=== PATIENT | female | born 1970 | race Caucasian/White ===

== ENCOUNTER → 2018-06-07 07:43 | Outpatient (CLI) | payer BC, SELFPAY ==
--- NOTE | 2018-06-07 07:46 | BI_ITS ---
MAMMOGRAPHY - BILATERAL SCREENING REASON FOR EXAM: Female, 47 years old. Routine annual screening examination. PERTINENT HISTORY: Non-contributory. Prior left stereotactic breast biopsy. TECHNIQUE: Digital bilateral breast hallie (3D mammographic acquisition) in the CC and MLO projections. 2-D mediolateral oblique (MLO) and craniocaudad (CC) views of both breasts were obtained. CAD: Full Field Digital Mammography with Computer Added Detection was performed. COMPARISON: Comparison is made with prior study dated May 12, 2017 and May 07, 2016. FINDINGS: Breast Composition: The breasts are heterogeneously dense, which may obscure small masses. There are no dominant masses or suspicious calcifications. A tissue clip marker is seen within the small nodule in the upper lateral portion of the left breast. This is unchanged. A portacatheter is seen in the left axillary region. No other significant abnormalities are identified. There has been no significant change since the prior study. BI/SCREENING MAMM (CAD), BILAT IMPRESSION: Stable bilateral screening mammogram. Yearly follow-up mammogram recommended. (A) ASSESSMENT CATEGORY: BIRADS Category 2: Benign. A letter regarding these results will be sent to the patient by the facility within 30 days. Approximately 10% of breast cancers are not detected by mammography. A normal mammogram should not delay biopsy of a clinically suspicious abnormality. [id number] Electronically Signed: Jeff Meza MD at 11:04 EST , Service support ,
== END ==
PROVIDERS: Family Provider Nurse Practitioner; PCP Nurse Practitioner; Referring Provider Advanced Practice Midwife; Visit Provider Advanced Practice Midwife
DX: Z12.31 Encounter for screening mammogram for malignant neoplasm of breast (principal)
CPT/HCPCS: 77063; 77067

== ENCOUNTER → 2019-07-24 10:41 | Outpatient (CLI) | payer BC, SELFPAY ==
[2019-06-29 14:14] VITALS: BMI 25.9
[2019-07-24 13:28] LABS: Vitamin D,25 Hydroxy 28.7 ng/mL
[2019-07-24 13:40] LABS: Vitamin B12 > 2000 pg/mL (211-911)
[2019-07-24 14:09] LABS: ALB/GLOB Ratio 1.2 RATIO (0.9-2.4); AST(SGOT) 24 U/L (15-37); Alanine Aminotransfer ALT/SGPT 29 U/L (13-56); Albumin, Serum 3.9 g/dL (3.2-5.0); Alkaline Phosphatase 88 U/L (45-117); Anion Gap 4 (5-15); BUN 19 mg/dL (7-18); BUN/Creat Ratio 27.3 RATIO (10-20); Calcium,Total 9.2 mg/dL (8.5-10.1); Chloride 104 mmol/L (98-107); EST Glomerular Filtration Rate 95 mL/min (>60); Est Glom Filt Rate - Afr Amer 115 mL/min (>60); Globulin 3.3 g/dL (2.2-4.2); Glucose 87 mg/dL (74-106); Potassium 3.9 mmol/L (3.5-5.1); Protein, Total 7.2 g/dL (6.4-8.2); Sodium Level 139 mmol/L (136-145); T4 Free Direct 0.98 ng/dL (0.76-1.46); Thyroid Stim Hormone (TSH) 2.68 uIU/mL (0.358-3.74)
== END ==
PROVIDERS: PCP Internal Medicine; Referring Provider Internal Medicine; Visit Provider Internal Medicine
DX: Z13.29 Encounter for screening for other suspected endocrine disorder (principal); K91.2 Postsurgical malabsorption, not elsewhere classified; R53.82 Chronic fatigue, unspecified
CPT/HCPCS: 36415; 80053; 82306; 82607; 84439; 84443

== ENCOUNTER → 2020-05-31 08:27 | Outpatient (CLI) | payer BC, SELFPAY ==
[2020-05-31 08:05] VITALS: BMI 25.7
[2020-05-31 12:07] LABS: Absolute Lymphocyte Count 0.98 X10^3/uL (0.83-4.51); Absolute Neutrophil Count 1.6 X10^3/uL (2.0-7.7); Basophil# 0.02 X10^3/uL; Basophil% 0.7 % (0-1); Eosinophil# 0.16 X10^3/uL; Eosinophils% 5.4 % (0-5); Hematocrit 34.7 % (37-47); Hemoglobin 10.9 g/dL (12.0-15.0); Lymphocyte # 0.98 X10^3/ul (4.0); Lymphocyte % 32.9 % (19-41); Mean Corp Hgb Conc 31.4 g/dL (32-36); Mean Corpuscular Hgb 26.3 pg (27.0-32.0); Mean Corpuscular Volume 83.6 fL (81-99); Mean Platelet Vol. 10.4 fl (6.2-12.0); Monocyte# 0.24 X10^3/uL; Monocyte% 8.1 % (0-10); NRBC Flagged by Analyzer 0 % (0-5); Neutrophil # 1.57 X10^3/uL (2.7-7.7); Neutrophil % 52.6 % (47-70); Platelet Count 214 K/mm3 (150-450); RBC Distribution Width CV 12.6 % (11.6-14.6); RBC Distribution Width SD 38.3 fl (35.1-43.9); Red Blood Count 4.15 M/mm3 (4.2-5.4)
[2020-05-31 12:42] LABS: Vitamin B12 445 pg/mL (211-911); Vitamin D,25 Hydroxy 26.5 ng/mL
[2020-05-31 12:48] LABS: AST(SGOT) 15 U/L (15-37); Alanine Aminotransfer ALT/SGPT 27 U/L (13-56); Albumin, Serum 3.8 g/dL (3.2-5.0); Alkaline Phosphatase 94 U/L (45-117); Anion Gap 5 (5-15); BUN 27 mg/dL (7-18); BUN/Creat Ratio 39.6 RATIO (10-20); Calcium,Total 9.4 mg/dL (8.5-10.1); Chloride 104 mmol/L (98-107); Creatinine, Serum 0.68 mg/dL (0.55-1.02); EST Glomerular Filtration Rate 97 mL/min (>60); Est Glom Filt Rate - Afr Amer 117 mL/min (>60); Globulin 3.7 g/dL (2.2-4.2); Glucose 81 mg/dL (74-106); Potassium 3.7 mmol/L (3.5-5.1); Protein, Total 7.5 g/dL (6.4-8.2); Sodium Level 139 mmol/L (136-145); T4 Free Direct 1.07 ng/dL (0.76-1.46); Thyroid Stim Hormone (TSH) 1.83 uIU/mL (0.358-3.74)
== END ==
PROVIDERS: PCP Internal Medicine; Referring Provider Internal Medicine; Visit Provider Internal Medicine
DX: E53.8 Deficiency of other specified B group vitamins (principal); F41.9 Anxiety disorder, unspecified; F32.9 Major depressive disorder, single episode, unspecified
CPT/HCPCS: 36415; 80053; 82306; 82607; 84439; 84443; 85025

== ENCOUNTER → 2020-08-02 06:57 | Outpatient (CLI) | payer BC, SELFPAY ==
[2020-06-28 08:47] VITALS: BMI 27.1
--- NOTE | 2020-08-02 06:59 | BI_ITS ---
MAMMOGRAPHY - BILATERAL SCREENING REASON FOR EXAM: Female, 49 years old. Routine annual screening examination. PERTINENT HISTORY: Non-contributory. Left stereotactic breast biopsy. TECHNIQUE: Digital bilateral breast shawna (3D mammographic acquisition) in the CC and MLO projections. 2-D mediolateral oblique (MLO) and craniocaudad (CC) views of both breasts were obtained. CAD: Full Field Digital Mammography with Computer Added Detection was performed. COMPARISON: Comparison is made with prior examination dated 06/07/2018 and 05/12/2017. FINDINGS: Breast Composition: The breasts are heterogeneously dense, which may obscure small masses. There are no dominant masses or suspicious calcifications. A tissue clip marker is seen within a 7 mm nodule in the upper lateral portion of the left breast. This is unchanged. No other significant abnormalities are identified. There has been no significant change since the prior study. BI/SCRN MAMM (CAD)W/SHAWNA BILAT IMPRESSION: Stable bilateral screening mammogram. Yearly follow-up mammogram recommended. (A) ASSESSMENT CATEGORY: BIRADS Category 2: Benign. A letter regarding these results will be sent to the patient by the facility within 30 days. Approximately 10% of breast cancers are not detected by mammography. A normal mammogram should not delay biopsy of a clinically suspicious abnormality. [id number] Electronically Signed: Jeff Meza MD at 8:12 EDT , Service support ,
== END ==
PROVIDERS: PCP Internal Medicine; Referring Provider Obstetrics & Gynecology; Visit Provider Obstetrics & Gynecology
DX: Z12.31 Encounter for screening mammogram for malignant neoplasm of breast (principal)
CPT/HCPCS: 77063; 77067

== ENCOUNTER 2021-08-06 07:02 | Outpatient (CLI) | payer BC, SELFPAY ==
--- NOTE | 2021-08-06 07:05 | BI_ITS ---
MAMMOGRAPHY - BILATERAL SCREENING REASON FOR EXAM: Female, 50 years old. Routine annual screening examination. PERTINENT HISTORY: Non-contributory. Prior left stereotactic breast biopsy. TECHNIQUE: Digital bilateral breast shawna (3D mammographic acquisition) in the CC and MLO projections. 2-D mediolateral oblique (MLO) and craniocaudad (CC) views of both breasts were obtained. CAD: Full Field Digital Mammography with Computer Added Detection was performed. COMPARISON: Comparison is made with prior study dated 08/02/2020 and 06/07/2018. FINDINGS: Breast Composition: The breasts are heterogeneously dense, which may obscure small masses. There is a 1.1 cm x 1 cm nodule in the deep slightly upper lateral aspect of the right breast. Correlation with ultrasound is recommended. A tissue clip marker is seen within a 7 mm nodule in the upper lateral portion of the left breast. No other significant abnormalities are identified. BI/SCRN MAMM (CAD)W/SHAWNA BILAT IMPRESSION: 1.1 cm x 1 cm nodule in the deep slightly upper lateral aspect of the right breast. Correlation with ultrasound is recommended. ASSESSMENT CATEGORY: BIRADS Category 0: Incomplete. Need additional imaging evaluation. A letter regarding these results will be sent to the patient by the facility within 30 days. Approximately 10% of breast cancers are not detected by mammography. A normal mammogram should not delay biopsy of a clinically suspicious abnormality. [id number] Electronically Signed: Jeff Meza MD at 8:32 EDT ,
[2021-08-06 09:00] LABS: Absolute Lymphocyte Count 0.97 X10^3/uL (0.83-4.51); Absolute Neutrophil Count 2.2 X10^3/uL (2.0-7.7); Basophil# 0.02 X10^3/uL; Basophil% 0.5 % (0-1); Eosinophil# 0.14 X10^3/uL; Eosinophils% 3.8 % (0-5); Hematocrit 37.7 % (37-47); Hemoglobin 12.8 g/dL (12.0-15.0); Lymphocyte # 0.97 X10^3/ul (0.83-4.51); Lymphocyte % 26.6 % (19-41); Mean Corpuscular Hgb 31.1 pg (27.0-32.0); Mean Corpuscular Volume 91.7 fL (81-99); Mean Platelet Vol. 10.3 fl (6.2-12.0); Monocyte# 0.31 X10^3/uL; Monocyte% 8.5 % (0-10); NRBC Flagged by Analyzer 0 % (0-5); Neutrophil # 2.19 X10^3/uL (2.7-7.7); Neutrophil % 60.1 % (47-70); Platelet Count 180 K/mm3 (150-450); RBC Distribution Width CV 12.1 % (11.6-14.6); RBC Distribution Width SD 40.4 fl (35.1-43.9); Red Blood Count 4.11 M/mm3 (4.2-5.4); White Blood Count 3.7 K/mm3 (4.4-11.0)
[2021-08-06 09:24] LABS: ALB/GLOB Ratio 1.2 RATIO (0.9-2.4); AST(SGOT) 23 U/L (15-37); Alanine Aminotransfer ALT/SGPT 45 U/L (13-56); Albumin, Serum 3.9 g/dL (3.2-5.0); Alkaline Phosphatase 114 U/L (45-117); Anion Gap 3 (5-15); BUN 20 mg/dL (7-18); BUN/Creat Ratio 28.9 RATIO (10-20); Calcium,Total 8.8 mg/dL (8.5-10.1); Chloride 105 mmol/L (98-107); Cholesterol 160 mg/dL (200); Creatinine, Serum 0.69 mg/dL (0.55-1.02); EST Glomerular Filtration Rate 95 mL/min (>60); Est Glom Filt Rate - Afr Amer 115 mL/min (>60); Globulin 3.2 g/dL (2.2-4.2); Glucose 87 mg/dL (74-106); High Density Lipoprotein 79 mg/dL; Potassium 3.8 mmol/L (3.5-5.1); Protein, Total 7.1 g/dL (6.4-8.2); Sodium Level 140 mmol/L (136-145); Triglycerides 87 mg/dL; Very Low Density Lipoprotein 17 mg/dL (5-40)
== END 2021-08-06 23:59 | disposition home or self-care (01) ==
PROVIDERS: PCP Internal Medicine; Referring Provider Obstetrics & Gynecology; Visit Provider Obstetrics & Gynecology
DX: Z12.31 Encounter for screening mammogram for malignant neoplasm of breast (principal)
CPT/HCPCS: 36415; 77063; 77067; 80053; 80061; 85025

== ENCOUNTER 2021-08-11 13:24 | Outpatient (CLI) | payer BC, SELFPAY ==
--- NOTE | 2021-08-11 13:26 | US_ITS ---
STUDY: ULTRASOUND BREAST - RIGHT REASON FOR EXAM: Female, 50 years old. Abnormal screening mammogram. TECHNIQUE: Axial and longitudinal images of the RIGHT breast were performed with a high resolution ultrasound transducer. # OF IMAGES: 31 COMPARISON: Comparison is made with prior mammogram dated 08/06/2021. FINDINGS: RIGHT Breast: The upper outer quadrant of the right breast was examined by ultrasound. No sonographic abnormality is seen. Additional mammographic views will be obtained. US/Breast Limited Unilateral IMPRESSION: Unremarkable ultrasound of the right upper quadrant. Additional mammographic views will be obtained. ASSESSMENT CATEGORY: BIRADS Category 0: Incomplete. Need additional imaging evaluation. A letter regarding these results will be sent to the patient by the facility within 30 days. Electronically Signed: Jeff Meza MD at 14:32 EDT ,
--- NOTE | 2021-08-11 13:56 | BI_ITS ---
MAMMOGRAPHY - UNILATERAL DIAGNOSTIC: RIGHT BREAST REASON FOR EXAM: Female, 50 years old. Abnormal screening mammogram. PERTINENT HISTORY: Non-contributory. TECHNIQUE: 90 degree lateral view of the right breast was obtained. CAD: Full Field Digital Mammography with Computer Added Detection was performed. COMPARISON: Comparison is made with prior mammogram dated 08/06/2021. FINDINGS: Breast Composition: The breasts are heterogeneously dense, which may obscure small masses. There are no dominant masses or suspicious calcifications. No other significant abnormalities are identified. BI/DIAG MAMM W/CAD, UNILAT IMPRESSION: Stable unilateral diagnostic mammogram. One year follow-up mammogram recommended. (A) ASSESSMENT CATEGORY: BIRADS Category 1: Negative. A letter regarding these results will be sent to the patient by the facility within 30 days. Approximately 10% of breast cancers are not detected by mammography. A normal mammogram should not delay biopsy of a clinically suspicious abnormality. Electronically Signed: Jeff Meza MD at 14:31 EDT ,
== END 2021-08-11 23:59 | disposition home or self-care (01) ==
LOC: OPUS 13:25
PROVIDERS: PCP Internal Medicine; Visit Provider Obstetrics & Gynecology
DX: R92.2 Inconclusive mammogram (principal); R92.8 Other abnormal and inconclusive findings on diagnostic imaging of breast
CPT/HCPCS: 76642; 77065

== ENCOUNTER → 2022-06-10 | Outpatient (CLI) | payer BC, SELFPAY ==
[2022-06-10 12:29] LABS: Absolute Lymphocyte Count 1.33 X10^3/uL (0.83-4.51); Absolute Neutrophil Count 2.9 X10^3/uL (2.0-7.7); Basophil# 0.04 X10^3/uL; Basophil% 0.8 % (0-1); Eosinophil# 0.14 X10^3/uL; Eosinophils% 2.8 % (0-5); Hematocrit 36.2 % (37-47); Hemoglobin 11.4 g/dL (12.0-15.0); Lymphocyte # 1.33 X10^3/ul (0.83-4.51); Lymphocyte % 26.7 % (19-41); Mean Corp Hgb Conc 31.5 g/dL (32-36); Mean Corpuscular Hgb 28.2 pg (27.0-32.0); Mean Corpuscular Volume 89.6 fL (81-99); Mean Platelet Vol. 9.9 fl (6.2-12.0); Monocyte# 0.54 X10^3/uL; Monocyte% 10.8 % (0-10); NRBC Flagged by Analyzer 0 % (0-5); Neutrophil # 2.92 X10^3/uL (2.7-7.7); Neutrophil % 58.7 % (47-70); Platelet Count 212 K/mm3 (150-450); RBC Distribution Width CV 12.4 % (11.6-14.6); Red Blood Count 4.04 M/mm3 (4.2-5.4)
[2022-06-10 13:16] LABS: ALB/GLOB Ratio 1.1 RATIO (0.9-2.4); AST(SGOT) 21 U/L (15-37); Alanine Aminotransfer ALT/SGPT 33 U/L (13-56); Albumin, Serum 3.7 g/dL (3.2-5.0); Alkaline Phosphatase 115 U/L (45-117); Anion Gap 4 (5-15); BUN 27 mg/dL (7-18); BUN/Creat Ratio 31.3 RATIO (10-20); Calcium,Total 8.8 mg/dL (8.5-10.1); Chloride 108 mmol/L (98-107); Creatinine, Serum 0.86 mg/dL (0.55-1.02); EST Glomerular Filtration Rate 73 mL/min (>60); Est Glom Filt Rate - Afr Amer 89 mL/min (>60); Globulin 3.5 g/dL (2.2-4.2); Glucose 72 mg/dL (74-106); Protein, Total 7.2 g/dL (6.4-8.2); Sodium Level 143 mmol/L (136-145); T4 Free Direct 0.99 ng/dL (0.76-1.46); Thyroid Stim Hormone (TSH) 1.82 uIU/mL (0.358-3.74)
== END | disposition home or self-care (01) ==
LOC: LAB 12:17
PROVIDERS: PCP Internal Medicine; Referring Provider Internal Medicine; Visit Provider Internal Medicine
DX: F41.9 Anxiety disorder, unspecified (principal); F32.9 Major depressive disorder, single episode, unspecified
CPT/HCPCS: 36415; 80053; 84439; 84443; 85025

== ENCOUNTER → 2022-08-20 | Outpatient (CLI) | payer BC, SELFPAY ==
--- NOTE | 2022-08-20 07:59 | BI_ITS ---
MAMMOGRAPHY - BILATERAL SCREENING REASON FOR EXAM: Female, 51 years old. Routine annual screening examination. PERTINENT HISTORY: Non-contributory. TECHNIQUE: Digital bilateral breast shawna (3D mammographic acquisition) in the CC and MLO projections. 2-D mediolateral oblique (MLO) and craniocaudad (CC) views of both breasts were obtained. CAD: Full Field Digital Mammography with Computer Added Detection was performed. COMPARISON: Comparison is made with prior study dated August 06, 2021 FINDINGS: Breast Composition: The breasts are heterogeneously dense, which may obscure small masses. There are no dominant masses or suspicious calcifications. A tissue clip marker is once again seen in the upper lateral aspect of the left breast. No other significant abnormalities are identified. There has been no significant change since the prior study. BI/SCRN MAMM (CAD)W/SHAWNA BILAT IMPRESSION: Stable bilateral screening mammogram. Yearly follow-up mammogram recommended. (A) ASSESSMENT CATEGORY: BIRADS Category 2: Benign. A letter regarding these results will be sent to the patient by the facility within 30 days. Approximately 10% of breast cancers are not detected by mammography. A normal mammogram should not delay biopsy of a clinically suspicious abnormality. [id number] Electronically Signed: Jeff Meza MD at 10:58 EDT ,
== END | disposition home or self-care (01) ==
LOC: OPBI 07:57
PROVIDERS: PCP Internal Medicine; Referring Provider Obstetrics & Gynecology; Visit Provider Obstetrics & Gynecology
DX: Z12.31 Encounter for screening mammogram for malignant neoplasm of breast (principal)
CPT/HCPCS: 77063; 77067

== ENCOUNTER → 2023-10-12 | Outpatient (CLI) | payer BC, SELFPAY ==
--- NOTE | 2023-10-12 07:03 | BI_ITS ---
MAMMOGRAPHY - BILATERAL SCREENING REASON FOR EXAM: Female, 52 years old. Routine annual screening examination. PERTINENT HISTORY: Non-contributory. Prior left stereotactic breast biopsy. TECHNIQUE: Digital bilateral breast shawna (3D mammographic acquisition) in the CC and MLO projections. 2-D mediolateral oblique (MLO) and craniocaudad (CC) views of both breasts were obtained. CAD: Full Field Digital Mammography with Computer Added Detection was performed. COMPARISON: Comparison is made with prior study dated August 20, 2022 and August 11, 2021. FINDINGS: Breast Composition: The breasts are heterogeneously dense, which may obscure small masses. There are no dominant masses or suspicious calcifications. A tissue clip marker is seen in the upper lateral aspect of the left breast within a 7.2 mm nodule. There is a 5.9 mm x 7.4 mm well-defined nodule in the anterior upper lateral aspect of the right breast. Correlation with ultrasound is recommended.. No other significant abnormalities are identified. BI/SCRN MAMM (CAD)W/SHAWNA BILAT IMPRESSION: 5.9 mm x 7.4 mm well-defined nodule in the anterior upper lateral aspect of the right breast. Correlation with ultrasound is recommended. ASSESSMENT CATEGORY: BIRADS Category 0: Incomplete. Need additional imaging evaluation. A letter regarding these results will be sent to the patient by the facility within 30 days. Approximately 10% of breast cancers are not detected by mammography. A normal mammogram should not delay biopsy of a clinically suspicious abnormality. [id number] Electronically Signed: Jeff Meza MD at 8:41 EDT ,
== END | disposition home or self-care (01) ==
LOC: OPBI 07:03
PROVIDERS: PCP Internal Medicine; Referring Provider Internal Medicine; Visit Provider Internal Medicine
DX: Z12.31 Encounter for screening mammogram for malignant neoplasm of breast (principal)
CPT/HCPCS: 77063; 77067

== ENCOUNTER → 2023-10-13 | Outpatient (CLI) | payer BC, SELFPAY ==
--- NOTE | 2023-10-13 08:21 | US_ITS ---
STUDY: ULTRASOUND BREAST - RIGHT REASON FOR EXAM: Female, 52 years old. Abnormal screening mammogram. TECHNIQUE: Axial and longitudinal images of the RIGHT breast were performed with a high resolution ultrasound transducer. # OF IMAGES: 28 COMPARISON: Comparison is made with prior mammogram dated October 12, 2023. FINDINGS: RIGHT Breast: The upper-outer quadrant of the right breast was examined with ultrasound. Mild ductal dilatation. No other abnormality is seen. US/Breast Limited Unilateral IMPRESSION: Mild ductal dilatation. ASSESSMENT CATEGORY: BIRADS Category 2: Benign. A letter regarding these results will be sent to the patient by the facility within 30 days. Electronically Signed: Jeff Meza MD at 11:32 EDT ,
== END | disposition home or self-care (01) ==
LOC: OPUS 08:18
PROVIDERS: PCP Internal Medicine; Referring Provider Internal Medicine; Visit Provider Internal Medicine
DX: N63.10 Unspecified lump in the right breast, unspecified quadrant (principal)
CPT/HCPCS: 76642

== ENCOUNTER → 2024-07-21 | Outpatient (CLI) | payer BC, SELFPAY ==
[2024-07-21 12:54] LABS: Absolute Lymphocyte Count 0.84 X10^3/uL (0.83-4.51); Absolute Neutrophil Count 1.8 X10^3/uL (2.0-7.7); Basophil# 0.03 X10^3/uL; Eosinophil# 0.14 X10^3/uL; Eosinophils% 4.6 % (0-5); Hematocrit 31.2 % (37-47); Hemoglobin 9.6 g/dL (12.0-15.0); Lymphocyte # 0.84 X10^3/ul (0.83-4.51); Lymphocyte % 27.7 % (19-41); Mean Corp Hgb Conc 30.8 g/dL (32-36); Mean Corpuscular Hgb 23.6 pg (27.0-32.0); Mean Corpuscular Volume 76.8 fL (81-99); Mean Platelet Vol. 10.5 fl (6.2-12.0); Monocyte# 0.24 X10^3/uL; Monocyte% 7.9 % (0-10); NRBC Flagged by Analyzer 0 % (0-5); Neutrophil # 1.78 X10^3/uL (2.7-7.7); Neutrophil % 58.8 % (47-70); Platelet Count 237 K/mm3 (150-450); RBC Distribution Width CV 13.9 % (11.6-14.6); RBC Distribution Width SD 38.8 fl (35.1-43.9); Red Blood Count 4.06 M/mm3 (4.2-5.4)
[2024-07-21 13:27] LABS: ALB/GLOB Ratio 1.5 RATIO (0.9-2.4); AST(SGOT) 23 U/L (<=31); Alanine Aminotransfer ALT/SGPT 15 U/L (<=34); Albumin, Serum 4.3 g/dL (3.5-5.0); Alkaline Phosphatase 94 U/L (35-104); Anion Gap 10 (5-15); BUN 18 mg/dL (4-19); BUN/Creat Ratio 21.1 RATIO (10-20); Calcium,Total 9.6 mg/dL (7.6-11.0); Carbon Dioxide 27.1 mmol/L (21.0-32.0); Chloride 103 mmol/L (98-108); Creatinine, Serum 0.87 mg/dL (0.70-1.20); EST Glomerular Filtration Rate 79 (>60); Globulin 2.9 g/dL (2.2-4.2); Glucose 91 mg/dL (70-99); Potassium 3.9 mmol/L (3.3-5.1); Protein, Total 7.2 g/dL (5.9-8.4); Sodium Level 140 mmol/L (133-145)
[2024-07-21 16:02] LABS: Ferritin 6 ng/mL (22-378); Iron 19 ug/dL (50-170); Iron Binding Capacity,Unsat 461 ug/dL (228-428)
[2024-07-21 16:12] LABS: Cholesterol 170 mg/dL (<=200); High Density Lipoprotein 73 mg/dL; Low Density Lipoprotein Calc. 82 mg/dL; Triglycerides 75 mg/dL; Very Low Density Lipoprotein 15 mg/dL (5-40); cholesterol:hdl ratio screen 2.32
[2024-07-21 16:34] LABS: Vitamin B12 475 pg/mL (180-914); Vitamin D,25 Hydroxy 25.8 ng/mL (30-100)
[2024-07-21 16:53] LABS: Iron Binding Capacity,Total 480 ug/dL (250-450)
== END | disposition home or self-care (01) ==
LOC: BIMLAB 10:50
PROVIDERS: PCP Internal Medicine; Referring Provider Internal Medicine; Visit Provider Internal Medicine
DX: E53.8 Deficiency of other specified B group vitamins (principal); K91.2 Postsurgical malabsorption, not elsewhere classified; Z98.84 Bariatric surgery status; D64.9 Anemia, unspecified; Z13.6 Encounter for screening for cardiovascular disorders; F41.9 Anxiety disorder, unspecified; F32.9 Major depressive disorder, single episode, unspecified
CPT/HCPCS: 36415; 80053; 80061; 82306; 82607; 82728; 83540; 83550; 85025

== ENCOUNTER → 2024-10-13 | Outpatient (CLI) | payer BC, SELFPAY ==
[2024-10-13 15:21] LABS: Absolute Lymphocyte Count 1.23 X10^3/uL (0.83-4.51); Absolute Neutrophil Count 2.1 X10^3/uL (2.0-7.7); Basophil# 0.03 X10^3/uL; Basophil% 0.8 % (0-1); Eosinophil# 0.14 X10^3/uL; Eosinophils% 3.6 % (0-5); Hematocrit 29.6 % (37-47); Hemoglobin 8.5 g/dL (12.0-15.0); Lymphocyte # 1.23 X10^3/ul (0.83-4.51); Mean Corp Hgb Conc 28.7 g/dL (32-36); Mean Corpuscular Hgb 21.3 pg (27.0-32.0); Mean Platelet Vol. 10.8 fl (6.2-12.0); Monocyte# 0.33 X10^3/uL; Monocyte% 8.6 % (0-10); NRBC Flagged by Analyzer 0 % (0-5); Neutrophil # 2.11 X10^3/uL (2.7-7.7); Platelet Count 256 K/mm3 (150-450); RBC Distribution Width CV 15.9 % (11.6-14.6); White Blood Count 3.8 K/mm3 (4.4-11.0)
[2024-10-13 16:46] LABS: Ferritin 7 ng/mL (22-378); Iron 17 ug/dL (50-170); Iron Binding Capacity,Unsat 481 ug/dL (228-428)
[2024-10-13 16:50] LABS: Iron Binding Capacity,Total 498 ug/dL (250-450); PERCENT IRON SATURATION 3.4 % (13-59)
== END | disposition home or self-care (01) ==
LOC: BIMLAB 13:34
PROVIDERS: PCP Internal Medicine; Referring Provider Internal Medicine; Visit Provider Internal Medicine
DX: D64.9 Anemia, unspecified (principal)
CPT/HCPCS: 36415; 82728; 83540; 83550; 85025

== ENCOUNTER 2024-10-20 10:19 | Outpatient (CLI) | payer BC, SELFPAY ==
[2024-10-20 10:28] VITALS: BP 100/57; PULSE 77; RESP 16; TEMP 36.4; O2SAT 99; BMI 23.1
[2024-10-20] MEDS: Iron Sucrose Complex 200 MG in 0.9% Normal Saline (100mL Bag) 100 ML 220 MG IV (10:44)
[2024-10-20] MEDS: 0.9% NaCl IVPB Med Flush (250 mL) 15 ML IV (10:44)
[2024-10-20 11:22] VITALS: BP 108/63; PULSE 56; RESP 16; TEMP 36.1; O2SAT 99
[2024-10-20 11:56] VITALS: BP 98/52; PULSE 59; RESP 16; TEMP 36.1; O2SAT 100
== END 2024-10-20 23:59 | disposition home or self-care (01) ==
LOC: MEDOUTP 10:20
PROVIDERS: PCP Internal Medicine; Referring Provider Internal Medicine; Visit Provider Internal Medicine
DX: D50.9 Iron deficiency anemia, unspecified (principal); K91.2 Postsurgical malabsorption, not elsewhere classified
CPT/HCPCS: 96365; J1756; A4216

== ENCOUNTER 2024-10-23 11:48 | Outpatient (CLI) | payer BC, SELFPAY ==
[2024-10-23] MEDS: Iron Sucrose Complex (Venofer) 200 MG in 0.9% NaCl 100 ML 220 MG IV (12:15)
[2024-10-23] MEDS: 0.9% NaCl IVPB Med Flush (100mL) 15 ML IV (12:15)
[2024-10-23] MEDS: 0.9% NaCl Peripheral Flush Adult IV (12:15)
[2024-10-23 12:17] VITALS: BP 97/40; PULSE 63; RESP 16; TEMP 35.9; O2SAT 96; BMI 23.1
[2024-10-23 13:14] VITALS: BP 95/41; PULSE 55; RESP 16; TEMP 35.8; O2SAT 97
== END 2024-10-23 23:59 | disposition home or self-care (01) ==
LOC: MEDOUTP 11:48
PROVIDERS: PCP Internal Medicine; Referring Provider Internal Medicine; Visit Provider Internal Medicine
DX: D50.9 Iron deficiency anemia, unspecified (principal); K91.2 Postsurgical malabsorption, not elsewhere classified
CPT/HCPCS: 96365; J1756; A4216

== ENCOUNTER 2024-10-25 11:59 | Outpatient (CLI) | payer BC, SELFPAY ==
[2024-10-25 12:05] VITALS: BP 98/46; PULSE 66; RESP 16; TEMP 35.6; O2SAT 100; BMI 23.1
[2024-10-25] MEDS: 0.9% NaCl Peripheral Flush Adult IV (12:11)
[2024-10-25] MEDS: 0.9% NaCl IVPB Med Flush (100mL) 15 ML IV (12:11)
[2024-10-25] MEDS: Iron Sucrose Complex 200 MG in 0.9% Normal Saline (100mL Bag) 100 ML 220 MG IV (12:58)
[2024-10-25 14:52] VITALS: BP 90/40; PULSE 51; RESP 16; TEMP 35.9; O2SAT 100
--- OUTSIDE RECORDS SUMMARY | 2024-10-25 21:53 | XMS RPT_ITS | CCD ---
Author Organization [facility] [place] [facility] Care Team Providers Care Brick Kiln Worker Name Role Phone LEONIDAS DEAN Unavailable Unavailable LEONIDAS DEAN Unavailable Unavailable MALRALEIGH ANNABELLA A Unavailable Unavailable LEONIDAS DEAN Unavailable Unavailable LEONIDAS DEAN Unavailable Unavailable MALYS, ANNABELLA A Unavailable Unavailable Ciesa Marleen Unavailable Edith Peñaloza Unavailable Unavailable Jannette Bolivar Unavailable Unavailable Unavailable Unavailable Marrya Marleen Unavailable Olivia Bower Unavailable Unavailable Unavailable Unavailable Radha Collins Unavailable Unavailable Yamel Castaneda Attending Unavailable Marrya Yamel Referring Unavailable Marrya Yamel Consulting Unavailable Yuri Lawson Unavailable Unavailable Maxine José Unavailable Unavailable Manjuancarlos, Lashaun Unavailable Unavailable Leatha Fuentes MD Primary Care Provider 1(3 30) Dr. Leatha Fuentes Primary Care Provider 1(33 0) Dr. Leatha Fuentes Attending Provider [phone])2 Dr. Leatha Fuentes Referring Provider [phone])2 Otf STAPLES, ANGELICA Harris Attending Provider [phone] Leatha Fuentes MD Primary Care Provider 1(3 30) Dr. Leatha Fuentes Primary Care Provider 1(33 0) Dr. Leatha Fuentes Attending Provider [phone])2 Dr. Leatha Fuentes Referring Provider [phone])2 Leatha Fuentes MD Primary Care Provider 1(3 30) Oleghe, Dr. Efewongbe Primary Care Provider 1(33 0) Dr. Leatha Fuentes Attending Provider [phone])2 Dr. Leatha Fuentes Referring Provider [phone])2 Otf OVERNIGHT CASHIER, ITZC Steven Attending Provider 1(330) Leatha Fuentes MD Primary Care Provider 1(3 30) Ross, Jess Referring Unavailable OLEGHE, EFEWONGBE B Primary Care Unavailable Ross, Jess Referring Unavailable OLEGHE, EFEWONGBE B Primary Care Unavailable Ross, Jess Referring Unavailable OLEGHE, EFEWONGBE B Primary Care Unavailable OLEGHE, EFEWONGBE B Primary Care Unavailable Ross, Jess Referring Unavailable Ross, Jess Referring Unavailable Ross, Jess Attending Unavailable OLEGHE, EFEWONGBE B Primary Care Unavailable Ross, Jess Referring Unavailable OLEGHE, EFEWONGBE B Primary Care Unavailable Lakishae Dr. Leatha WEINER Primary Care Provider Dr. Leatha Fuentes MD Attending Provider 1(33 0) Dr. Leatha Fuentes MD Referring Provider 1(33 0) Oleadenikee, Efewongbe Attending Unavailable Oleghe, Efewongbe Primary Care Unavailable Oleghe, Efewongbe Referring Unavailable Oleghe, Efewongbe Referring Unavailable Oleghe, Efewongbe Primary Care Unavailable Oleghe, Efewongbe Attending Unavailable Oleghe, Efewongbe Referring Unavailable Oleghe, Efewongbe Primary Care Unavailable Oleghe, Efewongbe Attending Unavailable Oleghe, Efewongbe Referring Unavailable Oleghe, Efewongbe Primary Care Unavailable Oleghe, Efewongbe Attending Unavailable Oleghe, Efewongbe Referring Unavailable Oleghe, Efewongbe Primary Care Unavailable Oleghe, Efewongbe Attending Unavailable Oleghe, Efewongbe Referring Unavailable Oleghe, Efewongbe Primary Care Unavailable Oleghe, Efewongbe Attending Unavailable Oleghe, Efewongbe Primary Care Unavailable Oleghe, Efewongbe Referring Unavailable Oleghe, Efewongbe Attending Unavailable Oleghe, Efewongbe Primary Care Unavailable Oleghe, Efewongbe Referring Unavailable Oleghe, Efewongbe Attending Unavailable Oleghe, Efewongbe Attending Unavailable Oleghe, Efewongbe Primary Care Unavailable Oleghe, Efewongbe Referring Unavailable Oleghe, Efewongbe Primary Care Unavailable Oleghe, Efewongbe Referring Unavailable Oleghe, Efewongbe Attending Unavailable Oleghe, Efewongbe Primary Care Unavailable Oleghe, Efewongbe Referring Unavailable Oleghe, Efewongbe Attending Unavailable Oleghe, Efewongbe Primary Care Unavailable NURSE, BIM Attending Unavailable Oleghe, Efewongbe Referring Unavailable Oleghe, Efewongbe Referring Unavailable Oleghe, Efewongbe Primary Care Unavailable Oleghe, Efewongbe Attending Unavailable Allergies Allergy Classification Reported Allergen(s) Allergy Type Date of Onset Reaction(s) Facility Nitroimidazoles (antibiotic) (1 source) metroNIDAZOLE Drug Allergy 06-28-19 21 GI Upset [facility] Opioid Agonists (1 source) Codeine Drug Allergy 09-08-19 15 GI Upset, Vomiting [facility] (16 sources) NSAIDs; Translations: [NSAIDs] allergy to substance [facility] Work Phone: Comment on above: had Gastric Bypass (16 sources) Codeine/Codeine Derivatives; Translations: [Codeine/Codeine Derivatives] allergy to substance [facility] Work Phone: Comment on above: [place] (20 sources) Codeine; Translations: [CODEINE] Drug Allergy 09-08-19 15 GI Upset, Vomiting [facility] (20 sources) metroNIDAZOLE; Translations: [METRONIDAZOLE] Drug Allergy 06-28-19 21 GI Upset [facility] (5 sources) Non-steroidal anti-inflammator y agent; Translations: [NSAIDS (NON-STEROIDAL ANTI-INFLAMMATOR Y DRUG)] Propensity to adverse reactions to drug 09-08-19 15 Other: See Comments [facility] (10 sources) NSAIDS (Non-Steroidal Anti-Inflamma; Translations: [NSAIDS (Non-Steroidal Anti-Inflamma] Propensity to adverse reactions 03-26-20 21 Other [facility] (4 sources) EXTENDED RELEASE TABS Propensity to adverse reactions 03-26-20 21 Other [facility] (17 sources) Non-steroidal anti-inflammator y agent Propensity to adverse reactions to drug 09-08-19 15 Other: See Comments [facility] (1 source) Codeine Drug Allergy 10-24-19 [facility] Repository (1 source) metroNIDAZOLE Drug Allergy 10-24-19 [facility] Repository Medications Current Medications Medication Drug Class(es) Dates Sig (Normalized) Sig (Original) ascorbic acid 100 mg oral tablet (20 sources) Vitamin C take 1 tablet by mouth once daily Ascorbic Acid 100 mg tablet Take 100 mg by mouth once daily. Active Comment on above: Take 100 mg by mouth once daily. Calcium Carbonate / vitamin D3 (20 sources) take 1 tablet by mouth once daily CALCIUM CARBONATE/VITAMIN D3 (CALCIUM 600 + D ORAL) Take 1 tablet by mouth once daily. Active take 1 tablet by mouth once garth y CALCIUM CARBONATE/VITAMIN D3 (CALCIUM 600 + D ORAL) Take 1 tablet by mouth once daily. 0 Active Comment on above: Take 1 tablet by sapphire th once daily. cholecalciferol 0.05 mg chewable tablet (13 sources) Vitamin D Start: 06-23-19 End: 10-14-19 take 1 tablet by mouth once daily Cholecalciferol (Vitamin D3) 50 mcg (2,000 unit) tablet,chewable Active 2000 U PO DAILY 90 October 13, 2024 1:19pm cholestyramine resin 4000 mg powder for oral suspension (20 sources) Bile Acid Sequestrant Start: 10-14-19 25 Cholestyramine (With Sugar) 4 gram powder Active 4 g PO DAILY 378 October 13, 2024 1:19pm Start: 01-19-2024 End: 03-19-2024 take 1 dose by mouth twice daily at mealtime cholestyramine (QUESTRAN) 4 gram packet Take 1 Packet by mouth two times a day with meals. 60 Packet 1 01/19/2024 03/19/2024 Active Start: 05-20-2022 End: 10-13-2024 Cholestyramine (With Sugar) 4 gram powder Discontinued 4 g PO DAILY 378 May 20, 2022 7:26pm October 13, 2024 1:01pm Start: 05-20-2022 Cholestyramine (With Sugar) 4 gram powder Active 4 g PO DAILY 378 May 20, 2022 7:26pm Start: 05-20-2022 take 4 g by mouth once daily C holestyramine (With Sugar) Active 4 GM PO DAILY 378 May 20, 2022 7:26pm Start: 05-20-2022 take 4 g by mouth once daily C holestyramine (With Sugar) Active 4 GM PO DAILY 378 May 20, 2022 6:26pm Start: 11-11-2021 End: 05-20-2022 Cholestyramine (With Sugar) 4 gram powder Discontinued 4 NMA PO .po November 11, 2021 12:00am May 20, 2022 7:26pm Cholestyramine, Bulk, powd (18 sources) Start: 10-01-2021 Cholestyramine, Bulk, powd 4 g three times daily. 500 g 1 10/01/2021 Active Comment on above: 4 g three times garth y. clobetasol propionate 0.0005 mg/mg topical ointment (4 sources) Corticosteroid Start: 10-13-2024 Clobetasol 0.05 % ointment Active 1 NMA TOPICAL TWICE A DAY 30 14 October 13, 2024 12:00am ferrous sulfate 325 mg oral tablet (20 sources) Start: 10-13-2024 take 1 tablet by mouth once daily Ferrous Sulfate 325 mg (65 mg iron) tablet Active 325 mg PO daily 90 October 13, 2024 1:20pm Start: 07-09-2014 End: 10-13-2024 take 1 tablet by mouth three times daily Ferrous Sulfate 325 MG tablet Discontinued 325 mg PO THREE TIMES A DAY July 09, 2014 12:00am October 13, 2024 1:01pm take 65 mg by mouth once daily F ERROUS SULFATE ORAL Take 65 mg by mouth once daily. Active take 65 mg by mouth once daily F ERROUS SULFATE ORAL Take 65 mg by mouth once daily. 0 Active Comment on above: Take 65 mg by mouth once daily. heparin (1 source) Unfractionated Heparin, Anti-coagulant Start: 02-27-2019 End: 07-23-2021 heparin 100 unit/mL injection NURSING USE ONLY: USE FOR IMPLANTED VASCULAR ACCESS DEVICE (IVAD) FLUSH. AMBULATORY/OUTPATIENT: PLEASE REORDER UPON HOSPITAL DISCHARGE May access implanted vascular access device (IVAD) as needed for treatment. Before de-accessing port, flush with 10-20ml normal saline and follow with 5 mL heparin (100 units/mL) (if no heparin allergy). De-access port on treatment completion. 5 mL 11 02/27/2019 07/23/2021 Discontinued Comment on above: NURSING USE ONLY: USE FOR IMPLANTED VASCULAR ACCESS DEVICE (IVAD) FLUSH. AMBULATORY/OUTPATIENT: PLEASE REORDER UPON HOSPITAL DISCHARGE May access implanted vascular access device (IVAD) as needed for treatment. Before de-accessing port, flush with 10-20ml normal saline and follow with 5 mL heparin (100 units/mL) (if no heparin allergy). De-access port on treatment completion. holy basil (9 sources) Start: 06-23-2019 holy basil Active PO June 23, 2019 9:34am Start: 06-23-2019 End: 11-04-2022 holy basil Discontinued PO F ebruary 2019 1:00am November 04, 2022 5:10pm Start: 06-23-2019 holy basil Act batool PO June 23, 2019 1:00am Start: 06-23-2019 holy basil Act batool PO June 23, 2019 12:00am L. Gasseri-B. Bifidum-B Long um (Viveve) 1.5 billion cell capsule (9 sources) Start: 06-29-2019 L. Gasseri-B. Bifidum-B Longum (Viveve) 1.5 billion cell capsule Active CAP PO DAILY June 29, 2019 3:19pm Start: 06-29-2019 End: 10-13-2024 take 1.5 capsules by mouth once daily L. Gasseri-B. Bifidum-B Longum (Viveve) 1.5 billion cell capsule Discontinued NMA PO DAILY June 29, 2019 1:00am October 13, 2024 1:01pm Start: 06-29-2019 take 1.5 capsules by mouth once daily L. Gasseri-B. Bifidum-B Longum (Viveve) 1.5 billion cell capsule Active NMA PO DAILY June 29, 2019 1:00am Start: 06-29-2019 L. Gasseri-B. Bifidum-B Longum (Viveve) 1.5 billion cell capsule Active CAP PO DAILY June 29, 2019 1:00am Start: 06-29-2019 L. Gasseri-B. Bifidum-B Longum (Viveve) 1.5 billion cell capsule Active CAP PO DAILY June 29, 2019 12:00am Lactobacillus acidophilus (20 sources) Lactobacillus ac idophilus (PROBIOTIC ORAL) Take by mouth. Active Lactobacillus ac idophilus (PROBIOTIC ORAL) Take by mouth. 0 Active Comment on above: Take by mouth. lidocaine 0.04 mg/mg / menthol 0.01 mg/mg medicated patch (11 sources) Antiarrhythmic, Amide Local Anesthetic Start: 10-26-2023 lidocaine-menthol (LIDALL) 4-1 % ptmd Apply 1 Patch to affected area two times a day. 30 Patch 1 10/26/2023 Active MULTI-VITAMIN ORAL (20 sources) take 1 tablet by mouth once daily MULTI-VITAMIN ORAL Take 1 tablet by mouth once daily. Active take 1 tablet by mouth once garth y MULTI-VITAMIN ORAL Take 1 tablet by mouth once daily. 0 Active Comment on above: Take 1 tablet by sapphire th once daily. Dddhvdkgzxoi-Dw-Dzb n-Minerals (4 sources) Start: 07-09-2014 take 1 tablet by mouth three times daily Gthydzgjbarz-Kb-Cr on-Minerals Active 1 TABLET PO THREE TIMES A DAY July 09, 2014 5:30pm Start: 07-09-2014 take 1 tablet by sapphire th three times daily Nadsplczztnf-Sf-Soda-Minerals Active 1 T ABLET PO THREE TIMES A DAY July 09, 2014 12:00am Start: 07-09-2014 take 1 tablet by sapphire th three times daily Gwpguejilugq-Ij-Qlrp-Minerals Active 1 T ABLET PO THREE TIMES A DAY July 08, 2014 11:00pm ondansetron 4 mg disintegrating oral tablet (3 sources) Serotonin-3 Receptor Antagonist Start: 02-04-2024 End: 02-09-2024 take 1 tablet by mouth every eight hours as needed ondansetron orally disintegrating (ZOFRAN ODT) 4 mg disintegrating tablet Take 1 tablet by mouth every 8 hours as needed for nausea/vomiting for up to 5 days. 10 tablet 02/04/2024 02/09/2024 Active polyethylene glycol 3350 392552 mg / potassium chloride 2970 mg / sodium bicarbonate 6740 mg / sodium chloride 5860 mg / sodium sulfate 95495 mg powder for oral solution (1 source) Osmotic Laxative Start: 02-24-2024 End: 02-24-2024 peg 3350-Electrolytes (GOLYTELY) 236-22.74-6.74 -5.86 gram suspension Take 4,000 mL by mouth one time only for 1 dose. Refer to printed prep instructions from your provider. 4000 mL 02/24/2024 02/24/2024 Active rizatriptan 10 mg oral tablet (7 sources) Serotonin-1b and Serotonin-1d Receptor Agonist Start: 02-07-2024 take 1 tablet by mouth every two hours as needed for headache rizatriptan (MAXALT) 10 mg tablet Indications: Tension headache Take 1 tablet (10 mg) by mouth as needed for migraine headache (see administration instructions). May repeat dose after 2 hours if needed. Maximum daily dose is 30 mg per day. 30 tablet 1 02/07/2024 Active Sodium Chloride (1 source) Start: 02-27-2019 End: 07-23-2021 0.9 % sodium chloride (0.9% NACL) NURSING USE ONLY: USED FOR IMPLANTED VASCULAR ACCESS DEVICE (IVAD) ACCESS. AMBULATORY/OUTPATIE NT: PLEASE REORDER UPON HOSPITAL DISCHARGE May access implanted vascular access device (IVAD) as needed for treatment. Flush IVAD with 10-20 mL NS every 4 weeks and PRN when IVAD not in use. 1 Syringe 100 02/27/2019 07/23/2021 Discontinued Comment on above: NURSING USE ONLY: USED FOR IMPLANTED VASCULAR ACCESS DEVICE (IVAD) ACCESS. AMBULATORY/OUTPATIENT: PLEASE REORDER UPON HOSPITAL DISCHARGE May access implanted vascular access device (IVAD) as needed for treatment. Flush IVAD with 10-20 mL NS every 4 weeks and PRN when IVAD not in use. vitamin M78-yxcqmwk B1 1,000 mcg-100 mg/mL injection solution (4 sources) Start: 06-29-2019 inject 1 mL by intramuscular injection every month vitamin W19-wvsdccn B1 1,000 mcg-100 mg/mL injection solution Active ML IM MONTHLY June 29, 2019 3:19pm Start: 06-29-2019 inject 1 mL by intra muscular injection every month vitamin A47-rrfytxv B1 1,000 mcg-100 mg/mL injection solution Active ML IM MONTHLY June 29, 2019 1:00am Start: 06-29-2019 inject 1 mL by intra muscular injection every month vitamin B85-vkoikdi B1 1,000 mcg-100 mg/mL injection solution Active ML IM MONTHLY June 29, 2019 12:00am Vitamin A75-Skyruvv B1 1,000-100 mg/mL solution (5 sources) Start: 06-29-2019 inject 1 mL by intramuscular injection every month Vitamin B73-Fxusowh B1 1,000-100 mg/mL solution Active mL IM MONTHLY June 29, 2019 1:00am Completed/Discontinued Medications Medication Drug Class(es) Dates Sig (Normalized) Sig (Original) amoxicillin 875 mg / clavulanate 125 mg oral tablet (12 sources) Penicillin-class Antibacterial Start: 09-02-2018 End: 09-16-2018 take 1 tablet by mouth twice daily Augmentin 875-125 MG Oral Tablet 1 (one) Tablet bid for 14 days Quantity: 28 {Tablet} Refills: 0 Ordered: 02-Sep-2018 Leonel MONTEZ MarleenRavinder Castaneda CNP, Yamel Castellon Start : 02-Sep-2018 End : 16-Sep-2018 Inactive ascorbic acid 125 mg / ferrous fumarate 200 mg oral tablet (16 sources) Vitamin C take 1 tablet by mouth twice daily Iron/C 200-125 MG Oral Tablet 1 bid (200-125 MG) Active atropine sulfate 0.025 mg / diphenoxylate hydrochloride 2.5 mg oral tablet (10 sources) Anticholinergic, Cholinergic Muscarinic Antagonist, Antidiarrheal Start: 03-26-2021 End: 06-10-2022 Diphenoxylate-Atro pine (Lomotil) 2.5-0.025 mg tablet Discontinued 1 {tbl} PO DAILY March 26, 2021 1:00am June 10, 2022 3:28pm Start: 02-17-2021 End: 07-23-2021 take 1 tablet by mouth once at bedtime diphenoxylate-atropine (LOMOTIL) 2.5-0.025 mg per tablet Indications: Malignant neoplasm of ascending colon (HCC) , Diarrhea, unspecified type Take 1 tablet by mouth before meals and at bedtime for 30 days. 120 tablet 0 02/17/2021 07/23/2021 Discontinued Comment on above: Take 1 tablet by sapphire th before meals and at bedtime for 30 days. 24 hr buPROPion hydrochloride 300 mg extended release oral tablet (20 sources) Aminoketone Start: 06-10-19 End: 10-14-19 take 1 tablet by mouth once daily in the morning Bupropion Hcl 300 mg tablet extended release 24 hr Discontinued 300 mg PO EVERY MORNING May 22, 2024 12:48pm October 13, 2024 1:00pm Start: 05-20-2022 End: 06-10-2022 take 1 tablet by mouth once daily in the morning Bupropion Hcl (Wellbutrin Xl) 150 mg tablet extended release 24 hr Discontinued 150 mg PO EVERY MORNING May 20, 2022 1:00am June 10, 2022 4:06pm Comment on above: Take 300 mg by mouth once daily. busPIRone hydrochloride 7.5 mg oral tablet (20 sources) Start: 11-04-2022 End: 09-06-2023 take 1 tablet by mouth twice daily Buspirone 7.5 mg tablet Discontinued 7.5 mg PO TWICE A DAY June 07, 2023 1:30pm September 06, 2023 10:27am calcium carbonate 1250 mg chewable tablet (10 sources) Start: 09-11-2014 End: 10-13-2024 take 1 tablet by mouth three times daily Calcium Carbonate 500 MG tablet,chewable Discontinued 500 mg PO THREE TIMES A DAY September 11, 2014 12:00am October 13, 2024 1:01pm take 600 tablets by mouth once daily, then take 600-200 tablets by mouth Caltrate 600 + D 600-200 MG-IU Oral Tabl et 1 bid (600-125 MG-IU) Active calcium chloride 0.0014 meq/ml / potassium chloride 0.004 meq/ml / sodium chloride 0.103 meq/ml / sodium lactate 0.028 meq/ml injectable solution (1 source) Start: 02-29-2024 End: 02-29-2024 take 30 mL intravenously every hour 30 mL/hr, INTRAVENOUS, CONTINUOUS, Starting on Wed02/29/24 at 0700, Until Wed02/29/24 at 0803, Preprocedure Caltrate 600 + D 600-200 MG-IU Oral Tablet (15 sources) Caltrate 600 + D 600-200 MG-IU Oral Tablet 1 bid (600-125 MG-IU) Active CBD (4 sources) CBD Active diphenhydrAMINE (1 source) Histamine-1 Receptor Antagonist Start: 02-29-2024 End: 02-29-2024 12.5-50 mg, INTRAVENOUS, DIRECTED, Starting on Wed02/29/24 at 0800, Until Wed02/29/24 at 1159, DOSING DIRECTED BY PHYSICIAN FOR PROCEDURAL SEDATION ONLY, Intraprocedure escitalopram 20 mg oral tablet (20 sources) Serotonin Reuptake Inhibitor Start: 03-26-2021 End: 07-21-2024 take 1 tablet by mouth once daily Escitalopram Oxalate 20 mg tablet Discontinued 0 .ROUTE .COMPLEX May 22, 2024 12:48pm July 21, 2024 10:48am Take 1 tablet by mouth once daily Start: 06-28-2020 End: 03-26-2021 take 1 tablet by mouth once daily Escitalopram Oxalate 10 mg tablet Discontinued 10 mg PO DAILY June 28, 2020 10:02am March 26, 2021 6:32pm Start: 05-31-2020 End: 06-28-2020 take 1 tablet by mouth once daily Escitalopram Oxalate 5 mg tablet Discontinued 5 mg PO DAILY May 31, 2020 1:00am June 28, 2020 10:03am Comment on above: Take 10 mg by mouth once daily. 1 ml fentaNYL 0.05 mg/ml injection (1 source) Opioid Agonist Start: 02-29-20 End: 02-29-20 25-100 mcg, INTRAVENOUS, DIRECTED, Starting on Wed02/29/24 at 0800, Until Wed02/29/24 at 1159, DOSING DIRECTED BY PHYSICIAN FOR PROCEDURAL SEDATION ONLY, Intraprocedure hydrOXYzine hydrochloride 25 mg oral tablet (19 sources) Antihistamine Start: 10-28-19 End: 11-05-19 take 1 tablet by mouth at bedtime Hydroxyzine Hcl 25 mg tablet Discontinued 25 mg PO AT BEDTIME November 04, 2022 12:00am November 04, 2022 6:11pm Comment on above: Take 1 tablet by sapphire three times daily as needed. loperamide hydrochloride 2 mg oral capsule (10 sources) Opioid Agonist Start: 06-23-19 End: 11-12-19 Loperamide (Imodium A-D) 2 mg capsule Discontinued 2 mg PO TWICE A DAY June 23, 2019 1:00am November 11, 2021 3:44pm after each loose stool until symptoms controlled;do not exceed 16 mg total dose in 24 hrs End: 07-23-2021 take 1 tablet by mouth once as needed Loperamide HCl (IMODIUM A-D) 2 mg tab Take 2 mg by mouth as needed. 0 07/23/2021 Discontinued Comment on above: Take 2 mg by mouth a s needed. 5 ml midazolam 1 mg/ml injection (1 source) Benzodiazepine Start: 02-29-20 End: 02-29-20 1-5 mg, INTRAVENOUS, DIRECTED, Starting on Wed02/29/24 at 0800, Until Wed02/29/24 at 1159, DOSING DIRECTED BY PHYSICIAN FOR PROCEDURAL SEDATION ONLY, Intraprocedure Multivitamin Adult (1 source) take 1 tablet by mouth twice daily Multivitamin Adult Oral Tablet 1 bid Active Multivitamin Adult Oral Tablet (15 sources) take 1 tablet by mouth twice daily Multivitamin Adult Oral Tablet 1 bid Active Nlsgirjridkw-Tk-Upaq -Minerals 1 EACH tablet (5 sources) Start: 07-10-19 End: 10-14-19 take 1 tablet by mouth three times daily Yrsmyvixlwhk-Vw-Xkfr- Minerals 1 EACH tablet Discontinued 1 {tbl} PO THREE TIMES A DAY July 09, 2014 12:00am October 13, 2024 1:01pm Start: 07-09-2014 take 1 tablet by sapphire th three times daily Cejcszdeoevk-Um-Jjwr-Minerals 1 EACH tab let Active 1 {tbl} PO THREE TIMES A DAY July 09, 2014 12:00am topiramate 25 mg oral tablet (20 sources) Start: 06-10-2022 End: 08-29-2024 take 1 tablet by mouth twice daily Topiramate 25 mg tablet Discontinued 0 .ROUTE .COMPLEX 180 March 06, 2024 5:45pm August 29, 2024 1:47pm Take 1 tablet by mouth twice daily take 1 tablet by mouth twice chuyita ly topiramate (TOPAMAX) 50 mg tablet Take 50 mg by mouth twice daily. Active Comment on above: Take 50 mg by mouth twice daily. traZODone hydrochloride 50 mg oral tablet (20 sources) Serotonin Reuptake Inhibitor Start: End: take 1 tablet by mouth at bedtime as needed Trazodone 50 mg tablet Discontinued 50 mg PO AT BEDTIME as needed for insomnia July 21, 2024 12:00am October 13, 2024 1:00pm Start: 05-27-2018 End: 01-09-2019 take 0.5 tablet by mouth once daily at bedtime as needed for sleep traZODone HCl 50 MG Oral Tablet 1/2 Tablet Tablet qhs prn sleep for 0 days Quantity: 30 {Tablet} Refills: 1 Ordered: 09-Jan-2019 Yuri Lawson Start : 27-May-2018 End : 09-Jan-2019 Inactive triamcinolone acetonide 10 mg/ml injectable suspension (1 source) Corticosteroid Start: 10-02-2021 End: 09-18-2021 triamcinolone acetonide 10 mg injection (KeNALog 10) Start: 10-02-2021 End: 09-18-2021 triamcinolone acetonide 10 m g injection (KeNALog 10) vitamin b12 1 mg/ml injectable solution (20 sources) Vitamin B12 Start: 06-25-2021 End: 06-25-2021 inject 100 ug by intramuscular injection once cyanocobalamin (vitamin B-12) 1,000 mcg/mL injection solution Discontinued 100 MCG IM ONCE June 25, 2021 6:11pm June 25, 2021 6:19pm Start: 01-22-2021 End: 01-22-2021 inject 100 ug by intramuscular injection once cyanocobalamin (vitamin B-12) 1,000 mcg/mL injection solution Discontinued 100 MCG IM ONCE January 22, 2021 4:48pm January 22, 2021 5:13pm Start: 08-02-2020 End: 08-02-2020 inject 100 ug by intramuscular injection once cyanocobalamin (vitamin B-12) 1,000 mcg/mL injection solution Discontinued 100 MCG IM ONCE August 02, 2020 8:20am August 02, 2020 8:35am Start: 07-05-2020 End: 07-05-2020 inject 100 ug by intramuscular injection once cyanocobalamin (vitamin B-12) 1,000 mcg/mL injection solution Discontinued 100 MCG IM ONCE July 05, 2020 9:41am July 05, 2020 9:53am Start: 06-06-2020 End: 06-06-2020 inject 100 ug by intramuscular injection once cyanocobalamin (vitamin B-12) 1,000 mcg/mL injection solution Discontinued 100 MCG IM ONCE June 06, 2020 4:02pm June 06, 2020 4:18pm Start: 06-29-2019 End: 06-29-2019 inject 100 ug by intramuscular injection once cyanocobalamin (vitamin B-12) 1,000 mcg/mL injection solution Discontinued 100 MCG IM ONCE 1 June 29, 2019 3:07pm June 29, 2019 4:00pm Start: 08-13-2014 End: 07-23-2021 inject 1000 ug by intramuscular injection every month cyanocobalamin 1,000 mcg/mL soln Inject 1,000 mcg intramuscularly once every month. 08/13/2014 Active Cyanocobalamin 1 000 MCG/ML Injection Solution 1 monthly (1000 MCG/ML) Active Comment on above: Inject 1,000 mcg int ramuscularly once every month. Problems Active Problems Problem Classification Problem Date Documented Da te Episodic/Chronic Abdominal pain (2 sources) Lower abdominal pain; Translations: [Lower abdominal pain, unspecified] Onset: 02-17-2024 02-17-2024 Episodic Adjustment disorders (14 sources) Grief finding; Translations: [Adjustment disorder with depressed mood] 07-21-2024 Chronic Allergic reactions (9 sources) Inflammatory dermatosis; Translations: [Dermatitis, unspecified] 03-23-2024 Episodic Anxiety disorders (20 sources) Mixed anxiety and depressive disorder; Translations: [Anxiety disorder, unspecified] Onset: 07-21-2024 05-31-2020 Chronic Cancer of colon (20 sources) Malignant tumor of colon; Translations: [Malignant tumor of ascending colon] Onset: 04-08-2016 05-27-2018 Chronic Comment on above: seebrandon Mckeon q6 month x 2 years, had rt hemicolectomy,had previous gastric bypass sees Mike q6 month x 2 years, had rt hemicolectomy,had previous gastric bypass, has CBC done regularly Cancer of colon (20 sources) History of malignant neoplasm of colon; Translations: [Personal history of other malignant neoplasm of large intestine] Onset: 02-29-2024 12-27-2017 Episodic Comment on above: CEA 3.2 from , marielos Mckeon Complications of surgical procedures or medical care (20 sources) Post-surgical malabsorption; Translations: [Postsurgical malabsorption, not elsewhere classified] Onset: 07-21-2024 Chronic Deficiency and other anemia (9 sources) Anemia; Translations: [Anemia, unspecified] 07-21-2024 Episodic Deficiency and other anemia (1 source) Anemia, unspecified; Translations: [Anemia, unspecified] Onset: 10-19-2024 Episodic Diseases of white blood cells (20 sources) Leukopenia; Translations: [Leukopenia] 09-02-2018 Chronic Comment on above: followed by brianne Mckeon as had low WBC followed by brianne Mckeon as had low WBC, CBC and CEA and ab granulocyte done today by Mike, is getting CT of chest and abd Onur Headache; including migraine (1 source) Tension-type headache; Translations: [Tension-type headache, unspecified, not intractable] 02-07-2024 Chronic Malaise and fatigue (1 source) Malaise and fatigue; Translations: [Other malaise] 02-07-2024 Episodic Mood disorders (1 source) Major depressive disorder, single episode, unspecified; Translations: [Major depressive disorder, single episode, unspecified] Onset: 07-21-2024 Chronic Noninfectious gastroenteritis (20 sources) Non-specific colitis; Translations: [Noninfective gastroenteritis and colitis, unspecified] 04-06-2016 Episodic Nutritional deficiencies (20 sources) Cobalamin deficiency; Translations: [Vitamin B12 deficiency (non anemic)] Onset: 10-13-2024 05-05-2018 Episodic Comment on above: Nurse Visit Hours M8 -445, T/W 8-345 TH/F 7-245 and closed 12-1 for lunch daily had bypass and colec pia, last B12 was 393 gets sheot monthly heregets B12 here monthly please record on flow sheet Other bone disease and musculoskeletal deformities (20 sources) Osteopenia; Translations: [Osteopenia] 12-27-2017 Episodic Comment on above: per bone density Oct, continue exercise large muscles Other gastrointestinal disorders (20 sources) Malabsorption - iron; Translations: [Intestinal malabsorption, unspecified] Onset: 07-21-2016 07-21-2016 Chronic Other gastrointestinal disorders (16 sources) H/O: GIT by-pass; Translations: [History of gastric bypass] 12-27-2017 Episodic Comment on above: getting B12 monthly Other gastrointestinal disorders (1 source) Diarrhea; Translations: [Diarrhea, unspecified] Episodic Other gastrointestinal disorders (12 sources) History of bypass of stomach; Translations: [Bariatric surgery status] 05-20-2022 Episodic Other infections; including parasitic (16 sources) Personal history of other infectious and parasitic diseases; Translations: [History of Clostridium difficile colitis] 12-27-2017 Episodic Comment on above: October 2017, after dec mentin for dental infection on probiotic, sees Masci Other injuries and conditions due to external causes (2 sources) History of fall; Translations: [History of falling] 10-26-2023 Episodic Other nervous system disorders (1 source) Tremor; Translations: [Tremor, unspecified] 02-07-2024 Episodic Other nutritional; endocrine; and metabolic disorders (4 sources) Body mass index 25-29 - overweight; Translations: [BMI 25.0-25.9,adult] 01-09-2019 Chronic Other nutritional; endocrine; and metabolic disorders (7 sources) Obese class I; Translations: [Obesity, unspecified] 06-10-2022 Chronic Other nutritional; endocrine; and metabolic disorders (2 sources) Obesity, unspecified; Translations: [Obesity, unspecified] 06-10-2022 Chronic Other nutritional; endocrine; and metabolic disorders (9 sources) Body mass index 25-29 - overweight; Translations: [Overweight] 03-26-2021 Episodic Other nutritional; endocrine; and metabolic disorders (3 sources) Overweight; Translations: [Overweight] 05-20-2022 Episodic Other skin disorders (1 source) Keloid scar; Translations: [Hypertrophic scar] Episodic Other skin disorders (1 source) Pigmented skin lesion ; Translations: [Disorder of pigmentation, unspecified] Episodic Other upper respiratory infections (20 sources) Sinusitis; Translations: [Acute sinusitis] 09-02-2018 Episodic Residual codes; unclassified (16 sources) Postmenopausal state; Translations: [Postmenopausal (Renamed from Postmenopausal status)] 12-27-2017 Episodic Comment on above: age 45 Residual codes; unclassified (7 sources) Body mass index (BMI) 23.0-23.9, adult; Translations: [BMI 23.0-23.9, adult] 12-27-2017 Episodic Residual codes; unclassified (20 sources) Sleep disorder; Translations: [Sleep disorder] 05-27-2018 Episodic Residual codes; unclassified (8 sources) Insomnia; Translations: [Insomnia] 01-09-2019 Episodic Residual codes; unclassified (5 sources) History of partial resection of colon; Translations: [Acquired absence of other specified parts of digestive tract] 03-23-2024 Episodic Comment on above: 04/2016 Unclassified (20 sources) Unclassified (20 sources) Non-smoker; Translations: [Nonsmoker] 12-27-2017 Unclassified (20 sources) Colon cancer Unclassified (4 sources) BMI 25.0-25.9,adult Past or Other Problems Problem Classification Problem Date Documented Da te Episodic/Chronic Conditions associated with dizziness or vertigo (13 sources) Dizziness; Translations: [Dizziness and giddiness] Onset: 07-13-2016 Resolved: 07-21-2016 07-21-2016 Episodic Deficiency and other anemia (20 sources) Iron deficiency anemia; Translations: [Iron deficiency anemia, unspecified] Onset: 07-21-2016 07-21-2016 Episodic Nonspecific chest pain (3 sources) Chest wall pain; Translations: [Other chest pain] Onset: 10-26-2023 10-26-2023 Episodic Other gastrointestinal disorders (4 sources) Bariatric surgery status; Translations: [Bariatric surgery status] Onset: 07-21-2024 05-20-2022 Episodic Other injuries and conditions due to external causes (1 source) History of falling; Translations: [Status post fall] Onset: 10-26-2023 Episodic Other screening for suspected conditions (not mental disorders or infectious disease) (20 sources) Abnormal findings on diagnostic imaging of breast; Translations: [Other abnormal and inconclusive findings on diagnostic imaging of breast] Onset: 05-15-2016 05-15-2016 Episodic Unclassified (20 sources) History of gastric bypass Unclassified (20 sources) Patient encounter status; Translations: [Encounter for screening for lipid disorder] 12-27-2017 Unclassified (20 sources) Screening status; Translations: [Encounter for screening for other suspected endocrine disorder] 12-27-2017 Unclassified (16 sources) Screening for cardiovascular condition Unclassified (20 sources) Postmenopausal (Renamed from Postmenopausal status) Unclassified (20 sources) History of colon cancer in adulthood Unclassified (16 sources) Pregnancies (); Translations: [Pregnancies ()] 12-27-2017 Comment on above: 4. Unclassified (16 sources) History of Clostridium difficile colitis Unclassified (16 sources) Deliveries (Parity); Translations: [Deliveries (Parity)] 12-27-2017 Comment on above: 1. vaginal, no compl ications Unclassified (20 sources) BMI 23.0-23.9, adult; Translations: [Body mass index 20-24 - normal] 09-02-2018 Results Test Name Value Interpretation Reference Range Facility Absolute lymphocyte countOrd ered By: Leatha Fuentes on 10-13-2024 Lymphocytes Auto (Unsp spec) [#/Vol] 1.23 10*3/uL 0.83-4.51 [facility] Absolute neutrophil countOrd ered By: Leatha Fuentes on 10-13-2024 Neutrophils (Bld) [#/Vol] 2.1 10*3/uL 2.0-7.7 [facility] Automated lymphocyte count a s percentage of total leukocytesOrdered By: Leatha Fuentes on 10-13-2024 Lymphocytes/100 WBC Auto (Unsp spec) 32.0 % 19-41 [facility] Basophil percentageOrdered B y: Leatha Fuentes on 10-13-2024 Basophils/100 WBC (Bld) 0.8 % 0-1 [facility] CBC W/Diff, Automatedon 10-01-2024 Absolute Lymph 1.23 X10 3/uL Normal 0.83-4.51 [facility] Comment on above: Performed By: #### L 100.0100 #### [facility] [address] [place], [address] Absolute Neut 2.1 X10 3/uL Normal 2.0-7.7 [facility] Comment on above: Performed By: #### L 100.0100 #### [facility] [address] [place], [address] Basophils/100 WBC (Bld) 0.8 % Normal 0-1 [facility] Comment on above: Performed By: #### L 100.0100 #### [facility] [address] [place], [address] Eosinophils/100 WBC (Bld) 3.6 % Normal 0-5 [facility] Comment on above: Performed By: #### L 100.0100 #### [facility] [address] [place], [address] Erythrocyte distribution width (RBC) [Ratio] 15.9 % High 11.6-14.6 [facility] Comment on above: Performed By: #### L 100.0100 #### [facility] [address] [place], [address] Hematocrit (Bld) [Volume fraction] 29.6 % Low 37-47 [facility] Comment on above: Performed By: #### L 100.0100 #### [facility] [address] [place], [address] Hemoglobin (Bld) [Mass/Vol] 8.5 g/dL Low 12.0-15.0 [facility] Comment on above: Performed By: #### L 100.0100 #### [facility] [address] [place], [address] IG% 0.000 Normal 0.0-0.9 [facility] Comment on above: Result Comment: IG% - Immature Granulocytes (promyelocytes, myelocytes and metamyelocytes) > 1% indicates that a LEFT SHIFT is Present. Performed By: #### L 100.0100 #### [facility] [address] [place], [address] Lymphocytes/100 WBC (Bld) 32.0 % Normal 19-41 [facility] Comment on above: Performed By: #### L 100.0100 #### [facility] [address] [place], [address] MCH (RBC) [Entitic mass] 21.3 pg Low 27.0-32.0 [facility] Comment on above: Performed By: #### L 100.0100 #### [facility] [address] [place], [address] MCHC (RBC) [Mass/Vol] 28.7 g/dL Low 32-36 [facility] Comment on above: Performed By: #### L 100.0100 #### [facility] [address] [place], [address] MCV (RBC) [Entitic vol] 74.0 fL Low 81-99 [facility] Comment on above: Performed By: #### L 100.0100 #### [facility] [address] [place], [address] Monocytes/100 WBC (Bld) 8.6 % Normal 0-10 [facility] Comment on above: Performed By: #### L 100.0100 #### [facility] [address] [place], [address] Neutrophils/100 WBC (Bld) 55.0 % Normal 47-70 [facility] Comment on above: Performed By: #### L 100.0100 #### [facility] [address] [place], [address] Nucleated RBC (Bld) [#/Vol] 0 10*3/uL Normal 0-5 [facility] Comment on above: Performed By: #### L 100.0100 #### [facility] [address] [place], [address] Platelet mean volume (Bld) [Entitic vol] 10.8 fL Normal 6.2-12.0 [facility] Comment on above: Performed By: #### L 100.0100 #### [facility] [address] [place], [address] Platelets (Bld) [#/Vol] 256 10*3/uL Normal 150-450 [facility] Comment on above: Performed By: #### L 100.0100 #### [facility] [address] [place], [address] RBC (Bld) [#/Vol] 4.00 10*6/uL Low 4.2-5.4 [facility] Comment on above: Performed By: #### L 100.0100 #### [facility] [address] [place], [address] RDW SD 43.0 fl Normal 35.1-43.9 [facility] Comment on above: Performed By: #### L 100.0100 #### [facility] [address] [place], [address] WBC (Bld) [#/Vol] 3.8 10*3/uL Low 4.4-11.0 [facility] Comment on above: Performed By: #### L 100.0100 #### [facility] [address] [place], [address] Eosinophil percentageOrdered By: Leatha Fuentes on 10-13-2024 Eosinophils/100 WBC (Bld) 3.6 % 0-5 [facility] Erythrocyte distribution wid th ratioOrdered By: Leatha Fuentes on 10-13-2024 Erythrocyte distribution width (RBC) [Ratio] 15.9 % High 11.6-14.6 [facility] Erythrocyte distribution wid th standard deviationOrdered By: Leatha Fuentes on 10-13-2024 Erythrocyte distribution width (RBC) [Ratio] 43.0 fl 35.1-43.9 [facility] Ferritinon 10-13-2024 Ferritin [Mass/Vol] 7 ng/mL Low 22-378 [facility] Comment on above: Order Comment: ADD O N Performed By: #### L 503.6550, L503.6030 #### [facility] [address] [place], [address] Hematocrit Auto (Bld) [Volum e fraction]Ordered By: Leatha Fuentes on 10-13-2024 Hematocrit (Bld) [Volume fraction] 29.6 % Low 37-47 [facility] Hemoglobin measurementOrdere d By: Leatha Fuentes on 10-13-2024 Hemoglobin (Bld) [Mass/Vol] 8.5 g/dL Low 12.0-15.0 [facility] Immature granulocytes/100 WB C Auto (Bld)Ordered By: Leatha Fuentes on 10-13-2024 Immature granulocytes/100 WBC (Bld) 0.000 % 0.0-0.9 [facility] Comment on above: IG% - Immature Granu locytes (promyelocytes, myelocytes and metamyelocytes) > 1% indicates that a LEFT SHIFT is Present. Internal Medicine Office Vis iton 10-13-2024 Internal Medicine Office Visit [facility] [address] [place], [place] [address] OFFICE VISIT Date of Service: 10/13/24 MR#: [id number] Acct: [id number] Name: JANET JUAREZ Rep #: [id number] : 1970 Provider: Dr. Leatha fairbanks MD Age/Sex: 53/F Location: [facility] Status: Signed Intake Vital Signs 07/21/24 10:19 07/21/24 11:02 10/13/24 13:04 Height 5 ft 4 in 5 ft 4 in 5 ft 4 in Weight: 137 lb BMI 23.5 BP 108/70 Blood Pressure Location Lt brachial Position Sitting Respiration 16 Pulse 80 Pulse Source Monitor Temp 98.2 F Temp Source Temporal Pulse Oximetry (%) 99 Oxygen Delivery Method room air Intake Visit Reasons: 3 M FU Chief Complaint: 3 M FU Is patient in pain?: No Allergies codeine Adverse Reaction (Verified 10/13/24 12:59) Nausea/Vom/Diarrhea metronidazole (From Flagyl) Adverse Reaction (Verified 10/13/24 12:59) Nausea/Vom/Diarrhea NSAIDS (Non-Steroidal Anti-Inflamma Adverse Reaction (Verified 10/13/24 12:59) Other Medications ???Medication ???Instructions ???Recorded ???Confirmed ???Type vitamin I20-jrmwzke B1 1,000 ml IM MONTHLY 06/29/19 10/13/24 Hi story mcg-100 mg/mL injection solution buspirone 7.5 mg tablet 7.5 mg PO BID 3 months #180 tabs 0 09/06/23 10/13/24 Rx escitalopram oxalate 20 mg tablet See Rx Instructions .Route 10/13/24 Rx .COMPLEX #90 tabs topiramate 25 mg tablet See Rx Instructions .Route 5 10/13/24 Rx .COMPLEX #180 tabs cholecalciferol (vitamin D3) 50 2,000 unit PO DAILY #90 tabs 10/1310/13/24 Rx mcg (2,000 unit) chewable tablet cholestyramine (with sugar) 4 gram 4 g PO DAILY #378 grams 10/13/24 10/13/24 Rx oral powder clobetasol 0.05 % topical ointment 1 applic topical BID 2 weeks #30 10/13/24 10/13/24 Rx grams ferrous sulfate 325 mg (65 mg 325 mg PO QDAY #90 tabs 10/13/24 0 10/13/24 Rx iron) tablet PFSH Medical History Grief reaction Screening for cardiovascular condition Dermatitis Obesity (BMI 30.0-34.9) Overweight (BMI 25.0-29.9) Health care maintenance Normal colonoscopy Pilonidal cyst Vitamin B12 deficiency Polycystic ovaries Anxiety and depression Neuropathy History of colon cancer Benign breast lumps Anemia Frequent headaches Chronic diarrhea Surgical History H/O gastric bypass History of cholecystectomy H/O right hemicolectomy H/O breast biopsy Family History Mother Alcoholism Vitamin B12 deficiency Alzheimer disease Cancer pancreatic Father Heart disease Diabetes Liver disease Hypertension Hyperlipemia Grandmother Cancer lung Grandfather Liver disease CVA (cerebral vascular accident) Brother Liver disease Anxiety and depression Drug abuse Social History Smoking Status: Never smoker alcohol intake: current alcohol intake frequency: a few times a month Alcohol type: beer and wine substance use type: does not use frequency: 1-2 times per week HPI HPI Chief Complaint: 3 M FU Details: JANET JUAREZ, is a 53 F who presents to the office today for follow-up of her chronic conditions. Also has some concerns. She reports a rash on her left shoulder area. Noted 2 weeks ago. Very itchy. Tried an old prescription of triamcinolone (is not sure what strength) however she states that this is not helpful. At her last visit, was started on trazodone due to insomnia following the loss of her . She states that she took it for a while and discontinued due to fatigue and grogginess. She also states that she realized that Wellbutrin was making her feel that way as well and so she discontinued this. She tried to restart it after she discontinued and noted similar symptoms. Mood king, she states that she feels well. History of iron deficiency anemia. Due to significant deficiency at last check, iron infusions were recommended however she thought that she did not have insurance and so did not follow through with this. She states that she recently got delayed in the mail notifying her that she did have insurance coverage. She plans to reschedule. Other chronic medical conditions are largely stable. ROS Const Constitutional: Positive for other (WOULD LIKE TO START IRON INFUSIONS AT THIS TIME); No body ache, chills, excessive sweating, fatigue, fever(s), frequent falls, headache(s), snoring, weakness, sleep problems or change in appetite Eyes Eyes: No blurry vision, change in vision or Light sensitivity ENT ENT: No abnormal hearing, ear or mastoid pain, tinnitus, nasal congestion, nasal discharge, headache(s), neck pain or sore throat Resp Respiratory: No c (more content not included)... Normal [facility] Iron measurement (mass/mass) Ordered By: Leatha Fuentes on 10-13-2024 Iron (Unsp spec) [Mass/Mass] 17 ug/dL Low 50-170 [facility] Iron+Iron Binding Capacityon 10-13-2024 TIBC 498 ug/dL High 250-450 [facility] Comment on above: Order Comment: ADD O N Performed By: #### L 503.6550, L503.6030 #### [facility] [place], [address] MCV (mean corpuscular volume ) determinationOrdered By: Leatha Fuentes on 10-13-2024 MCV (RBC) [Entitic vol] 74.0 fL Low 81-99 [facility] Mean corpuscular hemoglobin (MCH) determinationOrdered By: Leatha Fuentes on 10-13-2024 MCH (RBC) [Entitic mass] 21.3 pg Low 27.0-32.0 [facility] Mean corpuscular hemoglobin concentration (MCHC) determinationOrdered By: Leatha Fuentes on 10-13-2024 MCHC (RBC) [Mass/Vol] 28.7 g/dL Low 32-36 [facility] Mean platelet volume determi nationOrdered By: Leatha Fuentes on 10-13-2024 Platelet mean volume (Bld) [Entitic vol] 10.8 fL 6.2-12.0 [facility] Monocyte percentageOrdered B y: Leatha Fuentes on 10-13-2024 Monocytes/100 WBC (Bld) 8.6 % 0-10 [facility] Neutrophil percentageOrdered By: Leatha Fuentes on 10-13-2024 Neutrophils/100 WBC (Bld) 55.0 % 47-70 [facility] No Panel InformationOrdered By: Leatha Fuentes on 10-13-2024 Unsaturated Iron Binding Capacity 481 ug/dL High 228-428 [facility] Nucleated red blood cell per centageOrdered By: Leatha Fuentes on 10-13-2024 Nucleated RBC/100 WBC (Bld) [Ratio] 0 % 0-5 [facility] Platelet countOrdered By: Musa Fuentes on 10-13-2024 Platelets (Bld) [#/Vol] 256 10*3/uL 150-450 [facility] RBC Auto (Bld) [#/Vol]Ordere d By: Leatha Fuentes on 10-13-2024 RBC (Bld) [#/Vol] 4.00 10*6/uL Low 4.2-5.4 [facility] Serum or plasma ferritin berkley surement (mass/volume)Ordered By: Leatha Fuentes on 10-13-2024 Ferritin [Mass/Vol] 7 ng/mL Low 22-378 [facility] Serum or plasma iron saturat ion measurement (mass fraction)Ordered By: Leatha Fuentes on 10-13-2024 Iron saturation [Mass fraction] 3.4 % Low 13-59 [facility] Comment on above: Previous reported re sult: 3.0 %Edited by: FAISAL on 10/13/24:1650 AMENDED REPORT 10/13/24 1650 IRON SATURATION previously reported as: 3.0 L % White blood cell (WBC) count Ordered By: Leatha Fuentes on 10-13-2024 WBC (Bld) [#/Vol] 3.8 10*3/uL Low 4.4-11.0 [facility] Absolute lymphocyte countOrd ered By: Leatha Fuentes on 07-21-2024 Lymphocytes Auto (Unsp spec) [#/Vol] 0.84 10*3/uL 0.83-4.51 [facility] Absolute neutrophil countOrd ered By: Leatha Fuentes on 07-21-2024 Neutrophils (Bld) [#/Vol] 1.8 10*3/uL Low 2.0-7.7 [facility] Anion gap in Serum or Plasma Ordered By: Leatha Fuentes on 07-21-2024 Anion gap [Moles/Vol] 10 mmol/L 5-15 [facility] Automated lymphocyte count a s percentage of total leukocytesOrdered By: Leatha Fuentes on 07-21-2024 Lymphocytes/100 WBC Auto (Unsp spec) 27.7 % 19-41 [facility] BUN/creatinine ratioOrdered By: rikki Fuentes on 07-21-2024 Urea nitrogen/Creatinine [Mass ratio] 21.1 mg/mg High 10-20 [facility] Basophil percentageOrdered B y: Leatha Fuentes on 07-21-2024 Basophils/100 WBC (Bld) 1.0 % 0-1 [facility] Bilirubin, totalOrdered By: Leatha Fuentes on 07-21-2024 Bilirubin [Mass/Vol] 0.20 mg/dL 0.00-1.30 [facility] CBC W/Diff, Automatedon 07-02 Absolute Lymph 0.84 X10 3/uL Normal 0.83-4.51 [facility] Comment on above: Performed By: #### L 500.4050, L500.4100, L503.0106, L506.1001, L100.0100 #### [facility] [address] [place], [address] Absolute Neut 1.8 X10 3/uL Low 2.0-7.7 [facility] Comment on above: Performed By: #### L 500.4050, L500.4100, L503.0106, L506.1001, L100.0100 #### [facility] [facility] [address] [place], [address] Basophils/100 WBC (Bld) 1.0 % Normal 0-1 [facility] Comment on above: Performed By: #### L 500.4050, L500.4100, L503.0106, L506.1001, L100.0100 #### [facility] [address] [place], [address] Eosinophils/100 WBC (Bld) 4.6 % Normal 0-5 [facility] Comment on above: Performed By: #### L 500.4050, L500.4100, L503.0106, L506.1001, L100.0100 #### [facility] [address] [place], [address] Erythrocyte distribution width (RBC) [Ratio] 13.9 % Normal 11.6-14.6 [facility] Comment on above: Performed By: #### L 500.4050, L500.4100, L503.0106, L506.1001, L100.0100 #### [facility] [address] [place], [address] Hematocrit (Bld) [Volume fraction] 31.2 % Low 37-47 [facility] Comment on above: Performed By: #### L 500.4050, L500.4100, L503.0106, L506.1001, L100.0100 #### [facility] [address] [place], [address] Hemoglobin (Bld) [Mass/Vol] 9.6 g/dL Low 12.0-15.0 [facility] Comment on above: Performed By: #### L 500.4050, L500.4100, L503.0106, L506.1001, L100.0100 #### [facility] [address] [place], [address] IG% 0.000 Normal 0.0-0.9 [facility] Comment on above: Result Comment: IG% - Immature Granulocytes (promyelocytes, myelocytes and metamyelocytes) > 1% indicates that a LEFT SHIFT is Present. Performed By: #### L 500.4050, L500.4100, L503.0106, L506.1001, L100.0100 #### [facility] [address] [place], [address] Lymphocytes/100 WBC (Bld) 27.7 % Normal 19-41 [facility] Comment on above: Performed By: #### L 500.4050, L500.4100, L503.0106, L506.1001, L100.0100 #### [facility] [address] [place], [address] MCH (RBC) [Entitic mass] 23.6 pg Low 27.0-32.0 [facility] Comment on above: Performed By: #### L 500.4050, L500.4100, L503.0106, L506.1001, L100.0100 #### [facility] [address] [place], [address] MCHC (RBC) [Mass/Vol] 30.8 g/dL Low 32-36 [facility] Comment on above: Performed By: #### L 500.4050, L500.4100, L503.0106, L506.1001, L100.0100 #### [facility] [address] [place], [address] MCV (RBC) [Entitic vol] 76.8 fL Low 81-99 [facility] Comment on above: Performed By: #### L 500.4050, L500.4100, L503.0106, L506.1001, L100.0100 #### [facility] [address] [place], [address] Monocytes/100 WBC (Bld) 7.9 % Normal 0-10 [facility] Comment on above: Performed By: #### L 500.4050, L500.4100, L503.0106, L506.1001, L100.0100 #### [facility] [address] [place], [address] Neutrophils/100 WBC (Bld) 58.8 % Normal 47-70 [facility] Comment on above: Performed By: #### L 500.4050, L500.4100, L503.0106, L506.1001, L100.0100 #### [facility] [address] [place], [address] Nucleated RBC (Bld) [#/Vol] 0 10*3/uL Normal 0-5 [facility] Comment on above: Performed By: #### L 500.4050, L500.4100, L503.0106, L506.1001, L100.0100 #### [facility] [address] [place], [address] Platelet mean volume (Bld) [Entitic vol] 10.5 fL Normal 6.2-12.0 [facility] Comment on above: Performed By: #### L 500.4050, L500.4100, L503.0106, L506.1001, L100.0100 #### [facility] [address] [place], [address] Platelets (Bld) [#/Vol] 237 10*3/uL Normal 150-450 [facility] Comment on above: Performed By: #### L 500.4050, L500.4100, L503.0106, L506.1001, L100.0100 #### [facility] [address] [place], [address] RBC (Bld) [#/Vol] 4.06 10*6/uL Low 4.2-5.4 [facility] Comment on above: Performed By: #### L 500.4050, L500.4100, L503.0106, L506.1001, L100.0100 #### [facility] [address] [place], [address] RDW SD 38.8 fl Normal 35.1-43.9 [facility] Comment on above: Performed By: #### L 500.4050, L500.4100, L503.0106, L506.1001, L100.0100 #### [facility] [address] [place], [address] WBC (Bld) [#/Vol] 3.0 10*3/uL Low 4.4-11.0 [facility] Comment on above: Performed By: #### L 500.4050, L500.4100, L503.0106, L506.1001, L100.0100 #### [facility] [address] [place], [address] Calculated total iron bindin g capacityOrdered By: Leatha Fuentes on 07-21-2024 Total Iron Binding Capacity 480 ug/dL High 250-450 [facility] Calculated very low density lipoprotein (VLDL) cholesterol measurementOrdered By: Leatha Fuentes on 07-21-2024 Calculated very low density lipoprotein (VLDL) cholesterol measurement 15 mg/dL 5-40 [facility] VLDL Cholesterol 15 mg/dL 5-40 [facility] Carbon dioxide, total [Moles /volume] in Central venous bloodOrdered By: Leatha Fuentes on 07-21-2024 CO2 [Moles/Vol] 27.1 mmol/L 21.0-32.0 [facility] Chloride assayOrdered By: Musa Fuentes on 07-21-2024 Chloride [Moles/Vol] 103 mmol/L 98-108 [facility] Comprehensive Metabolic Prof ilon 07-21-2024 Albumin [Mass/Vol] 4.3 g/dL Normal 3.5-5.0 [facility] Comment on above: Performed By: #### L 500.4050, L500.4100, L503.0106, L506.1001, L100.0100 #### [facility] [address] [place], [address] Albumin/Globulin [Mass ratio] 1.5 {ratio} Normal 0.9-2.4 [facility] Comment on above: Performed By: #### L 500.4050, L500.4100, L503.0106, L506.1001, L100.0100 #### [facility] [address] [place], [address] ALK PHOS 94 U/L Normal 35-104 [facility] Comment on above: Performed By: #### L 500.4050, L500.4100, L503.0106, L506.1001, L100.0100 #### [facility] [address] [place], [address] ALT [Catalytic activity/Vol] 15 U/L Normal <=34 [facility] Comment on above: Performed By: #### L 500.4050, L500.4100, L503.0106, L506.1001, L100.0100 #### [facility] [address] [place], [address] AST [Catalytic activity/Vol] 23 U/L Normal <=31 [facility] Comment on above: Performed By: #### L 500.4050, L500.4100, L503.0106, L506.1001, L100.0100 #### [facility] [address] [place], [address] Bilirubin [Mass/Vol] 0.20 mg/dL Normal 0.00-1.30 [facility] Comment on above: Performed By: #### L 500.4050, L500.4100, L503.0106, L506.1001, L100.0100 #### [facility] [address] [place], [address] BUN/CRE 21.1 RATIO High 10-20 [facility] Comment on above: Performed By: #### L 500.4050, L500.4100, L503.0106, L506.1001, L100.0100 #### [facility] [address] [place], [address] Calcium [Mass/Vol] 9.6 mg/dL Normal 7.6-11.0 [facility] Comment on above: Performed By: #### L 500.4050, L500.4100, L503.0106, L506.1001, L100.0100 #### [facility] [address] [place], [address] Chloride [Moles/Vol] 103 mmol/L Normal 98-108 [facility] Comment on above: Performed By: #### L 500.4050, L500.4100, L503.0106, L506.1001, L100.0100 #### [facility] [address] [place], [address] CO2 [Moles/Vol] 27.1 mmol/L Normal 21.0-32.0 [facility] Comment on above: Performed By: #### L 500.4050, L500.4100, L503.0106, L506.1001, L100.0100 #### [facility] [address] [place], [address] Creatinine [Mass/Vol] 0.87 mg/dL Normal 0.70-1.20 [facility] Comment on above: Performed By: #### L 500.4050, L500.4100, L503.0106, L506.1001, L100.0100 #### [facility] [address] [place], [address] GAP 10 Normal 5-15 [facility] Comment on above: Performed By: #### L 500.4050, L500.4100, L503.0106, L506.1001, L100.0100 #### [facility] [address] [place], [address] GFR/1.73 sq M.predicted among non-blacks MDRD (S/P/Bld) [Vol rate/Area] 79 mL/min/{1.73_m2} Normal >60 [facility] Comment on above: Result Comment: mL/m in/1.73m2 CKD-EPI Creatinine Equation (2020) Performed By: #### L 500.4050, L500.4100, L503.0106, L506.1001, L100.0100 #### [facility] [address] [place], [address] Globulin (S) [Mass/Vol] 2.9 g/dL Normal 2.2-4.2 [facility] Comment on above: Performed By: #### L 500.4050, L500.4100, L503.0106, L506.1001, L100.0100 #### [facility] [address] [place], [address] Glucose [Mass/Vol] 91 mg/dL Normal 70-99 [facility] Comment on above: Performed By: #### L 500.4050, L500.4100, L503.0106, L506.1001, L100.0100 #### [facility] [address] [place], [address] Potassium [Moles/Vol] 3.9 mmol/L Normal 3.3-5.1 [facility] Comment on above: Performed By: #### L 500.4050, L500.4100, L503.0106, L506.1001, L100.0100 #### [facility] [address] [place], [address] Sodium [Moles/Vol] 140 mmol/L Normal 133-145 [facility] Comment on above: Performed By: #### L 500.4050, L500.4100, L503.0106, L506.1001, L100.0100 #### [facility] [address] [place], [address] T PROT 7.2 g/dL Normal 5.9-8.4 [facility] Comment on above: Performed By: #### L 500.4050, L500.4100, L503.0106, L506.1001, L100.0100 #### [facility] [address] [place], [address] Urea nitrogen [Mass/Vol] 18 mg/dL Normal 4-19 [facility] Comment on above: Performed By: #### L 500.4050, L500.4100, L503.0106, L506.1001, L100.0100 #### [facility] [address] [place], [address] Eosinophil percentageOrdered By: Leatha Funetes on 07-21-2024 Eosinophils/100 WBC (Bld) 4.6 % 0-5 [facility] Erythrocyte distribution wid th ratioOrdered By: Leatha Fuentes on 07-21-2024 Erythrocyte distribution width (RBC) [Ratio] 13.9 % 11.6-14.6 [facility] Erythrocyte distribution wid th standard deviationOrdered By: Leatha Fuentes on 07-21-2024 Erythrocyte distribution width (RBC) [Entitic vol] 38.8 fL 35.1-43.9 [facility] Erythrocyte distribution width (RBC) [Ratio] 38.8 fl 35.1-43.9 [facility] Ferritinon 07-21-2024 Ferritin [Mass/Vol] 6 ng/mL Low 22-378 [facility] Comment on above: Performed By: #### L 503.6550, L503.6030 #### [facility] [address] [place], [place], [address] GFR/1.73 sq M.predicted martin g non-blacks MDRD (S/P/Bld) [Vol rate/Area]Ordered By: Leatha Fuentes on 07-21-2024 Estimated GFR (MDRD) Non-Af Amer 79 >60 [facility] Comment on above: mL/min/1.73m2 CKD-EP I Creatinine Equation (2020) Glomerular filtration rate ( GFR) estimation/1.73 sq m using serum, plasma, or whole bOrdered By: Letaha Fuentes on 07-21-2024 GFR/1.73 sq M.predicted among non-blacks MDRD (S/P/Bld) [Vol rate/Area] 79 mL/min/{1.73_m2} >60 [facility] Comment on above: mL/min/1.73m2 CKD-EP I Creatinine Equation (2020) Hematocrit Auto (Bld) [Volum e fraction]Ordered By: Leatha Fuentes on 07-21-2024 Hematocrit (Bld) [Volume fraction] 31.2 % Low 37-47 [facility] Hemoglobin measurementOrdere d By: Leatha Fuentes on 07-21-2024 Hemoglobin (Bld) [Mass/Vol] 9.6 g/dL Low 12.0-15.0 [facility] Immature granulocytes/100 WB C Auto (Bld)Ordered By: Leatha Fuentes on 07-21-2024 Immature granulocytes/100 WBC (Bld) 0.000 % 0.0-0.9 [facility] Comment on above: IG% - Immature Granu locytes (promyelocytes, myelocytes and metamyelocytes) > 1% indicates that a LEFT SHIFT is Present. Internal Medicine Office Vis kt 07-21-2024 Internal Medicine Office Visit [facility] [address] [place], [place] [address] OFFICE VISIT Date of Service: 07/21/24 MR#: [id number] Acct: [id number] Name: JANET JUAREZ Rep #: [id number] 3 : 1970 Provider: Dr. Leatha fairbanks MD Age/Sex: 53/F Location: [facility] Status: Signed Intake Vital Signs 03/23/24 17:41 07/21/24 10:19 Height 5 ft 4 in 5 ft 4 in Weight: 136 lb BMI 23.3 BP 120/60 Blood Pressure Location Lt brachial Position Sitting Respiration 18 Pulse 71 Pulse Source Monitor Temp 97.8 F Temp Source Temporal Pulse Oximetry (%) 96 Oxygen Delivery Method room air Intake Visit Reasons: 3 M FU Chief Complaint: 3 M FU Is patient in pain?: No Allergies codeine Adverse Reaction (Verified 07/21/24 10:18) Nausea/Vom/Diarrhea metronidazole (From Flagyl) Adverse Reaction (Verified 07/21/24 10:18) Nausea/Vom/Diarrhea NSAIDS (Non-Steroidal Anti-Inflamma Adverse Reaction (Verified 07/21/24 10:18) Other Medications ???Medication ???Instructions ???Recorded ???Confirmed ???Type ferrous sulfate 325 mg (65 mg 325 mg PO TID 07/09/14 07/21/24 Hi story iron) tablet nysiyczvmpso-Lr-ijau- minerals 1 tab PO TID 07/09/14 07/21/24 His tory calcium carbonate 500 mg PO TID 09/11/14 07/21/24 Hi story cholecalciferol (vitamin D3) 50 2,000 unit PO DAILY 06/23/1907/21 History mcg (2,000 unit) chewable tablet Lactobacills gasseri-Bifidobac cap PO DAILY 06/29/19 07/21/24 His tory bifidum,longum 1.5 billion cell capsule (Viveve) vitamin P75-jqqzfqn B1 1,000 ml IM MONTHLY 06/29/19 07/21/24 Hi story mcg-100 mg/mL injection solution cholestyramine (with sugar) 4 gram 4 g PO DAILY #378 grams 05/20/22 07/21/24 Rx oral powder buspirone 7.5 mg tablet 7.5 mg PO BID 3 months #180 tabs 0 09/06/23 07/21/24 Rx topiramate 25 mg tablet See Rx Instructions .Route 4 07/21/24 Rx .COMPLEX #180 tabs bupropion HCl 300 mg 24 hr tablet, 300 mg PO QAM #90 tabs 05/22/24 07/21/24 Rx extended release escitalopram oxalate 20 mg tablet See Rx Instructions .Route 07/21/24 Rx .COMPLEX #90 tabs trazodone 50 mg tablet 50 mg PO QHS PRN insomnia #30 tabs 07/21/24 07/21/24 Rx Have you fallen in the past year?: No PFSH Medical History (Updated 07/21/24 @ 10:[address] Leatha Fuentes MD) Grief reaction Screening for cardiovascular condition Dermatitis Obesity (BMI 30.0-34.9) Overweight (BMI 25.0-29.9) Health care maintenance Normal colonoscopy Pilonidal cyst Vitamin B12 deficiency Polycystic ovaries Anxiety and depression Neuropathy History of colon cancer Benign breast lumps Anemia Frequent headaches Chronic diarrhea Surgical History (Updated 07/21/24 @ 10:[address] Leatha Fuentes MD) H/O gastric bypass History of cholecystectomy H/O right hemicolectomy H/O breast biopsy Family History Mother Alcoholism Vitamin B12 deficiency Alzheimer disease Cancer pancreatic Father Heart disease Diabetes Liver disease Hypertension Hyperlipemia Grandmother Cancer lung Grandfather Liver disease CVA (cerebral vascular accident) Brother Liver disease Anxiety and depression Drug abuse Social History Smoking Status: Never smoker alcohol intake: current alcohol intake frequency: a few times a month Alcohol type: beer and wine substance use type: does not use frequency: 1-2 times per week HPI HPI Chief Complaint: 3 M FU Details: JANET JUAREZ, is a 53 F who presents to the office today for follow-up of her chronic conditions. Also has some concerns. She reports difficulty with sleep. recently . She states that she has good support and is in the process of starting therapy. Chronic history of anxiety and depression. Currently on Wellbutrin and Topamax for chronic weight management. Remains at a BMI of 23. She states that she has not been eating as much following the recent passing of her continues to tolerate medication well. Other chronic medical conditions are stable. ROS Const Constitutional: No body ache, chills, excessive sweating, fatigue, fever(s), frequent falls, headache(s), snoring, weight change, sleep problems, abnormal sleep pattern or change in appetite Eyes Eyes: No blurry vision, change in vision, floaters, visual disturbances, eye pain or Light sensitivity ENT ENT: No abnormal hearing, ear or mastoid pain, tinnitus, balance problems, nosebleed/epistaxis, nasal congestion, headache(s), neck pain or sore throat Resp Respiratory: No cough, excessive phlegm production, pain on inspiration, shortness of breath, snoring or wheezing Cardio Cardiology: No (more content not included)... Normal [facility] Iron (Unsp spec) [Mass/Mass] Ordered By: Leatha Fuentes on 07-21-2024 Iron [Mass/Vol] 19 ug/dL Low 50-170 [facility] Iron measurement (mass/mass) Ordered By: Leatha Fuentes on 07-21-2024 Iron (Unsp spec) [Mass/Mass] 19 ug/dL Low 50-170 [facility] Iron saturation [Mass fracti on]Ordered By: Leatha Fuentes on 07-21-2024 Iron Saturation 4.0 % Low 13-59 [facility] Iron+Iron Binding Capacityon 07-21-2024 TIBC 480 ug/dL High 250-450 [facility] Comment on above: Performed By: #### L 503.6583, L503.6030 #### [facility] [address] [place], [address] L503.0106on 07-21-2024 Cobalamin (Vitamin B12) [Mass/Vol] 475 pg/mL Normal 180-914 [facility] Comment on above: Performed By: #### L 500.4050, L500.4100, L503.0106, L506.1001, L100.0100 ####[facility] [address] [place], [address] L506.1001on 07-21-2024 Vitamin D 25-OH 25.8 ng/mL Low 30-100 [facility] Comment on above: Result Comment: Fern min D Status Deficiency: <20 ng/mL (50nmol/L) Insufficiency: 20-30 ng/mL (50-75 nmol/L) Sufficiency: 30-100 ng/mL (75-250 nmol/L) Toxicity: >100 ng/mL (>250 nmol/L) Performed By: #### L 500.4050, L500.4100, L503.0106, L506.1001, L100.0100 ####[facility] [address] [place], [address] LDL calc ser/plasOrdered By: Leatha Fuentes on 07-21-2024 Cholesterol in LDL [Mass/Vol] 82 mg/dL [facility] Comment on above: Bhhqcbqzje=439-284 m g/dL & Higher Ojof=894 mg/dL or greater LDL Cholesterol, Calculated 82 mg/dL [facility] Comment on above: Cafjueptah=302-583 m g/dL & Higher Xpax=485 mg/dL or greater Laboratory - Chemistry and C hemistry - challengeOrdered By: Leatha Fuentes on 07-21-2024 AST [Catalytic activity/Vol] 23 U/L <32 [facility] Lipid Profileon 07-21-2024 CHOL:HDL 2.32 Normal [facility] Comment on above: Performed By: #### L 500.4050, L500.4100, L503.0106, L506.1001, L100.0100 ####[facility] [address] [place], [address] Cholesterol [Mass/Vol] 170 mg/dL Normal <=200 [facility] Comment on above: Result Comment: Chol esterol level, Desirable <200 mg/dL Borderline high cholesterol 200-239 mg/dL High cholesterol >=240 mg/dL Recommendations of the NCEP Adult Treatment Panel for the following risk-cutoff thresholds for the [place] population. Performed By: #### L 500.4050, L500.4100, L503.0106, L506.1001, L100.0100 ####[facility] [address] [place], [address] Cholesterol in HDL [Mass/Vol] 73 mg/dL Normal [facility] Comment on above: Result Comment: Gale onal Cholesterol Education Program (NCEP) guidelines: <40 mg/dL: Low HDL-cholesterol (major risk factor for CHD) >= 60 mg/dL: High HDL-cholesterol (negative risk factor for CHD) HDL-cholesterol is affected by a number of factors, e.g. smoking, exercise, hormones, sex and age. Performed By: #### L 500.4050, L500.4100, L503.0106, L506.1001, L100.0100 ####[facility] [address] [place], [address] Cholesterol in LDL [Mass/Vol] 82 mg/dL Normal [facility] Comment on above: Result Comment: Bord rgigxs=500-235 mg/dL Higher Yipn=519 mg/dL or greater Performed By: #### L 500.4050, L500.4100, L503.0106, L506.1001, L100.0100 ####[facility] [address] [place], [address] Cholesterol in VLDL [Mass/Vol] 15 mg/dL Normal 5-40 [facility] Comment on above: Performed By: #### L 500.4050, L500.4100, L503.0106, L506.1001, L100.0100 ####[facility] [address] [place], [address] Triglyceride [Mass/Vol] 75 mg/dL Normal [facility] Comment on above: Result Comment: The drugs N-Acetylcysteine and Metamizole may falsely depress this assay. Normal range: <150 mg/dL Borderline High: 150-199 mg/dL High: 200-499 mg/dL Very High: >500 mg/dL Performed By: #### L 500.4050, L500.4100, L503.0106, L506.1001, L100.0100 ####[facility] [address], [address] Lymphocytes Auto (Unsp spec) [#/Vol]Ordered By: Leatha Fuentes on 07-21-2024 Lymphocytes (Bld) [#/Vol] 0.84 10*3/uL 0.83-4.51 [facility] Lymphocytes/100 WBC Auto (Un sp spec)Ordered By: Leatha Fuentes on 07-21-2024 Lymphocytes/100 WBC (Bld) 27.7 % 19-41 [facility] MCV (mean corpuscular volume ) determinationOrdered By: Leatha Fuentes on 07-21-2024 MCV (RBC) [Entitic vol] 76.8 fL Low 81-99 [facility] Mean corpuscular hemoglobin (MCH) determinationOrdered By: Leatha Fuentes on 07-21-2024 MCH (RBC) [Entitic mass] 23.6 pg Low 27.0-32.0 [facility] Mean corpuscular hemoglobin concentration (MCHC) determinationOrdered By: Leatha Fuentes on 07-21-2024 MCHC (RBC) [Mass/Vol] 30.8 g/dL Low 32-36 [facility] Mean platelet volume determi nationOrdered By: Leatha Fuentes on 07-21-2024 Platelet mean volume (Bld) [Entitic vol] 10.5 fL 6.2-12.0 [facility] Monocyte percentageOrdered B y: Leatha Fuentes on 07-21-2024 Monocytes/100 WBC (Bld) 7.9 % 0-10 [facility] [facility] Neutrophil percentageOrdered By: Leatha Fuentes on 07-21-2024 Neutrophils/100 WBC (Bld) 58.8 % 47-70 [facility] No Panel InformationOrdered By: Leatha Fuentes on 07-21-2024 Unsaturated Iron Binding Capacity 461 ug/dL High 228-428 [facility] Nucleated red blood cell per centageOrdered By: Leatha Fuentes on 07-21-2024 Nucleated RBC/100 WBC (Bld) [Ratio] 0 % 0-5 [facility] Office Visit Reporton 2024 Office Visit Report [facility] [address] [address] OFFICE VISIT Date of Service: 07/21/24 MR#: [id number] Acct: [id number] Patient: JANET JUAREZ Rep #: [id number] : 1970 Provider: MOHINI NURSE Age/Sex: 53/F Location: [facility] Status: Signed Intake Vital Signs 07/21/24 10:19 07/21/24 11:02 Height 5 ft 4 in 5 ft 4 in Weight: 136 lb BMI 23.3 BP 120/60 Blood Pressure Location Lt brachial Position Sitting Respiration 18 Pulse 71 Pulse Source Monitor Temp 97.8 F Temp Source Temporal Pulse Oximetry (%) 96 Oxygen Delivery Method room air Intake Visit Reasons: B12 SHOT Chief Complaint: B12 Shot Allergies codeine Adverse Reaction (Verified 07/21/24 10:18) Nausea/Vom/Diarrhea metronidazole (From Flagyl) Adverse Reaction (Verified 07/21/24 10:18) Nausea/Vom/Diarrhea NSAIDS (Non-Steroidal Anti-Inflamma Adverse Reaction (Verified 07/21/24 10:18) Other 07/21/24 1627 Date Leatha Nicolasignolivier Signature: Date (if applicable) CC: Normal [facility] Platelet countOrdered By: Musa Fuentes on 07-21-2024 Platelets (Bld) [#/Vol] 237 10*3/uL 150-450 [facility] Potassium (Unsp spec) [Mass/ Vol]Ordered By: Leatha Fuentes on 07-21-2024 Potassium [Moles/Vol] 3.9 mmol/L 3.3-5.1 [facility] Potassium measurement (mass/ volume)Ordered By: Leatha Fuentes on 07-21-2024 Potassium (Unsp spec) [Mass/Vol] 3.9 mmol/L 3.3-5.1 [facility] RBC Auto (Bld) [#/Vol]Ordere d By: Leatha Fuentes on 07-21-2024 RBC (Bld) [#/Vol] 4.06 10*6/uL Low 4.2-5.4 [facility] Screening total cholesterol/ high density lipoprotein (HDL) cholesterol ratioOrdered By: Leatha Fuentes on 07-21-2024 Cholesterol.total/Jayashree sterol in HDL [Mass ratio] 2.32 {ratio} [facility] Serum creatinine measurement (mass/volume)Ordered By: Leatha Fuentes on 07-21-2024 Creatinine [Mass/Vol] 0.87 mg/dL 0.70-1.20 [facility] Serum globulin measurementOr dered By: Leatha Fuentes on 07-21-2024 Globulin (S) [Mass/Vol] 2.9 g/dL 2.2-4.2 [facility] Serum glucose measurement (m ass/volume)Ordered By: Leatha Fuentes on 07-21-2024 Glucose [Mass/Vol] 91 mg/dL 70-99 [facility] Serum or plasma alanine chapman otransferase (ALT) measurementOrdered By: Leatha Fuentes on 07-21-2024 ALT [Catalytic activity/Vol] 15 U/L <35 [facility] Serum or plasma albumin gertrude urement (mass/volume)Ordered By: Leatha uFentes on 07-21-2024 Albumin [Mass/Vol] 4.3 g/dL 3.5-5.0 [facility] Serum or plasma albumin/glob ulin mass ratioOrdered By: Leatha Fuentes on 07-21-2024 Albumin/Globulin [Mass ratio] 1.5 {ratio} 0.9-2.4 [facility] Serum or plasma alkaline claude sphatase measurementOrdered By: Leatha Fuentes on 07-21-2024 ALP [Catalytic activity/Vol] 94 U/L 35-104 [facility] Serum or plasma calcium gertrude urement (mass/volume)Ordered By: Leatha Fuentes on 07-21-2024 Calcium [Mass/Vol] 9.6 mg/dL 7.6-11.0 [facility] Serum or plasma cholesterol in HDL measurement (mass/volume)Ordered By: Leatha Fuentes on 07-21-2024 Cholesterol in HDL [Mass/Vol] 73 mg/dL >40 [facility] Comment on above: National Cholesterol Education Program (NCEP) guidelines:<40 mg/dL: Low HDL-cholesterol (major risk factor for CHD)>= 60 mg/dL: High HDL-cholesterol (negative risk factor for CHD)HDL-cholesterol is affected by a number of factors, e.g. smoking, exercise, hormones, sex and age. Serum or plasma cholesterol measurement (mass/volume)Ordered By: Leatha Fuentes on 07-21-2024 Cholesterol [Mass/Vol] 170 mg/dL <201 [facility] Comment on above: Cholesterol level, D esirable <200 mg/dLBorderline high cholesterol 200-239 mg/dLHigh cholesterol >=240 mg/dLRecommendations of the NCEP Adult Treatment Panel for the following risk-cutoff thresholds for the [place] population. Serum or plasma ferritin berkley surement (mass/volume)Ordered By: Leatha Fuentes on 07-21-2024 Ferritin [Mass/Vol] 6 ng/mL Low 22-378 [facility] Serum or plasma iron saturat ion measurement (mass fraction)Ordered By: Leatha Fuentes on 07-21-2024 Iron saturation [Mass fraction] 4.0 % Low 13-59 [facility] Serum or plasma urea nitroge n measurement (mass/volume)Ordered By: Leatha Fuentes on 07-21-2024 Urea nitrogen [Mass/Vol] 18 mg/dL 4-19 [facility] Sodium levelOrdered By: Tripp Fuentes on 07-21-2024 Sodium [Moles/Vol] 140 mmol/L 133-145 [facility] Total proteinOrdered By: Jerzy Fuentes on 07-21-2024 Protein [Mass/Vol] 7.2 g/dL 5.9-8.4 [facility] Triglycerides measurementOrd ered By: Leatha Fuentes on 07-21-2024 Triglyceride [Mass/Vol] 75 mg/dL <199 [facility] Comment on above: The drugs N-Acetylcy steine and Metamizole may falsely depress this assay. Normal range: <150 mg/dLBorderline High: 150-199 mg/dLHigh: 200-499 mg/dLVery High: >500 mg/dL Vitamin B12 ser/plasOrdered By: Leatha Fuentes on 07-21-2024 Cobalamin (Vitamin B12) [Mass/Vol] 475 pg/mL 180-914 [facility] Vitamin D, 25-hydroxyOrdered By: Leatha Fuentes on 07-21-2024 Vitamin D 25-Hydroxy 25.8 ng/mL Low 30-100 [facility] Comment on above: Vitamin D StatusDefi ciency: <20 ng/mL (50nmol/L)Insufficiency: 20-30 ng/mL (50-75 nmol/L)Sufficiency: 30-100 ng/mL (75-250 nmol/L)Toxicity: >100 ng/mL (>250 nmol/L) White blood cell (WBC) count Ordered By: Leatha Fuentes on 07-21-2024 WBC (Bld) [#/Vol] 3.0 10*3/uL Low 4.4-11.0 [facility] Internal Medicine Office Vis iton 03-23-2024 Internal Medicine Office Visit [facility] [place], [place] [address] OFFICE VISIT Date of Service: 03/23/24 MR#: [id number] Acct: [id number] Name: JANET JUAREZ Rep #: [id number] : 1970 Provider: Dr. 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 Accompanied by: Self Is patient in pain?: No Allergies codeine Adverse Reaction (Verified 03/23/24 17:36) Nausea/Vom/Diarrhea metronidazole (From Flagyl) Adverse Reaction (Verified 03/23/24 17:36) Nausea/Vom/Diarrhea NSAIDS (Non-Steroidal Anti-Inflamma Adverse Reaction (Verified 03/23/24 17:36) Other Medications ???Medication ???Instructions ???Recorded ???Confirmed ???Type ferrous sulfate 325 mg (65 mg 325 mg PO TID 07/09/14 03/23/24 History iron) tablet dlulzhumihhl-Pz-zphl- minerals 1 tab PO TID 07/09/14 03/23/24 History calcium carbonate 500 mg PO TID 09/11/14 03/23/24 History cholecalciferol (vitamin D3) 50 2,000 unit PO DAILY 06/23/19 03/23/24 History mcg (2,000 unit) chewable tablet Lactobacills gasseri-Bifidobac cap PO DAILY 06/29/19 03/23/24 History bifidum,longum 1.5 billion cell capsule (Viveve) vitamin I42-enecbac B1 1,000 ml IM MONTHLY 06/29/19 03/23/24 History mcg-100 mg/mL injection solution cholestyramine (with sugar) 4 gram 4 g PO DAILY #378 grams 05/20/22 03/23/24 Rx oral powder buspirone 7.5 mg tablet 7.5 mg PO BID 3 months #180 tabs 09/06/23 03/23/24 Rx bupropion HCl 300 mg 24 hr tablet, 300 mg PO QAM #90 tabs 02/24/24 03/23/24 Rx extended release escitalopram oxalate 20 mg tablet See Rx Instructions .Route 02/24/24 03/23/24 Rx .COMPLEX #90 tabs topiramate 25 mg tablet See Rx Instructions .Route 03/06/24 03/23/24 Rx .COMPLEX #180 tabs PFSH Medical History (Updated 03/23/24 @ 18:[address] Leatha Fuentes MD) Dermatitis Obesity (BMI 30.0-34.9) Overweight (BMI 25.0-29.9) Health care maintenance Normal colonoscopy Pilonidal cyst Vitamin B12 deficiency Polycystic ovaries Anxiety and depression Neuropathy History of colon cancer Benign breast lumps Anemia Frequent headaches Chronic diarrhea Surgical History (Updated 03/23/24 @ 18:[address] Leatha Fuentes MD) H/O gastric bypass History of cholecystectomy H/O right hemicolectomy H/O breast biopsy Family History Mother Alcoholism Vitamin B12 deficiency Alzheimer disease Cancer pancreatic Father Heart disease Diabetes Liver disease Hypertension Hyperlipemia Grandmother Cancer lung Grandfather Liver disease CVA (cerebral vascular accident) Brother Liver disease Anxiety and depression Drug abuse Social History Smoking Status: Never smoker alcohol intake: current alcohol intake frequency: a few times a month Alcohol type: beer and wine substance use type: does not use frequency: 1-2 times per week HPI HPI Chief Complaint: Follow-up chronic conditions Details: JANET JUAREZ, is a 53 F who presents to the office today for follow-up of her chronic conditions. Also has some concerns. Lately, she states that she has had difficulty completing tasks/focusing. At work, she is able to carry out her activities/job without any significant concerns however, she states that when she gets home, she loses interest in doing anything. She does not think it is due to her depression as she believes that her current medication is helping. No prior history of ADHD. Currently on Wellbutrin daily. Has had difficulty with schoolwork as well. Had been in therapy a few months ago which she found helpful however she only had a few sessions approved by her job. She is open to trying therapy again. Other chronic medical conditions are stable. 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 Currently at a BMI of 23.2. Recently had imaging and a colonoscopy due to elevated CEA which was done due to abdominal pain. She states that pain has improved/resolved. ROS Const Constitutional: No body ache, chills, excessive sweating, fatigue, fever(s), frequent falls, headache(s), snoring, weakness or change in appetite Eyes Eyes: No blurry vision, change in vision, bulging eyes, floaters, visual disturbances, eye pain or Light sensitivity (more content not included)... Normal [facility] XR CHEST 2V FRONTAL/LATon XR CHEST 2V FRONTAL/LAT * * *Final Repor t* * * DATE OF EXAM: Mar 01 2024 4:40PM [id number] [id number] - XR CHEST 2V FRONTAL/LAT / PROCEDURE REASON: Elevated carcinoembryonic antigen (CEA) * * * * Physician Interpretation * * * * EXAMINATION: CHEST RADIOGRAPH (2 VIEW FRONTAL and LATERAL) CLINICAL HISTORY: Elevated carcinoembryonic antigen (CEA) . Colon carcinoma MQ: [id number] EXAM DATE/TIME: 03/01/2024 4:40 PM COMPARISON: 10/26/2023 cxr, CT chest of 04/14/2021 RESULT: Lines, tubes, and devices: None. Lungs and pleura: No consolidation. No developing nodule or mass. No pleural effusion. No pneumothorax. Cardiomediastinal silhouette: Normal cardiomediastinal silhouette. Bones and soft tissues: Remote lateral right sixth and seventh rib fractures. IMPRESSION: No developing abnormality or acute process Asbestos Shingle Inspector: KASSIDY Transcribe Date/Time: Mar 02 2024 4:50P Dictated by : EILEEN KAPOOR MD This examination was interpreted and the report reviewed and electronically signed by: EILEEN KAPOOR MD on Mar 02 2024 4:52PM EST [id number] Normal [facility] [id number] 02-29-2024 [id number] HNO ID: [id number] Author: MAUREEN UNDERWOOD RN Service: ? Author Type: Registered Nurse Type: [id number] Filed: 02/29/2024 08:13 Note Text: The patient received a copy of Colonoscopy discharge instructions that contain information for how to contact the physician who performed the procedure and when to seek medical care. Normal [facility] Colonoscopyon 02-29-2024 Colonoscopy [facility] Gastrointestinal Endoscopy Patient Name: Janet Juarez Procedure Date: 02/29/2024 7:18 AM Date of : 1970 Admit Type: Outpatient Age: 53 Gender: Female Note Status: Finalized Procedure: Colonoscopy - screening high risk Indications: High risk colon cancer surveillance: Personal history of colon cancer, elevated CEA Providers: Jess Ross MD Patient Profile: Refer to note in patient chart for documentation of history and physical. Last Colonoscopy: 2019. Referring Physician: Jess Ross MD (Referring MD) Medicines: Midazolam 5 mg IV, Fentanyl 100 micrograms IV, Diphenhydramine 50 mg IV Complications: No immediate complications. Requesting Provider: Procedure: Pre-Anesthesia Assessment: - Prior to the procedure, a History and Physical was performed, and patient medications and allergies were reviewed. The patient is competent. The risks and benefits of the procedure and the sedation options and risks were discussed with the patient. All questions were answered and informed consent was obtained. Patient identification and proposed procedure were verified by the physician in the pre-procedure area. Mental Status Examination: alert and oriented. Airway Examination: normal oropharyngeal airway and neck mobility. Respiratory Examination: clear to auscultation. CV Examination: normal. Prophylactic Antibiotics: The patient does not require prophylactic antibiotics. Prior Anticoagulants: The patient has taken no anticoagulant or antiplatelet agents. ASA Grade Assessment: II - A patient with mild systemic disease. After reviewing the risks and benefits, the patient was deemed in satisfactory condition to undergo the procedure. The anesthesia plan was to use moderate sedation / analgesia (conscious sedation). Immediately prior to administration of medications, the patient was re-assessed for adequacy to receive sedatives. The heart rate, respiratory rate, oxygen saturations, blood pressure, adequacy of pulmonary ventilation, and response to care were monitored throughout the procedure. The physical status of the patient was re-assessed after the procedure. After I obtained informed consent, the scope was passed under direct vision. Throughout the procedure, the patient's blood pressure, pulse, and oxygen saturations were monitored continuously. The Colonoscope was introduced through the anus and advanced to the ileocolonic anastomosis. The colonoscopy was performed with ease. The patient tolerated the procedure well. The quality of the bowel preparation was adequate. Anastomosis were photographed. Moderate Sedation: The administration of moderate sedation was initiated at 07:27 AM. Moderate (conscious) sedation was personally administered by the endoscopist. The following parameters were monitored: oxygen saturation, heart rate, blood pressure, respiratory rate, EKG, adequacy of pulmonary ventilation, and response to care. Total physician intraservice time was 28 minutes. Findings: The perianal and digital rectal examinations were normal. Non-bleeding internal hemorrhoids were found. Impression: - Non-bleeding internal hemorrhoids. - No specimens collected. Recommendation: - Repeat colonoscopy in 5 years for surveillance for history of colon cancer. - Return to primary care physician PRN. - Patient has a contact number available for emergencies. The signs and symptoms of potential delayed complications were discussed with the patient. Return to normal activities tomorrow. Written discharge instructions were provided to the patient. - Continue present medications. - Resume previous diet. Procedure Code(s): --- Professional --- 98996, Colonoscopy, flexible; diagnostic, including collection of specimen(s) by brushing or washing, when performed (separate procedure) 29065, 59, Moderate sedation services provided by the same physician or other qualified health career and guidance counselor performing the diagnostic or therapeutic service that the sedation supports, requiring the presence of an independent trained observer to assist in the monitoring of the patient's level of consciousness and physiological status; initial 15 minutes of intraservice time, patient age 5 years or older [address]451, Moderate sedation; each additional 15 minutes intraservice time Diagnosis Code(s): --- Professional --- K64.8, Other hemorrhoids Z85.038, Personal history of other malignant neoplasm of large intestine Z12.11, Encounter for screening for malignant neoplasm of colon CPT copyright 2020 [employer]. All rights reserved. The codes documented in this report are preliminary and upon first assistant manager review may be revised to meet current compliance requirements. Attending Participation: I personally performed the entire procedure. Scope In: 7:34:08 AM Scope Out: 7:55:[address] Jess Ross, (more content not included)... Normal [facility] Colonoscopy Study observatio non 02-29-2024 [facility] Gastrointestinal Endoscopy Patient Name: Janet Juarez Procedure Date: 02/29/2024 7:18 AM Date of : 1970 Admit Type: Outpatient Age: 53 Gender: Female Note Status: Finalized Procedure: Colonoscopy - screening high risk Indications: High risk colon cancer surveillance: Personal history of colon cancer, elevated CEA Providers: Jess Ross MD Patient Profile: Refer to note in patient chart for documentation of history and physical. Last Colonoscopy: 2019. Referring Physician: Jess Ross MD (Referring MD) Medicines: Midazolam 5 mg IV, Fentanyl 100 micrograms IV, Diphenhydramine 50 mg IV Complications: No immediate complications. Requesting Provider: Procedure: Pre-Anesthesia Assessment: - Prior to the procedure, a History and Physical was performed, and patient medications and allergies were reviewed. The patient is competent. The risks and benefits of the procedure and the sedation options and risks were discussed with the patient. All questions were answered and informed consent was obtained. Patient identification and proposed procedure were verified by the physician in the pre-procedure area. Mental Status Examination: alert and oriented. Airway Examination: normal oropharyngeal airway and neck mobility. Respiratory Examination: clear to auscultation. CV Examination: normal. Prophylactic Antibiotics: The patient does not require prophylactic antibiotics. Prior Anticoagulants: The patient has taken no anticoagulant or antiplatelet agents. ASA Grade Assessment: II - A patient with mild systemic disease. After reviewing the risks and benefits, the patient was deemed in satisfactory condition to undergo the procedure. The anesthesia plan was to use moderate sedation / analgesia (conscious sedation). Immediately prior to administration of medications, the patient was re-assessed for adequacy to receive sedatives. The heart rate, respiratory rate, oxygen saturations, blood pressure, adequacy of pulmonary ventilation, and response to care were monitored throughout the procedure. The physical status of the patient was re-assessed after the procedure. After I obtained informed consent, the scope was passed under direct vision. Throughout the procedure, the patient's blood pressure, pulse, and oxygen saturations were monitored continuously. The Colonoscope was introduced through the anus and advanced to the ileocolonic anastomosis. The colonoscopy was performed with ease. The patient tolerated the procedure well. The quality of the bowel preparation was adequate. Anastomosis were photographed. Moderate Sedation: The administration of moderate sedation was initiated at 07:27 AM. Moderate (conscious) sedation was personally administered by the endoscopist. The following parameters were monitored: oxygen saturation, heart rate, blood pressure, respiratory rate, EKG, adequacy of pulmonary ventilation, and response to care. Total physician intraservice time was 28 minutes. Findings: The perianal and digital rectal examinations were normal. Non-bleeding internal hemorrhoids were found. Impression: - Non-bleeding internal hemorrhoids. - No specimens collected. Recommendation: - Repeat colonoscopy in 5 years for surveillance for history of colon cancer. - Return to primary care physician PRN. - Patient has a contact number available for emergencies. The signs and symptoms of potential delayed complications were discussed with the patient. Return to normal activities tomorrow. Written discharge instructions were provided to the patient. - Continue present medications. (more content not included)... PROVATION [facility] Radiology Study observation (narrative) [facility] HISTORY PHYSICALon HISTORY PHYSICAL HNO ID: [id number] Author: JESS ROSS MD Service: General Surgery Author Type: Physician Type: H&P Filed: 02/29/2024 07:22 Note Text: HISTORY AND PHYSICAL Janet Gama Ann 1970 REFERRING PHYSICIAN: Jess Ross MD CHIEF COMPLAINT: No chief complaint on file. HPI: The patient is a 53 year old female here for colonoscopy. History of colon cancer Found to have elevated CEA No symptoms Last colonoscopy 2019 PAST MEDICAL HISTORY Diagnosis Date Anemia Cholelithiasis 09/13/14 Colon cancer (HCC) 04/2016 Colon cancer History of cancer chemotherapy PAST SURGICAL HISTORY Procedure Laterality Date ABDOMINAL SURGERY HX APPENDECTOMY BREAST BIOPSY HX Left 05/26/2016 BREAST SURGERY HX CAUTERY CERVIX CRYOCAUTERY INITIAL/REPEAT , COLON SURGERY HX COLONOSCOPY FLX DX W/COLLJ SPEC WHEN PFRMD 04/02/2017 Colonoscopy-repeat in 3 years COLONOSCOPY SCRN NOT HIGH RISK 04/11/2020 COLONOSCOPY W/BIOPSY SINGLE/MULTIPLE 04/06/2016 cecal colon cancer GASTRECTOMY,PART DISTAL;W/GASTRODUODEN OSTO INSJ TUNNELED CTR VAD W/SUBQ PORT AGE 5 YR/> Left 06/16/2016 subclavian LAP GASTR RSTRC;GASTR BYPSANDROUXENY 08/2011 LAPAROSCOPY COLECTOMY PARTIAL W/ANASTOMOSIS Right 04/15/2016 LAPAROSCOPY SURG CHOLECYSTECTOMY 09/13/2014 Current Outpatient Medications Medication Sig cholestyramine (QUESTRAN) 4 gram packet Take 1 Packet by mouth two times a day with meals. buPROPion XL (WELLBUTRIN XL) 300 mg 24 hr tablet Take 300 mg by mouth once daily. topiramate (TOPAMAX) 50 mg tablet Take 50 mg by mouth twice daily. escitalopram oxalate (LEXAPRO) 10 mg tablet Take 10 mg by mouth once daily. Lactobacillus acidophilus (PROBIOTIC ORAL) Take by mouth. Ascorbic Acid 100 mg tablet Take 100 mg by mouth once daily. MULTI-VITAMIN ORAL Take 1 tablet by mouth once daily. FERROUS SULFATE ORAL Take 65 mg by mouth once daily. CALCIUM CARBONATE/VITAMIN D3 (CALCIUM 600 + D ORAL) Take 1 tablet by mouth once daily. rizatriptan (MAXALT) 10 mg tablet Take 1 tablet (10 mg) by mouth as needed for migraine headache (see administration instructions). May repeat dose after 2 hours if needed. Maximum daily dose is 30 mg per day. lidocaine-menthol (LIDALL) 4-1 % ptmd Apply 1 Patch to affected area two times a day. hydrOXYzine HCl (ATARAX) 25 mg tablet Take 1 tablet by mouth three times daily as needed. Cholestyramine, Bulk, powd 4 g three times daily. cyanocobalamin 1,000 mcg/mL soln Inject 1,000 mcg intramuscularly once every month. Current Facility-Administered Medications Medication Dose Route Frequency lactated ringers iv infusion 30 mL/hr INTRAVENOUS CONTINUOUS ALLERGIES: Codeine, Metronidazole, and Nsaids (Non-Steroidal Anti-Inflammatory Drug) PERSONAL HISTORY: Social History Tobacco Use Smoking status: Never Smokeless tobacco: Never Vaping Use Vaping status: Never Used Substance Use Topics Alcohol use: Yes Comment: Once monthly Drug use: No FAMILY HISTORY Problem Relation Age of Onset Alcohol/Drug Brother Blood Disease Maternal Grandfather leukemia Cancer Maternal Grandmother lung- smoker Diabetes Father Hypertension Father Pancreatic Cancer Mother 82 other (Anemia) Mother Alcohol/Drug Brother No Known Problems Daughter REVIEW OF SYSTEMS: Denies chest pain Denies shortness of breath PHYSICAL EXAMINATION: General: The patient is 53 year old female, well nourished, well hydrated in no acute distress. The patient is oriented to time, place, and person. VITALS: Pulse 76, temperature 36.6 ?C (97.9 ?F), temperature source Temporal Artery, resp. rate 16, weight 75.7 kg (166 lb 14.2 oz), last menstrual period 04/11/2016, SpO2 99%. Body mass index is 28.65 kg/m?. Head - Normocephalic. EOM intact with sclera clear. Mouth with mucus membranes moist. Neck - supple with no jugular venous distention noted. Trachea is midline. Lungs - normal breath sounds, normal respiratory motion, no adventitial sounds noted. Heart - normal heart sounds. Regular rate. Abdomen - soft and benign. Extremities - no pitting edema noted. Skin - Normal skin integrity. Neurological - non focal Psych - calm and appropriate Impression: screening for colon cancer - history of colon cancer - elevated CEA Discussion/Plan/Recom mendations: I have discussed the above with the patient. I have offered colonoscopy, possible biopsies I have explained the procedure to the patient. I have counseled the patient as to the risks of the procedure, including but not limited to: infection, bleeding, injury to any intrabdominal organs such as liver/spleen, perforation of the GI tract, inability to complete the procedure, complications of anesthesia, etc. - the patient understands. The patient wishes to proceed. I have answered all questions to the patient?s satisfaction and the patient has no further questions. . Jess Ross MD Normal [facility] NURSING PROGon 02-29-2024 NURSING PROG HNO ID: [id number] Author: MAUREEN UNDERWOOD RN Service: ? Author Type: Registered Nurse Type: Nursing Progress Note Filed: 02/29/2024 08:27 Note Text: Patient awakens easily, denies pain, cramping or nausea, does not want food or drink yet, will continue to rest on left side for now. [facility] NURSING PROG HNO ID: [id number] Author: MAUREEN UNDERWOOD RN Service: ? Author Type: Registered Nurse Type: Nursing Progress Note Filed: 02/29/2024 08:12 Note Text: Patient received in phase II via cart in left lateral position, eyes closed but open to verbal stimuli, skin warm and dry, respirations regular and unlabored, abdomen non distended, denies nausea or pain, resting comfortably on left side. [facility] CEA SerPl-ncon 02-23-2024 Carcinoembryonic Ag [Mass/Vol] 3.7 ng/mL High <=2.9 [facility] Comment on above: Order Comment: Speci men Type: BLOOD SPECIMEN Ordering Facility: [facility] Address: [address] [place] [address] Result Comment: Carc inoembryonic antigen test is used as an aid in monitoring response to treatment or recurrence in patients with established colorectal, breast, lung, prostatic, pancreatic, and ovarian carcinomas. Clinical correlation is required. The Carcinoembryonic antigen test was performed using the Quyn[employer] Roseland Unicel DXI paramagnetic particle chemiluminescent immunoassay method. Results obtained with different assay methods or kits cannot be used interchangeably. Performed By: #### 2 [id number] #### [facility] CLIA [id number] [address] [place], [place] [address] [address] [place] ABD/PEL W IVCONon 10-17-[address] ABD/PEL W IVCON * * *Final Report* * * DATE OF EXAM: Feb 17 2024 2:29PM [facility] 0530 - CT ABD/PEL W IVCON / PROCEDURE REASON: Lower abdominal pain * * * * Physician Interpretation * * * * EXAMINATION: CT ABD/PEL W IVCON CLINICAL HISTORY: Lower abdominal pain TECHNIQUE: CT of the abdomen and pelvis was performed using standard technique, scanning from just above the dome of the diaphragm to the symphysis pubis. Contrast: IV: 100 ml of Omnipaque 350 Oral: 10 ml of Omni 240 10-25ml diluted with water Dose-Length Product (DLP): 372 mGy*cm CT Dose Reduction Employed: Automated exposure control(AEC) and iterative recon COMPARISON: 04/14/2021 RESULT: Lower thorax: Unremarkable. Liver: No mass. Biliary: Mild, stable prominence of postcholecystectomy biliary tree, most likely secondary to cholecystectomy/reser voir effect changes. Spleen: No mass. No splenomegaly. Pancreas: No mass or ductal dilatation. Adrenal glands: Unremarkable. Kidneys: No solid, enhancing mass or hydronephrosis in either kidney. Vascular: Normal caliber abdominal aorta . GI tract: Stable changes of gastric bypass and right hemicolectomy. No dilation or wall thickening. Pelvis: Trace free fluid is nonspecific, likely physiologic. Unremarkable urinary bladder Lymph nodes: No abdominal or pelvic lymphadenopathy, by size criteria. Mesentery/Peritoneum/ Retroperitoneum: No ascites, pneumoperitoneum or suspicious mass. Soft Tissues/Bones: No destructive osseous lesion. No suspicious body wall findings. IMPRESSION: No acute findings or significant pathology. 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 Mild stable prominence of postcholecystectomy biliary tree likely related to cholecystectomy/reser voir effect. Recommend clinical/laboratory correlation. Asbestos Shingle Inspector: KASSIDY Transcribe Date/Time: Feb 17 2024 3:27P Dictated by : KHOI AMIN MD This examination was interpreted and the report reviewed and electronically signed by: KHOI AMIN MD on Feb 17 2024 3:32PM EST [id number] [facility] CT Abdomen and Pelvis W cont rast Shireen 02-17-2024 IMPRESSION: No acute findings or significant pathology. 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 Mild stable prominence of postcholecystectomy biliary tree likely related to cholecystectomy/reser voir effect. Recommend clinical/laboratory correlation. Asbestos Shingle Inspector: KASSIDY Transcribe Date/Time: Feb 17 2024 3:27P Dictated by : KHOI AMIN MD This examination was interpreted and the report reviewed and electronically signed by: KHOI AMIN MD on Feb 17 2024 3:32PM EST DIVISION OF RADIOLOGY * * *Final Report* * * DATE OF EXAM: Feb 17 2024 2:29PM [facility] 0530 - CT ABD/PEL W IVCON / PROCEDURE REASON: Lower abdominal pain * * * * Physician Interpretation * * * * EXAMINATION: CT ABD/PEL W IVCON CLINICAL HISTORY: Lower abdominal pain TECHNIQUE: CT of the abdomen and pelvis was performed using standard technique, scanning from just above the dome of the diaphragm to the symphysis pubis. Contrast: IV: 100 ml of Omnipaque 350 Oral: 10 ml of Omni 240 10-25ml diluted with water Dose-Length Product (DLP): 372 mGy*cm CT Dose Reduction Employed: Automated exposure control(AEC) and iterative recon COMPARISON: 04/14/2021 RESULT: Lower thorax: Unremarkable. Liver: No mass. Biliary: Mild, stable prominence of postcholecystectomy biliary tree, most likely secondary to cholecystectomy/reser voir effect changes. Spleen: No mass. No splenomegaly. Pancreas: No mass or ductal dilatation. Adrenal glands: Unremarkable. Kidneys: No solid, enhancing mass or hydronephrosis in either kidney. Vascular: Normal caliber abdominal aorta . GI tract: Stable changes of gastric bypass and right hemicolectomy. No dilation or wall thickening. Pelvis: Trace free fluid is nonspecific, likely physiologic. Unremarkable urinary bladder Lymph nodes: No abdominal or pelvic lymphadenopathy, by size criteria. Mesentery/Peritoneum/ Retroperitoneum: No ascites, pneumoperitoneum or suspicious mass. Soft Tissues/Bones: No destructive osseous lesion. No suspicious body wall findings. DIVISION OF RADIOLOGY Provider, [facility] - 02/17/2024 * * *Final Report* * * DATE OF EXAM: Feb 17 2024 2:29PM [facility] 0530 - CT ABD/PEL W IVCON / PROCEDURE REASON: Lower abdominal pain * * * * Physician Interpretation * * * * EXAMINATION: CT ABD/PEL W IVCON CLINICAL HISTORY: Lower abdominal pain TECHNIQUE: CT of the abdomen and pelvis was performed using standard technique, scanning from just above the dome of the diaphragm to the symphysis pubis. Contrast: IV: 100 ml of Omnipaque 350 Oral: 10 ml of Omni 240 10-25ml diluted with water Dose-Length Product (DLP): 372 mGy*cm CT Dose Reduction Employed: Automated exposure control(AEC) and iterative recon COMPARISON: 04/14/2021 RESULT: Lower thorax: Unremarkable. Liver: No mass. Biliary: Mild, stable prominence of postcholecystectomy biliary tree, most likely secondary to cholecystectomy/reser voir effect changes. Spleen: No mass. No splenomegaly. Pancreas: No mass or ductal dilatation. Adrenal glands: Unremarkable. Kidneys: No solid, enhancing mass or hydronephrosis in either kidney. Vascular: Normal caliber abdominal aorta . GI tract: Stable changes of gastric bypass and right hemicolectomy. No dilation or wall thickening. Pelvis: Trace free fluid is nonspecific, likely physiologic. Unremarkable urinary bladder Lymph nodes: No abdominal or pelvic lymphadenopathy, by size criteria. Mesentery/Peritoneum/ Retroperitoneum: No ascites, pneumoperitoneum or suspicious mass. Soft Tissues/Bones: No destructive osseous lesion. No suspicious body wall findings. IMPRESSION IMPRESSION: No acute findings or significant pathology. 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 Mild stable prominence of postcholecystectomy biliary tree likely related to cholecystectomy/reser voir effect. Recommend clinical/laboratory correlation. Asbestos Shingle Inspector: KASSIDY Transcribe Date/Time: Feb 17 2024 3:27P Dictated by : KHOI AMIN MD This examination was interpreted and the report reviewed and electronically signed by: KHOI AMIN MD on Feb 17 2024 3:32PM EST [facility] Radiology Study observation (narrative) [facility] CT Abdomen and Pelvis W cont rast IVOrdered By: Ccf Provider on 02-17-2024 [facility] CNPNon 02-07-2024 CNPN Telephone (GENSWS) JANET JUAREZ ([id number]) 1970 F [facility] Date Time Provider Department 02/07/24 ASHA HERNANDEZ GENSWS During your visit today, we recorded the following information about you: Tabitha Hanson RN 02/07/2024 1:32 PM Addendum Delayed entry. On 01/12/24 at 11:18 am patient was shaky, weak, and fatigued. Requested blood sugar check. Nurse checked blood sugar and blood sugar was 56. Patient ate crackers and apple juice. Blood glucose was checked a half hour later and it was 183. Patient began feeling better, complained of slight nausea. Offered patient a ride home but she declined. Advised patient to seek urgent medical care should symptoms continue. Allergies As of Date: 02/07/2024 Noted Allergy Reaction CODEINE 09/07/2014 8 - GI Upset 11 - Vomiting METRONIDAZOLE 06/28/2020 8 - GI Upset NSAIDS (NON-STEROIDAL ANTI-INFLAM* 5 14 - Other: See Comments Comments: d/t gastric bypass Date Reviewed: 08/05/2022 Reviewed by: Tati Ballard MA - Fully Assessed Reason for Visit: Orders [681] Primary Visit Diagnosis:Shakiness [R25.1] Other Visit Diagnosis:Malaise and fatigue [R53.81, R53.83] Order(s):BLOOD GLUCOSE MONITORING (POC) [4913832] Order #: [id number]: 1 Prescriptions as of 02/07/2024 - ondansetron orally disintegrating (ZOFRAN ODT) 4 mg disintegrating tablet Take 1 tablet by mouth every 8 hours as needed for nausea/vomiting for up to 5 days. - cholestyramine (QUESTRAN) 4 gram packet Take 1 Packet by mouth two times a day with meals. - lidocaine-menthol (LIDALL) 4-1 % ptmd Apply 1 Patch to affected area two times a day. - hydrOXYzine HCl (ATARAX) 25 mg tablet Take 1 tablet by mouth three times daily as needed. - buPROPion XL (WELLBUTRIN XL) 300 mg 24 hr tablet Take 300 mg by mouth once daily. - topiramate (TOPAMAX) 50 mg tablet Take 50 mg by mouth twice daily. - Cholestyramine, Bulk, powd 4 g three times daily. - escitalopram oxalate (LEXAPRO) 10 mg tablet Take 10 mg by mouth once daily. - Lactobacillus acidophilus (PROBIOTIC ORAL) Take by mouth. - Ascorbic Acid 100 mg tablet Take 100 mg by mouth once daily. - cyanocobalamin 1,000 mcg/mL soln Inject 1,000 mcg intramuscularly once every month. - MULTI-VITAMIN ORAL Take 1 tablet by mouth once daily. - FERROUS SULFATE ORAL Take 65 mg by mouth once daily. - CALCIUM CARBONATE/VITAMIN D3 (CALCIUM 600 + D ORAL) Take 1 tablet by mouth once daily. Problem List As Of Date 02/07/2024 Noted Resolved Malignant neoplasm of ascending colon (HCC) [C1*04/08/2016 Abnormal finding on breast imaging [R92.8] 05/15/2016 Dizziness [R42] 07/13/2016 07/21/2016 Iron deficiency anemia [D50.9] 07/21/2016 Iron malabsorption [K90.9] 07/21/2016 Encounter Status:Closed by ASHA HERNANDEZ on 02/07/24 [facility] GLUCOSE, BLOOD (POC)on 01-11 Glucose [Mass/Vol] 189 mg/dL Abnormal 74 - 99 mg/dL [facility] Comment on above: [facility], [address] [facility], [place] [id number] The Accu-Chek Inform II glucose meter has not been approved for testing on patients receiving intensive medical intervention or therapy and results from this point of care glucose test should not be used for patient management decisions in these cases. Inaccurate results may also occur from other interfering factors, such as N-acetylcysteine (blood concentrations of greater than 5mg/dL), galactose, extremes of hematocrit (<10 or >65), or high doses of ascorbic acid (vitamin C) greater than 3mg/dL. Consider alternate testing mechanisms (e.g. core lab, blood gas instrument) in the above situations. Interpretation and review of laboratory results Abnormal [facility] Glucose [Mass/Vol] 183 mg/dL Abnormal 74 - 99 mg/dL [facility] Comment on above: Glu2: Repeat Immedia tely Location:[facility], [address] [place] [address] The Accu-Chek Inform II glucose meter has not been approved for testing on patients receiving intensive medical intervention or therapy and results from this point of care glucose test should not be used for patient management decisions in these cases. Inaccurate results may also occur from other interfering factors, such as N-acetylcysteine (blood concentrations of greater than 5mg/dL), galactose, extremes of hematocrit (<10 or >65), or high doses of ascorbic acid (vitamin C) greater than 3mg/dL. Consider alternate testing mechanisms (e.g. core lab, blood gas instrument) in the above situations. Interpretation and review of laboratory results Abnormal [facility] Glucose [Mass/Vol] 56 mg/dL Abnormal 74 - 99 mg/dL [facility] Comment on above: Glu2: Critical Notif ied Location:[facility], [facility] [address] [place] [id number] The Accu-Chek Inform II glucose meter has not been approved for testing on patients receiving intensive medical intervention or therapy and results from this point of care glucose test should not be used for patient management decisions in these cases. Inaccurate results may also occur from other interfering factors, such as N-acetylcysteine (blood concentrations of greater than 5mg/dL), galactose, extremes of hematocrit (<10 or >65), or high doses of ascorbic acid (vitamin C) greater than 3mg/dL. Consider alternate testing mechanisms (e.g. core lab, blood gas instrument) in the above situations. Interpretation and review of laboratory results Abnormal [facility] Office Visit Reporton 2023 Office Visit Report [facility] [address] [place] [address] OFFICE VISIT Date of Service: 11/03/23 MR#: [id number] Acct: [id number] Patient: JANET JUAREZ Rep #: [id number] : 1970 Provider: MOHINI NURSE Age/Sex: 52/F Location: [facility] Status: Signed Intake Vital Signs 09/06/23 10:13 Height 5 ft 4 in Weight: 140 lb BMI 24.0 BP 118/66 Blood Pressure Location Lt brachial Position Sitting Respiration 6 L Pulse 80 Pulse Source Monitor Temp 98.6 F Temp Source Temporal Pulse Oximetry (%) 97 Oxygen Delivery Method room air Intake Visit Reasons: B 12 Chief Complaint: b12 injection Allergies codeine Adverse Reaction (Verified 09/06/23 10:01) Nausea/Vom/Diarrhea metronidazole (From Flagyl) Adverse Reaction (Verified 09/06/23 10:01) Nausea/Vom/Diarrhea NSAIDS (Non-Steroidal Anti-Inflamma Adverse Reaction (Verified 09/06/23 10:01) Other Office Meds cyanocobalamin (vitamin B-12) 1,000 mcg/mL injection solution Performing Provider: Leatha Fuentes MD Performing Location: [facility] Administered by: Erin Ward MA on 11/03/23 18:25 Dose Route Admin Location Dispensed Lot Number Expiration Date [facility] ufacturer 1,000 mcg IM LD 1 mL [id number] 10/01/25 85676-788-82 [employer]AME[employer] Assessment and Plan Assessment and Plan (1) Vitamin B12 deficiency: Status: Chronic (2) Postsurgical malabsorption: Status: Chronic Orders: Orders Vitamin B12 Today E53.8 - Deficiency of other specified B group vitamins 11/03/23 2316 Date Leatha Fuentes MD Cosigner Signature: Date (if applicable) CC: Normal [facility] XR RIB/CHST 3V AP RIB/OBL/CH ST Alex 10-26-2023 XR RIB/CHST 3V AP RIB/OBL/CHST R * * *Final Report* * * DATE OF EXAM: Oct 26 2023 12:52PM [id number] [id number] - XR RIB/CHST 3V AP RIB/OBL/CHST R / PROCEDURE REASON: multiple diagnoses * * * * Physician Interpretation * * * * EXAMINATION: X-ray chest and right ribs Clinical History: Status post fall Right-sided chest wall pain M: XC1_4 Comparison: CT chest 04/17/2021 RESULT: Lines, tubes, and devices: None. Lungs and pleura: No consolidation. No lung mass. No pleural effusion or pneumothorax. Cardiomediastinal silhouette: Normal cardiomediastinal silhouette. Musculoskeletal: Nondisplaced fracture of the lateral right seventh rib. IMPRESSION: Nondisplaced fracture of the lateral right seventh rib. No pneumothorax. Asbestos Shingle Inspector: PSCB Transcribe Date/Time: Nov 01 2023 8:50A Dictated by : BARBRA BLEDSOE MD This examination was interpreted and the report reviewed and electronically signed by: BARBRA BLEDSOE MD on Nov 01 2023 8:52AM EST [id number] [facility] Absolute lymphocyte countOrd ered By: Dr. Fuentes on 06-10-2022 Lymphocytes Auto (Unsp spec) [#/Vol] 1.33 10*3/uL 0.83-4.51 [facility] Basophil percentageOrdered B y: Dr. Fuentes on 06-10-2022 Basophils/100 WBC (Bld) 0.8 % 0-1 [facility] Bilirubin [Mass/Vol] 0.30 mg/dL 0.20-1.00 [facility] Comment on above: For patients on eltr ombopag therapy, use of Dimension [place] TBIL is not recommended. Chloride [Moles/Vol] 108 mmol/L 98-107 [facility] Eosinophils/100 WBC (Bld) 2.8 % 0-5 [facility] Glucose [Mass/Vol] 72 mg/dL 74-106 [facility] Neutrophils (Bld) [#/Vol] 2.9 10*3/uL 2.0-7.7 [facility] Neutrophils/100 WBC (Bld) 58.7 % 47-70 [facility] Potassium [Moles/Vol] 4.0 mmol/L 3.5-5.1 [facility] Protein [Mass/Vol] 7.2 g/dL 6.4-8.2 [facility] Sodium [Moles/Vol] 143 mmol/L 136-145 [facility] WBC (Bld) [#/Vol] 5.0 10*3/uL 4.4-11.0 [facility] Blood erythrocytes count (nu mber/volume)Ordered By: Dr. Fuentes on 06-10-2022 RBC (Bld) [#/Vol] 4.04 10*6/uL 4.2-5.4 [facility] Blood hemoglobin measurement (mass/volume)Ordered By: Dr. Fuentes on 06-10-2022 Hemoglobin (Bld) [Mass/Vol] 11.4 g/dL 12.0-15.0 [facility] Blood lymphocytes/100 leukoc ytesOrdered By: Dr. Fuentes on 06-10-2022 Lymphocytes/100 WBC (Bld) 26.7 % 19-41 [facility] Blood monocytes/100 leukocyt esOrdered By: Dr. Fuentes on 06-10-2022 Monocytes/100 WBC (Bld) 10.8 % 0-10 [facility] Blood platelet mean volumeOr dered By: Dr. Fuentes on 06-10-2022 Platelet mean volume (Bld) [Entitic vol] 9.9 fL 6.2-12.0 [facility] Determination of erythrocyte mean corpuscular volume (MCV)Ordered By: Dr. Fuentes on 06-10-2022 MCV (RBC) [Entitic vol] 89.6 fL 81-99 [facility] Hematocrit Auto (Bld) [Volum e fraction]Ordered By: Dr. Fuentes on 06-10-2022 Hematocrit (Bld) [Volume fraction] 36.2 % 37-47 [facility] Laboratory - Chemistry and C hemistry - challengeOrdered By: Dr. Fuentes on 06-10-2022 ALP [Catalytic activity/Vol] 115 U/L 45-117 [facility] ALT [Catalytic activity/Vol] 33 U/L 13-56 [facility] CO2 [Moles/Vol] 31.0 mmol/L 21.0-32.0 [facility] Free T4 [Mass/Vol] 0.99 ng/dL 0.76-1.46 [facility] Globulin (S) [Mass/Vol] 3.5 g/dL 2.2-4.2 [facility] Urea nitrogen/Creatinine [Mass ratio] 31.3 mg/mg 10-20 [facility] Laboratory - Hematology and Cell countsOrdered By: Dr. Fuentes on 06-10-2022 Erythrocyte distribution width (RBC) [Entitic vol] 41.0 fL 35.1-43.9 [facility] Erythrocyte distribution width (RBC) [Ratio] 12.4 % 11.6-14.6 [facility] Immature granulocytes/100 WBC (Bld) 0.200 % 0.0-0.9 [facility] Comment on above: IG% - Immature Granu locytes (promyelocytes, myelocytes and metamyelocytes) > 1% indicates that a LEFT SHIFT is Present. MCH (RBC) [Entitic mass] 28.2 pg 27.0-32.0 [facility] Nucleated RBC/100 WBC (Bld) [Ratio] 0 % 0-5 [facility] MCHC Auto (RBC) [Mass/Vol]Or dered By: Dr. Fuentes on 06-10-2022 MCHC (RBC) [Mass/Vol] 31.5 g/dL 32-36 [facility] No Panel InformationOrdered By: Dr. Fuentes on 06-10-2022 Estimated GFR (MDRD) Amer 89 mL/min >60 [facility] Comment on above: GFR Calc Estimated GFR (MDRD) Non-Af Amer 73 mL/min >60 [facility] Comment on above: Non- GFR Calc Thyroid Stimulating Hormone (TSH) 1.82 uIU/mL 0.358-3.74 [facility] Platelets bldOrdered By: Dr. Fuentes on 06-10-2022 Platelets (Bld) [#/Vol] 212 10*3/uL 150-450 [facility] Serum or plasma albumin gertrude urement (mass/volume)Ordered By: Dr. Fuentes on 06-10-2022 Albumin [Mass/Vol] 3.7 g/dL 3.2-5.0 [facility] Serum or plasma albumin/glob ulin mass ratioOrdered By: Dr. Fuentes on 06-10-2022 Albumin/Globulin [Mass ratio] 1.1 {ratio} 0.9-2.4 [facility] Serum or plasma calcium gertrude urement (mass/volume)Ordered By: Dr. Fuentes on 06-10-2022 Calcium [Mass/Vol] 8.8 mg/dL 8.5-10.1 [facility] Serum or plasma creatinine m easurement (mass/volume)Ordered By: Dr. Fuentes on 06-10-2022 Creatinine [Mass/Vol] 0.86 mg/dL 0.55-1.02 [facility] Comment on above: The validity of the calculated GFR & GFRAA in patients over 70 years has not been determined. Clinical correlation is essential. Serum or plasma urea nitroge n measurement (mass/volume)Ordered By: Dr. Fuentes on 06-10-2022 Urea nitrogen [Mass/Vol] 27 mg/dL 7-18 [facility] Thin prep Papanicolaou smear with manual screeningOrdered By: Dr. Fuentes on 06-10-2022 Thin prep Papanicolaou smear with manual screening 21 U/L 15-37 [facility] Thin prep Papanicolaou smear with manual screening 4 5-15 [facility] SURGICAL PATHOLOGYon Case Report Surgical Pathology Report Case: [id number] Authorizing Provider: Bhupinder Peace MD Collected: 02/04/2022 07:41 AM Ordering Location: General Surgery Received: 02/04/2022 04:59 PM Pathologist: Aftab George MD, PhD Specimens: A) - SKIN PUNCH EXCISION, right leg B) - SKIN PUNCH EXCISION, left forearm [facility] Clinical History atypical skin lesion[right leg [facility] FINAL DIAGNOSIS A. Skin, right leg, punch excision: - Early seborrheic keratosis. B. Skin, left forearm, punch excision: - Inflamed seborrheic keratosis. AF//kr 02/05/2022 [facility] Gross Description A. SKIN PUNCH EXCISION Received in formalin is a cylindrical segment of skin and subcutaneous tissue measuring 0.5 x 0.4 x 0.6 cm. On the skin surface there is a 0.4 cm, arias, slightly elevated and smooth area. The specimen is bisected. Totally submitted in one cassette. B. SKIN PUNCH EXCISION Received in formalin is a cylindrical segment of skin and subcutaneous tissue measuring 0.5 x 0.4 x 0.3 cm. On the skin surface there is a 0.4 cm, arias-pink to red, slightly elevated and smooth area. The specimen is bisected. Totally submitted in one cassette. Gross examination performed at [facility], [address] [place] [address] JT 02/04/2022 9:11 PM [facility] Performing Lab Diagnostic interpretation performed at [facility], [address] [place] [address] CLIA# [id number] Sand Filler: Ace Fry M.D. [facility] Absolute lymphocyte counton 08-06-2021 Lymphocytes Auto (Unsp spec) [#/Vol] 0.97 10*3/uL 0.83-4.51 [facility] Work Phone: Basophil percentageon 2021 Basophils/100 WBC (Bld) 0.5 % 0-1 [facility] Work Phone: Bilirubin [Mass/Vol] 0.40 mg/dL 0.20-1.00 [facility] Work Phone: Comment on above: For patients on eltr ombopag therapy, use of Dimension [place] TBIL is not recommended. Chloride [Moles/Vol] 105 mmol/L 98-107 [facility] Work Phone: Cholesterol [Mass/Vol] 160 mg/dL <200 [facility] Work Phone: Comment on above: <200 mg/dL Desirable 200-240 mg/dL Borderline >240 mg/dL High Risk Eosinophils/100 WBC (Bld) 3.8 % 0-5 [facility] Work Phone: Glucose [Mass/Vol] 87 mg/dL 74-106 [facility] Work Phone: Neutrophils (Bld) [#/Vol] 2.2 10*3/uL 2.0-7.7 [facility] Work Phone: Neutrophils/100 WBC (Bld) 60.1 % 47-70 [facility] Work Phone: Potassium [Moles/Vol] 3.8 mmol/L 3.5-5.1 [facility] Work Phone: Protein [Mass/Vol] 7.1 g/dL 6.4-8.2 [facility] Work Phone: Sodium [Moles/Vol] 140 mmol/L 136-145 [facility] Work Phone: Triglyceride [Mass/Vol] 87 mg/dL [facility] Work Phone: Comment on above: The drugs N-Acetylcy steine and Metamizole may falsely depress this assay.Serum Triglycerides Reference Interval Normal <150 mg/dL Borderline high 150 - 199 mg/dL High 200 - 499 mg/dL Very High > or = 500 mg/dL WBC (Bld) [#/Vol] 3.7 10*3/uL 4.4-11.0 [facility] Work Phone: Blood erythrocytes count (nu mber/volume)on 08-06-2021 RBC (Bld) [#/Vol] 4.11 10*6/uL 4.2-5.4 [facility] Work Phone: Blood hemoglobin measurement (mass/volume)on 08-06-2021 Hemoglobin (Bld) [Mass/Vol] 12.8 g/dL 12.0-15.0 [facility] Work Phone: Blood lymphocytes/100 leukoc yteson 08-06-2021 Lymphocytes/100 WBC (Bld) 26.6 % 19-41 [facility] Work Phone: Blood monocytes/100 leukocyt eson 08-06-2021 Monocytes/100 WBC (Bld) 8.5 % 0-10 [facility] Work Phone: Blood platelet mean volumeon 08-06-2021 Platelet mean volume (Bld) [Entitic vol] 10.3 fL 6.2-12.0 [facility] Work Phone: Determination of erythrocyte mean corpuscular volume (MCV)on 08-06-2021 MCV (RBC) [Entitic vol] 91.7 fL 81-99 [facility] Work Phone: Hematocrit Auto (Bld) [Volum e fraction]on 08-06-2021 Hematocrit (Bld) [Volume fraction] 37.7 % 37-47 [facility] Work Phone: Laboratory - Chemistry and C hemistry - challengeon 08-06-2021 ALP [Catalytic activity/Vol] 114 U/L 45-117 [facility] Work Phone: ALT [Catalytic activity/Vol] 45 U/L 13-56 [facility] Work Phone: CO2 [Moles/Vol] 32.0 mmol/L 21.0-32.0 [facility] Work Phone: Globulin (S) [Mass/Vol] 3.2 g/dL 2.2-4.2 [facility] Work Phone: Urea nitrogen/Creatinine [Mass ratio] 28.9 mg/mg 10-20 [facility] Work Phone: Laboratory - Hematology and Cell countson 08-06-2021 Erythrocyte distribution width (RBC) [Entitic vol] 40.4 fL 35.1-43.9 [facility] Work Phone: Erythrocyte distribution width (RBC) [Ratio] 12.1 % 11.6-14.6 [facility] Work Phone: Immature granulocytes/100 WBC (Bld) 0.500 % 0.0-0.9 [facility] Work Phone: Comment on above: IG% - Immature Granu locytes (promyelocytes, myelocytes and metamyelocytes) > 1% indicates that a LEFT SHIFT is Present. MCH (RBC) [Entitic mass] 31.1 pg 27.0-32.0 [facility] Work Phone: Nucleated RBC/100 WBC (Bld) [Ratio] 0 % 0-5 [facility] Work Phone: MCHC Auto (RBC) [Mass/Vol]on 08-06-2021 MCHC (RBC) [Mass/Vol] 34.0 g/dL 32-36 [facility] Work Phone: No Panel Informationon 08-06 Estimated GFR (MDRD) Amer 115 mL/min >60 [facility] Work Phone: Comment on above: GFR Calc Estimated GFR (MDRD) Non-Af Amer 95 mL/min >60 [facility] Work Phone: Comment on above: Non- GFR Calc Platelets bldon 08-06-2021 Platelets (Bld) [#/Vol] 180 10*3/uL 150-450 [facility] Work Phone: Serum or plasma albumin gertrude urement (mass/volume)on 08-06-2021 Albumin [Mass/Vol] 3.9 g/dL 3.2-5.0 [facility] Work Phone: Serum or plasma albumin/glob ulin mass ratioon 08-06-2021 Albumin/Globulin [Mass ratio] 1.2 {ratio} 0.9-2.4 [facility] Work Phone: Serum or plasma calcium gertrude urement (mass/volume)on 08-06-2021 Calcium [Mass/Vol] 8.8 mg/dL 8.5-10.1 [facility] Work Phone: Serum or plasma cholesterol in HDL measurement (mass/volume)on 08-06-2021 Cholesterol in HDL [Mass/Vol] 79 mg/dL [facility] Work Phone: Comment on above: The drugs N-Acetylcy steine and Metamizole may falsely depress this assay. Reference Range HDL <40 mg/dL Low HDL Cholesterol HDL >or= 60 mg/dL High HDL Cholesterol Serum or plasma cholesterol in VLDL measurement (mass/volume)on 08-06-2021 Cholesterol in VLDL [Mass/Vol] 17 mg/dL 5-40 [facility] Work Phone: Serum or plasma creatinine m easurement (mass/volume)on 08-06-2021 Creatinine [Mass/Vol] 0.69 mg/dL 0.55-1.02 [facility] Work Phone: Comment on above: The validity of the calculated GFR & GFRAA in patients over 70 years has not been determined. Clinical correlation is essential. Serum or plasma low density lipoprotein (LDL) cholesterol measurement (mass/volume)on 08-06-2021 Cholesterol in LDL [Mass/Vol] 64 mg/dL 0-130 [facility] Work Phone: Serum or plasma urea nitroge n measurement (mass/volume)on 08-06-2021 Urea nitrogen [Mass/Vol] 20 mg/dL 7-18 [facility] Work Phone: Thin prep Papanicolaou smear with manual screeningon 08-06-2021 Thin prep Papanicolaou smear with manual screening 23 U/L 15-37 [facility] Work Phone: Thin prep Papanicolaou smear with manual screening 3 5-15 [facility] Work Phone: MUMPS ANTIBODY, IgG [id number] (9 [id number])Ordered By: Human Resource Assistant on 09-02-2018 MuV IgG IA Qn (S) 35.3 AU/mL Normal [facility] Work Phone: Comment on above: Negative <9.0 Equivo zaria 9.0 - 10.9 Positive >10.9 A positive result generally indicates past exposure to Mumps virus or previous vaccination. PATIENT NOT FASTINGP ERFORMED BY: [facility]CoEs[facility] HospitalIrhqsb6853 [facility] [id number] RUBELLA IgG ([id number])Ordered B y: Human Resource Assistant on 09-02-2018 Rubella virus IgG Qn (S) 1.57 {index} Normal [facility] Work Phone: Comment on above: Non-immune <0.90 Equ ivocal 0.90 - 0.99 Immune >0.99 PATIENT NOT FASTINGP ERFORMED BY: [employer] [id number] [facility] [id number] RUBEOLA IgG ([id number])Ordered B y: Human Resource Assistant on 09-02-2018 MeV IgG IA Qn (S) {index_val} Abnormal [facility] Work Phone: Comment on above: Negative <25.0 Equiv ocal 25.0 - 29.9 Positive >29.9 Presence of antibodies to Rubeola is presumptive evidence of immunity except when acute infection is suspected. PATIENT NOT FASTINGP ERFORMED BY: [employer] [id number] [facility] [id number] Metabolic Panel, Comprehensi ve ([id number])on 05-27-2018 Albumin [Mass/Vol] 4.4 g/dL Normal 3.5-5.5 [facility] Work Phone: Comment on above: PATIENT NOT FASTINGP ERFORMED BY: [facility] FactoryMesilla Valley HospitalDmwacp5390 [facility] [id number] Albumin/Globulin [Mass ratio] 1.9 {ratio} Normal 1.2-2.2 [facility] Work Phone: Comment on above: PATIENT NOT FASTINGP ERFORMED BY: [facility] [id number] [facility] [id number] ALP [Catalytic activity/Vol] 89 [iU]/L Normal 39-117 [facility] Work Phone: Comment on above: PATIENT NOT FASTINGP ERFORMED BY: [facility]6370 [facility] [id number] ALT [Catalytic activity/Vol] 21 [iU]/L Normal 0-32 [facility] Work Phone: Comment on above: PATIENT NOT FASTINGP ERFORMED BY: [facility] Ooytav4985 Ta RoadDublin [place] [id number] AST [Catalytic activity/Vol] 21 [iU]/L Normal 0-40 [facility] Work Phone: Comment on above: PATIENT NOT FASTINGP ERFORMED BY: CB [facility] [id number] Ta RoadDublin [place] [id number] Bilirubin [Mass/Vol] 0.4 mg/dL Normal 0.0-1.2 [facility] Work Phone: Comment on above: PATIENT NOT FASTINGP ERFORMED BY: CB [facility] [id number] Ta RoadDublin [place] [id number] Calcium [Mass/Vol] 9.4 mg/dL Normal 8.7-10.2 [facility] Work Phone: Comment on above: PATIENT NOT FASTINGP ERFORMED BY: OTONIEL [facility] Spbqsp1490 Ta RoadDuin [place] [id number] Chloride [Moles/Vol] 101 mmol/L Normal 96-106 [facility] Work Phone: Comment on above: PATIENT NOT FASTINGP ERFORMED BY: OTONIEL [facility] [id number] [address] RoadD[address] [place] [id number] CO2 [Moles/Vol] 27 mmol/L Normal 20-29 [facility] Work Phone: Comment on above: PATIENT NOT FASTINGP ERFORMED BY: OTONIEL [facility] [id number] [address] RoadD[address] [place] [id number] Creatinine [Mass/Vol] 0.70 mg/dL Normal 0.57-1.[address] [facility] Work Phone: Comment on above: PATIENT NOT FASTINGP ERFORMED BY: CB [facility] [id number] Ta RoadDublin [place] [id number] GFR/1.73 sq M predicted among blacks CKD-EPI (S/P/Bld) [Vol rate/Area] 118 mL/min/1.73 Normal [facility] Work Phone: Comment on above: PATIENT NOT FASTINGP ERFORMED BY: CB [facility] [id number] [address] RoadDublin [place] [id number] GFR/1.73 sq M predicted among non-blacks CKD-EPI (S/P/Bld) [Vol rate/Area] 103 mL/min/1.73 Normal [facility] Work Phone: Comment on above: PATIENT NOT FASTINGP ERFORMED BY: OTONIEL [facility] [id number] [facility] [id number] Globulin (S) [Mass/Vol] 2.3 g/dL Normal 1.5-4.5 [facility] Work Phone: Comment on above: PATIENT NOT FASTINGP ERFORMED BY: OTONIEL [facility] [id number] [address] [facility] [id number] Glucose [Mass/Vol] 85 mg/dL Normal 65-99 [facility] Work Phone: Comment on above: PATIENT NOT FASTINGP ERFORMED BY: OTONIEL LabJoshua [id number] [facility] [id number] Potassium [Moles/Vol] 4.1 mmol/L Normal 3.5-5.[address] [facility] Work Phone: Comment on above: PATIENT NOT FASTINGP ERFORMED BY: OTONIEL LabJoshua [id number] [facility] [id number] Protein [Mass/Vol] 6.7 g/dL Normal 6.0-8.5 [facility] Work Phone: Comment on above: PATIENT NOT FASTINGP ERFORMED BY: CB [facility] [id number] [facility] [id number] Sodium [Moles/Vol] 142 mmol/L Normal 134-144 [facility] Work Phone: Comment on above: PATIENT NOT FASTINGP ERFORMED BY: OTONIEL [facility] [id number] [facility] [id number] Urea nitrogen [Mass/Vol] 17 mg/dL Normal 6-24 [facility] Work Phone: Comment on above: PATIENT NOT FASTINGP ERFORMED BY: OTONIEL [facility] [id number] [facility] [id number] Urea nitrogen/Creatinine [Mass ratio] 24 mg/mg Abnormal 01-23 [facility] Work Phone: Comment on above: PATIENT NOT FASTINGP ERFORMED BY: OTONIEL VehconJoshua Jsfskh1997 [facility] [id number] VITAMIN B12 AND FOLATES ([id number])on 05-27-2018 Cobalamin (Vitamin B12) [Mass/Vol] 549 pg/mL Normal 232-1245 [facility] Work Phone: Comment on above: PATIENT NOT FASTINGP ERFORMED BY: OTONIEL [employer] Sexpmz6168 Ta [facility]ynNov[facility] [id number] Folate [Mass/Vol] 10.1 ng/mL Normal [facility] Work Phone: Comment on above: A serum folate dimple ntration of less than 3.1 ng/mL isconsidered to represent clinical deficiency. PATIENT NOT FASTINGP ERFORMED BY: OTON[employer] Pfjjyf2281 [facility] [id number] LUMBAR SPINE 2-3 VIEWSon LUMBAR SPINE 2-3 VIEWS CLINICAL HISTORY: LUMBOSACRAL STRAINCOMPARISON: NoneFINDINGS: 2 views of the lumbar spine were performed. Surgical clips are seenthroughout the abdomen and pelvis. 5 nonrib-bearing vertebral bodies arepresent. The vertebral body heights are preserved. There is mild disc spacenarrowing at L3-4. There is multilevel facet sclerosis. Rounded calcification in the pelvis on the lateral view measures 17 mm, this is not well-seen on thefrotal view and may not be included on the image. No offset at the visualizedportions of the sacrum. Sacroiliac joints are symmetric.IMPRESSION: 1. No malalignment.2. Degenerative changes of the facets with mild disc space narrowing alsopresent at L3-4.3. 17 mm calcification pelvis seen on the lateral view only. Considercorrelation with frontal radiographs of the pelvis to reassess.This report has been created using voice recognition softwareSigned by: Dr. Leigh Ann Ramos at 08/18/2017 11:52 Normal [facility] Vital Signs Date Time Vital Sign Value Performing Clinician Facility 10-23-2024 13:14-0400 Body temperature 96.5 [degF] Dr. Leatha Fuentes MD Work Phone: [facility] 10-23-2024 13:14-0400 Diastolic blood pressure 41 mm[Hg] Dr. Leatha Fuentes MD Work Phone: [facility] 10-23-2024 13:14-0400 Heart rate 55 /min Dr. Leatha Fuentes MD Work Phone: [facility] 10-23-2024 13:14-0400 Respiratory rate 16 /min Dr. Leatha Fuentes MD Work Phone: [facility] 10-23-2024 13:14-0400 SaO2% (BldA) [Mass fraction] 97 % Dr. Leatha Fuentes MD Work Phone: [facility] 10-23-2024 13:14-0400 Systolic blood pressure 95 mm[Hg] Dr. Leatha Fuentes MD Work Phone: [facility] 10-23-2024 12:17-0400 Body height 162.[address] Leatha Fuentes MD Work Phone: [facility] 10-23-2024 12:17-0400 Body mass index (BMI) [Ratio] 23.1 kg/m2 Dr. Leatha Fuentes MD Work Phone: [facility] 10-23-2024 12:17-0400 Body weight 61.[address] Leatha Fuentes MD Work Phone: [facility] 10-20-2024 11:56-0400 Body temperature 97 [degF] Dr. Leatha Fuentes MD Work Phone: [facility] 10-20-2024 11:56-0400 Diastolic blood pressure 52 mm[Hg] Dr. Leatha Fuentes MD Work Phone: [facility] 10-20-2024 11:56-0400 Heart rate 59 /min Dr. Leatha Fuentes MD Work Phone: [facility] 10-20-2024 11:56-0400 Respiratory rate 16 /min Dr. Leatha Fuentes MD Work Phone: [facility] 10-20-2024 11:56-0400 SaO2% (BldA) [Mass fraction] 100 % Dr. Leatha Fuentes MD Work Phone: [facility] 10-20-2024 11:56-0400 Systolic blood pressure 98 mm[Hg] Dr. Leatha Fuentes MD Work Phone: [facility] 10-20-2024 10:28-0400 Body height 162.[address] Leatha Fuentes MD Work Phone: [facility] 10-20-2024 10:28-0400 Body mass index (BMI) [Ratio] 23.1 kg/m2 Dr. Leatha Fuentes MD Work Phone: [facility] 10-20-2024 10:28-0400 Body weight 61.[address] Leatha Fuentes MD Work Phone: [facility] 10-13-2024 13:04-0400 Body height 162.[address] Leatha Fuentes MD Work Phone: [facility] 10-13-2024 13:04-0400 Body mass index (BMI) [Ratio] 23.5 kg/m2 Dr. Leatha Fuentes MD Work Phone: [facility] 10-13-2024 13:04-0400 Body temperature 98.2 [degF] Dr. Leatha Fuentes MD Work Phone: [facility] 10-13-2024 13:04-0400 Body weight 62.[address] Leatha Fuentes MD Work Phone: [facility] 10-13-2024 13:04-0400 Diastolic blood pressure 70 mm[Hg] Dr. Leatha Fuentes MD Work Phone: [facility] 10-13-2024 13:04-0400 Heart rate 80 /min Dr. Leatha Fuentes MD Work Phone: [facility] 10-13-2024 13:04-0400 Respiratory rate 16 /min Dr. Leatha Fuentes MD Work Phone: [facility] 10-13-2024 13:04-0400 SaO2% (BldA) [Mass fraction] 99 % Dr. Leatha Fuentes MD Work Phone: [facility] 10-13-2024 13:04-0400 Systolic blood pressure 108 mm[Hg] Dr. Letaha Fuentes MD Work Phone: [facility] 07-21-2024 10:19-0400 Body mass index (BMI) [Ratio] 23.3 kg/m2 Dr. Leatha Fuentes MD Work Phone: [facility] 07-21-2024 10:19-0400 Body temperature 97.8 [degF] Dr. Leatha Fuentes MD Work Phone: [facility] 07-21-2024 10:19-0400 Body weight 61.[address] Leatha Fuentes MD Work Phone: [facility] 07-21-2024 10:19-0400 Diastolic blood pressure 60 mm[Hg] Dr. Leatha Fuentes MD Work Phone: [facility] 07-21-2024 10:19-0400 Heart rate 71 /min Dr. Leatha Fuentes MD Work Phone: [facility] 07-21-2024 10:19-0400 Respiratory rate 18 /min Dr. Leatha Fuentes MD Work Phone: [facility] 07-21-2024 10:19-0400 SaO2% (BldA) [Mass fraction] 96 % Dr. Leatha Fuentes MD Work Phone: [facility] 07-21-2024 10:19-0400 Systolic blood pressure 120 mm[Hg] Dr. Leatha Fuentes MD Work Phone: [facility] 02-29-2024 08:42-0400 Diastolic blood pressure 53 mm[Hg] Jess Ross MD Work Phone: [facility] 02-29-2024 08:42-0400 Heart rate 73 /min Jess Ross MD Work Phone: [facility] 02-29-2024 08:42-0400 Respiratory rate 14 /min Jess Ross MD Work Phone: [facility] 02-29-2024 08:42-0400 SaO2% (BldA) [Mass fraction] 98 % Jess Ross MD Work Phone: [facility] 02-29-2024 08:42-0400 Systolic blood pressure 93 mm[Hg] Jess Ross MD Work Phone: [facility] 02-29-2024 07:10-0400 Body mass index (BMI) [Ratio] 28.65 kg/m2 Jess Ross MD Work Phone: [facility] 02-29-2024 07:10-0400 Body temperature 97.9 [degF] Jess Ross MD Work Phone: [facility] 02-29-2024 07:10-0400 Body weight 75.7 kg Jess Ross MD Work Phone: [facility] 08-12-2022 17:22-0400 Body height 162.[address] Leatha Fuentes Work Phone: [facility] 08-12-2022 17:22-0400 Body mass index (BMI) [Ratio] 28.6 kg/m2 Dr. Leatha Fuentes Work Phone: [facility] 08-12-2022 17:22-0400 Body temperature 97.8 [degF] Dr. Leatha Fuentes Work Phone: [facility] 08-12-2022 17:22-0400 Body weight 75.[address] Leatha Fuentes Work Phone: [facility] 08-12-2022 17:22-0400 Diastolic blood pressure 78 mm[Hg] Dr. Leatha Fuentes Work Phone: [facility] 08-12-2022 17:22-0400 Heart rate 78 /min Dr. Leatha Fuentes Work Phone: [facility] 08-12-2022 17:22-0400 Respiratory rate 12 /min Dr. Leatha Funetes Work Phone: [facility] 08-12-2022 17:22-0400 SaO2% (BldA) [Mass fraction] 98 % Dr. Leatha Fuentes Work Phone: [facility] 08-12-2022 17:22-0400 Systolic blood pressure 116 mm[Hg] Dr. Leatha Fuentes Work Phone: [facility] 08-05-2022 15:58-0400 Body height 162.6 cm Ana Hernández MD Work Phone: [facility] 08-05-2022 15:58-0400 Body weight 75.66 kg Ana Hernández MD Work Phone: [facility] 08-05-2022 15:58-0400 Diastolic blood pressure 60 mm[Hg] Ana Hernández MD Work Phone: [facility] 08-05-2022 15:58-0400 Systolic blood pressure 110 mm[Hg] Ana Hernández MD Work Phone: [facility] 06-10-2022 14:31-0500 Body height 162.[address] Leatha Fuentes Work Phone: [facility] 06-10-2022 14:31-0500 Body mass index (BMI) [Ratio] 30.1 kg/m2 Dr. Leatha Fuentes Work Phone: [facility] 06-10-2022 14:31-0500 Body temperature 96.8 [degF] Dr. Leatha Fuentes Work Phone: [facility] 06-10-2022 14:31-0500 Body weight 79.[address] Leatha Fuentes Work Phone: [facility] 06-10-2022 14:31-0500 Diastolic blood pressure 80 mm[Hg] Dr. Leatha Fuentes Work Phone: [facility] 06-10-2022 14:31-0500 Heart rate 67 /min Dr. Leatha Fuentes Work Phone: [facility] 06-10-2022 14:31-0500 Respiratory rate 18 /min [facility]. Leatha Fuentes Work Phone: [facility] [facility]-2022 14:31-0500 SaO2% (BldA) [Mass fraction] 98 % Dr. Leatha Fuentes Work Phone: [facility] 06-10-2022 14:31-0500 Systolic blood pressure 120 mm[Hg] Dr. Leatha Fuentes Work Phone: [facility] 05-20-2022 17:33-0500 Body mass index (BMI) [Ratio] 29.8 kg/m2 Dr. Leatha Fuentes Work Phone: [facility] 05-20-2022 17:33-0500 Body temperature 98 [degF] Dr. Leatha Fuentes Work Phone: [facility] 05-20-2022 17:33-0500 Body weight 78.[address] Leatha Fuentes Work Phone: [facility] 05-20-2022 17:33-0500 Diastolic blood pressure 74 mm[Hg] Dr. Leatha Fuentes Work Phone: [facility] 05-20-2022 17:33-0500 Heart rate 73 /min Dr. Leatha Fuentes Work Phone: [facility] 05-20-2022 17:33-0500 Respiratory rate 14 /min Dr. Leatha Fuentes Work Phone: [facility] 05-20-2022 17:33-0500 SaO2% (BldA) [Mass fraction] 98 % Dr. Leatha Fuentes Work Phone: [facility] 05-20-2022 17:33-0500 Systolic blood pressure 118 mm[Hg] Dr. Leatha Fuentes Work Phone: [facility] 02-20-2022 08:07-0400 Body height 162.6 cm [place] Ortiz RISK ENGINEER.PLASTIC EXTRUSION OPERATOR Work Phone: [facility] 02-20-2022 08:07-0400 Body temperature 98.01 [degF] Richelle Ortiz RISK ENGINEER.PLASTIC EXTRUSION OPERATOR Work Phone: [facility] 02-20-2022 08:07-0400 Body weight 79.38 kg [place] Ortiz RISK ENGINEER.PLASTIC EXTRUSION OPERATOR Work Phone: [facility] 02-20-2022 08:07-0400 Diastolic blood pressure 66 mm[Hg] [place] Ortiz RISK ENGINEER.PLASTIC EXTRUSION OPERATOR Work Phone: [facility] 02-20-2022 08:07-0400 Heart rate 62 /min [place] Ortiz RISK ENGINEER.PLASTIC EXTRUSION OPERATOR Work Phone: [facility] 02-20-2022 08:07-0400 Systolic blood pressure 115 mm[Hg] Richelle Ortiz RISK ENGINEER.PLASTIC EXTRUSION OPERATOR Work Phone: [facility] 08-20-2021 08:06-0400 Body height 165 cm [place] Ortiz RISK ENGINEER.PLASTIC EXTRUSION OPERATOR Work Phone: [facility] 08-20-2021 08:06-0400 Body temperature 98.1 [degF] Richelle Morinenter RISK ENGINEER.PLASTIC EXTRUSION OPERATOR Work Phone: [facility] 08-20-2021 08:06-0400 Body weight 77.34 kg Richelle Morinenter RISK ENGINEER.PLASTIC EXTRUSION OPERATOR Work Phone: [facility] 08-20-2021 08:06-0400 Diastolic blood pressure 69 mm[Hg] Richelle Ortiz RISK ENGINEER.PLASTIC EXTRUSION OPERATOR Work Phone: [facility] 08-20-2021 08:06-0400 Heart rate 75 /min [place] Ortiz RISK ENGINEER.PLASTIC EXTRUSION OPERATOR Work Phone: [facility] 08-20-2021 08:06-0400 SaO2% (BldA) [Mass fraction] 96 % [place] Ortiz RISK ENGINEER.PLASTIC EXTRUSION OPERATOR Work Phone: [facility] 08-20-2021 08:06-0400 Systolic blood pressure 98 mm[Hg] [place] Ortiz RISK ENGINEER.PLASTIC EXTRUSION OPERATOR Work Phone: [facility] 07-23-2021 08:30-0400 Body height 163.8 cm Ana Hernández MD Work Phone: [facility] 07-23-2021 08:30-0400 Body weight 76.2 kg Ana Hernández MD Work Phone: [facility] 07-23-2021 08:30-0400 Diastolic blood pressure 58 mm[Hg] Ana Hernández MD Work Phone: [facility] 07-23-2021 08:30-0400 Systolic blood pressure 94 mm[Hg] Ana Hernández MD Work Phone: [facility] 01-09-2019 12:50-0400 BMI (Body Mass Index) 23.69 kg/m2 [facility] Work Phone: 01-09-2019 12:50-0400 BMI (Body Mass Index) 25.41 kg/m2 [facility] Work Phone: 01-09-2019 12:50-0400 Body Temperature 97.6 [degF] [facility] Work Phone: Comment on above: Method: Temporal 01-09-2019 12:50-0400 Body weight 62.61 kg Yamel Castaneda [facility] Work Phone: 01-09-2019 12:50-0400 Body weight 67.15 kg Yamel Castaneda [facility] Work Phone: 01-09-2019 12:50-0400 BP Diastolic 70 mm[Hg] Yamel Castaneda [facility] Work Phone: Comment on above: Patient Position: Sitting; Cuff Location : Left Arm; Cuff Size: Standard 01-09-2019 12:50-0400 BP Systolic 124 mm[Hg] Yamel Castaneda [facility] Work Phone: Comment on above: Patient Position: Sitting; Cuff Location : Left Arm; Cuff Size: Standard 01-09-2019 12:50-0400 BSA (Body Surface Area) 1.67 m2 Yamel Castaneda [facility] Work Phone: 01-09-2019 12:50-0400 BSA (Body Surface Area) 1.72 m2 Yamel Castaneda [facility] Work Phone: 01-09-2019 12:50-0400 Height 162.56 cm Yamel Castaneda [facility] Work Phone: 01-09-2019 12:50-0400 Pulse (Heart Rate) 75 /min Yamel Castaneda [facility] Work Phone: Comment on above: Pattern: Regular 01-09-2019 12:50-0400 Pulse Oximetry 98 % Yamel Castaneda [facility] Work Phone: Comment on above: Room air 01-09-2019 12:50-0400 Respiratory Rate 16 /min Yamel Castaneda [facility] Work Phone: Comment on above: Pattern: Unlabored 10-04-2018 08:18-0400 BMI (Body Mass Index) 23.69 kg/m2 Yamel Castaneda [facility] Work Phone: 10-04-2018 08:18-0400 Body weight 62.61 kg Yamel Castaneda [facility] Work Phone: 10-04-2018 08:18-0400 BSA (Body Surface Area) 1.67 m2 Yamel Araya [facility] Work Phone: 10-04-2018 08:18-0400 Height 162.56 cm Yamel Castaneda [facility] Work Phone: 10-04-2018 08:18-0400 Weight 62.61 kg Yamel Castaneda [facility] Work Phone: 09-02-2018 07:17-0400 BMI (Body Mass Index) 23.69 kg/m2 Yamel Castaneda [facility] Work Phone: 09-02-2018 07:17-0400 Body Temperature 97.7 [degF] Yamel Castaneda [facility] Work Phone: Comment on above: Method: Temporal 09-02-2018 07:17-0400 Body weight 62.61 kg Yamel Castaneda [facility] Work Phone: 09-02-2018 07:17-0400 BP Diastolic 68 mm[Hg] Yamel Castaneda [facility] Work Phone: Comment on above: Patient Position: Sitting; Cuff Location : Left Arm; Cuff Size: Standard 09-02-2018 07:17-0400 BP Systolic 120 mm[Hg] Yamel Castaneda [facility] Work Phone: Comment on above: Patient Position: Sitting; Cuff Location : Left Arm; Cuff Size: Standard 09-02-2018 07:17-0400 BSA (Body Surface Area) 1.67 m2 Yamel Castaneda [facility] Work Phone: 09-02-2018 07:17-0400 Height 162.56 cm Yamel Castaneda [facility] Work Phone: 09-02-2018 07:17-0400 Pulse (Heart Rate) 72 /min Yamel Castaneda [facility] Work Phone: Comment on above: Pattern: Regular 09-02-2018 07:17-0400 Pulse Oximetry 99 % Yamel Castaneda [facility] Work Phone: Comment on above: Room air 09-02-2018 07:17-0400 Respiratory Rate 16 /min Y[facility] Castan[facility] Work Phone: Comment on above: Pattern: Unlabored 09-02-2018 07:17-0400 Weight 62.61 kg Yamel Araya [facility] Work Phone: 05-27-2018 09:17-0500 BMI (Body Mass Index) 23.92 kg/m2 aYmel Castaneda [facility] Work Phone: 05-27-2018 09:17-0500 Body Temperature 97.4 [degF] Yamel Castaneda [facility] Work Phone: Comment on above: Method: Temporal 05-27-2018 09:17-0500 Body weight 63.22 kg Yamel Castaneda [facility] Work Phone: 05-27-2018 09:17-0500 BP Diastolic 60 mm[Hg] Yamel Castaneda [facility] Work Phone: Comment on above: Patient Position: Sitting; Cuff Location : Left Arm; Cuff Size: Standard 05-27-2018 09:17-0500 BP Systolic 108 mm[Hg] Yamel Castaneda [facility] Work Phone: Comment on above: Patient Position: Sitting; Cuff Location : Left Arm; Cuff Size: Standard 05-27-2018 09:17-0500 BSA (Body Surface Area) 1.68 m2 Yamel Castaneda [facility] Work Phone: 05-27-2018 09:17-0500 Height 162.56 cm Yamel Castaneda [facility] Work Phone: 05-27-2018 09:17-0500 Pulse (Heart Rate) 57 /min Yamel Castaneda [facility] Work Phone: Comment on above: Pattern: Regular 05-27-2018 09:17-0500 Pulse Oximetry 98 % Yamel Castaneda [facility] Work Phone: Comment on above: Room air 05-27-2018 09:17-0500 Respiratory Rate 16 /min Yamel Castaneda [facility] Work Phone: Comment on above: Pattern: Unlabored 05-27-2018 09:17-0500 Weight 63.22 kg Yamel Castaneda [facility] Work Phone: 11-24-2017 11:19-0400 BMI (Body Mass Index) 23.86 kg/m2 Yamel Castaneda [facility] Work Phone: 11-24-2017 11:19-0400 Body Temperature 97.1 [degF] Yamel Castaneda [facility] Work Phone: 11-24-2017 11:19-0400 Body weight 63.05 kg Yamel Castaneda [facility] Work Phone: 11-24-2017 11:19-0400 BP Diastolic 68 mm[Hg] Yamel Castaneda [facility] Work Phone: Comment on above: Patient Position: Sitting; Cuff Location : Right Arm; Cuff Size: Standard 11-24-2017 11:19-0400 BP Systolic 114 mm[Hg] Yamel Castaneda [facility] Work Phone: Comment on above: Patient Position: Sitting; Cuff Location : Right Arm; Cuff Size: Standard 11-24-2017 11:19-0400 BSA (Body Surface Area) 1.68 m2 Yamel Castaneda [facility] Work Phone: 11-24-2017 11:19-0400 Height 162.56 cm Yamel Castaneda [facility] Work Phone: 11-24-2017 11:19-0400 Pulse (Heart Rate) 60 /min Yamel Castaneda [facility] Work Phone: Comment on above: Pattern: Regular 11-24-2017 11:19-0400 Pulse Oximetry 99 % Yamel Castaneda [facility] Work Phone: Comment on above: Room air 11-24-2017 11:19-0400 Respiratory Rate 16 /min Yamel Castaneda [facility] Work Phone: Comment on above: Pattern: Unlabored 11-24-2017 11:19-0400 Weight 63.05 kg Yamel Castaneda [facility] Work Phone: 10-20-2017 14:27-0400 Body Temperature 97.6 [degF] Yamel Castaneda [facility] Work Phone: Comment on above: Method: Temporal 10-20-2017 14:27-0400 Body weight 63.05 kg Yamel Castaneda [facility] Work Phone: 10-20-2017 14:27-0400 BP Diastolic 66 mm[Hg] Yamel Castaneda [facility] Work Phone: Comment on above: Patient Position: Sitting; Cuff Location : Left Arm; Cuff Size: Standard 10-20-2017 14:27-0400 BP Systolic 130 mm[Hg] Yamel Castaneda [facility] Work Phone: Comment on above: Patient Position: Sitting; Cuff Location : Left Arm; Cuff Size: Standard 10-20-2017 14:27-0400 Pulse (Heart Rate) 78 /min Yamel Castaneda [facility] Work Phone: Comment on above: Pattern: Regular 10-20-2017 14:27-0400 Pulse Oximetry 100 % Yamel Castaneda [facility] Work Phone: Comment on above: Room air 10-20-2017 14:27-0400 Respiratory Rate 16 /min Yamel Castaneda [facility] Work Phone: Comment on above: Pattern: Unlabored 10-20-2017 14:27-0400 Weight 63.05 kg Yamel Castaneda [facility] Work Phone: Encounters Encounter Date Encounter Type Care Provider Facility Start: 10-30-2024 ambulatory Leatha Harrisi ty:[facility] Start: 10-27-2024 ambulatory Leatha Harrisi ty:[facility] Start: 10-25-2024 ambulatory Leatha Harrisi ty:[facility] Start: 10-23-2024 End: 10-23-[address] Leatha Fuentes MD -[facility] Out Work Phone: Start: 10-23-2024 End: 10-23-[address] Leatha Fuentes MD Work Phone: [facility] Work Phone: Start: 10-20-2024 End: 10-20-[address] Leatha Fuentes MD -[facility] Out Work Phone: Start: 10-20-2024 End: 10-20-[address] Leatha Fuentes MD Work Phone: [facility] Work Phone: Start: 10-13-2024 End: 10-13-[address] Leatha Fuentes MD -[place] [facility] Work Phone: Start: 10-13-2024 End: 10-13-[address] Leatha Fuentes MD Work Phone: [facility] Work Phone: Start: 10-13-2024 End: 10-13-2024 ambulatory [facility] Facility:[facility] Start: 07-21-2024 End: 07-21-[address] Leatha Fuentes MD -[place] [facility] Work Phone: Start: 07-21-2024 End: 07-21-[address] Leatha Fuentes MD Work Phone: [facility] Work Phone: Start: 07-21-2024 End: 07-21-2024 ambulatory [facility] Facility[facility] Start: 03-23-2024 End: 03-23-2024 ambulatory [facility] Facility:[facility] Start: 03-01-2024 End: 03-01-2024 Orders Only Jess Ross MD Work Phone: General Surgery Comment on above: Elevated carcinoembr yonic antigen (CEA) (Primary Dx) Elevated carcinoembr yonic antigen (CEA) [R97.0] Start: 02-29-2024 End: 02-29-2024 ambulatory Jess Ross Facility:[facility] Start: 02-29-2024 End: 02-29-2024 Subsequent hospital visit by physician Jess Ross MD Work Phone: Ambulatory Surgery Comment on above: History of colon can cer [Z85.038] Start: 02-24-2024 End: 02-24-2024 Orders Only Jess Ross MD Work Phone: LD PROVIDER ADULT Comment on above: History of colon can cer (Primary Dx) Start: 02-23-2024 End: 02-23-2024 ambulatory Jess Ross Facility:[facility] Start: 02-17-2024 End: 02-17-2024 ambulatory Jess Ross Facility:[facility] Start: 02-17-2024 End: 02-17-2024 Subsequent hospital visit by physician [facility] Comment on above: Lower abdominal pain [R10.30] Start: 02-07-2024 End: 02-07-2024 Telephone encounter Asha Hernandez APRN.CNP Work Phone: General Surgery Comment on above: Orders Tension headache (Pr imary Dx) Start: 02-04-2024 End: 02-04-2024 Orders Only Jess Ross MD Work Phone: General Surgery Start: 01-19-2024 End: 01-19-2024 Orders Only Jess Ross MD Work Phone: General Surgery Comment on above: History of colon can cer (Primary Dx) Start: 12-29-2023 ambulatory Efewongbe Oleghe Facili ty:[facility] Start: 11-03-2023 End: 11-03-2023 ambulatory Efewongbe Oleghe Facility:[facility] Start: 10-26-2023 End: 10-26-2023 Orders Only Jess Ross MD Work Phone: General Surgery Comment on above: Status post fall (Pr imary Dx); Right-sided chest wall pain Status post fall [Z9 1.81] Start: 10-27-2022 Orders Only Jess ferrell MD Work Phone: General Surgery Start: 08-20-2022 End: 08-20-[address] Leatha Fuentes Work Phone: [facility] Work Phone: Start: 08-20-2022 End: 08-20-[address] Leatha Fuentes Work Phone: [facility]-Outpatient Breast Imaging Start: 08-12-2022 End: 08-12-[address] Leatha Fuentes Work Phone: [facility] Start: 08-05-2022 End: 08-05-2022 Patient encounter procedure Ana Hernández MD Work Phone: OB/Gynecology Comment on above: Encounter for gyneco logical examination (general) (routine) without abnormal findings (Primary Dx); Dense breast tissue Start: 08-05-2022 End: 08-05-2022 Patient encounter status Ana Hernández MD Work Phone: OB/Gynecology Start: 07-08-2022 End: 07-08-[address] Leatha Fuentes Work Phone: [facility] Start: 06-10-2022 End: 06-10-[address] Leatha Fuentes Work Phone: [facility] Start: 06-10-2022 End: 06-10-[address] Leatha Fuentes Work Phone: [facility] Work Phone: Start: 06-10-2022 End: 06-10-[address] Leatha Fuentes Work Phone: [facility]-Laboratory Start: 05-20-2022 End: 05-20-[address] Leatha Fuentes Work Phone: [facility] Start: 04-15-2022 End: 04-15-[address] Leatha Fuentes Work Phone: [facility] Start: 03-18-2022 End: 03-18-[address] Leatha Fuentes Work Phone: [facility] Start: 02-20-2022 End: 02-20-2022 ambulatory [place] Ortiz RISK ENGINEER.PLASTIC EXTRUSION OPERATOR Work Phone: Hematology/Oncology Comment on above: Malignant neoplasm o f ascending colon (HCC) (Primary Dx) Start: 02-20-2022 End: 02-20-2022 Patient encounter procedure Richelle Ortiz RISK ENGINEER.PLASTIC EXTRUSION OPERATOR Work Phone: [facility] Start: 02-04-2022 End: 02-04-2022 Patient encounter procedure Bhupinder Peace MD Work Phone: General Surgery Comment on above: Atypical pigmented s kin lesion (Primary Dx) Start: 10-01-2021 Orders Only Jess ferrell MD Work Phone: General Surgery Start: 09-18-2021 End: 09-18-2021 Patient encounter procedure Bhupinder Peace MD Work Phone: General Surgery Comment on above: Keloid (Primary Dx) Start: 08-20-2021 End: 08-20-2021 ambulatory [place] Ortiz RISK ENGINEER.PLASTIC EXTRUSION OPERATOR Work Phone: Hematology/Oncology Comment on above: Malignant neoplasm o f ascending colon (HCC) (Primary Dx); Diarrhea, unspecified type Start: 08-20-2021 End: 08-20-2021 Patient encounter procedure Richelle Ortiz RISK ENGINEER.PLASTIC EXTRUSION OPERATOR [facility] Start: 08-11-2021 End: 08-11-[address] Leatha Fuentes Work Phone: [facility]-Outpatient Pavilion Ultrasound Start: 08-06-2021 End: 08-06-[address] Leatha Fuentes Work Phone: [facility]-Outpatient Breast Imaging Start: 07-23-2021 End: 07-23-[address] Leatha Fuentes Work Phone: [facility] Start: 07-23-2021 End: 07-23-2021 Patient encounter procedure Ana Hernández MD Work Phone: OB/Gynecology Comment on above: Encounter for gyneco logical examination (general) (routine) without abnormal findings (Primary Dx) Start: 07-23-2021 End: 07-23-2021 Patient encounter status Ana Hernández MD Work Phone: OB/Gynecology Start: 06-25-2021 End: 06-25-[address] Leatha Fuentes Work Phone: [facility] Start: 05-21-2021 End: 05-21-[address] Leatha Fuentes Work Phone: [facility] Start: 04-23-2021 End: 04-23-[address] Leatha Fuentes Work Phone: [facility] Start: 03-26-[address] Ravinder Fuentes Work Phone: [facility] Start: 02-20-2019 End: 02-20-2019 Annotation/Addendum Yamel Araya Electrical Superintendent al Medicine Start: 01-09-2019 End: 01-09-2019 Office outpatient visit 15 minutes Yamel Araya [facility] Start: 01-09-2019 Review Yamel Hernandez [facility]ool Internal Medicine Start: 12-14-2018 End: 12-14-2018 Office outpatient visit 5 minutes Yamel Araya [facility] Start: 11-07-2018 End: 11-07-2018 Office outpatient visit 5 minutes Yamel Araya [facility] Start: 10-04-2018 End: 10-04-2018 Office outpatient visit 5 minutes Yamel Ciesa [facility] Start: 09-02-2018 Patient encounter procedure Yamel Castaneda [facility] Start: 09-02-2018 End: 09-02-2018 Office outpatient visit 25 minutes Yamel Castaneda [facility] Start: 08-08-2018 End: 08-08-2018 Office outpatient visit 5 minutes Yamel Castaneda [facility] Start: 06-07-2018 End: 06-07-2018 Office outpatient visit 5 minutes Yamel Tuttlevitaly [facility] Start: 05-27-2018 End: 05-27-2018 Office outpatient visit 15 minutes Yamel Castaneda [facility] Start: 05-05-2018 End: 05-05-2018 Office outpatient visit 5 minutes Yamel Tuttlevitaly [facility] Start: 04-05-2018 End: 04-05-2018 Office outpatient visit 5 minutes Yamel Tuttlevitaly [facility] Start: 02-18-2018 End: 02-18-2018 Nursing evaluation of patient and report Yamel Tuttlevitaly [facility] Start: 01-24-2018 End: 01-24-2018 Office outpatient visit 5 minutes Yamel Marryvitaly [facility] Start: 12-27-2017 End: 12-27-2017 Office outpatient visit 5 minutes Yamel Tuttlea [facility] Start: 11-24-2017 End: 11-24-2017 Annotation/Addendum Yamel Marrya [facility] Start: 11-24-2017 End: 11-24-2017 Office outpatient visit 15 minutes Yamel Tuttlea [facility] Start: 11-15-2017 End: 11-15-2017 Annotation/Addendum Yamel Marrya [facility] Start: 10-20-2017 End: 10-20-2017 Office outpatient new 45 minutes Yamel Tuttlevitaly [facility] Start: 08-18-2017 End: 08-19-2017 Ambulatory LEONIDAS DEAN [facility] Procedures Date Procedure Procedure Detail Performing Clinician Start: 10-13-2024 Total iron binding capacity measurement Dr. Leatha Fuentes MD Work Phone: Start: 07-21-2024 Total iron binding capacity measurement Dr. Leatha Fuentes MD Work Phone: Start: 07-21-2024 Vitamin D, 25-hydrox y measurement Dr. Leatha Fuentes MD Work Phone: Comment on above: Vitamin D StatusDefi ciency: <20 ng/mL (50nmol/L)Insufficiency: 20-30 ng/mL (50-75 nmol/L)Sufficiency: 30-100 ng/mL (75-250 nmol/L)Toxicity: >100 ng/mL (>250 nmol/L) Start: 02-29-2024 Colonoscopy flx dx w/collj spec when pfrmd Jess Ross MD Work Phone: Start: 02-29-2024 Colonoscopy Jess Ross MD Work Phone: Start: 02-17-2024 Ct abdomen & pelvis w/contrast material Jess Ross MD Work Phone: Start: 01-12-2024 End: 01-12-2024 Gluc bld gluc mntr dev cleared fda spec home use [facility] Provider Start: 08-20-2022 End: 08-20-[address] Leatha Fuentes Work Phone: Start: 02-04-2022 Level iv surg pathol ogy gross&microscopic exam Bhupinder Peace MD Work Phone: Start: 08-20-2021 Adult depression screening assessment Richelle Ortiz APRN.CNP Work Phone: Start: 08-11-[address] Jim Fuentes Work Phone: Start: 08-11-[address] Leatha Fuentes Work Phone: Start: 08-06-2021 End: 08-06-[address] Leatha Fuentes Work Phone: Start: 02-16-2021 Adult depression screening assessment Ana Hernández MD Work Phone: Start: 08-02-2020 Mammography Ana downing MD Work Phone: Start: 04-11-2020 Colonoscopy Ana downing MD Work Phone: Start: 06-07-2018 End: 06-07-2018 SCREENING MAMM (CAD), BILAT Comments: See Note; NOTES: [facility] Imaging Services [address] [place] [address] SCREENING MAMM (CAD), BILAT MR#: [id number] Acct: [id number] Name: JANET JUAREZ Rep #: [id number] : 1970 F 47 From: Jeff Meza MD PCP: Yamel Castaneda NP Status: REG CLI Study: SCREENING MAMM (CAD), BILAT Date of Exam: 06/07/18 Exam# [id number] Ordering Dr: Maribell Mckenzie CNM MAMMOGRAPHY - BILATERAL SCREENING REASON FOR EXAM: Female, 47 years old. Routine annual screening examination. PERTINENT HISTORY: Non-contributory. Prior left stereotactic breast biopsy. TECHNIQUE: Digital bilateral breast shawna (3D mammographic acquisition) in the CC and MLO projections. 2-D mediolateral oblique (MLO) and craniocaudad (CC) views of both breasts were obtained. CAD: Full Field Digital Mammography with Computer Added Detection was performed. COMPARISON: Comparison is made with prior study dated May 12, 2017 and May 07, 2016. FINDINGS: Breast Composition: The breasts are heterogeneously dense, which may obscure small masses. There are no dominant masses or suspicious calcifications. A tissue clip marker is seen within the small nodule in the upper lateral portion of the left breast. This is unchanged. A portacatheter is seen in the left axillary region. No other significant abnormalities are identified. There has been no significant change since the prior study. BI/SCREENING MAMM (CAD), BILAT IMPRESSION: Stable bilateral screening mammogram. Yearly follow-up mammogram recommended. (A) ASSESSMENT CATEGORY: BIRADS Category 2: Benign. A letter regarding these results will be sent to the patient by the facility within 30 days. Approximately 10% of breast cancers are not detected by mammography. A normal mammogram should not delay biopsy of a clinically suspicious abnormality. [id number] Electronically Signed: Jeff Meza MD at 11:04 EST , Service support , CC: PEDRO PABLO Mckenzie; Yamel Leonel JHOAN Asbestos Shingle Inspector: Signed Yamel Castaneda Start: 11-15-2017 Lipid 1996 panel - S efrem or Plasma Jess Ross MD Work Phone: Cholecystectomy Edith ferguson Comment on above: No post-op complicat ions. August 2014 - [place] Cholecystectomy Olivia abdalla Comment on above: No post-op complicat ions. August 2014 - [place] Cholecystectomy Yuri Lawson Comment on above: No post-op complicat ions. August 2014 - [place] Cholecystectomy Yuri Lawson Comment on above: No post-op complicat ions. August 2014 - [place] DPromiseC Edith Peñaloza Comment on above: 1988 D&C Olivia Bower Comment on above: 1988 Anil&C Yuri Lawson Comment on above: 1988 Anil&C Yuri Lawson Comment on above: 1988 Gastric Bybass Edith aguayo Comment on above: No post-op complicat ions. Dr Bernal at [facility] August 2011 Gastric Byjosé miguelss Olivia mendez Comment on above: No post-op complicat ions. Dr Bernal at [facility] August 2011 Gastric Kelly Lawson Comment on above: No post-op complicat ions. Dr Bernal at [facility] August 2011 Gastric Kelly Lawson Comment on above: No post-op complicat ions. Dr Bernal at [facility] August 2011 Left Breast Bx Edith aguayo Comment on above: Left. No post-op com plications. Kobi -- negativelast mammogram -- May 2017 Left Breast Bx Olivia mendez Comment on above: Left. No post-op com plications. [facility] -- negativelast mammogram -- May 2017 Left Breast Bx Yuri Lawson Comment on above: Left. No post-op com plications. [facility] -- negativelast mammogram -- May 2017 Left Breast Bx Yuri Lawson Comment on above: Left. No post-op com plications. [facility]obi -- negativelast mammogram -- May 2017 R hemoicolectomy Edith tinsley Comment on above: No post-op complicat ions. April 2016Dr Guttmanlast colonscopy April 2017, to repeat in 3 years - by Kobi(NO APPENDIX as removed with R side of colon) R hemoicolectomy Olivia suárez Comment on above: No post-op complicat ions. April 2016Dr Guttmanlast colonscopy April 2017, to repeat in 3 years - by Kobi(NO APPENDIX as removed with R side of colon) R hemoicolectomy Yuri decker Comment on above: No post-op complicat ions. April 2016Dr Guttmanlast colonscopy April 2017, to repeat in 3 years - by Kobi(NO APPENDIX as removed with R side of colon) R hemoicolectomy Yuri decker Comment on above: No post-op complicat ions. April 2016Dr Guttmanlast colonscopy April 2017, to repeat in 3 years - by Kobi(NO APPENDIX as removed with R side of colon) Plan of Treatment Date Care Activity Detail Author Start: 06-02-2033 Urine microalbumin profile DTaP,Tdap,Td Vaccine (3 - Td or Tdap) [facility] Start: 02-28-2029 Screening for malignant neoplasm of colon [facility] Start: 07-19-2025 HPV TESTING HPV TESTING [facility] Start: 07-19-2025 PAP TESTING PAP TESTING [facility] Start: 07-19-2025 Screening for malignant neoplasm of cervix Cervical Cancer Screening [facility] Start: 04-11-2025 Colonoscopy COLONOSCOPY [facility] Start: 04-11-2025 COLORECTAL CANCER SCREENING COLORECTAL CANCER SCREENING [facility] Start: 04-11-2025 Screening for malignant neoplasm of colon [facility] Start: 10-13-2024 CBC W Auto Differential panel - Blood [facility] Start: 07-09-2024 Urine microalbumin profile DTAP,TDAP,TD (2 - Td or Tdap) [facility] Start: 02-29-2024 End: 02-29-2024 Patient encounter procedure 02/29/2024 7:30 AM EDT Appointment Ambulatory Surgery [address] [place] [address] Jess Ross MD [address] [place] [id number] high risk screening Ambulatory Surgery Comment on above: high risk screening Start: 02-16-2024 End: 02-16-2024 Patient encounter procedure Cat Scan Comment on above: CT Start: 01-19-2024 End: 04-19-2024 Carcinoembryonic Ag [Mass/volume] in Serum or Plasma CARCINOEMBRYONIC ANTIGEN Lab Routine History of colon cancer Expected: 01/19/2024, Expires: 04/19/2024 [facility] Work Phone: Comment on above: Expected: 01/19/2024, Expires: Start: 01-02-2024 Covid-19 Vaccine () Covid-19 Vaccine () [facility] Start: 01-02-2024 Covid-19 Vaccine ( season) Covid-19 Vaccine () [facility] Start: 01-02-2024 Influenza vaccination Influenza Vaccine (#1) [facility] Start: 08-21-2023 Mammography MAMMOGRAM [facility] Start: 08-21-2023 Screening for malignant neoplasm of breast Mammogram Screening [facility] Start: 05-03-2023 Behavioral Health Screening Behavioral Health Screening [facility] Start: 01-01-2023 Covid-19 Vaccine () Covid-19 Vaccine () [facility] Start: 11-15-2022 Lipid panel Lipid Screening [facility] Start: 11-15-2022 LIPID SCREEN LIPID SCREEN [facility] Start: 08-20-2022 Adult depression screening assessment DEPRESSION SCREENING [facility] Start: 08-06-2022 Mammography MAMMOGRAM [facility] Start: 05-03-2022 DEPRESSION ASSESSMENT DEPRESSION ASSESSMENT [facility] Start: 02-16-2022 Adult depression screening assessment DEPRESSION SCREENING [facility] Start: 01-01-2022 Influenza vaccination INFLUENZA (#1) [facility] Start: 08-02-2021 Mammography MAMMOGRAM [facility] Start: 07-19-2021 COVID-19 VACCINE (4 - Booster for Moderna series) COVID-19 VACCINE (4 - Booster for Moderna series) [facility] Start: 05-16-2021 COVID-19 VACCINE (4 - Booster for Moderna series) COVID-19 VACCINE (4 - Booster for Moderna series) [facility] Start: 05-03-2021 DEPRESSION ASSESSMENT DEPRESSION ASSESSMENT [facility] Start: 11-15-2020 DIABETES SCREEN DIABETES SCREEN [facility] Start: 11-15-2020 Diabetes Screening Diabetes Screening [facility] Start: 12-21-2019 SHINGRIX VACCINE (1 of 2) SHINGRIX VACCINE (1 of 2) [facility] Start: 07-10-2019 Cobalamin (Vitamin B12) [Mass/Vol] VITAMIN B12 AND FOLATES (68908) [facility] Work Phone: Start: 07-10-2019 Antibody rubeola RUBEOLA IgG (51808) [facility] Work Phone: Start: 01-09-2019 Procedure Education Eprescribed prescriptions (G8553) [facility] Work Phone: Start: 01-09-2019 Provider Instructions for Treatment Follow up in 6 months [facility] Work Phone: Start: 10-04-2018 Procedure Education Eprescribed prescriptions (G8553) [facility] Work Phone: Start: 09-02-2018 Procedure Education Eprescribed prescriptions (G8553) [facility] Work Phone: Start: 09-02-2018 Provider Instructions for Treatment Follow up in 4 months [facility] Work Phone: Start: 05-27-2018 Procedure Education Eprescribed prescriptions (G8553) [facility] Work Phone: Start: 05-27-2018 Provider Instructions for Treatment Follow up in 3 months [facility] Work Phone: Start: 05-27-2018 Comprehensive metabolic panel Metabolic Panel, Comprehensive (86603) [facility] Work Phone: Start: 05-27-2018 Cobalamin (Vitamin B12) mass conc VITAMIN B12 AND FOLATES (23619) [facility] Work Phone: Start: 05-05-2018 Procedure Education Eprescribed prescriptions (G8553) [facility] Work Phone: Start: 11-24-2017 Procedure Education Eprescribed prescriptions (G8553) [facility] Work Phone: Start: 11-24-2017 Provider Instructions for Treatment [facility] Work Phone: Start: 10-20-2017 Assay of ferritin FERRITIN (81040) [facility] Work Phone: Start: 10-20-2017 Ferritin mass conc FERRITIN (77353) [facility] Work Phone: Start: 10-20-2017 Iron mass conc IRON (55435) [facility] Work Phone: Start: 10-20-2017 Assay of folic acid serum FOLIC ACID SERUM (59434) [facility] Work Phone: Start: 10-20-2017 Comprehensive metabolic panel Metabolic Panel, [facility] (99781) [facility] Work Phone: Start: 10-20-2017 Thyrotropin Qn TSH (THYROID STIMULATING HORMONE) (47626) [facility] Work Phone: Start: 10-20-2017 Lipid panel LIPID PANEL (83939) [facility] Work Phone: Start: 10-20-2017 Cobalamin (Vitamin B12) mass conc VITAMIN B-12 (CYANOCOBALAMIN) (81226) [facility] Work Phone: Start: 10-20-2017 Procedure Education Eprescribed prescriptions (G8553) [facility] Work Phone: Start: 10-20-2017 Provider Instructions for Treatment Follow up in 3 weeks [facility] Work Phone: Start: 2014 COLOGUARD (FIT-DNA) COLOGUARD (FIT-DNA) [facility] Start: [address] COLONOGRAPHY [facility] Start: 2014 FECAL OCCULT BLOOD FECAL OCCULT BLOOD [facility] Start: 2014 Screening for malignant neoplasm of colon [facility] Start: 2014 SIGMOIDOSCOPY SIGMOIDOSCOPY [facility] Start: 1988 Hepatitis B Vaccine (1 of 3 - 19+ 3-dose series) Hepatitis B Vaccine (1 of 3 - 19+ 3-dose series) [facility] Start: 12-21-1987 Anxiety Screening Anxiety Screening [facility] Start: 12-21-1987 Depression Screening Depression Screening [facility] Start: 12-21-1987 HEPATITIS C SCREENING HEPATITIS C SCREENING [facility] Start: 12-21-1987 Hepatitis C screening Hepatitis C Screening [facility] Start: 12-21-1987 HIV SCREENING HIV SCREENING [facility] Start: 12-21-1987 HIV screening HIV Screening [facility] Start: 12-21-1975 PNEUMOCOCCAL (1 - PCV) PNEUMOCOCCAL (1 - PCV) [facility] Start: 1969 HEPATITIS B (1 of 3 - 3-dose series) HEPATITIS B (1 of 3 - 3-dose series) [facility] Erythrocyte mean corpuscular volume determination [facility] Hematocrit [Volume Fraction] of Blood [facility] Hemoglobin [Mass/vol ume] in Blood [facility] Leukocytes [#/volume ] in Blood [facility] End: 09-04-2023 KEITH SCREENING W SHAWNA KEITH SCREENING W [facility] Radiology Routine Dense breast tissue 1 Occurrences starting 08/05/2022 until 09/04/2023 [facility] Work Phone: Comment on above: 1 Occurrences starting 08/05/2022 until 09/04/2023 Mean corpuscular hemoglobin concentration determination [facility] Mean corpuscular hemoglobin determination [facility] Neutrophil count [facility] Neutrophil percent differential count [facility] Platelets [#/volume] in Blood [facility] Red blood cell count [facility] Red cell distributio n width determination [facility] End: 02-23-2025 Screening colonoscopy COLONOSCOPY SCREENING Endoscopy Routine History of colon cancer 1 Occurrences starting 02/24/2024 until 02/23/2025 [facility] Work Phone: Comment on above: 1 Occurrences starting 02/24/2024 until 02/23/2025 End: 03-31-2025 XR Chest PA and Lateral XR CHEST 2V FRONTAL/LAT Radiology Routine Elevated carcinoembryonic antigen (CEA) 1 Occurrences starting 03/01/2024 until 03/31/2025 [facility] Work Phone: Comment on above: 1 Occurrences starting 03/01/2024 until 03/31/2025 XR Chest PA and Lateral XR CHEST 2V FRONTAL/LAT Radiology Routine Elevated carcinoembryonic antigen (CEA) 03/01/2024 4:40 PM EDT [facility] End: 11-24-2024 XR Ribs - right Views and Chest PA XR RIBS/CHEST 3V AP RIB/OBLS/CXR RIGHT Radiology Routine Status post fall Right-sided chest wall pain 1 Occurrences starting 10/26/2023 until 11/24/2024 [facility] Work Phone: Comment on above: 1 Occurrences starting 10/26/2023 until 11/24/2024 XR Ribs - right View s and Chest PA XR RIBS/CHEST 3V AP RIB/OBLS/CXR RIGHT Radiology Routine Status post fall Right-sided chest wall pain 10/26/2023 12:52 PM EDT [facility] Work Phone: [facility] Work Phone: [facility] Work Phone: [facility] Work Phone: [facility] Work Phone: [facility] Work Phone: [facility] Work Phone: [facility] Work Phone: [facility] Work Phone: [facility] Work Phone: [facility] Work Phone[facility] Work Phone[facility] Work Phone[facility] Work Phone: [facility] Work Phone: [facility] Work Phone: [facility] Work Phone: [facility] Work Phone: [facility] Immunizations Immunization Date Immunization Notes Care Provider Fa taj 02-09-2024 influenza, seasonal, injectable, preservative free Ct Wstr [facility] 06-02-2023 tetanus toxoid, redu jun diphtheria toxoid, and acellular pertussis vaccine, adsorbed Dr. Leatha Fuentes MD Work Phone: [facility] 02-09-2023 influenza virus vaccine, unspecified formulation Jess Ross MD Work Phone: [facility] 02-24-2022 influenza virus vaccine, unspecified formulation Ana Hernández MD Work Phone: [facility] 03-21-2021 Covid (Moderna) Dr. Abner Fuentes Work Phone: [facility] 01-28-[address] Leatha Fuentes Work Phone: [facility] 01-28-2021 influenza virus vaccine, unspecified formulation Ana Hernández MD Work Phone: [facility] 05-24-2020 Covid (Moderna) Dr. Abner Fuentes Work Phone: [facility] 04-29-2020 Covid (Moderna) Dr. Abner Fuentes Work Phone: [facility] 02-24-2019 influenza virus vaccine, unspecified formulation [place] Diana RISK ENGINEER.PLASTIC EXTRUSION OPERATOR Work Phone: [facility] Work Phone: 03-03-2018 influenza nasal, unspecified formulation [place] Ortiz RISK ENGINEER.PLASTIC EXTRUSION OPERATOR Work Phone: [facility] Work Phone: 03-03-2018 influenza virus vaccine, unspecified formulation Ana Hernández MD Work Phone: [facility] 02-11-2016 influenza, injectabl e, quadrivalent, preservative free Ana Hernández MD Work Phone: [facility] 02-03-2016 influenza, injectabl e, quadrivalent, preservative free Dr. Leatha Fuentes MD Work Phone: [facility] 02-03-2016 influenza, seasonal, injectable Dr. Leatha Fuentes Work Phone: [facility] 02-03-2016 influenza, seasonal, injectable, preservative free Richelle Ortiz APRNDaydayPLASTIC EXTRUSION OPERATOR Work Phone: [facility] Work Phone: 07-09-2014 tetanus toxoid, redu jun diphtheria toxoid, and acellular pertussis vaccine, adsorbed Ana Hernández MD Work Phone: [facility] 03-13-2009 novel [id number], preservative-free, injectable Ana Hernández MD Work Phone: [facility] Payers Date Payer Category Payer Self-pay [id number] 2017 Unknown [id number] 2001 Unknown 2001 Unknown [facility] PPO [id number] 2001-Present [phone] [place] [address] PPO [id number] 2001 Unknown [id number] 1970 Unknown [id number] Unknown [id number] Unknown [id number] Unknown [id number] Unknown [id number] Unknown [id number] Unknown [id number] Unknown [id number] Unknown [id number] Unknown [id number] Unknown [id number] Unknown [id number] Unknown [id number] Unknown [id number] Unknown [id number] Unknown [id number] Social History Date Type Detail Facility Start: 08-05-2022 End: 02-17-2024 Alcohol Use [facility] Work Phone: Comment on above: 0-2 weekly -- social ly 0-2 daily Start: 06-04-2016 End: 07-21-2024 Tobacco smoking status NHIS Never smoked tobacco [facility] Start: 07-23-2021 End: 02-29-2024 Alcohol intake Current drinker of alcohol (finding) [facility] Start: 06-04-2016 History SDOH Alcohol Comment Once monthly [facility] Start: 1970 Sex Assigned At Female C [facility] Start: 07-13-2021 End: 02-04-2022 Exposure to SARS-CoV-2 (event) Not sure [facility] Start: 07-23-2021 End: 08-12-2022 Tobacco smoking status NHIS Unknown if ever smoked [facility] Start: 04-05-2016 None [facility] Start: 04-05-2016 Non-smoker [facility] Start: 06-04-2016 End: 08-05-2022 Tobacco use and exposure Smokeless tobacco non-user [facility] Start: 08-05-2022 End: 02-17-2024 Tobacco use panel [facility] Adult Depression Screening Assessment 1 [facility] Start: 08-16-2018 Gender identity Identifies as female gender (finding) [facility] Start: 08-16-2018 Sexual orientation Heterosexual (max quiñonez) [facility] Start: 07-28-2024 Sex Female (finding) [facility] Medical Equipment Procedure Code Equipment Code Equipment Origin al Text Equipment Identifier Dates [place] [employer] M ri 8fr Plastic Polyurethane Implantable Infusion - [id number] Start: 06-16-2016 Comment on above: Description: PowerPo rt Mental Status Date Assessment Result Facility 10-23-2024 Cognitive function Voice/Name [facility] Work Phone: 10-20-2024 Cognitive function Awake;Alert;A ppropriate;Fol lows Commands [facility] Work Phone: Clinical Notes 07-13-2016 to 07-21-2024 Note Date & Type Note Facility 07-21-2024 Evaluation note Diagnosis Onset Date Resolution Grief reaction acute July 10:11am Anxiety and depression chronic [facility] 2024 10:11am H/O gastric bypass chronic July 21, 2024 10:11am Postsurgical malabsorption chronic July 21, 2024 10:11am [facility] Work Phone: 1(766) 903-381403-21-2025 Evaluation note* Diagnosis Onset Date Resolution Status Admit Date Grief reaction acute July 10:11am Anxiety and depression chronic [facility] 2024 10:11am H/O gastric bypass chronic July 21, 2024 10:11am Postsurgical malabsorption chronic July 21, 2024 10:11am Grief reaction acute October 13, 2024 12:54pm Anemia chronic October 13 12:54pm Anxiety and depression chronic Ju 2024 12:54pm Chronic diarrhea chronic October 12:54pm Dermatitis chronic October 13 12:54pm Postsurgical malabsorption chronic October 13, 2024 12:54pm [facility] Work Phone: 1(108) 265-843610-30-2024 History of Present illness Narrative* Sal Holder RT(Frank) - 03/01/2024 4:40 PM EDT Radiology Service Progress Note PATIENT NAME: Janet Juarez DATE OF SERVICE: March 01, 2024 TIME: 4:34 PM PATIENT IDENTITY VERIFICATION COMPLETED USING TWO (2) IDENTIFIERS: Name and Date of confirmedby patient verbally. FALL SCREENING: Has the patient had 2 falls in the last year or 1 fall with injury or currently using an Ambulatory Assistive Device (Walker, Cane, Wheelchair, Crutches, etc.)? No PATIENT GENDER DATA: Female. status: : No status: NO. PATIENT RELEVANT IMPLANT DATA REVIEWED: Not Applicable PATIENT PRESENTS WITH AN IMPLANTABLE OR ATTACHED RAD TECH: No RADIOLOGY DEPARTMENT: General X-ray: Exam(s) Completed: Chest X-Ray PERIPHERAL IV DATA: Not applicable SIGNED BY: MANNY Medrano) March 01, 2024 4:34 PM [facility] NoteHNO ID: [id number] Author: SAL HOLDER RT (R) Service: Radiology Author Type: Technologist Type: Progress Notes Filed: 03/01/2024 16:41 Note Text: Radiology Service Progress Note PATIENT NAME: Janet Juarez DATE OF SERVICE: March 01, 2024 TIME: 4:34 PM PATIENT IDENTITY VERIFICATION COMPLETED USING TWO (2) IDENTIFIERS: Name and Date of confirmed by patient verbally. FALL SCREENING: Has the patient had 2 falls in the last year or 1 fall with injury or currently using an Ambulatory Assistive Device (Walker, Cane, Wheelchair, Crutches, etc.)? No PATIENT GENDER DATA: Female. status: : No status: NO. PATIENT RELEVANT IMPLANT DATA REVIEWED: Not Applicable PATIENT PRESENTS WITH AN IMPLANTABLE OR ATTACHED RAD TECH: No RADIOLOGY DEPARTMENT: General X-ray: Exam(s) Completed: Chest X-Ray PERIPHERAL IV DATA: Not applicable SIGNED BY: BERNARDO MedranoR) March 01, 2024 4:34 [facility]10-29-2024 NoteHNO ID: [id number] Author: MAUREEN UNDERWOOD RN Service: ? Author Type: Registered Nurse Type: Nursing Progress Note Filed: 02/29/2024 08:44 Note Text: Awoke patient, ready for snack and drink, denies pain or nausea.[facility]10-29-2024 Nurse Note* Maureen Underwood RN - 02/29/2024 8:42 AM EDT Awoke patient, ready for snack and drink, denies pain or nausea. [facility]10-[facility] Nurse Note* Maureen Underwood RN - 02/29/2024 8:42 AM EDT Awoke patient, ready for snack and drink, denies pain or nausea. * Maureen Underwood RN - 02/29/2024 8:24 AM EDT Patient awakens easily, denies pain, cramping or nausea, does not want food or drink yet, will continue to rest on left side for now. * Maureen Underwood RN - 02/29/2024 8:02 AM EDT Patient received in phase II via cart in left lateral position, eyes closed but open to verbal stimuli, skin warm and dry, respirations regular and unlabored, abdomen non distended, denies nausea or pain, resting comfortably on left side. [facility]* Maureen Underwood RN - 02/29/2024 8:24 AM EDT Patient awakens easily, denies pain, cramping or nausea, does not want food or drink yet, will continue to rest on left side for now. [facility]10-29-[facility] Note* Discharge Instr - Nursing - Maureen Underwood RN - 02/29/2024 8:13 AM EDT The patient received a copy of Colonoscopy discharge instructions that contain information for how to contact the physician who performed the procedure and when to seek medical care. [facility]10-29-2024 Miscellaneous Notes* Discharge Instr - Nursing - Maureen Underwood RN - 02/29/2024 8:13 AM EDT The patient received a copy of Colonoscopy discharge instructions that contain information for how to contact the physician who performed the procedure and when to seek medical care. [facility] Nurse Note* Maureen Underwood RN - 02/29/2024 8:02 AM EDT Patient received in phase II via cart in left lateral position, eyes closed but open to verbal stimuli, skin warm and dry, respirations regular and unlabored, abdomen non distended, denies nausea or pain, resting comfortably on left side. [facility]10-[facility] Attending History and physical note* Jess Ross MD - 02/29/2024 7:30 AM EDT UPDATED PROCEDURAL SEDATION HISTORY AND PHYSICAL EXAMINATION SERVICE DATE: 02/29/2024 SERVICE TIME: 7:23 PHYSICAL EXAM MUST BE COMPLETED ON ADMISSION PROCEDURE: colonoscopy, possible biopsies Procedure Indications: history of colon cancer - elevated CEA The History and Physical (completed in the past 30 days) has been reviewed and the patient has beenexamined. The contents accurately reflect the patient's condition with the following additions or revisions since the H&P was completed. ASA Class: ASA Class: Patient with mild systemic disease Examination indicates no changes. AIRWAY: Airway Visualization of Uvula: Yes Mouth opening greater than 2 fingerbreadths: Yes Neck Full Range of Motion: Yes LUNGS: Lungs clear to auscultation CARDIAC: Regular rhythm,Regular rate Provisional Diagnosis/Treatment Plan: colonoscopy, possible bipsies Sedation Goal: Moderate This H&P can be found in the EHR SIGNATURE: Jess Ross MD PATIENT NAME: Janet Juarez DATE: February 29, 2024 TIME: 7:23 AM Source Note - Jess Ross MD - 02/29/2024 7:30 AM EDT HISTORY AND PHYSICAL Janet Gama Ann 1970 REFERRING PHYSICIAN: Jess Ross MD CHIEF COMPLAINT: No chief complaint on file. HPI: The patient is a 53 year old female here for colonoscopy. History of colon cancer Found to have elevated CEA No symptoms Last colonoscopy 2019 PAST MEDICAL HISTORY Diagnosis Date Anemia Cholelithiasis 09/13/14 Colon cancer (HCC) 04/2016 Colon cancer History of cancer chemotherapy PAST SURGICAL HISTORY Procedure Laterality Date ABDOMINAL SURGERY HX APPENDECTOMY BREAST BIOPSY HX Left 05/26/2016 BREAST SURGERY HX CAUTERY CERVIX CRYOCAUTERY INITIAL/REPEAT , COLON SURGERY HX COLONOSCOPY FLX DX W/COLLJ SPEC WHEN PFRMD 04/02/2017 Colonoscopy-repeat in 3 years COLONOSCOPY SCRN NOT HIGH RISK 04/11/2020 COLONOSCOPY W/BIOPSY SINGLE/MULTIPLE 04/06/2016 cecal colon cancer GASTRECTOMY,PART DISTAL;W/GASTRODUODENOSTO INSJ TUNNELED CTR VAD W/SUBQ PORT AGE 5 YR/> Left 06/16/2016 subclavian LAP GASTR RSTRC;GASTR BYPS&ROUXENY 08/2011 LAPAROSCOPY COLECTOMY PARTIAL W/ANASTOMOSIS Right 04/15/2016 LAPAROSCOPY SURG CHOLECYSTECTOMY 09/13/2014 Current Outpatient Medications Medication Sig cholestyramine (QUESTRAN) 4 gram packet Take 1 Packet by mouth two times a day with meals. buPROPion XL (WELLBUTRIN XL) 300 mg 24 hr tablet Take 300 mg by mouth once daily. topiramate (TOPAMAX) 50 mg tablet Take 50 mg by mouth twice daily. escitalopram oxalate (LEXAPRO) 10 mg tablet Take 10 mg by mouth once daily. Lactobacillus acidophilus (PROBIOTIC ORAL) Take by mouth. Ascorbic Acid 100 mg tablet Take 100 mg by mouth once daily. MULTI-VITAMIN ORAL Take 1 tablet by mouth once daily. FERROUS SULFATE ORAL Take 65 mg by mouth once daily. CALCIUM CARBONATE/VITAMIN D3 (CALCIUM 600 + D ORAL) Take 1 tablet by mouth once daily. rizatriptan (MAXALT) 10 mg tablet Take 1 tablet (10 mg) by mouth as needed for migraine headache (see administration instructions). May repeat dose after 2 hours if needed. Maximum daily dose is 30 mg per day. lidocaine-menthol (LIDALL) 4-1 % ptmd Apply 1 Patch to affected area two times a day. hydrOXYzine HCl (ATARAX) 25 mg tablet Take 1 tablet by mouth three times daily as needed. Cholestyramine, Bulk, powd 4 g three times daily. cyanocobalamin 1,000 mcg/mL soln Inject 1,000 mcg intramuscularly once every month. Current Facility-Administered Medications Medication Dose Route Frequency lactated ringers iv infusion 30 mL/hr INTRAVENOUS CONTINUOUS ALLERGIES: Codeine, Metronidazole, and Nsaids (Non-Steroidal Anti-Inflammatory Drug) PERSONAL HISTORY: Social History Tobacco Use Smoking status: Never Smokeless tobacco: Never Vaping Use Vaping status: Never Used Substance Use Topics Alcohol use: Yes Comment: Once monthly Drug use: No FAMILY HISTORY Problem Relation Age of Onset Alcohol/Drug Brother Blood Disease Maternal Grandfather leukemia Cancer Maternal Grandmother lung- smoker Diabetes Father Hypertension Father Pancreatic Cancer Mother 82 other (Anemia) Mother Alcohol/Drug Brother No Known Problems Daughter REVIEW OF SYSTEMS: Denies chest pain Denies shortness of breath PHYSICAL EXAMINATION: General: The patient is 53 year old female, well nourished, well hydrated in no acute distress. Thepatient is oriented to time, place, and person. VITALS: Pulse 76, temperature 36.6 C (97.9 F), temperature source Temporal Artery, resp. rate 16, weight 75.7 kg (166 lb 14.2 oz), last menstrual period 04/11/2016, SpO2 99%. Body mass index is 28.65kg/m . Head - Normocephalic. EOM intact with sclera clear. Mouth with mucus membranes moist. Neck - supple with no jugular venous distention noted. Trachea is midline. Lungs - normal breath sounds, normal respiratory motion, no adventitial sounds noted. Heart - normal heart sounds. Regular rate. Abdomen - soft and benign. Extremities - no pitting edema noted. Skin - Normal skin integrity. Neurological - non focal Psych - calm and appropriate Impression: screening for colon cancer - history of colon cancer - elevated CEA Discussion/Plan/Recommendations: I have discussed the above with the patient. I have offered colonoscopy, possible biopsies I have explained the procedure to the patient. I have counseled the patient as to the risks of the procedure, including but not limited to: infection, bleeding, injury to any intrabdominal organs such as liver/spleen, perforation of the GI tract,inability to complete the procedure, complications of anesthesia, etc. - the patient understands. The patient wishes to proceed. I have answered all questions to the patient s satisfaction and the patient has no further questions. . Jess Ross MD [facility]10-[facility] History and physical note* Jess Ross MD - 02/29/2024 7:30 AM EDT HISTORY AND PHYSICAL Janet Juarez 1970 REFERRING PHYSICIAN: Jess Ross MD CHIEF COMPLAINT: No chief complaint on file. HPI: The patient is a 53 year old female here for colonoscopy. History of colon cancer Found to have elevated CEA No symptoms Last colonoscopy 2019 PAST MEDICAL HISTORY Diagnosis Date Anemia Cholelithiasis 09/13/14 Colon cancer (HCC) 04/2016 Colon cancer History of cancer chemotherapy PAST SURGICAL HISTORY Procedure Laterality Date ABDOMINAL SURGERY HX APPENDECTOMY BREAST BIOPSY HX Left 05/26/2016 BREAST SURGERY HX CAUTERY CERVIX CRYOCAUTERY INITIAL/REPEAT , COLON SURGERY HX COLONOSCOPY FLX DX W/COLLJ SPEC WHEN PFRMD 04/02/2017 Colonoscopy-repeat in 3 years COLONOSCOPY SCRN NOT HIGH RISK 04/11/2020 COLONOSCOPY W/BIOPSY SINGLE/MULTIPLE 04/06/2016 cecal colon cancer GASTRECTOMY,PART DISTAL;W/GASTRODUODENOSTO INSJ TUNNELED CTR VAD W/SUBQ PORT AGE 5 YR/> Left 06/16/2016 subclavian LAP GASTR RSTRC;GASTR BYPS&ROUXENY 08/2011 LAPAROSCOPY COLECTOMY PARTIAL W/ANASTOMOSIS Right 04/15/2016 LAPAROSCOPY SURG CHOLECYSTECTOMY 09/13/2014 Current Outpatient Medications Medication Sig cholestyramine (QUESTRAN) 4 gram packet Take 1 Packet by mouth two times a day with meals. buPROPion XL (WELLBUTRIN XL) 300 mg 24 hr tablet Take 300 mg by mouth once daily. topiramate (TOPAMAX) 50 mg tablet Take 50 mg by mouth twice daily. escitalopram oxalate (LEXAPRO) 10 mg tablet Take 10 mg by mouth once daily. Lactobacillus acidophilus (PROBIOTIC ORAL) Take by mouth. Ascorbic Acid 100 mg tablet Take 100 mg by mouth once daily. MULTI-VITAMIN ORAL Take 1 tablet by mouth once daily. FERROUS SULFATE ORAL Take 65 mg by mouth once daily. CALCIUM CARBONATE/VITAMIN D3 (CALCIUM 600 + D ORAL) Take 1 tablet by mouth once daily. rizatriptan (MAXALT) 10 mg tablet Take 1 tablet (10 mg) by mouth as needed for migraine headache (see administration instructions). May repeat dose after 2 hours if needed. Maximum daily dose is 30 mg per day. lidocaine-menthol (LIDALL) 4-1 % ptmd Apply 1 Patch to affected area two times a day. hydrOXYzine HCl (ATARAX) 25 mg tablet Take 1 tablet by mouth three times daily as needed. Cholestyramine, Bulk, powd 4 g three times daily. cyanocobalamin 1,000 mcg/mL soln Inject 1,000 mcg intramuscularly once every month. Current Facility-Administered Medications Medication Dose Route Frequency lactated ringers iv infusion 30 mL/hr INTRAVENOUS CONTINUOUS ALLERGIES: Codeine, Metronidazole, and Nsaids (Non-Steroidal Anti-Inflammatory Drug) PERSONAL HISTORY: Social History Tobacco Use Smoking status: Never Smokeless tobacco: Never Vaping Use Vaping status: Never Used Substance Use Topics Alcohol use: Yes Comment: Once monthly Drug use: No FAMILY HISTORY Problem Relation Age of Onset Alcohol/Drug Brother Blood Disease Maternal Grandfather leukemia Cancer Maternal Grandmother lung- smoker Diabetes Father Hypertension Father Pancreatic Cancer Mother 82 other (Anemia) Mother Alcohol/Drug Brother No Known Problems Daughter REVIEW OF SYSTEMS: Denies chest pain Denies shortness of breath PHYSICAL EXAMINATION: General: The patient is 53 year old female, well nourished, well hydrated in no acute distress. Thepatient is oriented to time, place, and person. VITALS: Pulse 76, temperature 36.6 C (97.9 F), temperature source Temporal Artery, resp. rate 16, weight 75.7 kg (166 lb 14.2 oz), last menstrual period 04/11/2016, SpO2 99%. Body mass index is 28.65kg/m . Head - Normocephalic. EOM intact with sclera clear. Mouth with mucus membranes moist. Neck - supple with no jugular venous distention noted. Trachea is midline. Lungs - normal breath sounds, normal respiratory motion, no adventitial sounds noted. Heart - normal heart sounds. Regular rate. Abdomen - soft and benign. Extremities - no pitting edema noted. Skin - Normal skin integrity. Neurological - non focal Psych - calm and appropriate Impression: screening for colon cancer - history of colon cancer - elevated CEA Discussion/Plan/Recommendations: I have discussed the above with the patient. I have offered colonoscopy, possible biopsies I have explained the procedure to the patient. I have counseled the patient as to the risks of the procedure, including but not limited to: infection, bleeding, injury to any intrabdominal organs such as liver/spleen, perforation of the GI tract,inability to complete the procedure, complications of anesthesia, etc. - the patient understands. The patient wishes to proceed. I have answered all questions to the patient s satisfaction and the patient has no further questions. . Jess Ross MD [facility]10-29-2024 History and physical note* Jess Ross MD - 02/29/2024 7:30 AM EDT UPDATED PROCEDURAL SEDATION HISTORY AND PHYSICAL EXAMINATION SERVICE DATE: 02/29/2024 SERVICE TIME: 7:23 PHYSICAL EXAM MUST BE COMPLETED ON ADMISSION PROCEDURE: colonoscopy, possible biopsies Procedure Indications: history of colon cancer - elevated CEA The History and Physical (completed in the past 30 days) has been reviewed and the patient has beenexamined. The contents accurately reflect the patient's condition with the following additions or revisions since the H&P was completed. ASA Class: ASA Class: Patient with mild systemic disease Examination indicates no changes. AIRWAY: Airway Visualization of Uvula: Yes Mouth opening greater than 2 fingerbreadths: Yes Neck Full Range of Motion: Yes LUNGS: Lungs clear to auscultation CARDIAC: Regular rhythm,Regular rate Provisional Diagnosis/Treatment Plan: colonoscopy, possible bipsies Sedation Goal: Moderate This H&P can be found in the EHR SIGNATURE: Jess Ross MD PATIENT NAME: Janet Juarez DATE: February 29, 2024 TIME: 7:23 AM Source Note - Jess Ross MD - 02/29/2024 7:30 AM EDT HISTORY AND PHYSICAL Janet Gama Tucker 1970 REFERRING PHYSICIAN: Jess Ross MD CHIEF COMPLAINT: No chief complaint on file. HPI: The patient is a 53 year old female here for colonoscopy. History of colon cancer Found to have elevated CEA No symptoms Last colonoscopy 2019 PAST MEDICAL HISTORY Diagnosis Date Anemia Cholelithiasis 09/13/14 Colon cancer (HCC) 04/2016 Colon cancer History of cancer chemotherapy PAST SURGICAL HISTORY Procedure Laterality Date ABDOMINAL SURGERY HX APPENDECTOMY BREAST BIOPSY HX Left 05/26/2016 BREAST SURGERY HX CAUTERY CERVIX CRYOCAUTERY INITIAL/REPEAT , COLON SURGERY HX COLONOSCOPY FLX DX W/COLLJ SPEC WHEN PFRMD 04/02/2017 Colonoscopy-repeat in 3 years COLONOSCOPY SCRN NOT HIGH RISK 04/11/2020 COLONOSCOPY W/BIOPSY SINGLE/MULTIPLE 04/06/2016 cecal colon cancer GASTRECTOMY,PART DISTAL;W/GASTRODUODENOSTO INSJ TUNNELED CTR VAD W/SUBQ PORT AGE 5 YR/> Left 06/16/2016 subclavian LAP GASTR RSTRC;GASTR BYPS&ROUXENY 08/2011 LAPAROSCOPY COLECTOMY PARTIAL W/ANASTOMOSIS Right 04/15/2016 LAPAROSCOPY SURG CHOLECYSTECTOMY 09/13/2014 Current Outpatient Medications Medication Sig cholestyramine (QUESTRAN) 4 gram packet Take 1 Packet by mouth two times a day with meals. buPROPion XL (WELLBUTRIN XL) 300 mg 24 hr tablet Take 300 mg by mouth once daily. topiramate (TOPAMAX) 50 mg tablet Take 50 mg by mouth twice daily. escitalopram oxalate (LEXAPRO) 10 mg tablet Take 10 mg by mouth once daily. Lactobacillus acidophilus (PROBIOTIC ORAL) Take by mouth. Ascorbic Acid 100 mg tablet Take 100 mg by mouth once daily. MULTI-VITAMIN ORAL Take 1 tablet by mouth once daily. FERROUS SULFATE ORAL Take 65 mg by mouth once daily. CALCIUM CARBONATE/VITAMIN D3 (CALCIUM 600 + D ORAL) Take 1 tablet by mouth once daily. rizatriptan (MAXALT) 10 mg tablet Take 1 tablet (10 mg) by mouth as needed for migraine headache (see administration instructions). May repeat dose after 2 hours if needed. Maximum daily dose is 30 mg per day. lidocaine-menthol (LIDALL) 4-1 % ptmd Apply 1 Patch to affected area two times a day. hydrOXYzine HCl (ATARAX) 25 mg tablet Take 1 tablet by mouth three times daily as needed. Cholestyramine, Bulk, powd 4 g three times daily. cyanocobalamin 1,000 mcg/mL soln Inject 1,000 mcg intramuscularly once every month. Current Facility-Administered Medications Medication Dose Route Frequency lactated ringers iv infusion 30 mL/hr INTRAVENOUS CONTINUOUS ALLERGIES: Codeine, Metronidazole, and Nsaids (Non-Steroidal Anti-Inflammatory Drug) PERSONAL HISTORY: Social History Tobacco Use Smoking status: Never Smokeless tobacco: Never Vaping Use Vaping status: Never Used Substance Use Topics Alcohol use: Yes Comment: Once monthly Drug use: No FAMILY HISTORY Problem Relation Age of Onset Alcohol/Drug Brother Blood Disease Maternal Grandfather leukemia Cancer Maternal Grandmother lung- smoker Diabetes Father Hypertension Father Pancreatic Cancer Mother 82 other (Anemia) Mother Alcohol/Drug Brother No Known Problems Daughter REVIEW OF SYSTEMS: Denies chest pain Denies shortness of breath PHYSICAL EXAMINATION: General: The patient is 53 year old female, well nourished, well hydrated in no acute distress. Thepatient is oriented to time, place, and person. VITALS: Pulse 76, temperature 36.6 C (97.9 F), temperature source Temporal Artery, resp. rate 16, weight 75.7 kg (166 lb 14.2 oz), last menstrual period 04/11/2016, SpO2 99%. Body mass index is 28.65kg/m . Head - Normocephalic. EOM intact with sclera clear. Mouth with mucus membranes moist. Neck - supple with no jugular venous distention noted. Trachea is midline. Lungs - normal breath sounds, normal respiratory motion, no adventitial sounds noted. Heart - normal heart sounds. Regular rate. Abdomen - soft and benign. Extremities - no pitting edema noted. Skin - Normal skin integrity. Neurological - non focal Psych - calm and appropriate Impression: screening for colon cancer - history of colon cancer - elevated CEA Discussion/Plan/Recommendations: I have discussed the above with the patient. I have offered colonoscopy, possible biopsies I have explained the procedure to the patient. I have counseled the patient as to the risks of the procedure, including but not limited to: infection, bleeding, injury to any intrabdominal organs such as liver/spleen, perforation of the GI tract,inability to complete the procedure, complications of anesthesia, etc. - the patient understands. The patient wishes to proceed. I have answered all questions to the patient s satisfaction and the patient has no further questions. . Jess Ross MD * Jess Ross MD - 02/29/2024 7:30 AM EDT HISTORY AND PHYSICAL Janet Gama Ann 1970 REFERRING PHYSICIAN: Jess Ross MD CHIEF COMPLAINT: No chief complaint on file. HPI: The patient is a 53 year old female here for colonoscopy. History of colon cancer Found to have elevated CEA No symptoms Last colonoscopy 2019 PAST MEDICAL HISTORY Diagnosis Date Anemia Cholelithiasis 09/13/14 Colon cancer (HCC) 04/2016 Colon cancer History of cancer chemotherapy PAST SURGICAL HISTORY Procedure Laterality Date ABDOMINAL SURGERY HX APPENDECTOMY BREAST BIOPSY HX Left 05/26/2016 BREAST SURGERY HX CAUTERY CERVIX CRYOCAUTERY INITIAL/REPEAT , COLON SURGERY HX COLONOSCOPY FLX DX W/COLLJ SPEC WHEN PFRMD 04/02/2017 Colonoscopy-repeat in 3 years COLONOSCOPY SCRN NOT HIGH RISK 04/11/2020 COLONOSCOPY W/BIOPSY SINGLE/MULTIPLE 04/06/2016 cecal colon cancer GASTRECTOMY,PART DISTAL;W/GASTRODUODENOSTO INSJ TUNNELED CTR VAD W/SUBQ PORT AGE 5 YR/> Left 06/16/2016 subclavian LAP GASTR RSTRC;GASTR BYPS&ROUXENY 08/2011 LAPAROSCOPY COLECTOMY PARTIAL W/ANASTOMOSIS Right 04/15/2016 LAPAROSCOPY SURG CHOLECYSTECTOMY 09/13/2014 Current Outpatient Medications Medication Sig cholestyramine (QUESTRAN) 4 gram packet Take 1 Packet by mouth two times a day with meals. buPROPion XL (WELLBUTRIN XL) 300 mg 24 hr tablet Take 300 mg by mouth once daily. topiramate (TOPAMAX) 50 mg tablet Take 50 mg by mouth twice daily. escitalopram oxalate (LEXAPRO) 10 mg tablet Take 10 mg by mouth once daily. Lactobacillus acidophilus (PROBIOTIC ORAL) Take by mouth. Ascorbic Acid 100 mg tablet Take 100 mg by mouth once daily. MULTI-VITAMIN ORAL Take 1 tablet by mouth once daily. FERROUS SULFATE ORAL Take 65 mg by mouth once daily. CALCIUM CARBONATE/VITAMIN D3 (CALCIUM 600 + D ORAL) Take 1 tablet by mouth once daily. rizatriptan (MAXALT) 10 mg tablet Take 1 tablet (10 mg) by mouth as needed for migraine headache (see administration instructions). May repeat dose after 2 hours if needed. Maximum daily dose is 30 mg per day. lidocaine-menthol (LIDALL) 4-1 % ptmd Apply 1 Patch to affected area two times a day. hydrOXYzine HCl (ATARAX) 25 mg tablet Take 1 tablet by mouth three times daily as needed. Cholestyramine, Bulk, powd 4 g three times daily. cyanocobalamin 1,000 mcg/mL soln Inject 1,000 mcg intramuscularly once every month. Current Facility-Administered Medications Medication Dose Route Frequency lactated ringers iv infusion 30 mL/hr INTRAVENOUS CONTINUOUS ALLERGIES: Codeine, Metronidazole, and Nsaids (Non-Steroidal Anti-Inflammatory Drug) PERSONAL HISTORY: Social History Tobacco Use Smoking status: Never Smokeless tobacco: Never Vaping Use Vaping status: Never Used Substance Use Topics Alcohol use: Yes Comment: Once monthly Drug use: No FAMILY HISTORY Problem Relation Age of Onset Alcohol/Drug Brother Blood Disease Maternal Grandfather leukemia Cancer Maternal Grandmother lung- smoker Diabetes Father Hypertension Father Pancreatic Cancer Mother 82 other (Anemia) Mother Alcohol/Drug Brother No Known Problems Daughter REVIEW OF SYSTEMS: Denies chest pain Denies shortness of breath PHYSICAL EXAMINATION: General: The patient is 53 year old female, well nourished, well hydrated in no acute distress. Thepatient is oriented to time, place, and person. VITALS: Pulse 76, temperature 36.6 C (97.9 F), temperature source Temporal Artery, resp. rate 16, weight 75.7 kg (166 lb 14.2 oz), last menstrual period 04/11/2016, SpO2 99%. Body mass index is 28.65kg/m . Head - Normocephalic. EOM intact with sclera clear. Mouth with mucus membranes moist. Neck - supple with no jugular venous distention noted. Trachea is midline. Lungs - normal breath sounds, normal respiratory motion, no adventitial sounds noted. Heart - normal heart sounds. Regular rate. Abdomen - soft and benign. Extremities - no pitting edema noted. Skin - Normal skin integrity. Neurological - non focal Psych - calm and appropriate Impression: screening for colon cancer - history of colon cancer - elevated CEA Discussion/Plan/Recommendations: I have discussed the above with the patient. I have offered colonoscopy, possible biopsies I have explained the procedure to the patient. I have counseled the patient as to the risks of the procedure, including but not limited to: infection, bleeding, injury to any intrabdominal organs such as liver/spleen, perforation of the GI tract,inability to complete the procedure, complications of anesthesia, etc. - the patient understands. The patient wishes to proceed. I have answered all questions to the patient s satisfaction and the patient has no further questions. . Jess Ross MD [facility] Instructions* Patient Instructions* Jess Ross MD - 02/24/2024 11:45 AM EDT COLONOSCOPY BOWEL PREPARATION INSTRUCTIONS GOLYTELY/NULYTELY/TRILYTE/COLYTE Your doctor has scheduled you for a colonoscopy. To have a successful colonoscopy, you must have a clean colon, that is empty. A clean colon allows your doctor to see the entire colon & diagnose issues like polyps or cancer. For doctors, a clean colon is like driving on a shoaib day; a dirty colon like driving in a storm. It is very important that you follow these instructions exactly, or your colonoscopy might not be as effective, could be canceled, and you may need to do the bowel prep and the colonoscopy again. TRANSPORTATION REQUIREMENTS You are receiving IV sedation. For your safety, a responsible adult escort must accompany you to and from your procedure: Your adult escort MUST be present with you at check-in for your colonoscopy. Your adult escort MUST remain in the endoscopy area until you are discharged. Your adult escort MUST transport you home once you are discharged. You are NOT allowed to operate any form of transportation (i.e. drive a car, bicycle, etc.) or leave the Endoscopy Center ALONE. It is not safe to do so. If you cannot meet these requirements, your procedure will be canceled. MEDICATION REQUIREMENTS For your safety, certain medications will need to be stopped or adjusted before you can have your procedure: BLOOD THINNERS: If you take blood thinners, such as Coumadin (warfarin), Plavix (clopidogrel), Ticlid (ticlopidine hydrochloride), Agrylin (anagrelide), Xarelto (Rivaroxaban), Pradaxa (Dabigatran), Eliquis (Apixaban), or Effient (Prasugrel), contact the physician who is prescribing these medications at least 2 weeks prior to your procedure to discuss any necessary adjustments. DIABETES: If you take medications for diabetes, your dosage may need to be adjusted. If you are being treated for diabetes with insulin, diabetic pills, or other injectable medicationsdo not take your REGULAR dose after midnight on the day of your procedure. If you are taking any other types of insulin such as Lantus, Humalog, NPH (long- acting insulin), or70/30 insulin, take half your normal dose the day before your procedure. DIABETES/WEIGHT MANAGEMENT: If you take medications for weight-loss, your dosage may need to be adjusted Contact the doctor who prescribes this medication for further instructions. If you take medications for weight-loss like semaglutide (Ozempic, Wegovy, Rybelsus), dulaglutide (Trulicity), liraglutide (Victoza, Saxenda), exenatide (Byetta, Bydureon), or lixisenatide (Adylyxin), stop your medication 1 week prior to your procedure. If you take medications like canagliflozin (Invokana), dapagliflozin (Farxiga, Forxiga), empagliflozin (Jardiance), stop your medication 3 days prior to your procedure. If you take ertugliflozin (Steglatro) stop your medication 4 days prior to your procedure. IRON: If you take iron pills, STOP them 1 week BEFORE your procedure, may resume after. OTHER MEDS: May take all other medications (including aspirin, antibiotics, water pills / diureticslike Lasix or Metolozone, blood pressure meds, etc.) at their usual scheduled time with a sip of water. DIET REQUIREMENTS The day before your colonoscopy, you may have a clear liquid diet (see below). The day of your colonoscopy, you may continue a clear liquid diet until 3 hours before your colonoscopy. Within 3 hours of your colonoscopy, take only any medications (as above) with a sip of water. Clear Liquid Diet Broth (chicken, beef or vegetable broth or bullion. Just the broth, no solids). Water Coffee or Tea (NO milk or creamer), but sugar and sugar substitutes are allowed. Clear liquids including clear, yellow, green, blue (NO red, NO orange, NO purple) Sodas / soft drinks Gatorade or other sports drinks Kaushal-Aid or flavored drinks Plain Jell-O or other gelatins Fruit juice (strained; no-pulp) Popsicles or hard candy BOWEL PREPARATION (GOLYTELY/NULYTELY/TRILYTE/COLYTE) Split Dosing Bowel Prep: This means drinking your bowel prep in two doses. Split dosing helps cleanyour colon better and makes it less likely that your procedure will be canceled. Fill your prescription for Golytely/Nulytely/Trilyte/Colyte: The afternoon before your colonoscopy, mix the solution and refrigerate. You may add the flavor pack (if present) that came with the bowel preparation. Do not add ice, sugar, or other flavorings to the solution. You will drink your prep in two doses, by several hours. On the evening before your colonoscopy: 1. 6 PM drink the first half of the bowel preparation solution. Drink one 8-ounce glass every 15 minutes. 2. Six hours before your colonoscopy, drink the second half of the solution. Drink one 8-ounce glass every 15 minutes. 3. You may continue a clear liquid diet until 3 hours before your colonoscopy. Bowel prep can work differently from person to person. Some people's bowels move slowly and they may need different instructions. Please see your doctor in office or virtually for personalized bowel prep instructions if you have: Medical condition that needs special accommodations Had a poor bowel prep results or failed bowel prep attempts in the past. Had difficulty with anesthesia during the procedure. FREQUENTLY ASKED QUESTIONS Q: What if I suffer from constipation? A: Recommend taking extra laxatives to resolve your constipation days prior to entering the bowel prep day. Q: What if have had prior poor preps results in past? A: Contact your physician as you will likely need additional bowel prep instructions. Q: What if I have motility issues like Parkinson's, MS (multiple sclerosis), wheelchair dependent, etc.? or on medications that slow bowel emptying (narcotics, gabapentin, anticholinergic medicationsetc.) A: Contact your physician as you will likely need extra time and additional laxatives to complete your bowel prep. Q: What if I cannot drink large volume of liquid? A: Start your prep 2-3 hours earlier to allow yourself more time to complete the entire prep. Q: What if I can't finish my bowel prep? A: If you cannot finish your entire bowel prep, it is likely that your colonoscopy will need to be rescheduled due to poor prep quality. Q: What if I had bariatric surgery? Do I still have to complete the entire prep? A: Yes, gastric bypass surgery involves the stomach & small bowel. You may need to drink smaller amounts, slower (may need more time to complete your bowel prep). Gastric bypass does not alter the length of your colon so you will need to complete the entire bowel prep, it may just take longer time to complete it. Q: What if I am on dialysis? A: Please consult your review assistant prior to scheduling to get instructions pertinent to you. In general, dialysis patients take the Golytely bowel prep and have the procedure same day of their dialysis (colonoscopy in AM, dialysis in PM). Q: How do I know if something is considered as clear liquid diet? A: If you can pour it in a glass and you can see through it, it is considered clear liquid Q: Can I eat nuts, seeds, beans, popcorn, dried fruits, vegetables & fruits that have skin peel? A: No, you will need to not eat these items starting 3 days prior to procedure. Q: Can I take Uber/Lyft/taxi/bus home? A: An adult MUST be present with you at check-in for your colonoscopy and remain in the endoscopy area until you are discharged. You can take Uber home only if this adult escort is with you at check in, remain in the endoscopy area until you are discharged, and takes the Uber with you to home. Q: Can I sleep it off here and drive myself home? A: No, you must have an adult with you at time of procedure check in, remain in the endoscopy center during your procedure, and drive you home. You cannot drive a vehicle after your procedure the rest of the day. documented in [facility] encounter[facility] History of Present illness Narrative* Asya Fontana RT(R) - 02/17/2024 2:00 PM EDT Radiology Service Progress Note DATE OF SERVICE: February 17, 2024 TIME: 3:42 PM PATIENT IDENTITY VERIFICATION COMPLETED USING TWO (2) STANDARD IDENTIFIERS: Name and Date of confirmed by patient verbally. FALL SCREENING: Has the patient had 2 falls in the last year or 1 fall with injury or currently using an Ambulatory Assistive Device (Walker, Cane, Wheelchair, Crutches, etc.)? No PATIENT GENDER DATA: Female. status: : No status: NO. PATIENT RELEVANT IMPLANT DATA REVIEWED: Yes PATIENT PRESENTS WITH AN IMPLANTABLE OR ATTACHED RAD TECH: No ALLERGIES: Reviewed and updated CONTRAST ALLERGY: NO. EXAM: CT -CONTRAST INDUCED NEPHROPATHY RISK FACTORS: Not applicable CREATININE: Creatinine Date Value Ref Range Status 11/15/2017 0.61 0.58 - 0.96 mg/dL Final Creatinine, Whole Blood (iSTAT) Date Value Ref Range Status 07/07/2017 0.60 (L) 0.70 - 1.40 mg/dL Final 04/07/2017 0.70 0.70 - 1.40 mg/dL Final eGFR-All Other Races Date Value Ref Range Status 11/15/2017 >60 . Final Comment: eGFR (Estimated GFR) Units of measure: mL/min/1.73 meters squared eGFR is derived from the reexpressed MDRD Study equation using the following parameters: serum creatinine, age, gender and race. The creatinine assay has been calibrated to be traceable to IDMS. An eGFR <60 mL/min/1.73m2 for >3 months is consistent with chronic kidney disease. Refer to KDOQI guidelines for clinical interpretation. In patients with unstable renal function, e.g. those with acute kidney injury, the eGFR may not accurately reflect actual GFR. eGFR- Date Value Ref Range Status 11/15/2017 >60 Final P.O.C.T. RESULTS: POC done: Yes, See Lab Tab February 17, 2024 TREATMENT: N/A PERIPHERAL IV DATA: Ambulatory: A peripheral IV was started in the Left antecubital site with a Angio cath: 22 gauge. RADIOLOGY DEPARTMENT: CT; Exam(s) Completed: Abdomen/Pelvis SIGNATURE: MANNY Vargas) PATIENT NAME: Janet Juarez DATE: February 17, 2024 TIME: 3:42 PM documented in this encounterJoint [facility]10-[facility]24 NoteHNO ID: [id number] Author: ASYA FONTANA RT(R) Service: ? Author Type: Transportation Design Engineer Type: Progress Notes Filed: 02/17/2024 15:43 Note Text: Radiology Service Progress Note DATE OF SERVICE: February 17, 2024 TIME: 3:42 PM PATIENT IDENTITY VERIFICATION COMPLETED USING TWO (2) STANDARD IDENTIFIERS: Name and Date of confirmed by patient verbally. FALL SCREENING: Has the patient had 2 falls in the last year or 1 fall with injury or currently using an Ambulatory Assistive Device (Walker, Cane, Wheelchair, Crutches, etc.)? No PATIENT GENDER DATA: Female. status: : No status: NO. PATIENT RELEVANT IMPLANT DATA REVIEWED: Yes PATIENT PRESENTS WITH AN IMPLANTABLE OR ATTACHED RAD TECH: No ALLERGIES: Reviewed and updated CONTRAST ALLERGY: NO. EXAM: CT -CONTRAST INDUCED NEPHROPATHY RISK FACTORS: Not applicable CREATININE: Creatinine Date Value Ref Range Status 11/15/2017 0.61 0.58 - 0.96 mg/dL Final Creatinine, Whole Blood (iSTAT) Date Value Ref Range Status 07/07/2017 0.60 (L) 0.70 - 1.40 mg/dL Final 04/07/2017 0.70 0.70 - 1.40 mg/dL Final eGFR-All Other Races Date Value Ref Range Status 11/15/2017 >60 . Final Comment: eGFR (Estimated GFR) Units of measure: mL/min/1.73 meters squared eGFR is derived from the reexpressed MDRD Study equation using the following parameters: serum creatinine, age, gender and race. The creatinine assay has been calibrated to be traceable to IDMS. An eGFR <60 mL/min/1.73m2 for >3 months is consistent with chronic kidney disease. Refer to KDOQI guidelines for clinical interpretation. In patients with unstable renal function, e.g. those with acute kidney injury, the eGFR may not accurately reflect actual GFR. eGFR- Date Value Ref Range Status 11/15/2017 >60 Final P.O.C.T. RESULTS: POC done: Yes, See Lab Tab February 17, 2024 TREATMENT: N/A PERIPHERAL IV DATA: Ambulatory: A peripheral IV was started in the Left antecubital site with a Angio cath: 22 gauge. RADIOLOGY DEPARTMENT: CT; Exam(s) Completed: Abdomen/Pelvis SIGNATURE: RT Alicia(R) PATIENT NAME: Janet Juarez DATE: February 17, 2024 TIME: 3:42 [facility]09-11-2024 Miscellaneous Notes* Telephone Encounter - Tabitha Hanson RN - 01/12/2024 11:18 AM EDT Delayed entry. On 01/12/24 at 11:18 am patient was shaky, weak, and fatigued. Requested blood sugar check. Nurse checked blood sugar and blood sugar was 56. Patient ate crackers and apple juice. Blood glucose was checked a half hour later and it was 183. Patient began feeling better, complained of slight nausea. Offered patient a ride home but she declined. Advised patient to seek urgent medical care should symptoms continue. documented in this encounterJoint [facility]09-[facility]24 Telephone encounter Note * Telephone Encounter - Tabitha Hanson RN - 01/12/2024 11:18 AM EDT Delayed entry. On 01/12/24 at 11:18 am patient was shaky, weak, and fatigued. Requested blood sugar check. Nurse checked blood sugar and blood sugar was 56. Patient ate crackers and apple juice. Blood glucose was checked a half hour later and it was 183. Patient began feeling better, complained of slight nausea. Offered patient a ride home but she declined. Advised patient to seek urgent medical care should symptoms continue. [facility]06-[facility]24 NoteHNO ID: [id number] Author: JESS ROSS MD Service: ? Author Type: Physician Type: Progress Notes Filed: 10/26/2023 13:57 Note Text: S/p fall sustaining non displaced right rib fracture Symptomatic, does not want to be on systemic pain medications Will [facility]oc[facility] History of Present illness Narrative* Jess Ross MD - 10/26/2023 1:56 PM EDT S/p fall sustaining non displaced right rib fracture Symptomatic, does not want to be on systemic pain medications Will prescribe lidocaine patches documented in this encounterJoint [facility]06-[facility] History of Present illness Narrative* Lazara Cook, RT(R) - 10/26/2023 12:40 PM EDT Radiology Service Progress Note PATIENT NAME: Janet Juarez DATE OF SERVICE: October 26, 2023 TIME: 12:56 PM PATIENT IDENTITY VERIFICATION COMPLETED USING TWO (2) IDENTIFIERS: Name and Date of confirmedby patient verbally. FALL SCREENING: Has the patient had 2 falls in the last year or 1 fall with injury or currently using an Ambulatory Assistive Device (Walker, Cane, Wheelchair, Crutches, etc.)? Yes, Patient High Riskfor Falls What interventions were put in place to prevent falls during this visit? Increased Observations by Caregivers PATIENT GENDER DATA: Female. status: : No status: NO. PATIENT RELEVANT IMPLANT DATA REVIEWED: Not Applicable PATIENT PRESENTS WITH AN IMPLANTABLE OR ATTACHED RAD TECH: No RADIOLOGY DEPARTMENT: General X-ray: Exam(s) Completed: Chest X-Ray Rib X-Ray: Right PA CXR ONLY PER RIB SERIES PERIPHERAL IV DATA: Not applicable SIGNED BY: MANNY Da Silva) October 26, 2023 12:56 PM documented in this encounterJoint [facility]06-25-2024 NoteHNO ID: [id number] Author: LAZARA OCOK RT(R) Service: ? Author Type: Technologist Type: Progress Notes Filed: 10/26/2023 12:57 Note Text: Radiology Service Progress Note PATIENT NAME: Janet Juarez DATE OF SERVICE: October 26, 2023 TIME: 12:56 PM PATIENT IDENTITY VERIFICATION COMPLETED USING TWO (2) IDENTIFIERS: Name and Date of confirmed by patient verbally. FALL SCREENING: Has the patient had 2 falls in the last year or 1 fall with injury or currently using an Ambulatory Assistive Device (Walker, Cane, Wheelchair, Crutches, etc.)? Yes, Patient High Risk for Falls What interventions were put in place to prevent falls during this visit? Increased Observations by Caregivers PATIENT GENDER DATA: Female. status: : No status: NO. PATIENT RELEVANT IMPLANT DATA REVIEWED: Not Applicable PATIENT PRESENTS WITH AN IMPLANTABLE OR ATTACHED RAD TECH: No RADIOLOGY DEPARTMENT: General X-ray: Exam(s) Completed: Chest X-Ray Rib X-Ray: Right PA CXR ONLY PER RIB SERIES PERIPHERAL IV DATA: Not applicable SIGNED BY: Lazara Cook RT(R) October 26, 2023 12:56 [facility]06-[facility] History of Present illness Narrative* Jess Ross MD - 10/27/2022 2:40 PM EDT Rash of upper back for one month. documented in this encounterJoint [facility]04-05-2023 History of Present illness Narrative* Ana Hernández MD - 08/05/2022 3:54 PM EDT Crib Attendant offered: Patient declinesDayday Wilkinson is a 51 year old who presents for an annual gynecologic exam without complaints. Postmenopausal: yes HRT use: No. Last Pap: 07/26/2020 normal HPV: 07/24/2020 negative History of abnormal pap: No Last mammogram: 2022 normal History of abnormal mammogram: No Sexually active: Yes OB History T1 L1 SAB3 IAB0 Ectopic0 Multiple0 Live Births0 Nursing Informatics Clinical Analyst History LMP: 04/11/2016, Postmenopausal Age at Menarche: Age at First : Age at Menopause: Nursing Informatics Clinical Analyst History Comments: Sexual Activity: Yes; Male; Postmenopausal Contraception: No contraception data on record PAST MEDICAL HISTORY Diagnosis Date Anemia Cholelithiasis 09/13/14 Colon cancer (HCC) 04/2016 Colon cancer History of cancer chemotherapy PAST SURGICAL HISTORY Procedure Laterality Date ABDOMINAL SURGERY HX APPENDECTOMY BREAST BIOPSY HX Left 05/26/2016 BREAST SURGERY HX CAUTERY CERVIX CRYOCAUTERY INITIAL/REPEAT , COLON SURGERY HX COLONOSCOPY FLX DX W/COLLJ SPEC WHEN PFRMD 04/02/2017 Colonoscopy-repeat in 3 years COLONOSCOPY SCRN NOT HIGH RISK 04/11/2020 COLONOSCOPY W/BIOPSY SINGLE/MULTIPLE 04/06/2016 cecal colon cancer GASTRECTOMY,PART DISTAL;W/GASTRODUODENOSTO INSJ TUNNELED CTR VAD W/SUBQ PORT AGE 5 YR/> Left 06/16/2016 subclavian LAP GASTR RSTRC;GASTR BYPS&ROUXENY 08/2011 LAPAROSCOPY COLECTOMY PARTIAL W/ANASTOMOSIS Right 04/15/2016 LAPAROSCOPY SURG CHOLECYSTECTOMY 09/13/2014 FAMILY HISTORY Problem Relation Age of Onset Alcohol/Drug Brother Blood Disease Maternal Grandfather leukemia Cancer Maternal Grandmother lung- smoker Diabetes Father Hypertension Father Pancreatic Cancer Mother 82 other (Anemia) Mother Alcohol/Drug Brother No Known Problems Daughter SOCIAL HISTORY Social History Tobacco Use Smoking status: Never Smokeless tobacco: Never Vaping Use Vaping Use: Never used Substance Use Topics Alcohol use: Yes Comment: Once monthly Drug use: No REVIEW OF SYSTEMS Abdomen: No abdominal pain, nausea, vomiting, diarrhea, or constipation. No bloating, early satiety, indigestion, or increased flatulence. Bladder: No dysuria, gross hematuria, urinary frequency, urinary urgency, or incontinence Breast: No breast lumps, nipple d/c, overlying skin changes, redness or skin retraction Allergies and current medication updated:Yes EXAM: BP 110/60 Ht 5' 4 (1.63m) Wt 166 lb 12.8 oz (75.7kg) LMP 04/11/2016 BMI 28.62 kg/(m^2). GENERAL: pleasant, female in no apparent distress HEENT: Normocephalic, atraumatic, mucus membranes moist, and no lesions NECK: Supple, full range of motion, no adenopathy, and thyroid normal DERMATOLOGY: Normal, without lesions, non-icteric, and non-hirsute BREAST: soft, non-tender, symmetric, no dominant mass, normal nipple-areolar complex, no lymphadenopathy, and no nipple discharge,scaring from previous surgery noted CHEST: Normal inspiratory effort ABDOMEN: soft, non-tender, and no masses PELVIC: external genitalia normal, normal Bartholin's glands, urethra, [place]'s glands, no vulvar lesions, no cervical lesions, good vaginal support, physiologic discharge present, normal appearing perineal body and perianal region BIMANUAL: uterus normal size, shape and consistency, no adnexal masses, and non-tender RECTOVAGINAL: deferred. NEURO: alert and oriented x3,exam grossly non-focal EXTREMITIES: normal ASSESSMENT/PLAN: 1) Health maintenance: Pap/HPV up to date. Mammogram ordered 2) Follow up one year or sooner as needed Ana Hernández MD documented in this encounterJoint [facility]10-21-2022 History of Present illness Narrative* Richelle Ortiz APRN.PLASTIC EXTRUSION OPERATOR - 02/20/2022 7:59 AM EDT Chief Complaint Patient presents with: Established Patient: 6 MO FOLLOW UP WITH LABS HPI: Janet Juarez is a 51 year old female who presents here today for follow up colon cancer. Per Dr. Mckeon's previous note: H/o significant for gastric bypass surgery in 2011 (150 lb weight loss) and laparoscopic cholecystectomy 08/2014. She presented to the emergency department at [facility] on 04/05/2016. CT scan the abdomen and pelvis was unremarkable other than mild hepatomegaly. Dimensions were not rendered. The small intestine and colon were felt to be normal. There was limited visualization of theappendix but it appeared normal. The patient was admitted for suspected colitis and/or ileitis. She underwent colonoscopy on 04/06/2016. She was observed to have a circumferential mass in the cecum highly suspicious for an adenocarcinoma. Biopsy was obtained and the tissue was consistent with invasive adenocarcinoma moderately differentiated. The patient therefore underwent right colon laparoscopic hemicolectomy on 04/15/2016. Final pathology: Invasive well to moderately differentiated adenocarcinoma. Fifteen out of 15 lymph nodes, negative for metastatic carcinoma. Appendix - acute appendicitis and periappendicitis. Anastomotic line - no pathologic diagnosis. See cancer summary below. COLON CANCER SUMMARY: Specimen - terminal ileum, cecum, appendix and ascending colon Procedure - right hemicolectomy Specimen length - cecum with ascending colon 15 cm, small intestine 5 cm, appendix 5 cm in length and 0.7 cm in diameter. Tumor site - cecum and ileocecal valve Tumor size - 9 x 4 x 1 cm Macroscopic tumor perforation - not identified Histologic type - adenocarcinoma Histologic grade - low grade (well to moderately differentiated) Histologic features suggestive of Microsatellite Instability: Intratumoral lymphocytic response - (tumor infiltrating lymphocytes) - mild to moderate Peritumoral lymphocytic response (Crohn-like) - mild to moderate Tumor subtype and differentiation - mucinous tumor component - present (about 10%) - Medullary component and high histologic grade - not identified Microscopic tumor extension - tumor invades through the muscularis propria into the subserosal adipose tissue. Margins: Proximal margin - uninvolved by invasive carcinoma Distal margin - uninvolved by invasive carcinoma Circumferential or mesenteric margin - uninvolved by invasive carcinoma Distance of invasive carcinoma from closest axial margin - the tumor is 5 cm away from the closest axial proximal margin Treatment effect - no known prior treatment Lymph-Vascular invasion - not identified Perineural invasion - not identified Tumor deposits - not identified Type of polyp in which invasive carcinoma arose - none identified Lymph nodes: Number of lymph nodes examined - 15 Number of lymph nodes involved - 0 Distant metastasis - not applicable Additional pathologic findings - appendix, acute appendicitis and periappendicitis. - adherent omentum, acute inflammation and abscess formation. - anastomotic line, no pathologic diagnosis. Ancillary studies: See microsatellite instability study by IHC ([id number]) for complete details. Negative (no loss of mismatch protein; no microsatellite instability detected). Immunohistochemistry Studies for Mismatch Repair Proteins: MLH1 - intact nuclear positivity, tumor cells MSH2 - intact nuclear positivity, tumor cells MSH6 - intact nuclear positivity, tumor cells PMS2 - intact nuclear positivity, tumor cells PATHOLOGIC STAGE: pT3 pN0 Mx Previous therapy: 1) FOLFOX. Oxaliplatin dose reduced cycle #5 secondary to neutropenia and thrombocytopenia. Oxaliplatin omitted after cycle 6 due to worsening neuropathy. No new concerns today. Appetite:Good. Energy level:It's good. Denies fevers or recent illness. Resp:denies cough or sob Cardiac:denies chest pain/palpitations GI:denies abd pain, n/v, moving bowels regularly since starting cholestryramine- no longer needs imodium :denies dysuria/hematuria Extrem:denies pain Neuro:+neuropathy-cold sensitivity to fingers-stable Skin:denies rashes/lesions Heme:denies bleeding The ROS is otherwise negative. Past medical history, appointments, medications, allergies reviewed. No changes. EXAM: BP 115/66 Pulse 62 Temp 36.7 C (98 F) Ht 162.6 cm (5' 4) Wt 79.4 kg (175 lb) LMP 04/11/2016 BMI 30.04 kg/m APPEARANCE Well appearing, alert, in no acute distress, well-hydrated, well nourished. HEART RRR with normal S1 and S2, no murmurs LUNG clear to auscultation LYMPH NODES No cervical lymphadenopathy, No supraclavicular lymphadenopathy, and No axillary lymphadenopathy. ABDOMEN bowel sounds normoactive, soft, non-tender, non-distended, without organomegaly or palpablemasses, no tenderness to palpation EXTREMITIES No edema NEURO Awake, alert and oriented x 3, Normal gait, and No involuntary motions. SKIN Skin color, texture, turgor normal, no suspicious rashes or lesions LABS: CEA: Pending ASSESSMENT/PLAN: 1. Malignant neoplasm of ascending colon (HCC) - ICD9: 153.6, ICD10: C18.2 (primary diagnosis) pT3 pN0 stage II colon cancer. Oncotype DX testing indicated that with a T3 tumor and MMR proficient status, the patient is at a statistical 14% risk of recurrence over the next 3 years. With the addition of chemotherapy, that risk can potentially be reduced to 7 and 10% respectively with the use of either FOLFOX or infusional 5-fluorouracil. She had colonoscopy on 04/02/2017. Anastomosis appeared healthy and patent. No polyps observed. Repeat colonoscopy was recommended in 3 years-Due 04/2020. - No concerning findings on exam. - Pt. now over 5 years out from treatment. - Colonoscopy per Dr. Peace-due 2024. - CEA pending. - CT's as clinically indicated. - Follow up as needed-pending today's CEA. - Pt. aware to call office with any questions/concerns. The patient indicates understanding of these issues and agrees with the plan. All documentation from previous visit of 08/20/21-Dr. Mckeon/myself was copied and pasted, documentation has been reviewed and edited as necessary for today's visit. Richelle Ortiz APRN.MELIDA documented in [facility] encounter[facility] History of Present illness Narrative* Bhupinder Peace MD - 02/04/2022 9:13 AM EDT FOLLOW UP VISIT - SKIN LESION NAME: Janet [facility] NO.: [id number] DATE OF SERVICE: 02/04/2022 : 1970 REFERRING PHYSICIAN: Leatha Fuentes MD Janet is a patient I am following for 2 skin lesions 1 on her right anterior lower leg the other on her left volar surface of her forearm which are becoming raised and somewhat irritated. These are changing slightly from before and she notes that her leg skin lesion she tends to shave off. She wishes to have these removed. Janet returns today for the procedure. Janet has not taken aspirin or aspirin products for the past 7 days. VITALS: Last menstrual period 04/11/2016. On examination, she has a 4 mm raised lesion on her right pretibial leg area and a 4 mm slightly raised lesion on her left anterior forearm PROCEDURE: EXCISION OF SKIN LESION The risks, benefits and anticipated outcomes of the procedure, the risks and benefits of the alternatives to the procedure, and the roles and tasks of the personnel to be involved, were discussed with the patient, and the patient consents to the procedure and agrees to proceed. I verify that I personally obtained the patient's consent. Site #1 - RIGHT LEG The patient`s skin was prepped and draped in the usual fashion. A combination of Lidocaine and Marcaine was injected into the skin. An elliptical incision was made around the lesion and was removed in its entirety. The specimen measured 0.4 by 0.4 cm. This was sent to pathology. The skin was then closed with interrupted 5-0 nylon sutures. The patient tolerated the procedure well. Site # 2, LEFT FOREARM The patient`s skin was prepped and draped in the usual fashion. A combination of Lidocaine and Marcaine was injected into the skin. An elliptical incision was made around the lesion and was removed in its entirety. The specimen measured 0.4 by 0.4 cm. This was sent to pathology. The skin was then closed with interrupted 5-0 nylon sutures. The patient tolerated the procedure well. Assessment IMPRESSION: This post incision of right leg and left forearm skin lesions x2 PLAN: If the patient notes any problems or signs of wound infections, the patient should contact me immediately. The patient is to follow up in approximately 7 days for suture removal. Diagnoses: (L81.9) Atypical pigmented skin lesion (primary encounter diagnosis) Return to Clinic: The patient is instructed to follow-up with my staff in one week. Bhupinder Peace MD * Yamel Tena LPN - 02/04/2022 7:03 AM EDT UNIVERSAL PROTOCOL / SAFETY CHECKLIST Procedure to be Performed: Excision left forearm and right leg skin lesion Sign In: No special equipment needed. Patient/Surrogate Stated/Verified: PATIENT VERIFIED(optional for EMERGENT procedures): Patient name, Date of , Relevant allergies, and The intended procedure Time Out Communication: Intended patient and procedure match the source documents. Consent documented and matches the intended procedure. No fire risk assessment and interventions applicable. No implant(s) inserted. Sign Out: SIGN OUT (optional for EMERGENT procedures): All specimen containers correctly labeled. Post-procedure follow-up management communicated and Plan of Care Visit completed when applicable. Yamel Tena LPN documented in this encounterJoint [facility]06-[facility]22 History of Present illness Narrative* Bhupinder Peace MD - 10/02/2021 5:30 PM EDT FOLLOW UP VISIT - PORTACATH REMOVAL NAME: Janet [facility] NO.: [id number] DATE OF SERVICE: September 18, 2021 : 1970 REFERRING PHYSICIAN: Leatha Fuentes MD Janet is a patient I am following for colon cancer. The patient needed watermaster IV access. A leftsubclavian portacath was placed. The patient no longer required the portacath. I removed it on March 14, 2020 the patient now notes a small nodule at the medial aspect of her Port-A-Cath incision site this is consistent with a keloid VITALS: Last menstrual period 04/11/2016. On examination, the port incision site has a small central keloid. PROCEDURE: INJECTION OF LOCAL/STEROID The risks, benefits and anticipated outcomes of the procedure, the risks and benefits of the alternatives to the procedure, and the roles and tasks of the personnel to be involved, were discussed with the patient, and the patient consents to the procedure and agrees to proceed. After consent was obtained and the site, person, and procedure verified, the patient`s skin was prepped and draped in the usual fashion. A combination of Lidocaine and Marcaine along with 10mg of Kenalog was injected into the skin. Ultrasound was used to demonstrate the appropriate layer for planned injection just above and below the fascial plane. The local anesthetic/steroid mixture was then injected at the planned location at the appropriate depth. This gave significant pain relief. The patient tolerated the procedure well. Assessment IMPRESSION: Status post left subclavian port a cath site keloid injection PLAN: If the patient notes any problems or signs of wound infections, she should contact me immediately. Diagnoses: (L91.0) Keloid (primary encounter diagnosis) Return to Clinic: The patient is instructed to follow-up with me as needed Bhupinder Peace MD documented in this encounterJoint [facility]04-20-2022 History of Present illness Narrative* Richelle Ortiz APRN.PLASTIC EXTRUSION OPERATOR - 08/20/2021 8:11 AM EDT Chief Complaint Patient presents with: Established Patient HPI: Janet Juarez is a 50 year old female who presents here today for follow up colon cancer. Per Dr. Mckeon's previous note: H/o significant for gastric bypass surgery in 2011 (150 lb weight loss) and laparoscopic cholecystectomy 08/2014. She presented to the emergency department at [facility] on 04/05/2016. CT scan the abdomen and pelvis was unremarkable other than mild hepatomegaly. Dimensions were not rendered. The small intestine and colon were felt to be normal. There was limited visualization of theappendix but it appeared normal. The patient was admitted for suspected colitis and/or ileitis. She underwent colonoscopy on 04/06/2016. She was observed to have a circumferential mass in the cecum highly suspicious for an adenocarcinoma. Biopsy was obtained and the tissue was consistent with invasive adenocarcinoma moderately differentiated. The patient therefore underwent right colon laparoscopic hemicolectomy on 04/15/2016. Final pathology: Invasive well to moderately differentiated adenocarcinoma. Fifteen out of 15 lymph nodes, negative for metastatic carcinoma. Appendix acute appendicitis and periappendicitis. Anastomotic line - no pathologic diagnosis. See cancer summary below. COLON CANCER SUMMARY: Specimen terminal ileum, cecum, appendix and ascending colon Procedure right hemicolectomy Specimen length cecum with ascending colon 15 cm, small intestine 5 cm, appendix 5 cm in length and 0.7 cm in diameter. Tumor site cecum and ileocecal valve Tumor size 9 x 4 x 1 cm Macroscopic tumor perforation not identified Histologic type - adenocarcinoma Histologic grade low grade (well to moderately differentiated) Histologic features suggestive of Microsatellite Instability: Intratumoral lymphocytic response (tumor infiltrating lymphocytes) mild to moderate Peritumoral lymphocytic response (Crohn-like) mild to moderate Tumor subtype and differentiation mucinous tumor component present (about 10%) - Medullary component and high histologic grade not identified Microscopic tumor extension tumor invades through the muscularis propria into the subserosal adipose tissue. Margins: Proximal margin uninvolved by invasive carcinoma Distal margin - uninvolved by invasive carcinoma Circumferential or mesenteric margin - uninvolved by invasive carcinoma Distance of invasive carcinoma from closest axial margin the tumor is 5 cm away from the closest axial proximal margin Treatment effect no known prior treatment Lymph-Vascular invasion not identified Perineural invasion not identified Tumor deposits not identified Type of polyp in which invasive carcinoma arose none identified Lymph nodes: Number of lymph nodes examined - 15 Number of lymph nodes involved - 0 Distant metastasis not applicable Additional pathologic findings appendix, acute appendicitis and periappendicitis. - adherent omentum, acute inflammation and abscess formation. - anastomotic line, no pathologic diagnosis. Ancillary studies: See microsatellite instability study by IHC ([id number]) for complete details. Negative (no loss of mismatch protein; no microsatellite instability detected). Immunohistochemistry Studies for Mismatch Repair Proteins: MLH1 - intact nuclear positivity, tumor cells MSH2 - intact nuclear positivity, tumor cells MSH6 - intact nuclear positivity, tumor cells PMS2 - intact nuclear positivity, tumor cells PATHOLOGIC STAGE: pT3 pN0 Mx Previous therapy: 1) FOLFOX. Oxaliplatin dose reduced cycle #5 secondary to neutropenia and thrombocytopenia. Oxaliplatin omitted after cycle 6 due to worsening neuropathy. No new concerns today. Appetite:Way too good. Energy level:It's good. Denies fevers or recent illness. Resp:denies cough or sob Cardiac:denies chest pain/palpitations GI:denies abd pain, n/v, +diarrhea, takes imodium prn :denies dysuria/hematuria Extrem:denies pain Neuro:+neuropathy-cold sensitivity stable Skin:denies rashes/lesions Heme:denies bleeding The ROS is otherwise negative. Past medical history, appointments, medications, allergies reviewed. No changes. EXAM: BP 98/69 Pulse 75 Temp 36.7 C (98.1 F) Ht 165 cm (5' 4.96) Wt 77.3 kg (170 lb 8 oz) LMP 04/11/2016 SpO2 96% BMI 28.41 kg/m APPEARANCE Well appearing, alert, in no acute distress, well-hydrated, well nourished. HEART RRR with normal S1 and S2, no murmurs LUNG clear to auscultation LYMPH NODES No cervical lymphadenopathy, No supraclavicular lymphadenopathy and No axillary lymphadenopathy. ABDOMEN bowel sounds normoactive, soft, non-tender, non-distended, without organomegaly or palpablemasses EXTREMITIES No edema NEURO Awake, alert and oriented x 3, Normal gait and No involuntary motions. SKIN Skin color, texture, turgor normal, no suspicious rashes or lesions LABS: CEA 08/20/21: Pending ASSESSMENT/PLAN: 1. Malignant neoplasm of ascending colon (HCC) - ICD9: 153.6, ICD10: C18.2 (primary diagnosis) pT3 pN0 stage II colon cancer. Oncotype DX testing indicated that with a T3 tumor and MMR proficient status, the patient is at a statistical 14% risk of recurrence over the next 3 years. With the addition of chemotherapy, that risk can potentially be reduced to 7 and 10% respectively with the use of either FOLFOX or infusional 5-fluorouracil. She had colonoscopy on 04/02/2017. Anastomosis appeared healthy and patent. No polyps observed. Repeat colonoscopy was recommended in 3 years-Due 04/2020. 2. Diarrhea, unspecified type - ICD9: 787.91, ICD10: R19.7 - No concerning findings on exam. - Colonoscopy per Dr. Peace-due 2024. - CEA pending. - CT's as clinically indicated. - Continue imodium as needed. - Follow up in 6 months with CEA-pending today's CEA - Pt. aware to call office with any questions/concerns. The patient indicates understanding of these issues and agrees with the plan. All documentation from previous visit of 02/17/21-Dr. Mckeon/myself was copied and pasted, documentation has been reviewed and edited as necessary for today's visit. Richelle Ortiz APRN.MELIDA documented in this encounterJoint [facility]03-23-2022 History of Present illness Narrative* Ana Hernández MD - 07/23/2021 8:24 AM EDT Janet is a 50 year old who presents for an annual gynecologic exam without complaints. Postmenopausal: HRT use: No. Last Pap: 07/26/2020 normal HPV: 07/24/2020 negative History of abnormal pap: many years ago Last mammogram: 2020 normal History of abnormal mammogram: Yes Sexually active: Yes OB History T1 L1 SAB3 IAB0 Ectopic0 Multiple0 Live Births0 Nursing Informatics Clinical Analyst History LMP: 04/11/2016, Postmenopausal Age at Menarche: Age at First : Age at Menopause: Nursing Informatics Clinical Analyst History Comments: Sexual Activity: Yes; Male; Postmenopausal Contraception: No contraception data on record PAST MEDICAL HISTORY Diagnosis Date Anemia Cholelithiasis 09/13/14 Colon cancer (HCC) 04/2016 Colon cancer History of cancer chemotherapy PAST SURGICAL HISTORY Procedure Laterality Date ABDOMINAL SURGERY HX APPENDECTOMY BREAST BIOPSY HX Left 05/26/2016 BREAST SURGERY HX CAUTERY CERVIX CRYOCAUTERY INITIAL/REPEAT , COLON SURGERY HX COLONOSCOPY FLX DX W/COLLJ SPEC WHEN PFRMD 04/02/2017 Colonoscopy-repeat in 3 years COLONOSCOPY SCRN NOT HIGH RISK 04/11/2020 COLONOSCOPY W/BIOPSY SINGLE/MULTIPLE 04/06/2016 cecal colon cancer GASTRECTOMY,PART DISTAL;W/GASTRODUODENOSTO INSJ TUNNELED CTR VAD W/SUBQ PORT AGE 5 YR/> Left 06/16/2016 subclavian LAP GASTR RSTRC;GASTR BYPS&ROUXENY 08/2011 LAPAROSCOPY COLECTOMY PARTIAL W/ANASTOMOSIS Right 04/15/2016 LAPAROSCOPY SURG CHOLECYSTECTOMY 09/13/2014 FAMILY HISTORY Problem Relation Age of Onset Alcohol/Drug Brother Blood Disease Maternal Grandfather leukemia Cancer Maternal Grandmother lung- smoker Diabetes Father Hypertension Father Pancreatic Cancer Mother 82 other (Anemia) Mother Alcohol/Drug Brother No Known Problems Daughter SOCIAL HISTORY Social History Tobacco Use Smoking status: Never Smoker Smokeless tobacco: Never Used Vaping Use Vaping Use: Never used Substance Use Topics Alcohol use: Yes Comment: Once monthly Drug use: No REVIEW OF SYSTEMS Abdomen: no changes, ongoing issues since hemicolectomy Bladder: No dysuria, gross hematuria, urinary frequency, urinary urgency, or incontinence Breast: No breast lumps, nipple d/c, overlying skin changes, redness or skin retraction Allergies and current medication updated:Yes EXAM: Ht 5' 4.5 (1.64m) Wt 168 lb (76.2kg) LMP 04/11/2016 BMI 28.40 kg/(m^2). GENERAL: pleasant, female in no apparent distress HEENT: Normocephalic, atraumatic, mucus membranes moist and no lesions NECK: Supple, full range of motion, no adenopathy and thyroid normal DERMATOLOGY: Normal, without lesions, non-icteric and non-hirsute BREAST: soft, non-tender, symmetric, no dominant mass, normal nipple-areolar complex, no lymphadenopathy and no nipple discharge CHEST: Normal inspiratory effort ABDOMEN: soft, non-tender and no masses PELVIC: external genitalia normal, normal Bartholin's glands, urethra, Northridge's glands, no vulvar lesions, no cervical lesions, good vaginal support, physiologic discharge present, normal appearing perineal body and perianal region BIMANUAL: uterus normal size, shape and consistency, no adnexal masses and non-tender RECTOVAGINAL: deferred. NEURO: alert and oriented x3,exam grossly non-focal EXTREMITIES: normal ASSESSMENT/PLAN: 1) Health maintenance: Pap/HPV up to date. Mammogram ordered colon ca screening up to date 2) Follow up one year or sooner as needed Ana Hernández MD documented in this encounterJoint [facility]03-13-2017 History of Past illness Narrative* Problem Noted Date Resolved Date Dizziness 07/13/2016 07/21/2016 documented as of this encounter (statuses as of 07/23/2021) [place] [id number] History of Past illness Narrative* Problem Noted Date Resolved Date Dizziness 07/13/2016 07/21/2016 documented as of this encounter (statuses as of 08/20/2021) [place] [id number] History of Past illness Narrative* Problem Noted Date Resolved Date Dizziness 07/13/2016 07/21/2016 documented as of this encounter (statuses as of 10/01/2021) [address]13-2017 History of Past illness Narrative* Problem Noted Date Resolved Date Dizziness 07/13/2016 07/21/2016 documented as of this encounter (statuses as of 10/02/2021) [address]13-2017 History of Past illness Narrative* Problem Noted Date Resolved Date Dizziness 07/13/2016 07/21/2016 documented as of this encounter (statuses as of 02/10/2022) [address]13-2017 History of Past illness Narrative* Problem Noted Date Resolved Date Dizziness 07/13/2016 07/21/2016 documented as of this encounter (statuses as of 02/20/2022) [address]13-2017 History of Past illness Narrative* Problem Noted Date Resolved Date Dizziness 07/13/2016 07/21/2016 documented as of this encounter (statuses as of 08/06/2022) [address]13-2017 History of Past illness Narrative* Problem Noted Date Resolved Date Dizziness 07/13/2016 07/21/2016 documented as of this encounter (statuses as of 10/28/2022) [place] note* Diagnosis Encounter for gynecological examination (general) (routine) without abnormal findings- Primary documented in this encounter [facility]* Diagnosis Onset Date Resolution Status Vitamin B12 deficiency chron ic Postsurgical malabsorption c hronic Vitamin B12 deficiency chron ic Vitamin B12 deficiency chron ic Postsurgical malabsorption c hronic Vitamin B12 deficiency chron ic [facility] Work Phone: Evaluation note* Diagnosis Malignant neoplasm of ascending colon (HCC)- Primary Malignant neoplasm of ascending colon Diarrhea, unspecified type documented in this encounter [facility]* Diagnosis Keloid- Primary Keloid scar [facility] Diagnosis Atypical pigmented skin lesion- Primary documented in this encounter [facility]* Diagnosis Malignant neoplasm of ascending colon (HCC)- Primary Malignant neoplasm of ascending colon documented in this encounter [facility]* Diagnosis Onset Date Resolution Status Postsurgical malabsorption c hronic Vitamin B12 deficiency chron ic Postsurgical malabsorption c hronic Vitamin B12 deficiency chron ic H/O gastric bypass acute Overweight (BMI 25.0-29.9) a cute Anxiety and depression chron ic Postsurgical malabsorption c hronic Vitamin B12 deficiency chron ic Obesity (BMI 30.0-34.9) acut e Anxiety and depression chron ic [facility] Work Phone: Evaluation note* Diagnosis Encounter for gynecological examination (general) (routine) without abnormal findings- Primary Dense breast tissue documented in this encounter [place] note* Diagnosis Onset Date Resolution Status H/O gastric bypass acute Anxiety and depression chron ic Overweight (BMI 25.0-29.9) c hronic Postsurgical malabsorption c hronic Vitamin B12 deficiency chron ic Obesity (BMI 30.0-34.9) acut e Anxiety and depression chron ic Vitamin B12 deficiency chron ic H/O gastric bypass acute Anxiety and depression chron ic Overweight (BMI 25.0-29.9) c hronic Vitamin B12 deficiency chron ic [facility] Work Phone: Evaluation note* Diagnosis Status post fall- Primary Unspecified fall Right-sided chest wall pain Painful respiration documented in this encounter [place] note* Diagnosis Status post fall Unspecified fall Right-sided chest wall pain Painful respiration documented in this encounter [place] note* Diagnosis History of colon cancer- Primary Personal history of malignant neoplasm of large intestine documented in this encounter [place] note* Diagnosis Shakiness- Primary Abnormal involuntary movements Malaise and fatigue Other malaise and fatigue documented in this encounter [place] note* Diagnosis Tension headache- Primary documented in this encounter [place] note* Diagnosis Lower abdominal pain Abdominal pain, other specified site documented in this encounter [place] note* Diagnosis History of colon cancer- Primary Personal history of malignant neoplasm of large intestine documented in this encounter [place] note* Diagnosis Elevated CEA- Primary Elevated carcinoembryonic antigen [CEA] History of colon cancer Personal history of malignant neoplasm of large intestine documented in this encounter [place] note* Diagnosis Elevated carcinoembryonic antigen (CEA)- Primary Elevated carcinoembryonic antigen [CEA] documented in this encounter [place] note* Diagnosis Elevated carcinoembryonic antigen (CEA) Elevated carcinoembryonic antigen [CEA] documented in this encounter [facility] for referral (narrative)* Diagnostic Procedure Only (Routine) - Pending Review Specialty Diagnoses / Procedures Referred By Jet guan Referred To Contact [facility] Diagnoses Dense breast tissue Procedures KEITH SCREENING W SHAWNA SCREENING DIGITAL BREAST TOMOSYNTHESIS BI SCREENING MAMMOGRAPHY BI 2-VIEW BREAST INC CAD Ana Hernández MD [address] [place] [address] [facility] [address] [place] [address] Referral ID Status Reason Start Date Expiration Date Visits Requested Visits Authorized [id number] Pending Review Auto-Generat ed Referral 08/05/2022 09/04/2023 1 1 [facility] for referral (narrative)* Diagnostic Procedure Only (Routine) - Closed Specialty Diagnoses / Procedures Referred By Jet guan Referred To Contact [facility] Diagnoses Status post fall Right-sided chest wall pain Procedures XR RIBS/CHEST 3V AP RIB/OBLS/CXR RIGHT RADEX RIBS UNI W/POSTEROANT CH MINIMUM 3 VIEWS Jess Ross MD [address] [place] [address] [place] [address] Referral ID Status Reason Start Date Expiration Date V isits Requested Visits Authorized [id number] Closed Auto-Generate d Referral 10/26/2023 11/24/2024 1 1 T [facility] for referral (narrative)* Outpatient Procedure (Routine) - Authorized Specialty Diagnoses / Procedures Referred By Jet guan Referred To Contact [facility] Diagnoses History of colon cancer Procedures COLONOSCOPY SCREENING COLONOSCOPY FLX DX W/COLLJ SPEC WHEN PFRMD Jess Ross MD [address] [place] [address] [facility] [address] [place] [id number] Referral ID Status Reason Start Date Expiration Date Visits Requested Visits Authorized [id number] Authorized Auto-Generat ed Referral 02/23/2025 1 1 [facility] for referral (narrative)* Outpatient Procedure (Routine) - Closed Specialty Diagnoses / Procedures Referred By Tiffanieac t Referred To Contact [facility] [facility] Diagnoses History of colon cancer Procedures COLONOSCOPY SCREENING COLONOSCOPY FLX DX W/COLLJ SPEC WHEN Jess López MD [address] [place] [address] [facility] [address] [place] [id number] Referral ID Status Reason Start Date Expiration Date V isits Requested Visits Authorized [id number] Closed Auto-Generate d Referral 02/24/2024 02/23/2025 1 1 [facility] for referral (narrative)No reason for referral information availableWPrem[facility]: Reason for visit Narrative* Diagnostic Procedure Only (Routine) - Closed Specialty Diagnoses / Procedures Referred By Jet t Referred To Contact XR IMAGING Diagnoses Status post fall Right-sided chest wall pain Procedures XR RIBS/CHEST 3V AP RIB/OBLS/CXR RIGHT RADEX RIBS UNI W/POSTEROANT CH MINIMUM 3 VIEWS Jess Ross MD [address] [place] [address] [place] [id number] Referral ID Status Reason Start Date Expiration Date V isits Requested Visits Authorized [id number] Closed Auto-Generate d Referral 10/26/2023 11/24/2024 1 1 [facility] for visit Narrative* Outpatient Procedure (Routine) - Closed Specialty Diagnoses / Procedures Referred By Contotto t Referred To Contact [facility] Diagnoses History of colon cancer Procedures COLONOSCOPY SCREENING COLONOSCOPY FLX DX W/COLLJ SPEC WHEN Jess López MD [address] [place] [address] [facility] [address] [place] [id number] Referral ID Status Reason Start Date Expiration Date V isits Requested Visits Authorized [id number] Closed Auto-Generate d Referral 02/24/2024 02/23/2025 1 1 [facility] Summary Purpose Family History No Family History Records FoundUnknown Family Member Name Dates Details Father Comments:htn, dm2 - insulin dep, secondary liver disease cirrhosis)and ascites Status:Active Maternal Grandfather Comments:CVA Status:Active Maternal Grandmother Comments:pulmonary ca Status:Active Mother Comments:B12 def, dementia Status:Active Paternal Grandfather Comments:leukemia, cirrhosis /liver disease Status:Active Paternal Grandmother Comments: at age 29, appendicitis Status:Active Unknown Family Member Name Dates Details Father Comments:htn, dm2 - insulin dep, secondary liver disease cirrhosis)and ascites Status:Active Maternal Grandfather Comments:CVA Status:Active Maternal Grandmother Comments:pulmonary ca Status:Active Mother Comments:B12 def, dementia Status:Active Paternal Grandfather Comments:leukemia, cirrhosis /liver disease Status:Active Paternal Grandmother Comments: at age 29, appendicitis Status:Active Unknown Family Member Name Dates Details Father Comments:htn, dm2 - insulin dep, secondary liver disease cirrhosis)and ascites Status:Active Maternal Grandfather Comments:CVA Status:Active Maternal Grandmother Comments:pulmonary ca Status:Active Mother Comments:B12 def, dementia Status:Active Paternal Grandfather Comments:leukemia, cirrhosis /liver disease Status:Active Paternal Grandmother Comments: at age 29, appendicitis Status:Active Unknown Family Member Name Dates Details Father Comments:htn, dm2 - insulin dep, secondary liver disease cirrhosis)and ascites Status:Active Maternal Grandfather Comments:CVA Status:Active Maternal Grandmother Comments:pulmonary ca Status:Active Mother Comments:B12 def, dementia Status:Active Paternal Grandfather Comments:leukemia, cirrhosis /liver disease Status:Active Paternal Grandmother Comments: at age 29, appendicitis Status:Active Unknown Family Member Name Dates Details Father Comments:htn, dm2 - insulin dep, secondary liver disease cirrhosis)and ascites Status:Active Maternal Grandfather Comments:CVA Status:Active Maternal Grandmother Comments:pulmonary ca Status:Active Mother Comments:B12 def, dementia Status:Active Paternal Grandfather Comments:leukemia, cirrhosis /liver disease Status:Active Paternal Grandmother Comments: at age 29, appendicitis Status:Active Unknown Family Member Name Dates Details Father Comments:htn, dm2 - insulin dep, secondary liver disease cirrhosis)and ascites Status:Active Maternal Grandfather Comments:CVA Status:Active Maternal Grandmother Comments:pulmonary ca Status:Active Mother Comments:B12 def, dementia Status:Active Paternal Grandfather Comments:leukemia, cirrhosis /liver disease Status:Active Paternal Grandmother Comments: at age 29, appendicitis Status:Active Unknown Family Member Name Dates Details Father Comments:htn, dm2 - insulin dep, secondary liver disease cirrhosis)and ascites Status:Active Maternal Grandfather Comments:CVA Status:Active Maternal Grandmother Comments:pulmonary ca Status:Active Mother Comments:B12 def, dementia Status:Active Paternal Grandfather Comments:leukemia, cirrhosis /liver disease Status:Active Paternal Grandmother Comments: at age 29, appendicitis Status:Active Unknown Family Member Name Dates Details Father Comments:htn, dm2 - insulin dep, secondary liver disease cirrhosis)and ascites Status:Active Maternal Grandfather Comments:CVA Status:Active Maternal Grandmother Comments:pulmonary ca Status:Active Mother Comments:B12 def, dementia Status:Active Paternal Grandfather Comments:leukemia, cirrhosis /liver disease Status:Active Paternal Grandmother Comments: at age 29, appendicitis Status:Active Unknown Family Member Name Dates Details Father Comments:htn, dm2 - insulin dep, secondary liver disease cirrhosis)and ascites Status:Active Maternal Grandfather Comments:CVA Status:Active Maternal Grandmother Comments:pulmonary ca Status:Active Mother Comments:B12 def, dementia Status:Active Paternal Grandfather Comments:leukemia, cirrhosis /liver disease Status:Active Paternal Grandmother Comments: at age 29, appendicitis Status:Active Unknown Family Member Name Dates Details Father Comments:htn, dm2 - insulin dep, secondary liver disease cirrhosis)and ascites Status:Active Maternal Grandfather Comments:CVA Status:Active Maternal Grandmother Comments:pulmonary ca Status:Active Mother Comments:B12 def, dementia Status:Active Paternal Grandfather Comments:leukemia, cirrhosis /liver disease Status:Active Paternal Grandmother Comments: at age 29, appendicitis Status:Active Unknown Family Member Name Dates Details Father Comments:htn, dm2 - insulin dep, secondary liver disease cirrhosis)and ascites Status:Active Maternal Grandfather Comments:CVA Status:Active Maternal Grandmother Comments:pulmonary ca Status:Active Mother Comments:B12 def, dementia Status:Active Paternal Grandfather Comments:leukemia, cirrhosis /liver disease Status:Active Paternal Grandmother Comments: at age 29, appendicitis Status:Active Relationship Condition Age at Onset Recorded Date/T rajendra mother Alcoholism Unknown Cobalamin deficiency Unknown Alzheimer's disease Unknown Malignant neoplasm Unknown father Cardiac disease Unknown Diabetes mellitus Unknown Disorder of liver Unknown Hypertension Unknown Hyperlipidemia Unknown grandmother Malignant neoplasm Unknown grandfather Disorder of liver Unknown Cerebrovascular accident (CVA) Unknown brother Disorder of liver Unknown Anxiety and depression Unknown Drug abuse Unknown Advance Directives No Advanced Directives Records FoundDocuments on File Type Date Recorded 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 Advance Directive(s) 04/11/2020 8:28 AM Advance Directive(s) 04/02/2020 12:57 PM Advance Directive(s) 04/02/2017 8:38 AM Advance Directive(s) 06/16/2016 10:01 AM Advance Directive Response Recorded Date/ Time Advance Directives Yes July 23, 2 022 5:17pm Living Will Yes July 23, 2021 5:17pm Power of Musical Performer Yes July 23 5:17pm Advance Directive Response Recorded Date/ Time Advance Directives Yes April 5:08pm Living Will Yes April 15, 2 022 5:08pm Power of Musical Performer Yes April 15, 2022 5:08pm Advance Directive Response Recorded Date/ Time Advance Directives Yes July 08 6:20pm Living Will Yes July 08, 2022 6:20pm Power of Musical Performer Yes July 08 6:20pm Advance Directive Response Recorded Date/ Time Advance Directives Yes July 21, 2 025 11:02am Instructions Name Dates Details Vitamin B12 deficiency : How to access health information online Indication:Vitamin B12 deficiency Vitamin B12 deficiency : How to access health information online - Detail Indication:Vitamin B12 deficiency Vitamin B12 deficiency : Pat ient Instructions Indication:Vitamin B12 deficiency Postmenopausal (Renamed from Postmenopausal status) : How to access health information online Indication:Postmenopausal (Renamed from Postmenopausal status) Postmenopausal (Renamed from Postmenopausal status) : How to access health information online - Detail Indication:Postmenopausal (Renamed from Postmenopausal status) BMI 23.0-23.9, adult : Patie nt Instructions Indication:BMI 23.0-23.9, adult History of colon cancer in a dulthood : How to access health information online Indication:History of colon cancer in adulthood History of colon cancer in a dulthood : How to access health information online - Detail Indication:History of colon cancer in adulthood History of colon cancer in a dulthood : Patient Instructions Indication:History of colon cancer in adulthood Name Dates Details Nonsmoker : How to access he alth information online Indication:Nonsmoker Nonsmoker : How to access he alth information online - Detail Indication:Nonsmoker Nonsmoker : Patient Instruct ions Indication:Nonsmoker Vitamin B12 deficiency : How to access health information online Indication:Vitamin B12 deficiency Vitamin B12 deficiency : How to access health information online - Detail Indication:Vitamin B12 deficiency Vitamin B12 deficiency : Pat ient Instructions Indication:Vitamin B12 deficiency Postmenopausal (Renamed from Postmenopausal status) : How to access health information online Indication:Postmenopausal (Renamed from Postmenopausal status) Postmenopausal (Renamed from Postmenopausal status) : How to access health information online - Detail Indication:Postmenopausal (Renamed from Postmenopausal status) BMI 23.0-23.9, adult : Patie nt Instructions Indication:BMI 23.0-23.9, adult History of colon cancer in a dulthood : How to access health information online Indication:History of colon cancer in adulthood History of colon cancer in a dulthood : How to access health information online - Detail Indication:History of colon cancer in adulthood History of colon cancer in a dulthood : Patient Instructions Indication:History of colon cancer in adulthood Name Dates Details Nonsmoker : How to access he alth information online Indication:Nonsmoker Nonsmoker : How to access he alth information online - Detail Indication:Nonsmoker Nonsmoker : Patient Instruct ions Indication:Nonsmoker Vitamin B12 deficiency : How to access health information online Indication:Vitamin B12 deficiency Vitamin B12 deficiency : How to access health information online - Detail Indication:Vitamin B12 deficiency Vitamin B12 deficiency : Pat ient Instructions Indication:Vitamin B12 deficiency Postmenopausal (Renamed from Postmenopausal status) : How to access health information online Indication:Postmenopausal (Renamed from Postmenopausal status) Postmenopausal (Renamed from Postmenopausal status) : How to access health information online - Detail Indication:Postmenopausal (Renamed from Postmenopausal status) BMI 23.0-23.9, adult : Patie nt Instructions Indication:BMI 23.0-23.9, adult History of colon cancer in a dulthood : How to access health information online Indication:History of colon cancer in adulthood History of colon cancer in a dulthood : How to access health information online - Detail Indication:History of colon cancer in adulthood History of colon cancer in a dulthood : Patient Instructions Indication:History of colon cancer in adulthood Name Dates Details How to access health informa tion online Indication:Nonsmoker Start:02-Sep-2018 Instruction Type:Patient Education How to access health informa tion online - Detail Indication:Nonsmoker Start:02-Sep-2018 Instruction Type:Patient Education Patient Instructions Indication:Nonsmoker Start:02-Sep-2018 Instruction Type:Provider Instructions for Treatment How to access health informa tion online Indication:Nonsmoker Start:27-May-2018 Instruction Type:Patient Education How to access health informa tion online - Detail Indication:Nonsmoker Start:27-May-2018 Instruction Type:Patient Education Patient Instructions Indication:Nonsmoker Start:27-May-2018 Instruction Type:Provider Instructions for Treatment How to access health informa tion online Indication:Vitamin B12 deficiency Start:05-May-2018 Instruction Type:Patient Education How to access health informa tion online - Detail Indication:Vitamin B12 deficiency Start:05-May-2018 Instruction Type:Patient Education Patient Instructions Indication:Vitamin B12 deficiency Start:05-May-2018 Instruction Type:Provider Instructions for Treatment How to access health informa tion online Indication:Postmenopausal (Renamed from Postmenopausal status) Start:24-Nov-2017 Instruction Type:Patient Education How to access health informa tion online - Detail Indication:Postmenopausal (Renamed from Postmenopausal status) Start:24-Nov-2017 Instruction Type:Patient Education Patient Instructions Indication:BMI 23.0-23.9, adult Start:24-Nov-2017 Instruction Type:Provider Instructions for Treatment How to access health informa tion online Indication:History of colon cancer in adulthood Start:20-Oct-2017 Instruction Type:Patient Education How to access health informa tion online - Detail Indication:History of colon cancer in adulthood Start:20-Oct-2017 Instruction Type:Patient Education Patient Instructions Indication:History of colon cancer in adulthood Start:20-Oct-2017 Instruction Type:Provider Instructions for Treatment Name Dates Details How to access health informa tion online Indication:BMI 23.0-23.9, adult Start:04-Oct-2018 Instruction Type:Patient Education How to access health informa tion online - Detail Indication:BMI 23.0-23.9, adult Start:04-Oct-2018 Instruction Type:Patient Education Patient Instructions Indication:BMI 23.0-23.9, adult Start:04-Oct-2018 Instruction Type:Provider Instructions for Treatment How to access health informa tion online Indication:Nonsmoker Start:02-Sep-2018 Instruction Type:Patient Education How to access health informa tion online - Detail Indication:Nonsmoker Start:02-Sep-2018 Instruction Type:Patient Education Patient Instructions Indication:Nonsmoker Start:02-Sep-2018 Instruction Type:Provider Instructions for Treatment How to access health informa tion online Indication:Nonsmoker Start:27-May-2018 Instruction Type:Patient Education How to access health informa tion online - Detail Indication:Nonsmoker Start:27-May-2018 Instruction Type:Patient Education Patient Instructions Indication:Nonsmoker Start:27-May-2018 Instruction Type:Provider Instructions for Treatment How to access health informa tion online Indication:Vitamin B12 deficiency Start:05-May-2018 Instruction Type:Patient Education How to access health informa tion online - Detail Indication:Vitamin B12 deficiency Start:05-May-2018 Instruction Type:Patient Education Patient Instructions Indication:Vitamin B12 deficiency Start:05-May-2018 Instruction Type:Provider Instructions for Treatment How to access health informa tion online Indication:Postmenopausal (Renamed from Postmenopausal status) Start:24-Nov-2017 Instruction Type:Patient Education How to access health informa tion online - Detail Indication:Postmenopausal (Renamed from Postmenopausal status) Start:24-Nov-2017 Instruction Type:Patient Education Patient Instructions Indication:BMI 23.0-23.9, adult Start:24-Nov-2017 Instruction Type:Provider Instructions for Treatment How to access health informa tion online Indication:History of colon cancer in adulthood Start:20-Oct-2017 Instruction Type:Patient Education How to access health informa tion online - Detail Indication:History of colon cancer in adulthood Start:20-Oct-2017 Instruction Type:Patient Education Patient Instructions Indication:History of colon cancer in adulthood Start:20-Oct-2017 Instruction Type:Provider Instructions for Treatment Name Dates Details How to access health informa tion online Indication:BMI 23.0-23.9, adult Start:04-Oct-2018 Instruction Type:Patient Education How to access health informa tion online - Detail Indication:BMI 23.0-23.9, adult Start:04-Oct-2018 Instruction Type:Patient Education Patient Instructions Indication:BMI 23.0-23.9, adult Start:04-Oct-2018 Instruction Type:Provider Instructions for Treatment How to access health informa tion online Indication:Nonsmoker Start:02-Sep-2018 Instruction Type:Patient Education How to access health informa tion online - Detail Indication:Nonsmoker Start:02-Sep-2018 Instruction Type:Patient Education Patient Instructions Indication:Nonsmoker Start:02-Sep-2018 Instruction Type:Provider Instructions for Treatment How to access health informa tion online Indication:Nonsmoker Start:27-May-2018 Instruction Type:Patient Education How to access health informa tion online - Detail Indication:Nonsmoker Start:27-May-2018 Instruction Type:Patient Education Patient Instructions Indication:Nonsmoker Start:27-May-2018 Instruction Type:Provider Instructions for Treatment How to access health informa tion online Indication:Vitamin B12 deficiency Start:05-May-2018 Instruction Type:Patient Education How to access health informa tion online - Detail Indication:Vitamin B12 deficiency Start:05-May-2018 Instruction Type:Patient Education Patient Instructions Indication:Vitamin B12 deficiency Start:05-May-2018 Instruction Type:Provider Instructions for Treatment How to access health informa tion online Indication:Postmenopausal (Renamed from Postmenopausal status) Start:24-Nov-2017 Instruction Type:Patient Education How to access health informa tion online - Detail Indication:Postmenopausal (Renamed from Postmenopausal status) Start:24-Nov-2017 Instruction Type:Patient Education Patient Instructions Indication:BMI 23.0-23.9, adult Start:24-Nov-2017 Instruction Type:Provider Instructions for Treatment How to access health informa tion online Indication:History of colon cancer in adulthood Start:20-Oct-2017 Instruction Type:Patient Education How to access health informa tion online - Detail Indication:History of colon cancer in adulthood Start:20-Oct-2017 Instruction Type:Patient Education Patient Instructions Indication:History of colon cancer in adulthood Start:20-Oct-2017 Instruction Type:Provider Instructions for Treatment Name Dates Details How to access health informa tion online Indication:BMI 23.0-23.9, adult Start:04-Oct-2018 Instruction Type:Patient Education How to access health informa tion online - Detail Indication:BMI 23.0-23.9, adult Start:04-Oct-2018 Instruction Type:Patient Education Patient Instructions Indication:BMI 23.0-23.9, adult Start:04-Oct-2018 Instruction Type:Provider Instructions for Treatment How to access health informa tion online Indication:Nonsmoker Start:02-Sep-2018 Instruction Type:Patient Education How to access health informa tion online - Detail Indication:Nonsmoker Start:02-Sep-2018 Instruction Type:Patient Education Patient Instructions Indication:Nonsmoker Start:02-Sep-2018 Instruction Type:Provider Instructions for Treatment How to access health informa tion online Indication:Nonsmoker Start:27-May-2018 Instruction Type:Patient Education How to access health informa tion online - Detail Indication:Nonsmoker Start:27-May-2018 Instruction Type:Patient Education Patient Instructions Indication:Nonsmoker Start:27-May-2018 Instruction Type:Provider Instructions for Treatment How to access health informa tion online Indication:Vitamin B12 deficiency Start:05-May-2018 Instruction Type:Patient Education How to access health informa tion online - Detail Indication:Vitamin B12 deficiency Start:05-May-2018 Instruction Type:Patient Education Patient Instructions Indication:Vitamin B12 deficiency Start:05-May-2018 Instruction Type:Provider Instructions for Treatment How to access health informa tion online Indication:Postmenopausal (Renamed from Postmenopausal status) Start:24-Nov-2017 Instruction Type:Patient Education How to access health informa tion online - Detail Indication:Postmenopausal (Renamed from Postmenopausal status) Start:24-Nov-2017 Instruction Type:Patient Education Patient Instructions Indication:BMI 23.0-23.9, adult Start:24-Nov-2017 Instruction Type:Provider Instructions for Treatment How to access health informa tion online Indication:History of colon cancer in adulthood Start:20-Oct-2017 Instruction Type:Patient Education How to access health informa tion online - Detail Indication:History of colon cancer in adulthood Start:20-Oct-2017 Instruction Type:Patient Education Patient Instructions Indication:History of colon cancer in adulthood Start:20-Oct-2017 Instruction Type:Provider Instructions for Treatment Name Dates Details How to access health informa tion online Indication:Nonsmoker Start:09-Jan-2019 Instruction Type:Patient Education How to access health informa tion online - Detail Indication:Nonsmoker Start:09-Jan-2019 Instruction Type:Patient Education Patient Instructions Indication:Nonsmoker Start:09-Jan-2019 Instruction Type:Provider Instructions for Treatment How to access health informa tion online Indication:BMI 23.0-23.9, adult Start:04-Oct-2018 Instruction Type:Patient Education How to access health informa tion online - Detail Indication:BMI 23.0-23.9, adult Start:04-Oct-2018 Instruction Type:Patient Education Patient Instructions Indication:BMI 23.0-23.9, adult Start:04-Oct-2018 Instruction Type:Provider Instructions for Treatment How to access health informa tion online Indication:Nonsmoker Start:02-Sep-2018 Instruction Type:Patient Education How to access health informa tion online - Detail Indication:Nonsmoker Start:02-Sep-2018 Instruction Type:Patient Education Patient Instructions Indication:Nonsmoker Start:02-Sep-2018 Instruction Type:Provider Instructions for Treatment How to access health informa tion online Indication:Nonsmoker Start:27-May-2018 Instruction Type:Patient Education How to access health informa tion online - Detail Indication:Nonsmoker Start:27-May-2018 Instruction Type:Patient Education Patient Instructions Indication:Nonsmoker Start:27-May-2018 Instruction Type:Provider Instructions for Treatment How to access health informa tion online Indication:Vitamin B12 deficiency Start:05-May-2018 Instruction Type:Patient Education How to access health informa tion online - Detail Indication:Vitamin B12 deficiency Start:05-May-2018 Instruction Type:Patient Education Patient Instructions Indication:Vitamin B12 deficiency Start:05-May-2018 Instruction Type:Provider Instructions for Treatment How to access health informa tion online Indication:Postmenopausal (Renamed from Postmenopausal status) Start:24-Nov-2017 Instruction Type:Patient Education How to access health informa tion online - Detail Indication:Postmenopausal (Renamed from Postmenopausal status) Start:24-Nov-2017 Instruction Type:Patient Education Patient Instructions Indication:BMI 23.0-23.9, adult Start:24-Nov-2017 Instruction Type:Provider Instructions for Treatment How to access health informa tion online Indication:History of colon cancer in adulthood Start:20-Oct-2017 Instruction Type:Patient Education How to access health informa tion online - Detail Indication:History of colon cancer in adulthood Start:20-Oct-2017 Instruction Type:Patient Education Patient Instructions Indication:History of colon cancer in adulthood Start:20-Oct-2017 Instruction Type:Provider Instructions for Treatment Name Dates Details How to access health informa tion online Indication:Nonsmoker Start:09-Jan-2019 Instruction Type:Patient Education How to access health informa tion online - Detail Indication:Nonsmoker Start:09-Jan-2019 Instruction Type:Patient Education Patient Instructions Indication:Insomnia Start:09-Jan-2019 Instruction Type:Provider Instructions for Treatment How to access health informa tion online Indication:BMI 23.0-23.9, adult Start:04-Oct-2018 Instruction Type:Patient Education How to access health informa tion online - Detail Indication:BMI 23.0-23.9, adult Start:04-Oct-2018 Instruction Type:Patient Education Patient Instructions Indication:BMI 23.0-23.9, adult Start:04-Oct-2018 Instruction Type:Provider Instructions for Treatment How to access health informa tion online Indication:Nonsmoker Start:02-Sep-2018 Instruction Type:Patient Education How to access health informa tion online - Detail Indication:Nonsmoker Start:02-Sep-2018 Instruction Type:Patient Education Patient Instructions Indication:Nonsmoker Start:02-Sep-2018 Instruction Type:Provider Instructions for Treatment How to access health informa tion online Indication:Nonsmoker Start:27-May-2018 Instruction Type:Patient Education How to access health informa tion online - Detail Indication:Nonsmoker Start:27-May-2018 Instruction Type:Patient Education Patient Instructions Indication:Nonsmoker Start:27-May-2018 Instruction Type:Provider Instructions for Treatment How to access health informa tion online Indication:Vitamin B12 deficiency Start:05-May-2018 Instruction Type:Patient Education How to access health informa tion online - Detail Indication:Vitamin B12 deficiency Start:05-May-2018 Instruction Type:Patient Education Patient Instructions Indication:Vitamin B12 deficiency Start:05-May-2018 Instruction Type:Provider Instructions for Treatment How to access health informa tion online Indication:Postmenopausal (Renamed from Postmenopausal status) Start:24-Nov-2017 Instruction Type:Patient Education How to access health informa tion online - Detail Indication:Postmenopausal (Renamed from Postmenopausal status) Start:24-Nov-2017 Instruction Type:Patient Education Patient Instructions Indication:BMI 23.0-23.9, adult Start:24-Nov-2017 Instruction Type:Provider Instructions for Treatment How to access health informa tion online Indication:History of colon cancer in adulthood Start:20-Oct-2017 Instruction Type:Patient Education How to access health informa tion online - Detail Indication:History of colon cancer in adulthood Start:20-Oct-2017 Instruction Type:Patient Education Patient Instructions Indication:History of colon cancer in adulthood Start:20-Oct-2017 Instruction Type:Provider Instructions for Treatment Name Dates Details How to access health informa tion online Indication:Nonsmoker Start:09-Jan-2019 Instruction Type:Patient Education How to access health informa tion online - Detail Indication:Nonsmoker Start:09-Jan-2019 Instruction Type:Patient Education Patient Instructions Indication:Insomnia Start:09-Jan-2019 Instruction Type:Provider Instructions for Treatment How to access health informa tion online Indication:BMI 23.0-23.9, adult Start:04-Oct-2018 Instruction Type:Patient Education How to access health informa tion online - Detail Indication:BMI 23.0-23.9, adult Start:04-Oct-2018 Instruction Type:Patient Education Patient Instructions Indication:BMI 23.0-23.9, adult Start:04-Oct-2018 Instruction Type:Provider Instructions for Treatment How to access health informa tion online Indication:Nonsmoker Start:02-Sep-2018 Instruction Type:Patient Education How to access health informa tion online - Detail Indication:Nonsmoker Start:02-Sep-2018 Instruction Type:Patient Education Patient Instructions Indication:Nonsmoker Start:02-Sep-2018 Instruction Type:Provider Instructions for Treatment How to access health informa tion online Indication:Nonsmoker Start:27-May-2018 Instruction Type:Patient Education How to access health informa tion online - Detail Indication:Nonsmoker Start:27-May-2018 Instruction Type:Patient Education Patient Instructions Indication:Nonsmoker Start:27-May-2018 Instruction Type:Provider Instructions for Treatment How to access health informa tion online Indication:Vitamin B12 deficiency Start:05-May-2018 Instruction Type:Patient Education How to access health informa tion online - Detail Indication:Vitamin B12 deficiency Start:05-May-2018 Instruction Type:Patient Education Patient Instructions Indication:Vitamin B12 deficiency Start:05-May-2018 Instruction Type:Provider Instructions for Treatment How to access health informa tion online Indication:Postmenopausal (Renamed from Postmenopausal status) Start:24-Nov-2017 Instruction Type:Patient Education How to access health informa tion online - Detail Indication:Postmenopausal (Renamed from Postmenopausal status) Start:24-Nov-2017 Instruction Type:Patient Education Patient Instructions Indication:BMI 23.0-23.9, adult Start:24-Nov-2017 Instruction Type:Provider Instructions for Treatment How to access health informa tion online Indication:History of colon cancer in adulthood Start:20-Oct-2017 Instruction Type:Patient Education How to access health informa tion online - Detail Indication:History of colon cancer in adulthood Start:20-Oct-2017 Instruction Type:Patient Education Patient Instructions Indication:History of colon cancer in adulthood Start:20-Oct-2017 Instruction Type:Provider Instructions for Treatment Name Dates Details Nonsmoker : How to access he alth information online Indication:Nonsmoker Nonsmoker : How to access he alth information online - Detail Indication:Nonsmoker Nonsmoker : Patient Instruct ions Indication:Nonsmoker Vitamin B12 deficiency : How to access health information online Indication:Vitamin B12 deficiency Vitamin B12 deficiency : How to access health information online - Detail Indication:Vitamin B12 deficiency Vitamin B12 deficiency : Pat ient Instructions Indication:Vitamin B12 deficiency Postmenopausal (Renamed from Postmenopausal status) : How to access health information online Indication:Postmenopausal (Renamed from Postmenopausal status) Postmenopausal (Renamed from Postmenopausal status) : How to access health information online - Detail Indication:Postmenopausal (Renamed from Postmenopausal status) BMI 23.0-23.9, adult : Patie nt Instructions Indication:BMI 23.0-23.9, adult History of colon cancer in a dulthood : How to access health information online Indication:History of colon cancer in adulthood History of colon cancer in a dulthood : How to access health information online - Detail Indication:History of colon cancer in adulthood History of colon cancer in a dulthood : Patient Instructions Indication:History of colon cancer in adulthood Chief Complaint and Reason for Visit Chief Complaint B12 inject B-12 B12 inject B12 inject SCREENING ABN MAMM RT BREAST Reason for Visit Vitamin B12 deficien cy Postsurgical malabsorption Vitamin B12 deficiency Vitamin B12 deficiency Postsurgical malabsorption Vitamin B12 deficiency Chief Complaint B12 SHOT b12 6 M FU E ORDERS 1 M FU Reason for Visit Postsurgical malabso rption Vitamin B12 deficiency Postsurgical malabsorption Vitamin B12 deficiency H/O gastric bypass Overweight (BMI 25.0-29.9) Anxiety and depression Postsurgical malabsorption Vitamin B12 deficiency Obesity (BMI 30.0-34.9) Anxiety and depression Chief Complaint 6 M FU E ORDERS 1 M FU B12 2 M FU SCREENING, DENSE BREAST TISSUE Reason for Visit H/O gastric bypass Anxiety and depression Overweight (BMI 25.0-29.9) Postsurgical malabsorption Vitamin B12 deficiency Obesity (BMI 30.0-34.9) Anxiety and depression Vitamin B12 deficiency H/O gastric bypass Anxiety and depression Overweight (BMI 25.0-29.9) Vitamin B12 deficiency Chief Complaint Admit Date 3 M FU July 21, 2024 10: 11am Reason for Visit Admit Date Grief reaction July 21, 2024 10: 11am Anxiety and depression July 21, 2024 10:11am H/O gastric bypass July 21, 2024 10: 11am Postsurgical malabsorption July 21, 025 10:11am Chief Complaint Admit Date 3 M FU July 21, 2024 10: 11am 3 M FU October 13, 2024 12:5 4pm Reason for Visit Admit Date Grief reaction July 21, 2024 10: 11am Anxiety and depression July 21, 2024 10:11am H/O gastric bypass July 21, 2024 10: 11am Postsurgical malabsorption July 21 025 10:11am Grief reaction October 13, 2024 12:5 4pm Anemia October 13, 2024 12:5 4pm Anxiety and depression October 13, 2024 1 2:54pm Chronic diarrhea October 13, 2024 12:5 4pm Dermatitis October 13, 2024 12:5 4pm Postsurgical malabsorption October 13 12:54pm Chief Complaint Admit Date 3 M FU July 21, 2024 10: 11am 3 M FU October 13, 2024 12:5 4pm 2OOMG VENOFER October 20, 2024 10:1 9am Chief Complaint Admit Date 3 M FU July 21, 2024 10: 11am 3 M FU October 13, 2024 12:5 4pm 2OOMG VENOFER October 20, 2024 10:1 9am 2OOMG VENOFER October 23, 2024 11:4 8am Medications Administered Section Inactive Administered Medications - up to 3 most recent administrations Medication Order MAR Action Action Date Dose Rate Site triamcinolone acetonide 10 mg injection (KeNALog 10) 10 mg, INTRA-ARTICULAR, ONCE, 1 dose, On Jennifer 10/02/21 at 1800 Given 09/18/2021 5:34 PM EDT 10 mg Reason for Referral Specialty Diagnoses / Procedures Referred By Jet t Referred To Contact Diagnoses Tension headache Jess Ross MD [address] [place] [address] Referral ID Status Reason Start Date Expiration Date Visits Re quested Visits Authorized [id number] Closed 1 1 Specialty Diagnoses / Procedures Referred By Contac t Referred To Contact CT IMAGING Diagnoses Lower abdominal pain Procedures CT ABD/PEL W IVCON CT ABD & PELVIS W/CONTRAST Jess Ross MD [address] [place] [address] [place] [address] Referral ID Status Reason Start Date Expiration Date V isits Requested Visits Authorized [id number] Closed Auto-Generate d Referral 02/06/2024 05/02/2024 2 2 Additional Source Comments INFORMATION SOURCE (unrecogn ized section and content) DATE CREATED AUTHOR 10/21/2017 [facility] DATE CREATED AUTHOR AUTHOR'S ORGANIZ ATION 09/10/2018 [facility] DATE CREATED AUTHOR AUTHOR'S ORGANIZ ATION 03/03/2024 [facility] DATE CREATED AUTHOR AUTHOR'S ORGANIZ ATION 10/24/2024 [facility] Source Comments (unrecognize d section and content) In the event this informatio n is protected by the Federal Confidentiality of Alcohol and Drug Abuse Patient Records regulations: The Federal rules restrict any use of the information to criminally investigate or prosecute any alcohol or drug abuse patient.[facility] the event this information is protected by the Federal Confidentiality of Alcohol and Drug Abuse Patient Records regulations: The Federal rules restrict any use of the information to criminally investigate or prosecute any alcohol or drug abuse patient.[facility] the event this information is protected by the Federal Confidentiality of Alcohol and Drug Abuse Patient Records regulations: The Federal rules restrict any use of the information to criminally investigate or prosecute any alcohol or drug abuse patient.[facility] the event this information is protected by the Federal Confidentiality of Alcohol and Drug Abuse Patient Records regulations: The Federal rules restrict any use of the information to criminally investigate or prosecute any alcohol or drug abuse patient.[facility] the event this information is protected by the Federal Confidentiality of Alcohol and Drug Abuse Patient Records regulations: The Federal rules restrict any use of the information to criminally investigate or prosecute any alcohol or drug abuse patient.[facility] the event this information is protected by the Federal Confidentiality of Alcohol and Drug Abuse Patient Records regulations: The Federal rules restrict any use of the information to criminally investigate or prosecute any alcohol or drug abuse patient.[facility] the event this information is protected by the Federal Confidentiality of Alcohol and Drug Abuse Patient Records regulations: The Federal rules restrict any use of the information to criminally investigate or prosecute any alcohol or drug abuse patient.[facility] the event this information is protected by the Federal Confidentiality of Alcohol and Drug Abuse Patient Records regulations: The Federal rules restrict any use of the information to criminally investigate or prosecute any alcohol or drug abuse patient.[facility] the event this information is protected by the Federal Confidentiality of Alcohol and Drug Abuse Patient Records regulations: The Federal rules restrict any use of the information to criminally investigate or prosecute any alcohol or drug abuse patient.[facility] the event this information is protected by the Federal Confidentiality of Alcohol and Drug Abuse Patient Records regulations: The Federal rules restrict any use of the information to criminally investigate or prosecute any alcohol or drug abuse patient.[facility] the event this information is protected by the Federal Confidentiality of Alcohol and Drug Abuse Patient Records regulations: The Federal rules restrict any use of the information to criminally investigate or prosecute any alcohol or drug abuse patient.[facility] the event this information is protected by the Federal Confidentiality of Alcohol and Drug Abuse Patient Records regulations: The Federal rules restrict any use of the information to criminally investigate or prosecute any alcohol or drug abuse patient.[facility] the event this information is protected by the Federal Confidentiality of Alcohol and Drug Abuse Patient Records regulations: The Federal rules restrict any use of the information to criminally investigate or prosecute any alcohol or drug abuse patient.[facility] the event this information is protected by the Federal Confidentiality of Alcohol and Drug Abuse Patient Records regulations: The Federal rules restrict any use of the information to criminally investigate or prosecute any alcohol or drug abuse patient.[facility] the event this information is protected by the Federal Confidentiality of Alcohol and Drug Abuse Patient Records regulations: The Federal rules restrict any use of the information to criminally investigate or prosecute any alcohol or drug abuse patient.[facility] the event this information is protected by the Federal Confidentiality of Alcohol and Drug Abuse Patient Records regulations: The Federal rules restrict any use of the information to criminally investigate or prosecute any alcohol or drug abuse patient.[facility] the event this information is protected by the Federal Confidentiality of Alcohol and Drug Abuse Patient Records regulations: The Federal rules restrict any use of the information to criminally investigate or prosecute any alcohol or drug abuse patient.[facility] the event this information is protected by the Federal Confidentiality of Alcohol and Drug Abuse Patient Records regulations: The Federal rules restrict any use of the information to criminally investigate or prosecute any alcohol or drug abuse patient.[facility] the event this information is protected by the Federal Confidentiality of Alcohol and Drug Abuse Patient Records regulations: The Federal rules restrict any use of the information to criminally investigate or prosecute any alcohol or drug abuse patient.[facility]In the event this information is protected by the Federal Confidentiality of Alcohol and Drug Abuse Patient Records regulations: The Federal rules restrict any use of the information to criminally investigate or prosecute any alcohol or drug abuse patient.[facility] HospitalIn the event this information is protected by the Federal Confidentiality of Alcohol and Drug Abuse Patient Records regulations: The Federal rules restrict any use of the information to criminally investigate or prosecute any alcohol or drug abuse patient.[facility] Reason for Visit (unrecogniz ed section and content) Reason Comments Radiology CT Specialty Diagnoses / Procedures Referred By Contac t Referred To Contact CT IMAGING Diagnoses Lower abdominal pain Procedures CT ABD/PEL W IVCON CT ABD & PELVIS W/CONTRAST Jess Ross MD [address] [place] [address] [place] [address] Referral ID Status Reason Start Date Expiration Date V isits Requested Visits Authorized [id number] Closed Auto-Generate d Referral 02/06/2024 05/02/2024 2 2 Reason Comments Yearly Exam Reason Comments Established Patient Reason Comments Follow Up keloid injection Reason Comments Procedure Excision left forear m and right leg skin lesion Reason Comments Established Patient 6 MO FOLLOW UP WITH LABS Reason Comments Well Woman Reason Comments Orders Care Teams (unrecognized sec tion and content) Team Status: Active Member Role Status Dates Dr. Leatha Fuentes MD Primary Care Provider Active Team Status: Inactive Member Role Status Dates Dr. Leatha Fuentes MD Primary Care Provider Active Start: July 21, 2024 End: July 21, 2024 Dr. Leatha Fuentes MD Attending Provider Active Start: July 21, 2024 End: July 21, 2024 Dr. Leatha Fuentes MD Referring Provider Active Start: July 21, 2024 End: July 21, 2024 Team Status: Inactive Member Role Status Dates Dr. Leatha Fuentes MD Primary Care Provider Active Start: October 13, 2024 End: October 13, 2024 Dr. Leatha Fuentes MD Attending Provider Active Start: October 13, 2024 End: October 13, 2024 Dr. Leatha Fuentes MD Referring Provider Active Start: October 13, 2024 End: October 13, 2024 [employer] Worker Relationship Specialty Start Date End Date Leatha Fuentes MD PCP - General Internal Medicine 07/10/19 [employer] Worker Relationship Specialty Start Date End Date Leatha Fuentes MD PCP - General Internal Medicine 07/10/19 [employer] Worker Relationship Specialty Start Date End Date Leatha Fuentes MD PCP - General Internal Medicine 07/10/19 [employer] Worker Relationship Specialty Start Date End Date Leatha Fuentes MD (Fax) PCP - General Internal Medicine 07/10/19 [employer] Worker Relationship Specialty Start Date End Date Leatha Fuentes MD (Fax) PCP - General Internal Medicine 07/10/19 Team Status: Active Member Role Status Dates Yamel Castaneda OVERNIGHT CASHIER, OVERNIGHT CASHIER-C Family Provider Active Dr. Leatha Fuentes MD Primary Care Provider Active Team Status: Inactive Member Role Status Dates Dr. Leatha Fuentes MD Primary Care Steven horvath, Attending Provider, Referring Provider Active [employer] Worker Relationship Specialty Start Date End Date Leatha Fuentes MD (Fax) PCP - General Internal Medicine 07/10/19 Team Status: Inactive Member Role Status Dates Dr. Leatha Fuentes MD Primary Care Provider, Refer ring Provider Active Steven Vanessa OVERNIGHT CASHIER, OVERNIGHT CASHIER-C Attending Provider Active Team Status: Inactive Member Role Status Dates Dr. Letaha Fuentes MD Primary Care Provider Active Dr. Ana Hernández MD Attending Provider, Referring Provider Active [employer] Worker Relationship Specialty Start Date End Date Leatha Fuentes MD (Fax) PCP - General Internal Medicine 07/10/19 [employer] Worker Relationship Specialty Start Date End Date Leatha Fuentes MD (Fax) PCP - General Internal Medicine 07/10/19 [employer] Worker Relationship Specialty Start Date End Date Leatha Fuentes MD (Fax) PCP - General Internal Medicine 07/10/19 [employer] Worker Relationship Specialty Start Date End Date Leatha Fuentes MD (Fax) PCP - General Internal Medicine 07/10/19 [employer] Worker Relationship Specialty Start Date End Date Leatha Fuentes MD PCP - General Internal Medicine 07/10/19 [employer] Worker Relationship Specialty Start Date End Date Leatha Fuentes MD PCP - General Internal Medicine 07/10/19 [employer] Worker Relationship Specialty Start Date End Date Leatha Fuentes MD PCP - General Internal Medicine 07/10/19 [employer] Worker Relationship Specialty Start Date End Date Leatha Fuentes MD PCP - General Internal Medicine 07/10/19 [employer] Worker Relationship Specialty Start Date End Date Leatha Fuentes MD PCP - General Internal Medicine 07/10/19 [employer] Worker Relationship Specialty Start Date End Date Leatha Fuentes MD PCP - General Internal Medicine 07/10/19 [employer] Worker Relationship Specialty Start Date End Date Leatha Fuentes MD PCP - General Internal Medicine 07/10/19 [employer] Worker Relationship Specialty Start Date End Date Leatha Fuentes MD PCP - General Internal Medicine 07/10/19 [employer] Worker Relationship Specialty Start Date End Date Leatha Fuentes MD PCP - General Internal Medicine 07/10/19 [employer] Worker Relationship Specialty Start Date End Date Leatha Fuentes MD PCP - General Internal Medicine 07/10/19 Team Status: Active Member Role Status Dates Dr. Leatha Fuentes MD Primary Care Provider Active Start: October 13, 2024 Dr. Leatha Fuentes MD Attending Provider Active Start: October 13, 2024 Dr. Leatha Fuentes MD Referring Provider Active Start: October 13, 2024 Team Status: Inactive Member Role Status Dates Dr. Leatha Fuentes MD Primary Care Provider Active Start: October 20, 2024 End: October 20, 2024 Dr. Leatha Fuentes MD Attending Provider Active Start: October 20, 2024 End: October 20, 2024 Dr. Leatha Fuentes MD Referring Provider Active Start: October 20, 2024 End: October 20, 2024 Team Status: Inactive Member Role Status Dates Dr. Leatha Fuentes MD Primary Care Provider Active Start: October 23, 2024 End: October 23, 2024 Dr. Leatha Fuentes MD Attending Provider Active Start: October 23, 2024 End: October 23, 2024 Dr. Leatha Fuentes MD Referring Provider Active Start: October 23, 2024 End: October 23, 2024 Goals (unrecognized section and content) Goals may be documented in a n alternate sectionGoals may be documented in an alternate sectionGoals may be documented in an alternate sectionGoals may be documented in an alternate sectionGoals may be documented in an alternate sectionGoals may be documented in an alternate sectionGoals may be documented in an alternate sectionGoals may be documented in an alternate sectionGoals may be documented in an alternate section FOR RECORDS PERTAINING TO PATIENTS WHO ARE OR HAVE BEEN ENROLLED IN A CHEMICAL DEPENDENCY/SUBSTANCEABUSE PROGRAM, SOME INFORMATION MAY BE OMITTED. This clinical summary was aggregated from multiple sources. Caution should be exercised in using it in the provision of clinical care. This summary normalizes information from multiple sources, and as a consequence, information in this document may materially change the coding, format and clinical context of patient data. In addition, data may be omitted in some cases. CLINICAL DECISIONS SHOULD BE BASED ON THE PRIMARY CLINICAL RECORDS. [facility]. provides no warranty or guarantee of the accuracy or completeness of information in this document.
== END 2024-10-25 23:59 | disposition home or self-care (01) ==
LOC: MEDOUTP 11:59
PROVIDERS: PCP Internal Medicine; Referring Provider Internal Medicine; Visit Provider Internal Medicine
DX: D50.9 Iron deficiency anemia, unspecified (principal); K91.2 Postsurgical malabsorption, not elsewhere classified
CPT/HCPCS: 96365; J1756; A4216

== ENCOUNTER 2024-10-27 09:55 | Outpatient (CLI) | payer BC, SELFPAY ==
[2024-10-27 10:11] VITALS: BP 102/41; PULSE 65; RESP 16; TEMP 36.2; O2SAT 99; BMI 23.1
[2024-10-27] MEDS: 0.9% NaCl IVPB Med Flush (250 mL) 15 ML IV (10:21)
[2024-10-27] MEDS: Iron Sucrose Complex (Venofer) 200 MG in 0.9% NaCl 100 ML 220 MG IV (10:22)
[2024-10-27 11:16] VITALS: BP 95/53; PULSE 63; RESP 16; TEMP 35.9; O2SAT 98
== END 2024-10-27 23:59 | disposition home or self-care (01) ==
LOC: MEDOUTP 09:55
PROVIDERS: PCP Internal Medicine; Referring Provider Internal Medicine; Visit Provider Internal Medicine
DX: D50.9 Iron deficiency anemia, unspecified (principal); K91.2 Postsurgical malabsorption, not elsewhere classified
CPT/HCPCS: 96365; J1756

== ENCOUNTER 2024-10-30 11:53 | Outpatient (CLI) | payer BC, SELFPAY ==
[2024-10-30 12:10] VITALS: BP 100/33; PULSE 52; RESP 16; TEMP 35.8; O2SAT 99; BMI 23.1
[2024-10-30] MEDS: 0.9% NaCl IVPB Med Flush (100mL) 15 ML IV (12:17)
[2024-10-30] MEDS: Iron Sucrose Complex (Venofer) 200 MG in 0.9% NaCl 100 ML 220 MG IV (12:32)
[2024-10-30 13:40] VITALS: BP 101/47; PULSE 69; RESP 16; TEMP 35.9; O2SAT 100
== END 2024-10-30 23:59 | disposition home or self-care (01) ==
LOC: MEDOUTP 11:54
PROVIDERS: PCP Internal Medicine; Referring Provider Internal Medicine; Visit Provider Internal Medicine
DX: D50.9 Iron deficiency anemia, unspecified (principal); K91.2 Postsurgical malabsorption, not elsewhere classified
CPT/HCPCS: 96365; J1756; A4216

== ENCOUNTER → 2025-02-23 | Outpatient (CLI) | payer BC, SELFPAY ==
--- NOTE | 2025-02-23 07:17 | BI_ITS ---
EXAM: SCRN MAMM (CAD)W/SHAWNA BILAT DATE: 02/23/2025 CLINICAL HISTORY: F, Age 54 y/o , SCREENING TECHNIQUE: Procedure Code: [id number] Modality: MG Procedure: SCRN MAMM (CAD)W/SHAWNA BILAT COMPARISON: Prior exam(s) were compared FINDINGS: TISSUE DENSITY: The breasts are heterogeneously dense, which may obscure small masses. Bilateral Breast Mammographic Findings: No suspicious masses, calcifications or other abnormalities are identified. BI/SCRN MAMM (CAD)W/SHAWNA BILAT IMPRESSION: No mammographic evidence of malignancy in either breast. OVERALL FINAL ASSESSMENT BI-RADS 1: NEGATIVE. RECOMMENDATION: Routine annual follow-up in 1 Year Additional Recommendation none A letter with findings and recommendations will be mailed to the patient. Reading Location: [id number]
--- OUTSIDE RECORDS SUMMARY | 2025-02-23 07:31 | XMS RPT_ITS | CCD ---
Author Organization [facility] CliniSyin Care Team Providers Care Flight Kitchen Manager Name Role Phone LEONIDAS DEAN Unavailable Unavailable [...] Consulting Unavailable Yuri Lawson Unavailable Unavailable Maxine oJsé Unavailable Unavailable Manjuancarlos, Lashaun Unavailable Unavailable Leatha [...] Dr. Leatha Fuentes Referring Provider [phone] Otf PERFORMANCE ARCHITECT, ITZC Steven Attending Provider [phone]) Leatha Fuentes [...] Unavailable OLEGHE, EFEWONGBE B Primary Care Unavailable Gina WEINER, Dr. Zhang Primary Care Provider Dr. Leatha Fuentes MD Attending Provider 1([phone]) Dr. Leatha Fuentes MD Referring Provider 1(33 0) NURSE, BIM Attending Provider Unavailable Dr. Leatha Fuentes MD Primary Care Provider Dr. Leatha Fuentes MD Attending Provider 1(33 0) Dr. Leatha Fuentes MD Referring Provider 1(33 0) NURSE, BIM Attending Provider Unavailable Health, Employee Attending Provider Oleghe, Efewongbe Attending Unavailable Oleghe, Efewongbe Primary [...] Referring Unavailable Oleghe, Efewongbe Primary Care Unavailable NURSE, BIM Attending Unavailable Oleghe, Efewongbe Referring Unavailable Oleghe, Efewongbe Primary Care Unavailable Oleghe, Efewongbe Attending Unavailable Oleghe, Efewongbe Primary Care Unavailable Oleghe, Efewongbe Referring Unavailable Oleghe, Efewongbe Attending Unavailable Oleghe, Efewongbe Referring Unavailable Oleghe, Efewongbe Primary Care Unavailable NURSE, BIM Attending Unavailable Oleghe, Efewongbe Primary Care Unavailable [...] Referring Unavailable Oleghe, Efewongbe Primary Care Unavailable Assessment, Health Risk Referring Unavaila ble Assessment, Health Risk Attending Unavaila ble Oleghe, Efewongbe Primary Care Unavailable Oleghe, Efewongbe Primary Care Unavailable Oleghe, Efewongbe Referring Unavailable Oleghe, Efewongbe Attending Unavailable Allergies Allergy Classification Reported Allergen(s) Allergy Type Date of Onset Reaction(s) Facility Nitroimidazoles (antibiotic) (1 source) metroNIDAZOLE Drug Allergy 06-28-19 21 GI Upset [facility] Opioid Agonists (1 source) Codeine Drug Allergy 09-08-19 15 GI Upset, Vomiting [facility] (16 sources) NSAIDs; Translations: [NSAIDs] allergy to substance [facility] Work Phone: Comment on above: had Gastric Bypass (16 sources) Codeine/Codeine Derivatives; Translations: [Codeine/Codeine Derivatives] allergy to substance [facility] Work Phone: Comment on above: NV (20 sources) Codeine; Translations: [CODEINE] Drug Allergy 09-08-19 15 GI Upset, Vomiting [facility] (20 sources) metroNIDAZOLE; Translations: [METRONIDAZOLE] Drug Allergy 06-28-19 21 GI Upset [facility] (5 sources) Non-steroidal anti-inflammator y agent; Translations: [NSAIDS (NON-STEROIDAL ANTI-INFLAMMATOR Y DRUG)] Propensity to adverse reactions to drug 09-08-19 Other: See Comments [facility] (16 sources) NSAIDS (Non-Steroidal Anti-Inflamma; Translations: [NSAIDS (Non-Steroidal Anti-Inflamma] Propensity to adverse reactions 03-26-20 Other [facility] (4 sources) EXTENDED RELEASE TABS Propensity to adverse reactions 03-26-20 Other [facility] (17 sources) Non-steroidal anti-inflammator y agent Propensity to adverse reactions to drug 09-08-19 Other: See Comments [facility] (1 source) Codeine Drug Allergy 01-13-20 [facility] Repository (1 source) metroNIDAZOLE Drug Allergy 01-13-20 [facility] Repository Medications Current Medications Medication Drug Class(es) [...] once daily. cholecalciferol 0.05 mg chewable tablet (20 sources) Vitamin D Start: 06-23-19 End: 10-14-19 take 1 tablet by mouth once daily Cholecalciferol (Vitamin D3) 50 mcg (2,000 unit) tablet,chewable Active 2000 U PO DAILY 90 3 October 13, 2024 1:19pm cholestyramine resin 4000 mg powder for oral suspension (20 sources) Bile Acid Sequestrant Start: 10-14-19 Cholestyramine (With Sugar) 4 gram powder Active 4 g PO DAILY 378 3 October 13, 2024 1:19pm Start: 01-19-2024 End: [...] 7:26pm October 13, 2024 1:01pm Start: 05-20-2022 End: 10-13-2024 Cholestyramine (With Sugar) [...] y. clobetasol propionate 0.0005 mg/mg topical ointment (11 sources) Corticosteroid Start: 10-13-2024 End: 09-12-2025 Clobetasol 0.05 % ointment Active 1 NMA TOPICAL TWICE A DAY as needed January 12, 2025 1:30pm ferrous sulfate 325 mg oral tablet (20 sources) Start: 10-13-2024 take 1 tablet by mouth once daily Ferrous Sulfate 325 mg (65 mg iron) tablet Active 325 mg PO daily 90 3 October 13, 2024 1:20pm Start: 07-09-2014 End: [...] De-access port on treatment completion. holy basil (15 sources) Start: 06-23-2019 holy basil Active PO June 23, 2019 9:34am Start: 06-23-2019 End: 11-04-2022 holy basil Discontinued PO 0 June 23, 2019 1:00am November 04, 2022 5:10pm Start: 06-23-2019 End: 11-04-2022 holy basil Discontinued PO F ebruary 2019 1:00am November 04, 2022 5:10pm Start: 06-23-2019 holy basil Act batool PO June 23, 2019 1:00am Start: 06-23-2019 holy basil Act batool PO June 23, 2019 12:00am L. Gasseri-B. Bifidum-B Long um ([employer]) 1.5 billion cell capsule (15 sources) Start: 06-29-2019 L. Gasseri-B. Bifidum-B Longum ([employer]) 1.5 billion cell capsule Active CAP PO DAILY June 29, 2019 3:19pm Start: 06-29-2019 End: 10-13-2024 take 1.5 capsules by mouth once daily L. Gasseri-B. Bifidum-B Longum ([employer]) 1.5 billion cell capsule Discontinued NMA PO DAILY June 29, 2019 1:00am October 13, 2024 1:01pm Start: 06-29-2019 take 1.5 capsules by mouth once daily L. Gasseri-B. Bifidum-B Longum ([employer]) 1.5 billion cell capsule Active NMA PO DAILY June 29, 2019 1:00am Start: 06-29-2019 L. Gasseri-B. Bifidum-B Longum ([employer]) 1.5 billion cell capsule Active CAP PO DAILY June 29, 2019 1:00am Start: 06-29-2019 L. Gasseri-B. Bifidum-B Longum ([employer]) 1.5 billion cell capsule Active CAP PO [...] 1 tablet by sapphire th once daily. Byrmtslvmhzi-Sy-Tfx n-Minerals (4 sources) Start: 07-09-2014 take 1 tablet by mouth three times daily Koyccskbqirc-Ka-Jf on-Minerals Active 1 TABLET PO THREE TIMES A DAY July 09, 2014 5:30pm Start: 07-09-2014 take 1 tablet by sapphire th three times daily Xejvltqbnzbv-Mo-Ejdu-Minerals Active 1 T ABLET PO THREE TIMES A DAY July 09, 2014 12:00am Start: 07-09-2014 take 1 tablet by sapphire th three times daily Vphbhvcxawaj-Xa-Szzi-Minerals Active 1 T ABLET PO THREE TIMES [...] tablet 02/04/2024 02/09/2024 Active polyethylene glycol 3350 699861 mg / potassium chloride 2970 mg / sodium bicarbonate 6740 mg / sodium chloride 5860 mg / sodium sulfate 20147 mg powder for oral solution (1 source) [...] PRN when IVAD not in use. vitamin Z28-cncsjsc B1 1,000 mcg-100 mg/mL injection solution (4 sources) Start: 06-29-2019 inject 1 mL by intramuscular injection every month vitamin D49-wjiircb B1 1,000 mcg-100 mg/mL injection solution Active ML IM MONTHLY June 29, 2019 3:19pm Start: 06-29-2019 inject 1 mL by intra muscular injection every month vitamin H11-inpyyqp B1 1,000 mcg-100 mg/mL injection solution Active ML IM MONTHLY June 29, 2019 1:00am Start: 06-29-2019 inject 1 mL by intra muscular injection every month vitamin C51-lfxlyta B1 1,000 mcg-100 mg/mL injection solution Active ML IM MONTHLY June 29, 2019 12:00am Vitamin C33-Aldmkgr B1 1,000-100 mg/mL solution (11 sources) Start: 06-29-2019 inject 1 mL by intramuscular injection every month Vitamin L53-Fdyhwjw B1 1,000-100 mg/mL solution Active mL IM [...] 28 {Tablet} Refills: 0 Ordered: 02-Sep-2018 Leonel MONTEZ, Yamel Castaneda MELIDA, Yamel Castellon Start : 02-Sep-2018 End : 16-Sep-2018 Inactive ascorbic acid 125 mg / ferrous fumarate 200 mg oral tablet (16 sources) Vitamin C take 1 tablet by mouth twice daily Iron/C 200-125 MG Oral Tablet 1 bid (200-125 MG) Active atropine sulfate 0.025 mg / diphenoxylate hydrochloride 2.5 mg oral tablet (16 sources) Anticholinergic, Cholinergic Muscarinic Antagonist, Antidiarrheal Start: [...] hr Discontinued 300 mg PO EVERY MORNING 90 May 22, 2024 12:48pm October 13, 2024 1:00pm Start: 05-20-2022 End: 06-10-2022 take 1 tablet by mouth once daily in the morning Bupropion Hcl (Wellbutrin Xl) 150 mg tablet extended release 24 hr Discontinued 150 mg PO EVERY MORNING 30 May 20, 2022 1:00am June 10, 2022 4:06pm Comment on above: Take 300 mg by mouth once daily. busPIRone hydrochloride 7.5 mg oral tablet (20 sources) Start: 11-04-2022 End: 10-30-2024 take 1 tablet by mouth twice daily Buspirone 7.5 mg tablet Discontinued 7.5 mg PO TWICE A DAY 60 3 June 07, 2023 1:30pm September 06, 2023 10:27am calcium carbonate 1250 mg chewable tablet (16 sources) Start: 09-11-2014 End: 10-13-2024 take 1 [...] 20 mg tablet Discontinued 0 .ROUTE .COMPLEX 90 0 May 22, 2024 12:48pm July 21, 2024 10:48am Take 1 tablet by mouth once daily Start: 06-28-2020 End: 03-26-2021 take 1 tablet by mouth once daily Escitalopram Oxalate 10 mg tablet Discontinued 10 mg PO DAILY 90 June 28, 2020 10:02am March 26, 2021 6:32pm Start: 05-31-2020 End: 06-28-2020 take 1 tablet by mouth once daily Escitalopram Oxalate 5 mg tablet Discontinued 5 mg PO DAILY 60 May 31, 2020 1:00am June 28, 2020 10:03am Comment on above: Take 10 mg by mouth once daily. 1 ml fentaNYL 0.05 mg/ml injection (1 source) Opioid Agonist Start: 02-29-20 End: 02-29-20 25-100 mcg, INTRAVENOUS, DIRECTED, Starting on Wed02/29/24 at 0800, Until Wed02/29/24 at 1159, DOSING DIRECTED BY PHYSICIAN FOR PROCEDURAL SEDATION ONLY, Intraprocedure hydrOXYzine hydrochloride 25 mg oral tablet (20 sources) Antihistamine Start: 10-28-19 End: 11-05-19 take 1 tablet by mouth at bedtime Hydroxyzine Hcl 25 mg tablet Discontinued 25 mg PO AT BEDTIME November 04, 2022 12:00am November 04, 2022 6:11pm Comment on above: Take 1 tablet by sapphire th three times daily as needed. loperamide hydrochloride 2 mg oral capsule (16 sources) Opioid Agonist Start: 06-23-19 End: 11-12-19 [...] Multivitamin Adult Oral Tablet 1 bid Active Iogudnnvwtkm-Ls-Icnn -Minerals 1 EACH tablet (11 sources) Start: 07-10-19 End: 10-14-19 take 1 tablet by mouth three times daily Tphqcvqinols-Qw-Fkbn- Minerals 1 EACH tablet Discontinued 1 {tbl} PO THREE TIMES A DAY July 09, 2014 12:00am October 13, 2024 1:01pm Start: 07-09-2014 take 1 tablet by sapphire th three times daily Fuullmyaninz-Mu-Scyi-Minerals 1 EACH tab let Active 1 {tbl} PO THREE TIMES A DAY July 09, 2014 12:00am topiramate 25 mg oral tablet (20 sources) Start: 06-10-2022 End: 08-29-2024 take 1 tablet by mouth twice daily Topiramate 25 mg tablet Discontinued 0 .ROUTE .COMPLEX 180 0 March 06, 2024 5:45pm August 29, 2024 [...] PO AT BEDTIME as needed for insomnia 30 July 21, 2024 12:00am October 13, 2024 [...] solution Discontinued 100 MCG IM ONCE June 29, 2019 3:07pm June 29, 2019 [...] unspecified] Onset: 02-17-2024 02-17-2024 Episodic Adjustment disorders (20 sources) Grief finding; Translations: [Adjustment disorder with depressed mood] 07-21-2024 Chronic Allergic reactions (20 sources) Inflammatory dermatosis; Translations: [Dermatitis, unspecified] 03-23-2024 Episodic Anxiety disorders (20 sources) Mixed anxiety and depressive disorder; Translations: [Anxiety disorder, unspecified] Onset: 01-12-2025 05-31-2020 Chronic Cancer of colon (20 sources) Malignant tumor of colon; Translations: [Malignant tumor of ascending colon] Onset: 04-08-2016 05-27-2018 Chronic Comment on above: seebrandon Mckeon q6 month x 2 years, had rt hemicolectomy,had previous gastric bypass marielos Mckeon q6 month x 2 years, had rt hemicolectomy,had previous gastric bypass, has CBC done regularly Cancer of colon (20 sources) History of malignant neoplasm of colon; Translations: [Personal history of other malignant neoplasm of large intestine] Onset: 02-29-2024 12-27-2017 Episodic Comment on above: CEA 3.2 from , seebrandon Mckeon Complications of surgical procedures or medical care (20 sources) Post-surgical malabsorption; Translations: [Postsurgical malabsorption, not elsewhere classified] Onset: 01-12-2025 Chronic Deficiency and other anemia (20 sources) Anemia; Translations: [Anemia, unspecified] 07-21-2024 Episodic Deficiency and other anemia (1 source) Anemia, unspecified; Translations: [Anemia, unspecified] Onset: 01-12-2025 Episodic Diseases of white blood cells (20 [...] [Major depressive disorder, single episode, unspecified] Onset: 01-12-2025 Chronic Noninfectious gastroenteritis (20 sources) Non-specific colitis; Translations: [Noninfective gastroenteritis and colitis, unspecified] 04-06-2016 Episodic Nutritional deficiencies (20 sources) Cobalamin deficiency; Translations: [Vitamin B12 deficiency (non anemic)] Onset: 01-12-2025 05-05-2018 Episodic Comment on above: Nurse Visit Hours M8 -445, T/W 8-345 TH/F 7 and closed 04-02 for lunch daily had bypass and colec [...] Translations: [Diarrhea, unspecified] Episodic Other gastrointestinal disorders (20 sources) History of bypass of stomach; Translations: [Bariatric surgery status] 05-20-2022 Episodic Other infections; including parasitic (16 sources) Personal history of other infectious and parasitic diseases; Translations: [History of Clostridium difficile colitis] 12-27-2017 Episodic Comment on above: October 2017, after dec shinin for dental infection on probiotic, marielos Mckeon Other injuries and conditions due to external causes (2 sources) History of fall; Translations: [History of falling] 10-26-2023 Episodic Other nervous system disorders (1 source) Tremor; Translations: [Tremor, unspecified] 02-07-2024 Episodic Other nutritional; endocrine; and metabolic disorders (4 sources) Body mass index 25-29 - overweight; Translations: [BMI 25.0-25.9,adult] 01-09-2019 Chronic Other nutritional; endocrine; and metabolic disorders (13 sources) Obese class I; Translations: [Obesity, unspecified] 06-10-2022 Chronic Other nutritional; endocrine; and metabolic disorders (2 sources) Obesity, unspecified; Translations: [Obesity, unspecified] 06-10-2022 Chronic Other nutritional; endocrine; and metabolic disorders (15 sources) Body mass index 25-29 - overweight; Translations: [Overweight] 03-26-2021 Episodic Other nutritional; endocrine; and metabolic disorders (3 sources) Overweight; Translations: [Overweight] 05-20-2022 Episodic Other screening for suspected conditions (not mental disorders or infectious disease) (20 sources) Abnormal findings on diagnostic imaging of breast; Translations: [Other abnormal and inconclusive findings on diagnostic imaging of breast] Onset: 05-15-2016 05-15-2016 Episodic Other skin disorders (1 source) Keloid [...] Translations: [Insomnia] 01-09-2019 Episodic Residual codes; unclassified (11 sources) History of partial resection of colon; [...] deficiency anemia, unspecified] Onset: 07-21-2016 07-21-2016 Episodic Deficiency and other anemia (1 source) Iron deficiency anemia, unspecified; Translations: [Iron deficiency anemia, unspecified] Onset: 11-02-2024 Episodic Nonspecific chest pain (3 sources) Chest wall pain; Translations: [Other chest pain] Onset: 10-26-2023 10-26-2023 Episodic Other gastrointestinal disorders (4 sources) Bariatric surgery status; Translations: [Bariatric surgery status] Onset: 07-21-2024 05-20-2022 Episodic Other injuries and conditions due to external causes (1 source) History of falling; Translations: [Status post fall] Onset: 10-26-2023 Episodic Unclassified (20 sources) History of gastric [...] Test Name Value Interpretation Reference Range Facility Internal Medicine Office Vis kt 01-12-2025 Internal Medicine Office Visit [facility] [address] [place] [address] [address] [place] [address] OFFICE VISIT Date of Service: 01/12/25 MR#: [id number] Acct: [id number] Name: JANET JUAREZ Rep #: [id number] 1 : 1970 Provider: Dr. Leatha fairbanks MD Age/Sex: 54/F Location: [facility] Status: Signed Intake Vital Signs 10/13/24 13:04 10/30/24 12:10 01/12/25 13:31 Height 5 ft 4 in 5 ft 4 in 5 ft 4 in Weight: 138 lb BMI 23.6 BP 86/62 L Blood Pressure Location Lt brachial Position Sitting Respiration 14 Pulse 69 Pulse Source Monitor Temp 96.2 F L Temp Source Temporal Pulse Oximetry (%) 96 Oxygen Delivery Method room air Intake Visit Reasons: 3 M FU/B12 INJ Chief Complaint: Follow-up chronic conditions Dog Handler Required: No Accompanied by: Self Is patient in pain?: No Allergies codeine Adverse Reaction (Verified 01/12/25 13:30) Nausea/Vom/Diarrhea metronidazole (From Flagyl) Adverse Reaction (Verified 01/12/25 13:30) Nausea/Vom/Diarrhea NSAIDS (Non-Steroidal Anti-Inflamma Adverse Reaction (Verified 01/12/25 13:30) Other Medications ???Medication ???Instructions ???Recorded ???Confirmed ???Type vitamin X96-jwblrtn B1 1,000 ml IM MONTHLY 06/29/19 01/12/25 Hi story mcg-100 mg/mL injection solution escitalopram oxalate 20 mg tablet See Rx Instructions .Route 01/12/25 Rx .COMPLEX #90 tabs topiramate 25 mg tablet See Rx Instructions .Route 5 11/10/24 Rx .COMPLEX #180 tabs cholecalciferol (vitamin D3) 50 2,000 unit PO DAILY #90 tabs 10/1301/12/25 Rx mcg (2,000 unit) chewable tablet cholestyramine (with sugar) 4 gram 4 g PO DAILY #378 grams 10/13/24 01/12/25 Rx oral powder ferrous sulfate 325 mg (65 mg 325 mg PO QDAY #90 tabs 10/13/24 0 01/12/25 Rx iron) tablet buspirone 7.5 mg tablet 7.5 mg PO BID 3 months #180 tabs 0 10/30/24 01/12/25 Rx clobetasol 0.05 % topical ointment 1 applic topical BID PRN 5 History PFSH Medical History (Updated 01/12/25 @ 13:[address] Leatha Fuentes MD) Grief reaction [...] chronic conditions Details: JANET JUAREZ, is a 54-year-old female presenting for follow-up of her chronic conditions. The patient has a history of iron deficiency anemia, which was noted with a hemoglobin level of 8.5 previously. She recently underwent iron infusions to manage this condition. Also on B12 injections due to post surgical malabsorption. Feels well. Over the recent months, the patient reports an improvement in mood, which correlates with the continuation of her current antidepressant regimen (including medications Lexapro and Buspirone). The patient attributes some of her improved emotional state to her efforts to reframe her mindset surrounding grief, by focusing on being grateful for past memories rather than feeling sorrowful. Sleep has reportedly improved following these mindset adjustments and medication maintenance. Her psychiatric history shows she is also on topiramate, which is primarily used for weight management ??? an ongoing consideration given her emphasis on maintaining a steady weight. 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 She shows enthusiasm about these roles in helping her remain socially and mentally active. The patient last had a mammogram and dermatology check in the previous year, aligning with her preventative care regimen, which includes a prior colonoscopy preempted due to abdominal pain. Attestation: Documentation on this patient encounter was supported using a (more content not included)... Normal [facility] Office Visit Reporton 2024 Office Visit Report [facility] [address] [place] [address] OFFICE VISIT Date of Service: 12/08/24 MR#: [id number] Acct: [id number] Patient: JANET JUAREZ Rep #: [id number] : 1970 Provider: MOHINI NURSE Age/Sex: 53/F Location: [facility] Status: Signed Intake Vital Signs 10/30/24 12:10 Height 5 ft 4 in Weight: 135 lb BMI 23.1 BP 100/33 L Respiration 16 Pulse 52 L Temp 96.5 F L Temp Source Temporal Pulse Oximetry (%) 99 Intake Visit Reasons: B12 Chief Complaint: b12 Allergies codeine Adverse Reaction (Verified 11/10/24 08:18) Nausea/Vom/Diarrhea metronidazole (From Flagyl) Adverse Reaction (Verified 11/10/24 08:18) Nausea/Vom/Diarrhea NSAIDS (Non-Steroidal Anti-Inflamma Adverse Reaction (Verified 11/10/24 08:18) Other Office Meds cyanocobalamin (vitamin B-12) 1,000 mcg/mL injection solution Performing Provider: Leatha Fuentes MD Performing Location: [facility] Administered by: Armaan Deleon on 12/08/24 08:24 Dose Route Admin Location Dispensed Lot Number Expiration Date NDC Man ufacturer 1,000 mcg IM L Deltoid 1 mL [id number] 07/31/26 31473-676-84 FILIPPO RAMEY Comments: Patient confirms that the B12 injections are still of benefit. Patient tolerated well. Assessment and Plan Assessment and Plan (1) Vitamin B12 deficiency: Status: Chronic Orders: Orders Vitamin B12 Today E53.8 - Deficiency of other specified B group vitamins 12/08/24 1658 Date Leatha Flanagan Signature: Date (if applicable) CC: Normal [facility] Internal Medicine Office Vis kt 11-10-2024 Internal Medicine Office Visit [facility] [address] [place] [address] [place] [address] OFFICE VISIT Date of Service: 11/10/24 MR#: [id number] Acct: [id number] Name: JANET JUAREZ Rep #: [id number] 3 : 1970 Provider: MOHINI NURSE Age/Sex: 53/F Location: [facility] Status: Signed Intake Vital Signs 10/13/24 13:04 10/30/24 12:10 Height 5 ft 4 in 5 ft 4 in Intake Visit Reasons: B12 SHOT Chief Complaint: b12 Dog Handler Required: No Accompanied by: Self Is patient in pain?: No Allergies codeine Adverse Reaction (Verified 11/10/24 08:18) Nausea/Vom/Diarrhea metronidazole (From Flagyl) Adverse Reaction (Verified 11/10/24 08:18) Nausea/Vom/Diarrhea NSAIDS (Non-Steroidal Anti-Inflamma Adverse Reaction (Verified 11/10/24 08:18) Other Medications ???Medication ???Instructions ???Recorded ???Confirmed ???Type vitamin R32-ojhcnfi B1 1,000 ml IM MONTHLY 06/29/19 11/10/24 Hi story mcg-100 mg/mL injection solution escitalopram oxalate 20 mg tablet See Rx Instructions .Route 11/10/24 Rx .COMPLEX #90 tabs topiramate 25 mg tablet See Rx Instructions .Route 5 11/10/24 Rx .COMPLEX #180 tabs cholecalciferol (vitamin D3) 50 2,000 unit PO DAILY #90 tabs 10/1311/10/24 Rx mcg (2,000 unit) chewable tablet cholestyramine (with sugar) 4 gram 4 g PO DAILY #378 grams 10/13/24 11/10/24 Rx oral powder clobetasol 0.05 % topical ointment 1 applic topical BID 2 weeks #30 10/13/24 11/10/24 Rx grams ferrous sulfate 325 mg (65 mg 325 mg PO QDAY #90 tabs 10/13/24 0 11/10/24 Rx iron) tablet buspirone 7.5 mg tablet 7.5 mg PO BID 3 months #180 tabs 0 10/30/24 11/10/24 Rx Nurse's Note: B12 injection given in left upper arm patient tolerated well [facility] Medical History Grief reaction Screening for cardiovascular [...] times per week HPI HPI Chief Complaint: b12 Details: JANET JUAREZ, is a 53 F who presents to the office today for Office Meds cyanocobalamin (vitamin B-12) 1,000 mcg/mL injection solution Performing Provider: Leatha Fuentes MD Performing Location: [facility] Administered by: Dayan El on 11/10/24 08:21 Dose Route Admin Location Dispensed Lot Number Expiration Date [facility] Man ufacturer 1,000 mcg IM rosa 1 mL [id number] 11/10/24 18873-880-87 FILIPPO RAMEY Comments: rosa b12 injection given no problems noted at this time Coding Level of Care Code Off vis,est,level 1 Diagnoses Postsurgical malabsorption K91.2 Vitamin B12 deficiency E53.8 Assessment and Plan Assessment and Plan (1) Postsurgical malabsorption: Status: Chronic (2) Vitamin B12 deficiency: Status: Chronic Orders: Orders Vitamin B12 Today E53.8 - Deficiency of other specified B group vitamins 11/10/24 1644 Date Leatha Nicolasignolivier Signature: Date (if applicable) CC: Normal [facility] Absolute lymphocyte countOrd ered By: Leatha Fuentes on 10-13-2024 Lymphocytes Auto (Unsp spec) [#/Vol] 1.23 10*3/uL 0.83-4.51 [facility] Absolute neutrophil countOrd ered By: Leatha Fuentes on 10-13-2024 Neutrophils (Bld) [#/Vol] 2.1 10*3/uL 2.0-7.7 [facility] Automated lymphocyte count a s percentage of total leukocytesOrdered By: Leatha Fuentes on 10-13-2024 Lymphocytes/100 WBC Auto (Unsp spec) 32.0 % 19-41 [facility] Basophil percentageOrdered B y: Leatha Fuentes on 10-13-2024 Basophils/100 WBC (Bld) 0.8 % 0-1 [facility] CBC W/Diff, Automatedon 10-01 Absolute Lymph 1.23 X10 3/uL Normal 0.83-4.51 [facility] Comment on above: Performed By: #### L 100.0100 #### [facility] [address] [place], [place] [address]s[place], [address] Absolute Neut 2.1 X10 3/uL Normal 2.0-7.7 [facility] Comment on above: Performed By: #### L 100.0100 #### [facility] [address] [place], [address] Basophils/100 WBC (Bld) 0.8 % Normal 0-1 [facility] Comment on above: Performed By: #### L 100.0100 #### [facility] [address] [place], [address] Eosinophils/100 WBC (Bld) 3.6 % Normal 0-5 [facility] Comment on above: Performed By: #### L 100.0100 #### [facility] [address] [place], [address] Erythrocyte distribution width (RBC) [Ratio] 15.9 % High 11.6-14.6 [facility] Comment on above: Performed By: #### L 100.0100 #### [facility] [address] [place], [address] Hematocrit (Bld) [Volume fraction] 29.6 % Low 37-47 [facility] Comment on above: Performed By: #### L 100.0100 #### [facility] [address] [place], [address] Hemoglobin (Bld) [Mass/Vol] 8.5 g/dL Low 12.0-15.0 [facility] Comment on above: Performed By: #### L 100.0100 #### [facility] [address] [place], [address] IG% 0.000 Normal 0.0-0.9 [facility] Comment on above: Result Comment: IG% - Immature Granulocytes (promyelocytes, myelocytes and metamyelocytes) > 1% indicates that a LEFT SHIFT is Present. Performed By: #### L 100.0100 #### [facility] [address] [place], [address] Lymphocytes/100 WBC (Bld) 32.0 % Normal 19-41 [facility] Comment on above: Performed By: #### L 100.0100 #### [facility] [address] [place], [address] MCH (RBC) [Entitic mass] 21.3 pg Low 27.0-32.0 [facility] Comment on above: Performed By: #### L 100.0100 #### [facility] [address] [place], [address] MCHC (RBC) [Mass/Vol] 28.7 g/dL Low 32-36 [facility] Comment on above: Performed By: #### L 100.0100 #### [facility] [address] [place], [address] MCV (RBC) [Entitic vol] 74.0 fL Low 81-99 [facility] Comment on above: Performed By: #### L 100.0100 #### [facility] [address] [place], [address] Monocytes/100 WBC (Bld) 8.6 % Normal 0-10 [facility] Comment on above: Performed By: #### L 100.0100 #### [facility] [address] [place], [address] Neutrophils/100 WBC (Bld) 55.0 % Normal 47-70 [facility] Comment on above: Performed By: #### L 100.0100 #### [facility] [address] [place], [address] Nucleated RBC (Bld) [#/Vol] 0 10*3/uL Normal 0-5 [facility] Comment on above: Performed By: #### L 100.0100 #### [facility] [address] [place], [address] Platelet mean volume (Bld) [Entitic vol] 10.8 fL Normal 6.2-12.0 [facility] Comment on above: Performed By: #### L 100.0100 #### [facility] [address] [place], [address] Platelets (Bld) [#/Vol] 256 10*3/uL Normal 150-450 [facility] Comment on above: Performed By: #### L 100.0100 #### [facility] [address] [place], [address] RBC (Bld) [#/Vol] 4.00 10*6/uL Low 4.2-5.4 [facility] Comment on above: Performed By: #### L 100.0100 #### [facility] [address] [place], [address] RDW SD 43.0 fl Normal 35.1-43.9 [facility] Comment on above: Performed By: #### L 100.0100 #### [facility] [address] [place], [address] WBC (Bld) [#/Vol] 3.8 10*3/uL Low 4.4-11.0 [facility] Comment on above: Performed By: #### L 100.0100 #### [facility] [address] [place], [address] Eosinophil percentageOrdered By: Leatha Fuentes on 10-13-2024 Eosinophils/100 WBC (Bld) 3.6 % 0-5 [facility] Erythrocyte distribution wid th ratioOrdered By: Leatha Fuentes on 10-13-2024 Erythrocyte distribution width (RBC) [Ratio] 15.9 % High 11.6-14.6 [facility] Erythrocyte distribution wid th standard deviationOrdered By: eLatha Fuentes on 10-13-2024 Erythrocyte distribution width (RBC) [Ratio] 43.0 fl 35.1-43.9 [facility] Ferritinon 10-13-2024 Ferritin [Mass/Vol] 7 ng/mL Low 22-378 [facility] Comment on above: Order Comment: ADD O N Performed By: #### L 503.6550, L503.6030 #### [facility] [address] [place], [address] Hematocrit Auto (Bld) [Volum e fraction]Ordered By: Leatha Fuentes on 10-13-2024 Hematocrit (Bld) [Volume fraction] 29.6 % Low 37-47 [facility] Hemoglobin measurementOrdere d By: Leatha Fuentes on 10-13-2024 Hemoglobin (Bld) [Mass/Vol] 8.5 g/dL Low 12.0-15.0 [facility] Immature granulocytes/100 WB C Auto (Bld)Ordered By: Leatha Fuentes on 10-13-2024 Immature granulocytes/100 WBC (Bld) 0.000 % 0.0-0.9 [facility] Comment on above: IG% - Immature Granu locytes (promyelocytes, myelocytes and metamyelocytes) > 1% indicates that a LEFT SHIFT is Present. Internal Medicine Office Vis iton 10-13-2024 Internal Medicine Office Visit [facility] [address] [place] [address] [place] [address] OFFICE VISIT Date of Service: 10/13/24 MR#: [id number] Acct: [id number] Name: JANET JUAREZ Rep #: [id number] : 1970 Provider: Dr. Leatha fairbanks MD Age/Sex: 53/F Location: [facility] [place].[facility] Status: Signed Intake Vital Signs 07/21/24 10:19 [...] Medications ???Medication ???Instructions ???Recorded ???Confirmed ???Type vitamin [id number] B1 1,000 ml IM MONTHLY 06/29/19 10/13/24 [...] tabs 10/13/24 0 10/13/24 Rx iron[facility] History Grief reaction Screening for cardiovascular [...] No c (more content not included)... Normal [facility] Iron measurement (mass/mass) Ordered By: Leatha Fuentes on 10-13-2024 Iron (Unsp spec) [Mass/Mass] 17 ug/dL Low 50-170 [facility] Iron+Iron Binding Capacityon 10-13-2024 TIBC 498 ug/dL High 250-450 [facility] Comment on above: Order Comment: ADD O N Performed By: #### L 503.6550, L503.6030 #### [facility] [address] [place], [address] MCV (mean corpuscular volume ) determinationOrdered By: Efnataliebe Gina on 10-13-2024 MCV (RBC) [Entitic vol] 74.0 fL Low 81-99 [facility] Mean corpuscular hemoglobin (MCH) determinationOrdered By: Efbrendaongbe Gina on 10-13-2024 MCH (RBC) [Entitic mass] 21.3 pg Low 27.0-32.0 [facility] Mean corpuscular hemoglobin concentration (MCHC) determinationOrdered By: Efnataliebe Lakishae on 10-13-2024 MCHC (RBC) [Mass/Vol] 28.7 g/dL Low 32-36 [facility] Mean platelet volume determi nationOrdered By: Efnataliebe Lakishae on 10-13-2024 Platelet mean volume (Bld) [Entitic vol] 10.8 fL 6.2-12.0 [facility] Monocyte percentageOrdered B y: Efbrendaongbe Lakishae on 10-13-2024 Monocytes/100 WBC (Bld) 8.6 % 0-10 [facility] Neutrophil percentageOrdered By: brendaboulder cityfreddy Fuentes on 10-13-2024 Neutrophils/100 WBC (Bld) 55.0 % 47-70 [facility] No Panel InformationOrdered By: Efbrendaongbe Lakishae on 10-13-2024 Unsaturated Iron Binding Capacity 481 ug/dL High 228-428 [facility] Nucleated red blood cell per centageOrdered By: Efbrendaongbe Clydeghe on 10-13-2024 Nucleated RBC/100 WBC (Bld) [Ratio] 0 % 0-5 [facility] Platelet countOrdered By: Ef brendaongbe Lakishae on 10-13-2024 Platelets (Bld) [#/Vol] 256 10*3/uL 150-450 [facility] RBC Auto (Bld) [#/Vol]Ordere d By: Leatha Fuentes on 10-13-2024 RBC (Bld) [#/Vol] 4.00 10*6/uL Low 4.2-5.4 [facility] Serum or plasma ferritin berkley surement (mass/volume)Ordered By: Leatha Fuentes on 10-13-2024 Ferritin [Mass/Vol] 7 ng/mL Low 22-378 [facility] Serum or plasma iron saturat ion measurement (mass fraction)Ordered By: Leatha Fuentes on 10-13-2024 Iron saturation [Mass fraction] 3.4 % Low 13-59 [facility] Comment on above: Previous reported re sult: 3.0 %Edited by: FAISAL on 10/13/24:1650 AMENDED REPORT 10/13/24 1650 IRON SATURATION previously reported as: 3.0 L % White blood cell (WBC) count Ordered By: Leatha Fuentes on 10-13-2024 WBC (Bld) [#/Vol] 3.8 10*3/uL Low 4.4-11.0 [facility] Absolute lymphocyte countOrd ered By: Leatha Fuentes on 07-21-2024 Lymphocytes Auto (Unsp spec) [#/Vol] 0.84 10*3/uL 0.83-4.51 [facility] Absolute neutrophil countOrd ered By: Leatha Fuentes on 07-21-2024 Neutrophils (Bld) [#/Vol] 1.8 10*3/uL Low 2.0-7.7 [facility] Anion gap in Serum or Plasma Ordered By: Leatha Fuentes on 07-21-2024 Anion gap [Moles/Vol] 10 mmol/L 5-15 [facility] Automated lymphocyte count a s percentage of total leukocytesOrdered By: Leatha Fuentes on 07-21-2024 Lymphocytes/100 WBC Auto (Unsp spec) 27.7 % 19-41 [facility] BUN/creatinine ratioOrdered By: Leatha Fuentes on 07-21-2024 Urea nitrogen/Creatinine [Mass ratio] 21.1 mg/mg High 10-20 [facility] Basophil percentageOrdered B y: Leatha Fuentes on 07-21-2024 Basophils/100 WBC (Bld) 1.0 % 0-1 [facility] Bilirubin, totalOrdered By: Leatha Fuentes on 07-21-2024 Bilirubin [Mass/Vol] 0.20 mg/dL 0.00-1.30 [facility] CBC W/Diff, Automatedon 07-02 Absolute Lymph 0.84 X10 3/uL Normal 0.83-4.51 [facility] Comment on above: Performed By: #### L 500.4050, L500.4100, L503.0106, L506.1001, L100.0100 #### [facility] [address] [place], [address] Absolute Neut 1.8 X10 3/uL Low 2.0-7.7 [facility] Comment on above: Performed By: #### L 500.4050, L500.4100, L503.0106, L506.1001, L100.0100 #### [facility] [address] [place], [address] Basophils/100 WBC (Bld) 1.0 % Normal 0-1 [facility] Comment on above: Performed By: #### L 500.4050, L500.4100, L503.0106, L506.1001, L100.0100 #### [facility] [address] [place], [address] Eosinophils/100 WBC (Bld) 4.6 % Normal 0-5 [facility] Comment on above: Performed By: #### L 500.4050, L500.4100, L503.0106, L506.1001, L100.0100 #### [facility] [address] [place], [address] Erythrocyte distribution width (RBC) [Ratio] 13.9 % Normal 11.6-14.6 [facility] Comment on above: Performed By: #### L 500.4050, L500.4100, L503.0106, L506.1001, L100.0100 #### [facility] [address] [place], [address] Hematocrit (Bld) [Volume fraction] 31.2 % Low 37-47 [facility] Comment on above: Performed By: #### L 500.4050, L500.4100, L503.0106, L506.1001, L100.0100 #### [facility] [address] [place], [address] Hemoglobin (Bld) [Mass/Vol] 9.6 g/dL Low 12.0-15.0 [facility] Comment on above: Performed By: #### L 500.4050, L500.4100, L503.0106, L506.1001, L100.0100 #### [facility] [address] [place], [address] IG% 0.000 Normal 0.0-0.9 [facility] Comment on above: Result Comment: IG% - Immature Granulocytes (promyelocytes, myelocytes and metamyelocytes) > 1% indicates that a LEFT SHIFT is Present. Performed By: #### L 500.4050, L500.4100, L503.0106, L506.1001, L100.0100 #### [facility] [address] [place], [address] Lymphocytes/100 WBC (Bld) 27.7 % Normal 19-41 [facility] Comment on above: Performed By: #### L 500.4050, L500.4100, L503.0106, L506.1001, L100.0100 #### [facility] [address] [place], [address] MCH (RBC) [Entitic mass] 23.6 pg Low 27.0-32.0 [facility] Comment on above: Performed By: #### L 500.4050, L500.4100, L503.0106, L506.1001, L100.0100 #### [facility] [address] [place], [address] MCHC (RBC) [Mass/Vol] 30.8 g/dL Low 32-36 [facility] Comment on above: Performed By: #### L 500.4050, L500.4100, L503.0106, L506.1001, L100.0100 #### [facility] [address] [place], [address] MCV (RBC) [Entitic vol] 76.8 fL Low 81-99 [facility] Comment on above: Performed By: #### L 500.4050, L500.4100, L503.0106, L506.1001, L100.0100 #### [facility] [address] [place], [address] Monocytes/100 WBC (Bld) 7.9 % Normal 0-10 [facility] Comment on above: Performed By: #### L 500.4050, L500.4100, L503.0106, L506.1001, L100.0100 #### [facility] [address] [place], [address] Neutrophils/100 WBC (Bld) 58.8 % Normal 47-70 [facility] Comment on above: Performed By: #### L 500.4050, L500.4100, L503.0106, L506.1001, L100.0100 #### [facility] [address] [place], [address] Nucleated RBC (Bld) [#/Vol] 0 10*3/uL Normal 0-5 [facility] Comment on above: Performed By: #### L 500.4050, L500.4100, L503.0106, L506.1001, L100.0100 #### [facility] [address] [place], [address] Platelet mean volume (Bld) [Entitic vol] 10.5 fL Normal 6.2-12.0 [facility] Comment on above: Performed By: #### L 500.4050, L500.4100, L503.0106, L506.1001, L100.0100 #### [facility] [address] [place], [address] Platelets (Bld) [#/Vol] 237 10*3/uL Normal 150-450 [facility] Comment on above: Performed By: #### L 500.4050, L500.4100, L503.0106, L506.1001, L100.0100 #### [facility] [address] [place], [address] RBC (Bld) [#/Vol] 4.06 10*6/uL Low 4.2-5.4 [facility] Comment on above: Performed By: #### L 500.4050, L500.4100, L503.0106, L506.1001, L100.0100 #### [facility] [address] [place], [address] RDW SD 38.8 fl Normal 35.1-43.9 [facility] Comment on above: Performed By: #### L 500.4050, L500.4100, L503.0106, L506.1001, L100.0100 #### [facility] [address] [place], [address] WBC (Bld) [#/Vol] 3.0 10*3/uL Low 4.4-11.0 [facility] Comment on above: Performed By: #### L 500.4050, L500.4100, L503.0106, L506.1001, L100.0100 #### [facility] [address] [place], [address] Calculated total iron bindin g capacityOrdered By: Leatha Fuentes on 07-21-2024 Total Iron Binding Capacity 480 ug/dL High 250-450 [facility] Calculated very low density lipoprotein (VLDL) cholesterol measurementOrdered By: Leatha Fuentes on 07-21-2024 Calculated very low density lipoprotein (VLDL) cholesterol measurement 15 mg/dL -40 [facility] VLDL Cholesterol 15 mg/dL -40 [facility] Carbon dioxide, total [Moles /volume] in Central venous bloodOrdered By: Leatha Tangadenikeravinder on 07-21-2024 CO2 [Moles/Vol] 27.1 mmol/L 21.0-32.0 [facility] Chloride assayOrdered By: Musa brendafili Fuentes on 07-21-2024 Chloride [Moles/Vol] 103 mmol/L 98-108 [facility] Comprehensive Metabolic Prof ilon 07-21-2024 Albumin [Mass/Vol] 4.3 g/dL Normal 3.5-5.0 [facility] Comment on above: Performed By: #### L 500.4050, L500.4100, L503.0106, L506.1001, L100.0100 #### [facility] [address] [place], [address] Albumin/Globulin [Mass ratio] 1.5 {ratio} Normal 0.9-2.4 [facility] Comment on above: Performed By: #### L 500.4050, L500.4100, L503.0106, L506.1001, L100.0100 #### [facility] [address] [place], [address] ALK PHOS 94 U/L Normal 35-104 [facility] Comment on above: Performed By: #### L 500.4050, L500.4100, L503.0106, L506.1001, L100.0100 #### [facility] [address] [place], [address] ALT [Catalytic activity/Vol] 15 U/L Normal <=34 [facility] Comment on above: Performed By: #### L 500.4050, L500.4100, L503.0106, L506.1001, L100.0100 #### [facility] [address] [place], [address] AST [Catalytic activity/Vol] 23 U/L Normal <=31 [facility] Comment on above: Performed By: #### L 500.4050, L500.4100, L503.0106, L506.1001, L100.0100 #### [facility] [address] [place], [address] Bilirubin [Mass/Vol] 0.20 mg/dL Normal 0.00-1.30 [facility] Comment on above: Performed By: #### L 500.4050, L500.4100, L503.0106, L506.1001, L100.0100 #### [facility] [address] [place], [address] BUN/CRE 21.1 RATIO High 10-20 [facility] Comment on above: Performed By: #### L 500.4050, L500.4100, L503.0106, L506.1001, L100.0100 #### [facility] [address] [place], [address] Calcium [Mass/Vol] 9.6 mg/dL Normal 7.6-11.0 [facility] Comment on above: Performed By: #### L 500.4050, L500.4100, L503.0106, L506.1001, L100.0100 #### [facility] [address] [place], [address] Chloride [Moles/Vol] 103 mmol/L Normal 98-108 [facility] Comment on above: Performed By: #### L 500.4050, L500.4100, L503.0106, L506.1001, L100.0100 #### [facility] [address] [place], [address] CO2 [Moles/Vol] 27.1 mmol/L Normal 21.0-32.0 [facility] Comment on above: Performed By: #### L 500.4050, L500.4100, L503.0106, L506.1001, L100.0100 #### [facility] [address] [place], [address] Creatinine [Mass/Vol] 0.87 mg/dL Normal 0.70-1.20 [facility] Comment on above: Performed By: #### L 500.4050, L500.4100, L503.0106, L506.1001, L100.0100 #### [facility] [address] [place], [address] GAP 10 Normal 5-15 [facility] Comment on above: Performed By: #### L 500.4050, L500.4100, L503.0106, L506.1001, L100.0100 #### [facility] [address] [place], [address] GFR/1.73 sq M.predicted among non-blacks MDRD (S/P/Bld) [Vol rate/Area] 79 mL/min/{1.73_m2} Normal >60 [facility] Comment on above: Result Comment: mL/m in/1.73m2 CKD-EPI Creatinine Equation (2020) Performed By: #### L 500.4050, L500.4100, L503.0106, L506.1001, L100.0100 #### [facility] [address] [place], [address] Globulin (S) [Mass/Vol] 2.9 g/dL Normal 2.2-4.2 [facility] Comment on above: Performed By: #### L 500.4050, L500.4100, L503.0106, L506.1001, L100.0100 #### [facility] [address] [place], [address] Glucose [Mass/Vol] 91 mg/dL Normal 70-99 [facility] Comment on above: Performed By: #### L 500.4050, L500.4100, L503.0106, L506.1001, L100.0100 #### [facility] [address] [place], [address] Potassium [Moles/Vol] 3.9 mmol/L Normal 3.3-5.1 [facility] Comment on above: Performed By: #### L 500.4050, L500.4100, L503.0106, L506.1001, L100.0100 #### [facility] [address] [place], [address] Sodium [Moles/Vol] 140 mmol/L Normal 133-145 [facility] Comment on above: Performed By: #### L 500.4050, L500.4100, L503.0106, L506.1001, L100.0100 #### [facility] [address] [place], [address] T PROT 7.2 g/dL Normal 5.9-8.4 [facility] Comment on above: Performed By: #### L 500.4050, L500.4100, L503.0106, L506.1001, L100.0100 #### [facility] [address] [place], [address] Urea nitrogen [Mass/Vol] 18 mg/dL Normal 4-19 [facility] Comment on above: Performed By: #### L 500.4050, L500.4100, L503.0106, L506.1001, L100.0100 #### [facility] [address] [place], [place], [address] Eosinophil percentageOrdered By: Leatha Fuentes on 07-21-2024 Eosinophils/100 WBC (Bld) 4.6 % 0-5 [facility] Erythrocyte distribution wid th ratioOrdered By: [facility] Tangadenikeravinder on 07-21-2024 Erythrocyte distribution width (RBC) [Ratio] 13.9 % 11.6-14.6 [facility] Erythrocyte distribution wid th standard deviationOrdered By: [facility] Hospitalfreddy Banuelosravinder on 07-21-2024 Erythrocyte distribution width (RBC) [Entitic vol] 38.8 fL 35.1-43.9 [facility] Erythrocyte distribution width (RBC) [Ratio] 38.8 fl 35.1-43.9 [facility] Ferritinon 07-21-2024 Ferritin [Mass/Vol] 6 ng/mL Low 22-378 [facility] Comment on above: Performed By: #### L 503.6550, L503.6030 #### [facility] [address] [place], [place], [address] GFR/1.73 sq M.predicted martin g non-blacks MDRD (S/P/Bld) [Vol rate/Area]Ordered By: Leatha Fuentes on 07-21-2024 Estimated GFR (MDRD) Non-Af Amer 79 >60 [facility] Comment on above: mL/min/1.73m2 CKD-EP I Creatinine Equation (2020) Glomerular filtration rate ( GFR) estimation/1.73 sq m using serum, plasma, or whole bOrdered By: Leatha Fuentes on 07-21-2024 GFR/1.73 sq M.predicted among non-blacks MDRD (S/P/Bld) [Vol rate/Area] 79 mL/min/{1.73_m2} >60 [facility] Comment on above: mL/min/1.73m2 CKD-EP I Creatinine Equation (2020) Hematocrit Auto (Bld) [Volum e fraction]Ordered By: Leatha Fuentes on 07-21-2024 Hematocrit (Bld) [Volume fraction] 31.2 % Low 37-47 [facility] Hemoglobin measurementOrdere d By: Leatha Fuentes on 07-21-2024 Hemoglobin (Bld) [Mass/Vol] 9.6 g/dL Low 12.0-15.0 [facility] Immature granulocytes/100 WB C Auto (Bld)Ordered By: Leatha Fuentes on 07-21-2024 Immature granulocytes/100 WBC (Bld) 0.000 % 0.0-0.9 [facility] Comment on above: IG% - Immature Granu locytes (promyelocytes, myelocytes and metamyelocytes) > 1% indicates that a LEFT SHIFT is Present. Internal Medicine Office Vis iton 07-21-2024 Internal Medicine Office Visit [facility] [address] [place] [address] [place] [address] OFFICE VISIT Date of Service: 07/21/24 MR#: [id number] Acct: [id number] Name: JANET JUAREZ Rep #: [id number] : 1970 Provider: Dr. Leatha fairbanks MD Age/Sex: 53/F Location: [facility] Status: Signed Intake Vital Signs 03/23/24 17:41 [...] TID 07/09/14 07/21/24 Hi story iron) tablet yxtzterifhsu-Hc-xrbx- minerals 1 tab PO TID 07/09/14 07/21/24 His tory calcium carbonate 500 mg PO TID 09/11/14 07/21/24 Hi story cholecalciferol (vitamin D3) 50 2,000 unit PO DAILY 06/23/1907/21 History mcg (2,000 unit) chewable tablet Lactobacills gasseri-Bifidobac cap PO DAILY 06/29/19 07/21/24 His tory bifidum,longum 1.5 billion cell capsule ([employer]) vitamin W90-luleths B1 1,000 ml IM MONTHLY 06/29/19 07/21/24 [...] Cardiology: No (more content not included)... Normal [facility] Iron (Unsp spec) [Mass/Mass] Ordered By: Leatha Fuentes on 07-21-2024 Iron [Mass/Vol] 19 ug/dL Low 50-170 [facility] Iron measurement (mass/mass) Ordered By: Leatha Fuentes on 07-21-2024 Iron (Unsp spec) [Mass/Mass] 19 ug/dL Low 50-170 [facility] Iron saturation [Mass fracti on]Ordered By: Leatha Fuentes on 07-21-2024 Iron Saturation 4.0 % Low 13-59 [facility] Iron+Iron Binding Capacityon 07-21-2024 TIBC 480 ug/dL High 250-450 [facility] Comment on above: Performed By: #### L 503.6550, L503.6030 #### [facility] [address] [place], [address] L503.0106on 07-21-2024 Cobalamin (Vitamin B12) [Mass/Vol] 475 pg/mL Normal 180-914 [facility] Comment on above: Performed By: #### L 500.4050, L500.4100, L503.0106, L506.1001, L100.0100 ####[facility] [address] [place], [address] L506.1001on 07-21-2024 Vitamin D 25-OH 25.8 ng/mL Low 30-100 [facility] Comment on above: Result Comment: Fern min D Status Deficiency: <20 ng/mL (50nmol/L) Insufficiency: 20-30 ng/mL (50-75 nmol/L) Sufficiency: 30-100 ng/mL (75-250 nmol/L) Toxicity: >100 ng/mL (>250 nmol/L) Performed By: #### L 500.4050, L500.4100, L503.0106, L506.1001, L100.0100 ####[facility] [address] [place], [address] LDL calc ser/plasOrdered By: Leatha Fuentes on 07-21-2024 Cholesterol in LDL [Mass/Vol] 82 mg/dL [facility] Comment on above: Ufljbbsqgw=998-495 m g/dL & Higher Zhge=768 mg/dL or greater LDL Cholesterol, Calculated 82 mg/dL [facility] Comment on above: Jnfcsfwyin=735-304 m g/dL & Higher Bzzg=773 mg/dL or greater Laboratory - Chemistry and C hemistry - challengeOrdered By: Leatha Fuentes on 07-21-2024 AST [Catalytic activity/Vol] 23 U/L <32 [facility] Lipid Profileon 07-21-2024 CHOL:HDL 2.32 Normal [facility] Comment on above: Performed By: #### L 500.4050, L500.4100, L503.0106, L506.1001, L100.0100 ####[facility] [address] [place], [address] Cholesterol [Mass/Vol] 170 mg/dL Normal <=200 [facility] Comment on above: Result Comment: Chol esterol level, Desirable <200 mg/dL Borderline high cholesterol 200-239 mg/dL High cholesterol >=240 mg/dL Recommendations of the NCEP Adult Treatment Panel for the following risk-cutoff thresholds for the [place] population. Performed By: #### L 500.4050, L500.4100, L503.0106, L506.1001, L100.0100 ####[facility] [address] [place], [address] Cholesterol in HDL [Mass/Vol] 73 mg/dL Normal [facility] Comment on above: Result Comment: Gale onal Cholesterol Education Program (NCEP) guidelines: <40 mg/dL: Low HDL-cholesterol (major risk factor for CHD) >= 60 mg/dL: High HDL-cholesterol (negative risk factor for CHD) HDL-cholesterol is affected by a number of factors, e.g. smoking, exercise, hormones, sex and age. Performed By: #### L 500.4050, L500.4100, L503.0106, L506.1001, L100.0100 ####[facility] [address] [place], [address] Cholesterol in LDL [Mass/Vol] 82 mg/dL Normal [facility] Comment on above: Result Comment: Bord uxfixg=872-554 mg/dL Higher Tdwc=166 mg/dL or greater Performed By: #### L 500.4050, L500.4100, L503.0106, L506.1001, L100.0100 ####[facility] [address] [place], [place], [id number] Cholesterol in VLDL [Mass/Vol] 15 mg/dL Normal 5-40 [facility] Comment on above: Performed By: #### L 500.4050, L500.4100, L503.0106, L506.1001, L100.0100 ####[facility] [address] [place], [address] Triglyceride [Mass/Vol] 75 mg/dL Normal [facility] Comment on above: Result Comment: The drugs N-Acetylcysteine and Metamizole may falsely depress this assay. Normal range: <150 mg/dL Borderline High: 150-199 mg/dL High: 200-499 mg/dL Very High: >500 mg/dL Performed By: #### L 500.4050, L500.4100, L503.0106, L506.1001, L100.0100 ####[facility] [address] [place], [place], [id number] Lymphocytes Auto (Unsp spec) [#/Vol]Ordered By: Leatha Fuentes on 07-21-2024 Lymphocytes (Bld) [#/Vol] 0.84 10*3/uL 0.83-4.51 [facility] Lymphocytes/100 WBC Auto (Un sp spec)Ordered By: Leatha Fuentes on 07-21-2024 Lymphocytes/100 WBC (Bld) 27.7 % 19-41 [facility] MCV (mean corpuscular volume ) determinationOrdered By: Leatha Fuentes on 07-21-2024 MCV (RBC) [Entitic vol] 76.8 fL Low 81-99 [facility] Mean corpuscular hemoglobin (MCH) determinationOrdered By: Leatha Fuentes on 07-21-2024 MCH (RBC) [Entitic mass] 23.6 pg Low 27.0-32.0 [facility] Mean corpuscular hemoglobin concentration (MCHC) determinationOrdered By: Leatha Fuentes on 07-21-2024 MCHC (RBC) [Mass/Vol] 30.8 g/dL Low 32-36 [facility] Mean platelet volume determi nationOrdered By: Leatha Fuentes on 07-21-2024 Platelet mean volume (Bld) [Entitic vol] 10.5 fL 6.2-12.0 [facility] Monocyte percentageOrdered B y: Leatha Fuentes on 07-21-2024 Monocytes/100 WBC (Bld) 7.9 % 0-10 [facility] Neutrophil percentageOrdered By: Tripp[place] cityfreddy Fuentes on 07-21-2024 Neutrophils/100 WBC (Bld) 58.8 % 47-70 [facility] No Panel InformationOrdered By: Leatha Fuentes on 07-21-2024 Unsaturated Iron Binding Capacity 461 ug/dL High 228-428 [facility] Nucleated red blood cell per centageOrdered By: Tripp[place] cityfreddy Tangulises on 07-21-2024 Nucleated RBC/100 WBC (Bld) [Ratio] 0 % 0-5 [facility] Office Visit Reporton 2024 Office Visit Report [facility] [address] [place] [address] OFFICE VISIT Date of Service: 07/21/24 MR#: [id number] Acct: [id number] Patient: JANET JUAREZ Rep #: [id number] : 1970 Provider: MOHINI NURSE Age/Sex: 53/F Location: [facility] Status: Signed Intake Vital Signs 07/21/24 10:19 [...] 07/21/24 10:18) Other 07/21/24 1627 Date Leatha Fuentes MD Cosigner Signature: Date (if applicable) CC: Normal [facility] Platelet countOrdered By: Musa Fuentes on 07-21-2024 Platelets (Bld) [#/Vol] 237 10*3/uL 150-450 [facility] Potassium (Unsp spec) [Mass/ Vol]Ordered By: Leatha Fuentes on 07-21-2024 Potassium [Moles/Vol] 3.9 mmol/L 3.3-5.1 [facility] Potassium measurement (mass/ volume)Ordered By: Leatha Fuentes on 07-21-2024 Potassium (Unsp spec) [Mass/Vol] 3.9 mmol/L 3.3-5.1 [facility] RBC Auto (Bld) [#/Vol]Ordere d By: Leatha Fuentes on 07-21-2024 RBC (Bld) [#/Vol] 4.06 10*6/uL Low 4.2-5.4 [facility] Screening total cholesterol/ high density lipoprotein (HDL) cholesterol ratioOrdered By: Leatha Fuentes on 07-21-2024 Cholesterol.total/Jayashree sterol in HDL [Mass ratio] 2.32 {ratio} [facility] Serum creatinine measurement (mass/volume)Ordered By: Leatha Fuentes on 07-21-2024 Creatinine [Mass/Vol] 0.87 mg/dL 0.70-1.20 [facility] Serum globulin measurementOr dered By: Leatha Fuentes on 07-21-2024 Globulin (S) [Mass/Vol] 2.9 g/dL 2.2-4.2 [facility] Serum glucose measurement (m ass/volume)Ordered By: Leatha Fuentes on 07-21-2024 Glucose [Mass/Vol] 91 mg/dL 70-99 [facility] Serum or plasma alanine chapman otransferase (ALT) measurementOrdered By: Leatha Fuentes on 07-21-2024 ALT [Catalytic activity/Vol] 15 U/L <35 [facility] Serum or plasma albumin gertrude urement (mass/volume)Ordered By: Leatha Fuentes on 07-21-2024 Albumin [Mass/Vol] 4.3 g/dL 3.5-5.0 [facility] Serum or plasma albumin/glob ulin mass ratioOrdered By: [facility] on 07-21-2024 Albumin/Globulin [Mass ratio] 1.5 {ratio} 0.9-2.4 [facility] Serum or plasma alkaline claude sphatase measurementOrdered By: Leatha Fuentes on 07-21-2024 ALP [Catalytic activity/Vol] 94 U/L 35-104 [facility] Serum or plasma calcium gertrude urement (mass/volume)Ordered By: Leatha Fuentes 07-21-2024 Calcium [Mass/Vol] 9.6 mg/dL 7.6-11.0 [facility] Serum or plasma cholesterol in HDL measurement (mass/volume)Ordered By: Leatha Fuentes 07-21-2024 Cholesterol in HDL [Mass/Vol] 73 mg/dL >40 [facility] Comment on above: National Cholesterol Education Program (NCEP) guidelines:<40 mg/dL: Low HDL-cholesterol (major risk factor for CHD)>= 60 mg/dL: High HDL-cholesterol (negative risk factor for CHD)HDL-cholesterol is affected by a number of factors, e.g. smoking, exercise, hormones, sex and age. Serum or plasma cholesterol measurement (mass/volume)Ordered By: Leatha Fuentes on 07-21-2024 Cholesterol [Mass/Vol] 170 mg/dL <201 [facility] Comment on above: Cholesterol level, D esirable <200 mg/dLBorderline high cholesterol 200-239 mg/dLHigh cholesterol >=240 mg/dLRecommendations of the NCEP Adult Treatment Panel for the following risk-cutoff thresholds for the [place] population. Serum or plasma ferritin berkley surement (mass/volume)Ordered By: Leatha Fuentes on 07-21-2024 Ferritin [Mass/Vol] 6 ng/mL Low 22-378 [facility] Serum or plasma iron saturat ion measurement (mass fraction)Ordered By: Leatha Fuentes on 07-21-2024 Iron saturation [Mass fraction] 4.0 % Low 13-59 [facility] Serum or plasma urea nitroge n measurement (mass/volume)Ordered By: Leatha Fuentes on 07-21-2024 Urea nitrogen [Mass/Vol] 18 mg/dL 4-19 [facility] Sodium levelOrdered By: Tripp marinevaravinder Fuentes on 07-21-2024 Sodium [Moles/Vol] 140 mmol/L 133-145 [facility] Total proteinOrdered By: Jerzy Fuentes on 07-21-2024 Protein [Mass/Vol] 7.2 g/dL 5.9-8.4 [facility] Triglycerides measurementOrd ered By: Leatha Fuentes on 07-21-2024 Triglyceride [Mass/Vol] 75 mg/dL <199 [facility] Comment on above: The drugs N-Acetylcy steine and Metamizole may falsely depress this assay. Normal range: <150 mg/dLBorderline High: 150-199 mg/dLHigh: 200-499 mg/dLVery High: >500 mg/dL Vitamin B12 ser/plasOrdered By: Leatha Fuentes on 07-21-2024 Cobalamin (Vitamin B12) [Mass/Vol] 475 pg/mL 180-914 [facility] Vitamin D, 25-hydroxyOrdered By: Leatha Fuentes on 07-21-2024 Vitamin D 25-Hydroxy 25.8 ng/mL Low 30-100 [facility] Comment on above: Vitamin D StatusDefi ciency: <20 ng/mL (50nmol/L)Insufficiency: 20-30 ng/mL (50-75 nmol/L)Sufficiency: 30-100 ng/mL (75-250 nmol/L)Toxicity: >100 ng/mL (>250 nmol/L) White blood cell (WBC) count Ordered By: Leatha Fuentes on 07-21-2024 WBC (Bld) [#/Vol] 3.0 10*3/uL Low 4.4-11.0 [facility] iton 03-23-2024 Internal Medicine Office Visit [facility] [address] [place] [address] [place] [address] OFFICE VISIT Date of Service: 03/23/24 MR#: [id number] Acct: [id number] Name: JANET JUAREZ Rep #: [id number] : 1970 Provider: Dr. Leatha fairbanks MD Age/Sex: 53/F Location: 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 Accompanied by: Self Is patient in pain?: No Allergies codeine Adverse Reaction (Verified 03/23/24 17:36) Nausea/Vom/Diarrhea metronidazole (From Flagyl) Adverse Reaction (Verified 03/23/24 17:36) Nausea/Vom/Diarrhea NSAIDS (Non-Steroidal Anti-Inflamma Adverse Reaction (Verified 03/23/24 17:36) Other Medications ???Medication ???Instructions ???Recorded ???Confirmed ???Type ferrous sulfate 325 mg (65 mg 325 mg PO TID 07/09/14 03/23/24 History iron) tablet qwcdgeyqinib-Jg-rotz- minerals 1 tab PO TID 07/09/14 03/23/24 History calcium carbonate 500 mg PO TID 09/11/14 03/23/24 History cholecalciferol (vitamin D3) 50 2,000 unit PO DAILY 06/23/19 03/23/24 History mcg (2,000 unit) chewable tablet Lactobacills gasseri-Bifidobac cap PO DAILY 06/29/19 03/23/24 History bifidum,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 Normal [facility] XR CHEST 2V FRONTAL/LATon XR CHEST 2V [...] IMPRESSION: No developing abnormality or acute process Manufacturing Technology Analyst: KASSIDY Transcribe Date/Time: Mar 02 2024 4:50P Dictated by : EILEEN KAPOOR MD This examination was interpreted and the report reviewed and electronically signed by: EILEEN KAPOOR MD on Mar 02 2024 4:52PM EST [id number] Normal [facility] [id number] 02-29-2024 [id number] HNO ID: [id number] Author: MAUREEN UNDERWOOD RN Service: ? Author Type: Registered Nurse Type: [id number] Filed: 02/29/2024 08:13 Note Text: The patient received a copy of Colonoscopy discharge instructions that contain information for how to contact the physician who performed the procedure and when to seek medical care. Normal [facility] Colonoscopyon 02-29-2024 Colonoscopy [place] [facility] Gastrointestinal Endoscopy Patient Name: Janet Juarez Procedure [...] previous diet. Procedure Code(s): --- Professional --- 17678, Colonoscopy, flexible; diagnostic, including collection of specimen(s) by brushing or washing, when performed (separate procedure) 34443, 59, Moderate sedation services provided by the same physician or other qualified health respiratory care faculty performing the diagnostic or therapeutic service that the sedation supports, requiring the presence of an independent trained observer to assist in the monitoring of the patient's level of consciousness and physiological status; initial 15 minutes of intraservice time, patient age 5 years or older [address], Moderate sedation; each additional 15 minutes intraservice time Diagnosis Code(s): --- Professional --- K64.8, Other hemorrhoids Z85.038, Personal history of other malignant neoplasm of large intestine Z12.11, Encounter for screening for malignant neoplasm of colon CPT copyright 2020 [employer]. All rights reserved. The codes documented in this report are preliminary and upon outpatient coder review may be revised to meet current compliance requirements. Attending Participation: I personally performed the entire procedure. Scope In: 7:34:08 AM Scope Out: 7:55:[address] Jess Ross, (more content not included)... Normal [facility] Colonoscopy Study observatio non 02-29-2024 [place] [facility] Gastrointestinal Endoscopy Patient Name: Janet Juarez Procedure [...] present medications. (more content not included)... PROVATION [facility] Radiology Study observation (narrative) [facility] HISTORY PHYSICALon HISTORY PHYSICAL HNO ID: [id number] Author: JESS ROSS MD Service: General Surgery Author Type: Physician Type: H&P Filed: 02/29/2024 07:22 Note Text: HISTORY AND PHYSICAL Janet Juarez 1970 REFERRING [...] no further questions. . Jess Ross MD [facility] NURSING PROGon 02-29-2024 NURSING PROG HNO ID: [id number] Author: MAUREEN UNDERWOOD RN Service: ? Author Type: Registered Nurse Type: Nursing Progress Note Filed: 02/29/2024 08:27 Note Text: Patient awakens easily, denies pain, cramping or nausea, does not want food or drink yet, will continue to rest on left side for now. Normal [facility] NURSING PROG HNO ID: [id number] Author: MAUREEN UNDERWOOD, RN Service: ? Author Type: Registered Nurse Type: Nursing Progress Note Filed: 02/29/2024 08:12 Note Text: Patient received in phase II via cart in left lateral position, eyes closed but open to verbal stimuli, skin warm and dry, respirations regular and unlabored, abdomen non distended, denies nausea or pain, resting comfortably on left side. Normal [facility] CEA SerPl-mCncon 02-23-2024 Carcinoembryonic Ag [Mass/Vol] 3.7 ng/mL High <=2.9 [facility] Comment on above: Order Comment: Speci men Type: BLOOD SPECIMEN Ordering Facility: [facility] Address: [address] [place] [address] Result Comment: Carc inoembryonic antigen test is used as an aid in monitoring response to treatment or recurrence in patients with established colorectal, breast, lung, prostatic, pancreatic, and ovarian carcinomas. Clinical correlation is required. The Carcinoembryonic antigen test was performed using the Cardicael DXI paramagnetic particle chemiluminescent immunoassay method. Results obtained with different assay methods or kits cannot be used interchangeably. Performed By: #### 2 039-6 #### [facility] CLIA [id number] [address] [place] [address] [place] [address] [address] ABD/PEL W IVCONon 17- 024 CT ABD/PEL W IVCON * * *Final Report* * * DATE OF EXAM: Feb 17 2024 2:29PM [facility] 0530 - CT ABD/PEL W IVCON / [...] to cholecystectomy/reser voir effect. Recommend clinical/laboratory correlation. Manufacturing Technology Analyst: KASSIDY Transcribe Date/Time: Feb 17 2024 3:27P Dictated by : KHOI AMIN MD This examination was interpreted and the report reviewed and electronically signed by: KHOI AMIN MD on Feb 17 2024 3:32PM EST [id number] Normal [facility] CT Abdomen and Pelvis W cont rast Shireen 02-17-2024 IMPRESSION: No acute findings or significant pathology. 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 Mild stable prominence of postcholecystectomy biliary tree likely related to cholecystectomy/reser voir effect. Recommend clinical/laboratory correlation. Manufacturing Technology Analyst: KASSIDY Transcribe Date/Time: Feb 17 2024 3:27P Dictated by : KHOI AMIN MD This examination was interpreted and the report reviewed and electronically signed by: KHOI AMIN MD on Feb 17 2024 3:32PM EST DIVISION OF RADIOLOGY * * *Final Report* * * DATE OF EXAM: Feb 17 2024 2:29PM [facility] 0530 - CT ABD/PEL W IVCON / [...] body wall findings. DIVISION OF RADIOLOGY Provider, [facility] - 02/17/2024 * * *Final Report* * * DATE OF EXAM: Feb 17 2024 2:29PM [facility] 0530 - CT ABD/PEL W IVCON / [...] to cholecystectomy/reser voir effect. Recommend clinical/laboratory correlation. Manufacturing Technology Analyst: KASSIDY Transcribe Date/Time: Feb 17 2024 3:27P Dictated by : KHOI AMIN MD This examination was interpreted and the report reviewed and electronically signed by: KHOI AMIN MD on Feb 17 2024 3:32PM EST [facility] Radiology Study observation (narrative) [facility] Abdomen and Pelvis W cont rast IVOrdered By: Ccf Provider on 02-17-2024 [facility] 02-07-2024 CNPN Telephone (GENSWS) JANET JUAREZ ([id number]) 1970 F [facility] Date Time Provider Department 02/07/24 ASHA HERNNADEZ GENSWS During your visit today, we recorded [...] fatigue [R53.81, R53.83] Order(s):BLOOD GLUCOSE MONITORING (POC) [8531927] Order #: [id number]: 1 Prescriptions as of 02/07/2024 - ondansetron [...] Status:Closed by ASHA HERNANDEZ on 02/07/24 Normal [facility] GLUCOSE, BLOOD (POC)on 01-11 Glucose [Mass/Vol] 189 mg/dL Abnormal 74 - 99 mg/dL [facility] Comment on above: Location:[facility], [address] [place] [address] The Accu-Chek Inform II glucose meter has [...] Interpretation and review of laboratory results Abnormal [facility] Glucose [Mass/Vol] 183 mg/dL Abnormal 74 - 99 mg/dL [facility] Comment on above: Glu2: Repeat Immedia tely Location:[facility], [facility] [address] [place] [id number] The Accu-Chek Inform II glucose meter has [...] Interpretation and review of laboratory results Abnormal [facility] Glucose [Mass/Vol] 56 mg/dL Abnormal 74 - 99 mg/dL [facility] Comment on above: Glu2: Critical Notif ied Location:[facility], [address] , [place], [address] The Accu-Chek Inform II glucose meter has [...] Interpretation and review of laboratory results Abnormal [facility] XR RIB/CHST 3V AP RIB/OBL/CH ST Alex [...] the lateral right seventh rib. No pneumothorax. Manufacturing Technology Analyst: PSCB Transcribe Date/Time: Nov 01 2023 8:50A Dictated by : BARBRA BLEDSOE MD This examination was interpreted and the report reviewed and electronically signed by: BARBRA BLEDSOE MD on Nov 01 2023 8:52AM EST [id number] Normal [facility] Absolute lymphocyte countOrd ered By: Dr. Fuentes on 06-10-2022 Lymphocytes Auto (Unsp spec) [#/Vol] 1.33 10*3/uL 0.83-4.51 [facility] Basophil percentageOrdered B y: Dr. Fuentes on 06-10-2022 Basophils/100 WBC (Bld) 0.8 % 0-1 [facility] Bilirubin [Mass/Vol] 0.30 mg/dL 0.20-1.00 [facility] Comment on above: For patients on eltr ombopag therapy, use of Dimension Harvey TBIL is not recommended. Chloride [Moles/Vol] 108 mmol/L 98-107 [facility] Eosinophils/100 WBC (Bld) 2.8 % 0-5 [facility] Glucose [Mass/Vol] 72 mg/dL 74-106 [facility] Neutrophils (Bld) [#/Vol] 2.9 10*3/uL 2.0-7.7 [facility] Neutrophils/100 WBC (Bld) 58.7 % 47-70 [facility] Potassium [Moles/Vol] 4.0 mmol/L 3.5-5.1 [facility] Protein [Mass/Vol] 7.2 g/dL 6.4-8.2 [facility] Sodium [Moles/Vol] 143 mmol/L 136-145 [facility] WBC (Bld) [#/Vol] 5.0 10*3/uL 4.4-11.0 [facility] Blood erythrocytes count (nu mber/volume)Ordered By: Dr. Fuentes on 06-10-2022 RBC (Bld) [#/Vol] 4.04 10*6/uL 4.2-5.4 [facility] Blood hemoglobin measurement (mass/volume)Ordered By: Dr. Fuentes on 06-10-2022 Hemoglobin (Bld) [Mass/Vol] 11.4 g/dL 12.0-15.0 [facility] Blood lymphocytes/100 leukoc ytesOrdered By: Dr. Fuentes on 06-10-2022 Lymphocytes/100 WBC (Bld) 26.7 % 19-41 [facility] Blood monocytes/100 leukocyt esOrdered By: Dr. Fuentes on 06-10-2022 Monocytes/100 WBC (Bld) 10.8 % 0-10 [facility] Blood platelet mean volumeOr dered By: Dr. Fuentes on 06-10-2022 Platelet mean volume (Bld) [Entitic vol] 9.9 fL 6.2-12.0 [facility] Determination of erythrocyte mean corpuscular volume (MCV)Ordered By: Dr. Fuentes on 06-10-2022 MCV (RBC) [Entitic vol] 89.6 fL 81-99 [facility] Hematocrit Auto (Bld) [Volum e fraction]Ordered By: Dr. Fuentes on 06-10-2022 Hematocrit (Bld) [Volume fraction] 36.2 % 37-47 [facility] Laboratory - Chemistry and C hemistry - challengeOrdered By: Dr. Fuentes on 06-10-2022 ALP [Catalytic activity/Vol] 115 U/L 45-117 [facility] ALT [Catalytic activity/Vol] 33 U/L 13-56 [facility] CO2 [Moles/Vol] 31.0 mmol/L 21.0-32.0 [facility] Free T4 [Mass/Vol] 0.99 ng/dL 0.76-1.46 [facility] Globulin (S) [Mass/Vol] 3.5 g/dL 2.2-4.2 [facility] Urea nitrogen/Creatinine [Mass ratio] 31.3 mg/mg 10-20 [facility] Laboratory - Hematology and Cell countsOrdered By: Dr. Fuentes on 06-10-2022 Erythrocyte distribution width (RBC) [Entitic vol] 41.0 fL 35.1-43.9 [facility] Erythrocyte distribution width (RBC) [Ratio] 12.4 % 11.6-14.6 [facility] Immature granulocytes/100 WBC (Bld) 0.200 % 0.0-0.9 [facility] Comment on above: IG% - Immature Granu locytes (promyelocytes, myelocytes and metamyelocytes) > 1% indicates that a LEFT SHIFT is Present. MCH (RBC) [Entitic mass] 28.2 pg 27.0-32.0 [facility] Nucleated RBC/100 WBC (Bld) [Ratio] 0 % 0-5 [facility] MCHC Auto (RBC) [Mass/Vol]Or dered By: Dr. Fuentes on 06-10-2022 MCHC (RBC) [Mass/Vol] 31.5 g/dL 32-36 [facility] No Panel InformationOrdered By: Dr. Fuentes on 06-10-2022 Estimated GFR (MDRD) Amer 89 mL/min >60 [facility] Comment on above: GFR Calc Estimated GFR (MDRD) Non-Af Amer 73 mL/min >60 [facility] Comment on above: Non- GFR Calc Thyroid Stimulating Hormone (TSH) 1.82 uIU/mL 0.358-3.74 [facility] Platelets bldOrdered By: Dr. Fuentes on 06-10-2022 Platelets (Bld) [#/Vol] 212 10*3/uL 150-450 [facility] Serum or plasma albumin gertrude urement (mass/volume)Ordered By: Dr. Fuentes on 06-10-2022 Albumin [Mass/Vol] 3.7 g/dL 3.2-5.0 [facility] Serum or plasma albumin/glob ulin mass ratioOrdered By: Dr. Fuentes on 06-10-2022 Albumin/Globulin [Mass ratio] 1.1 {ratio} 0.9-2.4 [facility] Serum or plasma calcium gertrude urement (mass/volume)Ordered By: Dr. Fuentes on 06-10-2022 Calcium [Mass/Vol] 8.8 mg/dL 8.5-10.1 [facility] Serum or plasma creatinine m easurement (mass/volume)Ordered By: Dr. Fuentes on 06-10-2022 Creatinine [Mass/Vol] 0.86 mg/dL 0.55-1.02 [facility] Comment on above: The validity of the calculated GFR & GFRAA in patients over 70 years has not been determined. Clinical correlation is essential. Serum or plasma urea nitroge n measurement (mass/volume)Ordered By: Dr. Fuentes on 06-10-2022 Urea nitrogen [Mass/Vol] 27 mg/dL 7-18 [facility] Thin prep Papanicolaou smear with manual screeningOrdered By: Dr. Fuenets on 06-10-2022 Thin prep Papanicolaou smear with manual screening 21 U/L 15-37 [facility] Thin prep Papanicolaou smear with manual screening 4 5-15 [facility] SURGICAL PATHOLOGYon 022 Case Report Surgical Pathology Report Case: [id number] Authorizing Provider: Bhupinder Peace MD Collected: 02/04/2022 07:41 AM Ordering Location: General Surgery Received: 02/04/2022 04:59 PM Pathologist: Aftab George MD, PhD Specimens: A) - SKIN PUNCH EXCISION, right leg B) - SKIN PUNCH EXCISION, left forearm [facility] Clinical History atypical skin lesion[right leg [facility] FINAL DIAGNOSIS A. Skin, right leg, punch excision: - Early seborrheic keratosis. B. Skin, left forearm, punch excision: - Inflamed seborrheic keratosis. AF//kr 02/05/2022 [facility] Gross Description A. SKIN PUNCH EXCISION Received [...] in one cassette. Gross examination performed at [facility], [address] [place] [address] JT 02/04/2022 9:11 PM [facility] Performing Lab Diagnostic interpretation performed at [place] [address] CLIA# [id number] Observatory Director: Ace Fry M.D. [facility] Absolute lymphocyte counton 08-06-2021 Lymphocytes Auto (Unsp spec) [#/Vol] 0.97 10*3/uL 0.83-4.51 [facility] Work Phone: Basophil percentageon 2021 Basophils/100 WBC (Bld) 0.5 % 0-1 [facility] Work Phone: Bilirubin [Mass/Vol] 0.40 mg/dL 0.20-1.00 [facility] Work Phone: Comment on above: For patients on eltr ombopag therapy, use of Dimension Harvey TBIL is not recommended. Chloride [Moles/Vol] 105 mmol/L 98-107 [facility] Work Phone: Cholesterol [Mass/Vol] 160 mg/dL <200 [facility] Work Phone: Comment on above: <200 mg/dL Desirable 200-240 mg/dL Borderline >240 mg/dL High Risk Eosinophils/100 WBC (Bld) 3.8 % 0-5 [facility] Work Phone: Glucose [Mass/Vol] 87 mg/dL 74-106 [facility] Work Phone: Neutrophils (Bld) [#/Vol] 2.2 10*3/uL 2.0-7.7 [facility] Work Phone: Neutrophils/100 WBC (Bld) 60.1 % 47-70 [facility] Work Phone: Potassium [Moles/Vol] 3.8 mmol/L 3.5-5.1 [facility] Work Phone: Protein [Mass/Vol] 7.1 g/dL 6.4-8.2 [facility] Work Phone: Sodium [Moles/Vol] 140 mmol/L 136-145 [facility] Work Phone: Triglyceride [Mass/Vol] 87 mg/dL [facility] Work Phone: Comment on above: The drugs N-Acetylcy steine and Metamizole may falsely depress this assay.Serum Triglycerides Reference Interval Normal <150 mg/dL Borderline high 150 - 199 mg/dL High 200 - 499 mg/dL Very High > or = 500 mg/dL WBC (Bld) [#/Vol] 3.7 10*3/uL 4.4-11.0 [facility] Work Phone: Blood erythrocytes count (nu mber/volume)on 08-06-2021 RBC (Bld) [#/Vol] 4.11 10*6/uL 4.2-5.4 [facility] Work Phone: Blood hemoglobin measurement (mass/volume)on 08-06-2021 Hemoglobin (Bld) [Mass/Vol] 12.8 g/dL 12.0-15.0 [facility] Work Phone: Blood lymphocytes/100 leukoc yteson 08-06-2021 Lymphocytes/100 WBC (Bld) 26.6 % 19-41 [facility] Work Phone: Blood monocytes/100 leukocyt eson 08-06-2021 Monocytes/100 WBC (Bld) 8.5 % 0-10 [facility] Work Phone: Blood platelet mean volumeon 08-06-2021 Platelet mean volume (Bld) [Entitic vol] 10.3 fL 6.2-12.0 [facility] Work Phone: Determination of erythrocyte mean corpuscular volume (MCV)on 08-06-2021 MCV (RBC) [Entitic vol] 91.7 fL 81-99 [facility] Work Phone: Hematocrit Auto (Bld) [Volum e fraction]on 08-06-2021 Hematocrit (Bld) [Volume fraction] 37.7 % 37-47 [facility] Work Phone: Laboratory - Chemistry and C hemistry - challengeon 08-06-2021 ALP [Catalytic activity/Vol] 114 U/L 45-117 [facility] Work Phone: ALT [Catalytic activity/Vol] 45 U/L 13-56 [facility] Work Phone: CO2 [Moles/Vol] 32.0 mmol/L 21.0-32.0 [facility] Work Phone: Globulin (S) [Mass/Vol] 3.2 g/dL 2.2-4.2 [facility] Work Phone: Urea nitrogen/Creatinine [Mass ratio] 28.9 mg/mg 10-20 [facility] Work Phone: Laboratory - Hematology and Cell countson 08-06-2021 Erythrocyte distribution width (RBC) [Entitic vol] 40.4 fL 35.1-43.9 [facility] Work Phone: Erythrocyte distribution width (RBC) [Ratio] 12.1 % 11.6-14.6 [facility] Work Phone: Immature granulocytes/100 WBC (Bld) 0.500 % 0.0-0.9 [facility] Work Phone: Comment on above: IG% - Immature Granu locytes (promyelocytes, myelocytes and metamyelocytes) > 1% indicates that a LEFT SHIFT is Present. MCH (RBC) [Entitic mass] 31.1 pg 27.0-32.0 [facility] Work Phone: Nucleated RBC/100 WBC (Bld) [Ratio] 0 % 0-5 [facility] Work Phone: MCHC Auto (RBC) [Mass/Vol]on 08-06-2021 MCHC (RBC) [Mass/Vol] 34.0 g/dL 32-36 [facility] Work Phone: No Panel Informationon 08-06 Estimated GFR (MDRD) Amer 115 mL/min >60 [facility] Work Phone: Comment on above: GFR Calc Estimated GFR (MDRD) Non-Af Amer 95 mL/min >60 [facility] Work Phone: Comment on above: Non- GFR Calc Platelets bldon 08-06-2021 Platelets (Bld) [#/Vol] 180 10*3/uL 150-450 [facility] Work Phone: Serum or plasma albumin gertrude urement (mass/volume)on 08-06-2021 Albumin [Mass/Vol] 3.9 g/dL 3.2-5.0 [facility] Work Phone: Serum or plasma albumin/glob ulin mass ratioon 08-06-2021 Albumin/Globulin [Mass ratio] 1.2 {ratio} 0.9-2.4 [facility] Work Phone: Serum or plasma calcium gertrude urement (mass/volume)on 08-06-2021 Calcium [Mass/Vol] 8.8 mg/dL 8.5-10.1 [facility] Work Phone: Serum or plasma cholesterol in HDL measurement (mass/volume)on 08-06-2021 Cholesterol in HDL [Mass/Vol] 79 mg/dL [facility] Work Phone: Comment on above: The drugs N-Acetylcy steine and Metamizole may falsely depress this assay. Reference Range HDL <40 mg/dL Low HDL Cholesterol HDL >or= 60 mg/dL High HDL Cholesterol Serum or plasma cholesterol in VLDL measurement (mass/volume)on 08-06-2021 Cholesterol in VLDL [Mass/Vol] 17 mg/dL 5-40 [facility] Work Phone: Serum or plasma creatinine m easurement (mass/volume)on 08-06-2021 Creatinine [Mass/Vol] 0.69 mg/dL 0.55-1.02 [facility] Work Phone: Comment on above: The validity of the calculated GFR & GFRAA in patients over 70 years has not been determined. Clinical correlation is essential. Serum or plasma low density lipoprotein (LDL) cholesterol measurement (mass/volume)on 08-06-2021 Cholesterol in LDL [Mass/Vol] 64 mg/dL 0-130 [facility] Work Phone: Serum or plasma urea nitroge n measurement (mass/volume)on 08-06-2021 Urea nitrogen [Mass/Vol] 20 mg/dL 7-18 [facility] Work Phone: Thin prep Papanicolaou smear with manual screeningon 08-06-2021 Thin prep Papanicolaou smear with manual screening 23 U/L 15-37 [facility] Work Phone: Thin prep Papanicolaou smear with manual screening 3 5-15 [facility] Work Phone: MUMPS ANTIBODY, IgG [id number] ([id number])Ordered By: Engineer Process on 09-02-2018 MuV IgG IA Qn (S) 35.3 AU/mL Normal Compre[facility] Work Phone: Comment on above: Negative <9.0 Equivo zaria 9.0 - 10.9 Positive >10.9 A positive result generally indicates past exposure to Mumps virus or previous vaccination. PATIENT NOT FASTINGP ERFORMED BY: [employer] Hail Varsity TaBiondVaxNovant Health Ballant[facility] [id number] RUBELLA IgG ([id number])Ordered B y: Engineer Process on 09-02-2018 Rubella virus IgG Qn (S) 1.57 {index} Normal [facility] Work Phone: Comment on above: Non-immune <0.90 Equ ivocal 0.90 - 0.99 Immune >0.99 PATIENT NOT FASTINGP ERFORMED BY: [employer].comNov[facility] Health Ball[facility] Center [id number] RUBEOLA IgG ([id number])Ordered B y: Engineer Process on 09-02-2018 MeV IgG IA Qn (S) {index_val} Abnormal Compre [facility] Work Phone: Comment on above: Negative <25.0 Equiv ocal 25.0 - 29.9 Positive >29.9 Presence of antibodies to Rubeola is presumptive evidence of immunity except when acute infection is suspected. PATIENT NOT FASTINGP ERFORMED BY: [employer] MavizonNovant Health Ballantyne Medical Center [id number] Metabolic Panel, Comprehensi ve ([id number])on 05-27-2018 Albumin [Mass/Vol] 4.4 g/dL Normal 3.5-5.5 Compre [facility] Work Phone: Comment on above: PATIENT NOT FASTINGP ERFORMED BY: [employer] [facility] [id number] Albumin/Globulin [Mass ratio] 1.9 {ratio} Normal 1.2-2.2 [facility] Work Phone: Comment on above: PATIENT NOT FASTINGP ERFORMED BY: [employer] Hail Varsity [address] Road[address] [place] [id number] ALP [Catalytic activity/Vol] 89 [iU]/L Normal 39-117 [facility] Work Phone: Comment on above: PATIENT NOT FASTINGP ERFORMED BY: CB [facility] [id number] Ta RoadDublin [place] [id number] ALT [Catalytic activity/Vol] 21 [iU]/L Normal 0-32 [facility] Work Phone: Comment on above: PATIENT NOT FASTINGP ERFORMED BY: CB [facility] [id number] Ta RoadDublin [place] [id number] AST [Catalytic activity/Vol] 21 [iU]/L Normal 0-40 [facility] Work Phone: Comment on above: PATIENT NOT FASTINGP ERFORMED BY: CB [facility] Owqveg2105 Ta RoadDublin [place] [id number] Bilirubin [Mass/Vol] 0.4 mg/dL Normal 0.0-1.2 [facility] Work Phone: Comment on above: PATIENT NOT FASTINGP ERFORMED BY: OTONIEL [facility] Rmymnf5[address] Ta RoadDublin [place] [id number] Calcium [Mass/Vol] 9.4 mg/dL Normal 8.7-10.2 [facility] Work Phone: Comment on above: PATIENT NOT FASTINGP ERFORMED BY: CB [facility] [id number] Ta RoadDublin [place] [id number] Chloride [Moles/Vol] 101 mmol/L Normal 96-106 [facility] Work Phone: Comment on above: PATIENT NOT FASTINGP ERFORMED BY: CB [facility] Eaqmhm5151 Ta RoadDublin [place] [id number] CO2 [Moles/Vol] 27 mmol/L Normal 20-29 [facility] Work Phone: Comment on above: PATIENT NOT FASTINGP ERFORMED BY: CB [facility] Cyedyi3067 Ta RoadDublin [place] [id number] Creatinine [Mass/Vol] 0.70 mg/dL Normal 0.57-1.00 [facility] prehensive [facility] Medicine Work Phone: Comment on above: PATIENT NOT FASTINGP ERFORMED BY: CB [facility] [id number] Ta RoadDublin [place] [id number] GFR/1.73 sq M predicted among blacks CKD-EPI (S/P/Bld) [Vol rate/Area] 118 mL/min/1.73 Normal [facility] Work Phone: Comment on above: PATIENT NOT FASTINGP ERFORMED BY: CB [facility] Toitol4[address] Ta RoadDublin [place] [id number] GFR/1.73 sq M predicted among non-blacks CKD-EPI (S/P/Bld) [Vol rate/Area] 103 mL/min/1.73 Normal [facility] Work Phone: Comment on above: PATIENT NOT FASTINGP ERFORMED BY: OTONIEL [facility] Ckrzoo55[address] Ta RoadDublin [place] [id number] Globulin (S) [Mass/Vol] 2.3 g/dL Normal 1.5-4.5 [facility] Work Phone: Comment on above: PATIENT NOT FASTINGP ERFORMED BY: CB [facility] Uzcqle9[address] Ta RoadDublin [place] [id number] Glucose [Mass/Vol] 85 mg/dL Normal 65-99 [facility] Work Phone: Comment on above: PATIENT NOT FASTINGP ERFORMED BY: CB [facility] Hbbycp7630 Ta [facility] [place] [id number] Potassium [Moles/Vol] 4.1 mmol/L Normal 3.5-5.2 [facility] Work Phone: Comment on above: PATIENT NOT FASTINGP ERFORMED BY: CB [facility] Atnutg9[address] Ta RoadDublin [place] [id number] Protein [Mass/Vol] 6.7 g/dL Normal 6.0-8.5 [facility] Work Phone: Comment on above: PATIENT NOT FASTINGP ERFORMED BY: CB [facility] Ktrmpl9535 Ta RoadDublin [place] [id number] Sodium [Moles/Vol] 142 mmol/L Normal 134-144 Compre [facility] Work Phone: Comment on above: PATIENT NOT FASTINGP ERFORMED BY: OTONIEL Marie Unjmlg6367 [facility] [id number] Urea nitrogen [Mass/Vol] 17 mg/dL Normal 6-24 [facility] Work Phone: Comment on above: PATIENT NOT FASTINGP ERFORMED BY: [facility] Ljrvxr8215 [facility] [id number] Urea nitrogen/Creatinine [Mass ratio] 24 mg/mg Abnormal 9-23 [facility] Work Phone: Comment on above: PATIENT NOT FASTINGP ERFORMED BY: OTONIEL MackFre[facility] Twseyb0568 [facility] [id number] VITAMIN B12 AND FOLATES ([id number])on 05-27-2018 Cobalamin (Vitamin B12) [Mass/Vol] 549 pg/mL Normal 232-1245 [facility] Work Phone: Comment on above: PATIENT NOT FASTINGP ERFORMED BY: [facility]Fre[facility] Zxzhsp7405 [facility] [id number] Folate [Mass/Vol] 10.1 ng/mL Normal Compreh [facility] Work Phone: Comment on above: A serum folate dimple ntration of less than 3.1 ng/mL isconsidered to represent clinical deficiency. PATIENT NOT FASTINGP ERFORMED BY: [facility] [id number] [facility] [id number] LUMBAR SPINE 2-3 VIEWSon LUMBAR SPINE 2-3 [...] Leigh Ann Ramos at 08/18/2017 11:52 Normal [facility] Vital Signs Date Time Vital Sign Value Performing Clinician Facility 01-12-2025 13:31-0400 Body height 162.[address] Leatha Fuentes MD Work Phone: [facility] 01-12-2025 13:31-0400 Body mass index (BMI) [Ratio] 23.6 kg/m2 Dr. Leatha Fuentes MD Work Phone: [facility] 01-12-2025 13:31-0400 Body temperature 96.2 [degF] Dr. Leatha Fuentes MD Work Phone: [facility] 01-12-2025 13:31-0400 Body weight 62.[address] Leatha Fuentes MD Work Phone: [facility] 01-12-2025 13:31-0400 Diastolic blood pressure 62 mm[Hg] Dr. Leatha Fuentes MD Work Phone: [facility] 01-12-2025 13:31-0400 Heart rate 69 /min Dr. Leatha Fuentes MD Work Phone: [facility] 01-12-2025 13:31-0400 Respiratory rate 14 /min Dr. Leatha Fuentes MD Work Phone: [facility] 01-12-2025 13:31-0400 SaO2% (BldA) [Mass fraction] 96 % Dr. Leatha Fuentes MD Work Phone: [facility] 01-12-2025 13:31-0400 Systolic blood pressure 86 mm[Hg] Dr. Leatha Fuentes MD Work Phone: [facility] 10-30-2024 13:40-0400 Body temperature 96.7 [degF] Dr. Leatha Fuentes MD Work Phone: [facility] 10-30-2024 13:40-0400 Diastolic blood pressure 47 mm[Hg] Dr. Leatha Fuentes MD Work Phone: [facility] 10-30-2024 13:40-0400 Heart rate 69 /min Dr. Leatha Fuentes MD Work Phone: [facility] 10-30-2024 13:40-0400 Respiratory rate 16 /min Dr. Leatha Fuentes MD Work Phone: [facility] 10-30-2024 13:40-0400 SaO2% (BldA) [Mass fraction] 100 % Dr. Leatha Fuentes MD Work Phone: [facility] 10-30-2024 13:40-0400 Systolic blood pressure 101 mm[Hg] Dr. Leatha Fuentes MD Work Phone: [facility] 10-30-2024 12:10-0400 Body height 162.[address] Leatha Fuentes MD Work Phone: [facility] 10-30-2024 12:10-0400 Body mass index (BMI) [Ratio] 23.1 kg/m2 Dr. Leatha Fuentes MD Work Phone: [facility] 10-30-2024 12:10-0400 Body weight 61.[address] Leatha Fuentes MD Work Phone: [facility] 10-27-2024 11:16-0400 Body temperature 96.7 [degF] Dr. Leatha Fuentes MD Work Phone: [facility] 10-27-2024 11:16-0400 Diastolic blood pressure 53 mm[Hg] Dr. Leatha Fuentes MD Work Phone: [facility] 10-27-2024 11:16-0400 Heart rate 63 /min Dr. Leatha Fuentes MD Work Phone: [facility] 10-27-2024 11:16-0400 Respiratory rate 16 /min Dr. Leatha Fuentes MD Work Phone: [facility] 10-27-2024 11:16-0400 SaO2% (BldA) [Mass fraction] 98 % Dr. Leatha Fuentes MD Work Phone: [facility] 10-27-2024 11:16-0400 Systolic blood pressure 95 mm[Hg] Dr. Leatha Fuentes MD Work Phone: [facility] 10-27-2024 10:11-0400 Body height 162.[address] Leatha Fuentes MD Work Phone: [facility] 10-27-2024 10:11-0400 Body mass index (BMI) [Ratio] 23.1 kg/m2 Dr. Leatha Fuentes MD Work Phone: [facility] 10-27-2024 10:11-0400 Body weight 61.[address] Leatha Fuentes MD Work Phone: [facility] 10-25-2024 14:52-0400 Body temperature 96.7 [degF] Dr. Leatha Fuentes MD Work Phone: [facility] 10-25-2024 14:52-0400 Diastolic blood pressure 40 mm[Hg] Dr. Leatha Fuetnes MD Work Phone: [facility] 10-25-2024 14:52-0400 Heart rate 51 /min Dr. Leatha Fuentes MD Work Phone: [facility] 10-25-2024 14:52-0400 Respiratory rate 16 /min Dr. Leatha Fuentes MD Work Phone: [facility] 10-25-2024 14:52-0400 SaO2% (BldA) [Mass fraction] 100 % Dr. Leatha Fuentes MD Work Phone: [facility] 10-25-2024 14:52-0400 Systolic blood pressure 90 mm[Hg] Dr. Leatha Fuentes MD Work Phone: [facility] 10-25-2024 12:05-0400 Body height 162.[address] Leatha Fuentes MD Work Phone: [facility] 10-25-2024 12:05-0400 Body mass index (BMI) [Ratio] 23.1 kg/m2 Dr. Leatha Fuentes MD Work Phone: [facility] 10-25-2024 12:05-0400 Body weight 61.[address] Leatha Fuentes MD Work Phone: [facility] 10-23-2024 13:14-0400 Body temperature 96.5 [degF] Dr. Leatha Fuentes MD Work Phone: [facility] 10-23-2024 13:14-0400 Diastolic blood pressure 41 mm[Hg] Dr. Leatha Fuentes MD Work Phone: [facility] 10-23-2024 13:14-0400 Heart rate 55 /min Dr. Leatha Fuentes MD Work Phone: [facility] 10-23-2024 13:14-0400 Respiratory rate 16 /min Dr. Leatha Fuentes MD Work Phone: [facility] 10-23-2024 13:14-0400 SaO2% (BldA) [Mass fraction] 97 % Dr. Leatha Fuentes MD Work Phone: [facility] 10-23-2024 13:14-0400 Systolic blood pressure 95 mm[Hg] Dr. Leatha Fuentes MD Work Phone: [facility] 10-23-2024 12:17-0400 Body height 162.[address] Leatha Fuentes MD Work Phone: [facility] 10-23-2024 12:17-0400 Body mass index (BMI) [Ratio] 23.1 kg/m2 Dr. Leatha Fuentes MD Work Phone: [facility] 10-23-2024 12:17-0400 Body weight 61.[address] Leatha Fuentes MD Work Phone: [facility] 10-20-2024 11:56-0400 Body temperature 97 [degF] Dr. Leatha Fuentes MD Work Phone: [facility] 10-20-2024 11:56-0400 Diastolic blood pressure 52 mm[Hg] Dr. Leatha Fuentes MD Work Phone: [facility] 10-20-2024 11:56-0400 Heart rate 59 /min Dr. Leatha Fuentes MD Work Phone: [facility] 10-20-2024 11:56-0400 Respiratory rate 16 /min Dr. Leatha Fuentes MD Work Phone: [facility] 10-20-2024 11:56-0400 SaO2% (BldA) [Mass fraction] 100 % Dr. Leatha Fuentes MD Work Phone: [facility] 10-20-2024 11:56-0400 Systolic blood pressure 98 mm[Hg] Dr. Leatha Fuentes MD Work Phone: [facility] 10-20-2024 10:28-0400 Body height 162.[address] Leatha Fuentes MD Work Phone: [facility] 10-20-2024 10:28-0400 Body mass index (BMI) [Ratio] 23.1 kg/m2 Dr. Leatha Fuentes MD Work Phone: [facility] 10-20-2024 10:28-0400 Body weight 61.[address] Leatha Fuentes MD Work Phone: [facility] 10-13-2024 13:04-0400 Body height 162.[address] Leatha Fuentes MD Work Phone: [facility] 10-13-2024 13:04-0400 Body mass index (BMI) [Ratio] 23.5 kg/m2 Dr. Leatha Fuentes MD Work Phone: [facility] 10-13-2024 13:04-0400 Body temperature 98.2 [degF] Dr. Leatha Fuentes MD Work Phone: [facility] 10-13-2024 13:04-0400 Body weight 62.[address] Leatha Fuentes MD Work Phone: [facility] 10-13-2024 13:04-0400 Diastolic blood pressure 70 mm[Hg] Dr. Leatha Fuentes MD Work Phone: [facility] 10-13-2024 13:04-0400 Heart rate 80 /min Dr. Leatha Fuentes MD Work Phone: [facility] 10-13-2024 13:04-0400 Respiratory rate 16 /min Dr. Leatha Fuentes MD Work Phone: [facility] 10-13-2024 13:04-0400 SaO2% (BldA) [Mass fraction] 99 % Dr. Leatha Fuentes MD Work Phone: [facility] 10-13-2024 13:04-0400 Systolic blood pressure 108 mm[Hg] Dr. Le[facility] Fuentes MD Work Phone[facility] [facility] 07-21-2024 10:19-0400 Body mass index (BMI) [Ratio] 23.3 kg/m2 Dr. Leatha Fuentes MD Work Phone: [facility] 07-21-2024 10:19-0400 Body temperature 97.8 [degF] Dr. Leatha Fuentes MD Work Phone: [facility] 07-21-2024 10:19-0400 Body weight 61.[address] Leatha Fuentes MD Work Phone: [facility] 07-21-2024 10:19-0400 Diastolic blood pressure 60 mm[Hg] Dr. Leatha Fuentes MD Work Phone: [facility] 07-21-2024 10:19-0400 Heart rate 71 /min Dr. Leatha Fuentes MD Work Phone: [facility] 07-21-2024 10:19-0400 Respiratory rate 18 /min Dr. Leatha Fuentes MD Work Phone: [facility] 07-21-2024 10:19-0400 SaO2% (BldA) [Mass fraction] 96 % Dr. Leatha Fuentes MD Work Phone: [facility] 07-21-2024 10:19-0400 Systolic blood pressure 120 mm[Hg] Dr. Leatha Fuentes MD Work Phone: [facility] 02-29-2024 08:42-0400 Diastolic blood pressure 53 mm[Hg] Jess Ross MD Work Phone: [facility] 02-29-2024 08:42-0400 Heart rate 73 /min Jess Ross MD Work Phone: [facility] 02-29-2024 08:42-0400 Respiratory rate 14 /min Jess Ross MD Work Phone: [facility] 02-29-2024 08:42-0400 SaO2% (BldA) [Mass fraction] 98 % Jess Ross MD Work Phone: [facility] 02-29-2024 08:42-0400 Systolic blood pressure 93 mm[Hg] Jess Ross MD Work Phone: [facility] 02-29-2024 07:10-0400 Body mass index (BMI) [Ratio] 28.65 kg/m2 Jess Ross MD Work Phone: [facility] 02-29-2024 07:10-0400 Body temperature 97.9 [degF] Jess Ross MD Work Phone: [facility] 02-29-2024 07:10-0400 Body weight 75.7 kg Jess Ross MD Work Phone: [facility] 08-12-2022 17:22-0400 Body height 162.[address] Leatha Fuentes Work Phone: [facility] 08-12-2022 17:22-0400 Body mass index (BMI) [Ratio] 28.6 kg/m2 Dr. Leatha Fuentes Work Phone: [facility] 08-12-2022 17:22-0400 Body temperature 97.8 [degF] Dr. Leatha Fuentes Work Phone: [facility] 08-12-2022 17:22-0400 Body weight 75.[address] Leatha Fuentes Work Phone: [facility] 08-12-2022 17:22-0400 Diastolic blood pressure 78 mm[Hg] Dr. Leatha Fuentes Work Phone: [facility] 08-12-2022 17:22-0400 Heart rate 78 /min Dr. Leatha Fuentes Work Phone: [facility] 08-12-2022 17:22-0400 Respiratory rate 12 /min Dr. Leatha Fuentes Work Phone: [facility] 08-12-2022 17:22-0400 SaO2% (BldA) [Mass fraction] 98 % Dr. Leatha Fuentes Work Phone: [facility] 08-12-2022 17:22-0400 Systolic blood pressure 116 mm[Hg] Dr. Leatha Fuentes Work Phone: [facility] 08-05-2022 15:58-0400 Body height 162.6 cm Ana Hernández MD Work Phone: [facility] 08-05-2022 15:58-0400 Body weight 75.66 kg Ana Hernández MD Work Phone: [facility] 08-05-2022 15:58-0400 Diastolic blood pressure 60 mm[Hg] Ana Hernández MD Work Phone: [facility] 08-05-2022 15:58-0400 Systolic blood pressure 110 mm[Hg] Ana Hernández MD Work Phone: [facility] 06-10-2022 14:31-0500 Body height 162.[address] Leatha Fuentes Work Phone: [facility] 06-10-2022 14:31-0500 Body mass index (BMI) [Ratio] 30.1 kg/m2 Dr. Leatha Fuentes Work Phone: [facility] 06-10-2022 14:31-0500 Body temperature 96.8 [degF] Dr. Leatha Fuentes Work Phone: [facility] 06-10-2022 14:31-0500 Body weight 79.[address] Leatha Fuentes Work Phone: [facility] 06-10-2022 14:31-0500 Diastolic blood pressure 80 mm[Hg] Dr. Leatha Fuentes Work Phone: [facility] 06-10-2022 14:31-0500 Heart rate 67 /min Dr. Leatha Fuentes Work Phone: [facility] 06-10-2022 14:31-0500 Respiratory rate 18 /min Dr. Leatha Fuentes Work Phone: [facility] 06-10-2022 14:31-0500 SaO2% (BldA) [Mass fraction] 98 % Dr. Leatha Fuentes Work Phone: [facility] 06-10-2022 14:31-0500 Systolic blood pressure 120 mm[Hg] Dr. Leatha Fuentes Work Phone: [facility] 05-20-2022 17:33-0500 Body mass index (BMI) [Ratio] 29.8 kg/m2 Dr. Leatha Fuentes Work Phone: [facility] 05-20-2022 17:33-0500 Body temperature 98 [degF] Dr. Leatha Fuentes Work Phone: [facility] 05-20-2022 17:33-0500 Body weight 78.[address] Leatha Fuentes Work Phone: [facility] 05-20-2022 17:33-0500 Diastolic blood pressure 74 mm[Hg] Dr. Leatha Fuentes Work Phone: [facility] 05-20-2022 17:33-0500 Heart rate 73 /min Dr. Leatha Fuentes Work Phone: [facility] 05-20-2022 17:33-0500 Respiratory rate 14 /min Dr. Leatha Fuentes Work Phone: [facility] 05-20-2022 17:33-0500 SaO2% (BldA) [Mass fraction] 98 % Dr. Leatha Fuentes Work Phone: [facility] 05-20-2022 17:33-0500 Systolic blood pressure 118 mm[Hg] Dr. Leatha Fuetnes Work Phone: [facility] 02-20-2022 08:07-0400 Body height 162.6 cm Richelle Ortiz APRN.CNP Work Phone: [facility] 02-20-2022 08:07-0400 Body temperature 98.01 [degF] [place] Ortiz SAFETY LAMP KEEPER.GEAR HOBBER SET UP OPERATOR Work Phone: [facility] 02-20-2022 08:07-0400 Body weight 79.38 kg Richelle Ortiz SAFETY LAMP KEEPER.GEAR HOBBER SET UP OPERATOR Work Phone: [facility] 02-20-2022 08:07-0400 Diastolic blood pressure 66 mm[Hg] [place] Ortiz SAFETY LAMP KEEPER.GEAR HOBBER SET UP OPERATOR Work Phone: [facility] 02-20-2022 08:07-0400 Heart rate 62 /min [place] Ortiz SAFETY LAMP KEEPER.GEAR HOBBER SET UP OPERATOR Work Phone: [facility] 02-20-2022 08:07-0400 Systolic blood pressure 115 mm[Hg] [place] Ortiz SAFETY LAMP KEEPER.GEAR HOBBER SET UP OPERATOR Work Phone: [facility] 08-20-2021 08:06-0400 Body height 165 cm [place] Ortiz SAFETY LAMP KEEPER.GEAR HOBBER SET UP OPERATOR Work Phone: [facility] 08-20-2021 08:06-0400 Body temperature 98.1 [degF] Richelle Ortiz SAFETY LAMP KEEPER.GEAR HOBBER SET UP OPERATOR Work Phone: [facility] 08-20-2021 08:06-0400 Body weight 77.34 kg [place] Ortiz SAFETY LAMP KEEPER.GEAR HOBBER SET UP OPERATOR Work Phone: [facility] 08-20-2021 08:06-0400 Diastolic blood pressure 69 mm[Hg] Richelle Ortiz SAFETY LAMP KEEPER.GEAR HOBBER SET UP OPERATOR Work Phone: [facility] 08-20-2021 08:06-0400 Heart rate 75 /min Richelle Ortiz SAFETY LAMP KEEPER.GEAR HOBBER SET UP OPERATOR Work Phone: [facility] 08-20-2021 08:06-0400 SaO2% (BldA) [Mass fraction] 96 % Richelle Ortiz SAFETY LAMP KEEPER.GEAR HOBBER SET UP OPERATOR Work Phone: [facility] 08-20-2021 08:06-0400 Systolic blood pressure 98 mm[Hg] [place] Ortiz SAFETY LAMP KEEPER.GEAR HOBBER SET UP OPERATOR Work Phone: [facility] 07-23-2021 08:30-0400 Body height 163.8 cm Ana Hernández MD Work Phone: [facility] 07-23-2021 08:30-0400 Body weight 76.2 kg Ana Hernández MD Work Phone: [facility] 07-23-2021 08:30-0400 Diastolic blood pressure 58 mm[Hg] Ana Hernández MD Work Phone: [facility] 07-23-2021 08:30-0400 Systolic blood pressure 94 mm[Hg] Ana Hernández MD Work Phone: [facility] 01-09-2019 12:50-0400 BMI (Body Mass Index) 23.69 kg/m2 [facility] Work Phone: 01-09-2019 12:50-0400 BMI (Body Mass Index) 25.41 kg/m2 [facility] Internal [facility] Work Phone: 01-09-2019 12:50-0400 Body Temperature 97.6 [degF] [facility] Work Phone: Comment on above: Method: Temporal 01-09-2019 12:50-0400 Body weight 62.61 kg Yamel [facility] Internal Medicine Work Phone: 01-09-2019 12:50-0400 Body weight 67.15 kg Yamel [facility] Medicine Work Phone: 01-09-2019 12:50-0400 BP Diastolic 70 mm[Hg] Yamel [facility] Work Phone: Comment on above: Patient Position: Sitting; Cuff Location : Left Arm; Cuff Size: Standard 01-09-2019 12:50-0400 BP Systolic 124 mm[Hg] Yamel [facility] Work Phone: Comment on above: Patient Position: Sitting; Cuff Location : Left Arm; Cuff Size: Standard 01-09-2019 12:50-0400 BSA (Body Surface Area) 1.67 m2 Y[facility] Work Phone: 01-09-2019 12:50-0400 BSA (Body Surface Area) 1.72 m2 [facility] Work Phone: 01-09-2019 12:50-0400 Height 162.56 cm [facility] Work Phone: 01-09-2019 12:50-0400 Pulse (Heart Rate) 75 /min [facility] Work Phone: Comment on above: Pattern: Regular 01-09-2019 12:50-0400 Pulse Oximetry 98 % [facility] Work Phone: Comment on above: Room air 01-09-2019 12:50-0400 Respiratory Rate 16 /min [facility] Work Phone: Comment on above: Pattern: Unlabored 10-04-2018 08:18-0400 BMI (Body Mass Index) 23.69 kg/m2 [facility] Work Phone: 10-04-2018 08:18-0400 Body weight 62.61 kg [facility] Work Phone: 10-04-2018 08:18-0400 BSA (Body Surface Area) 1.67 m2 [facility] Work Phone: 10-04-2018 08:18-0400 Height 162.56 cm [facility] Work Phone: 10-04-2018 08:18-0400 Weight 62.61 kg [facility] Work Phone: 09-02-2018 07:17-0400 BMI (Body Mass Index) 23.69 kg/m2 [facility] Work Phone: 09-02-2018 07:17-0400 Body Temperature 97.7 [degF] [facility] Work Phone: Comment on above: Method: Temporal 09-02-2018 07:17-0400 Body weight 62.61 kg [facility] Work Phone: 09-02-2018 07:17-0400 BP Diastolic 68 mm[Hg] [facility] Work Phone: Comment on above: Patient Position: Sitting; Cuff Location : Left Arm; Cuff Size: Standard 09-02-2018 07:17-0400 BP Systolic 120 mm[Hg] Y[facility] Work Phone: Comment on above: Patient Position: Sitting; Cuff Location : Left Arm; Cuff Size: Standard 09-02-2018 07:17-0400 BSA (Body Surface Area) 1.67 m2 Y[facility] Work Phone: 09-02-2018 07:17-0400 Height 162.56 cm Y[facility] Work Phone: 09-02-2018 07:17-0400 Pulse (Heart Rate) 72 /min Yamel A[facility] Work Phone: Comment on above: Pattern: Regular 09-02-2018 07:17-0400 Pulse Oximetry 99 % Yamel [facility] Work Phone: Comment on above: Room air 09-02-2018 07:17-0400 Respiratory Rate 16 /min Yamel Aray[facility] Work Phone: Comment on above: Pattern: Unlabored 09-02-2018 07:17-0400 Weight 62.61 kg Yamel Aray[facility] Work Phone: 05-27-2018 09:17-0500 BMI (Body Mass Index) 23.92 kg/m2 Yamel [facility] Work Phone: 05-27-2018 09:17-0500 Body Temperature 97.4 [degF] [facility] Work Phone: Comment on above: Method: Temporal 05-27-2018 09:17-0500 Body weight 63.22 kg Yamel Aray[facility] Work Phone: 05-27-2018 09:17-0500 BP Diastolic 60 mm[Hg] [facility] Work Phone: Comment on above: Patient Position: Sitting; Cuff Location : Left Arm; Cuff Size: Standard 05-27-2018 09:17-0500 BP Systolic 108 mm[Hg] Yamel Aray[facility] Work Phone: Comment on above: Patient Position: Sitting; Cuff Location : Left Arm; Cuff Size: Standard 05-27-2018 09:17-0500 BSA (Body Surface Area) 1.68 m2 Y[facility] Work Phone: 05-27-2018 09:17-0500 Height 162.56 cm Yamel [facility] Work Phone: 05-27-2018 09:17-0500 Pulse (Heart Rate) 57 /min Yamel [facility] Work Phone: Comment on above: Pattern: Regular 05-27-2018 09:17-0500 Pulse Oximetry 98 % Yamel [facility] Work Phone: Comment on above: Room air 05-27-2018 09:17-0500 Respiratory Rate 16 /min Yamel [facility] Work Phone: Comment on above: Pattern: Unlabored 05-27-2018 09:17-0500 Weight 63.22 kg Yamel [facility] Work Phone: 11-24-2017 11:19-0400 BMI (Body Mass Index) 23.86 kg/m2 Yamel [facility] Work Phone: 11-24-2017 11:19-0400 Body Temperature 97.1 [degF] Yamel [facility] Work Phone: 11-24-2017 11:19-0400 Body weight 63.05 kg Yamel [facility] Work Phone: 11-24-2017 11:19-0400 BP Diastolic 68 mm[Hg] Yamel [facility] Work Phone: Comment on above: Patient Position: Sitting; Cuff Location : Right Arm; Cuff Size: Standard 11-24-2017 11:19-0400 BP Systolic 114 mm[Hg] Yamel [facility] Work Phone: Comment on above: Patient Position: Sitting; Cuff Location : Right Arm; Cuff Size: Standard 11-24-2017 11:19-0400 BSA (Body Surface Area) 1.68 m2 Y[facility] Work Phone: 11-24-2017 11:19-0400 Height 162.56 cm Yamel [facility] Work Phone: 11-24-2017 11:19-0400 Pulse (Heart Rate) 60 /min Yamel [facility] Work Phone: Comment on above: Pattern: Regular 11-24-2017 11:19-0400 Pulse Oximetry 99 % Yamel [facility] Work Phone: Comment on above: Room air 11-24-2017 11:19-0400 Respiratory Rate 16 /min Yamel [facility] Work Phone: Comment on above: Pattern: Unlabored 11-24-2017 11:19-0400 Weight 63.05 kg Yamel [facility] Work Phone: 10-20-2017 14:27-0400 Body Temperature 97.6 [degF] Yamel [facility] Work Phone: Comment on above: Method: Temporal 10-20-2017 14:27-0400 Body weight 63.05 kg Yamel [facility] Work Phone: 10-20-2017 14:27-0400 BP Diastolic 66 mm[Hg] Yamel [facility] Work Phone: Comment on above: Patient Position: Sitting; Cuff Location : Left Arm; Cuff Size: Standard 10-20-2017 14:27-0400 BP Systolic 130 mm[Hg] Yamel [facility] Work Phone: Comment on above: Patient Position: Sitting; Cuff Location : Left Arm; Cuff Size: Standard 10-20-2017 14:27-0400 Pulse (Heart Rate) 78 /min Yamel [facility] Work Phone: Comment on above: Pattern: Regular 10-20-2017 14:27-0400 Pulse Oximetry 100 % Yamel [facility] Work Phone: Comment on above: Room air 10-20-2017 14:27-0400 Respiratory Rate 16 /min Yamel [facility] Work Phone: Comment on above: Pattern: Unlabored 10-20-2017 14:27-0400 Weight 63.05 kg Yamel Cast[facility]eda [facility] Work Phone: Encounters Encounter Date Encounter Type Care Provider Facility Start: 02-23-2025 ambulatory Leatha Slater ty:[facility] Start: 02-14-2025 ambulatory Leatha Slater ty:[facility] Start: 02-09-2025 End: 02-09-2025 ambulatory BIM NURSE Facility:[facility] [facility] Start: 01-12-2025 End: 01-12-[address] Leatha Fuentes MD -[facility] Work Phone: Start: 01-12-2025 End: 01-12-[address] Leatha Fuentes MD Work Phone: -[facility] Start: 01-11-2025 ambulatory Health Risk Assessment Facility:[facility] Start: 01-11-2025 Registered [employer] Start: 12-08-2024 End: 12-08-2024 Patient encounter procedure BIM NURSE -[facility] Work Phone: Start: 12-08-2024 End: 12-08-[address] Leatha Fuentes MD Work Phone: -[facility] Start: 11-10-2024 End: 11-10-2024 Patient encounter procedure BIM NURSE -[facility] Work Phone: Start: 11-10-2024 End: 11-10-[address] Leatha Fuentes MD Work Phone: -[facility] Start: 10-30-2024 End: 10-30-[address] Leatha Fuentes MD -[facility] Work Phone: Start: 10-30-2024 End: 10-30-[address] Leatha Fuentes MD Work Phone: -[facility] Start: 10-27-2024 End: 10-27-[address] Leatha Fuentes MD -[facility] Work Phone: Start: 10-27-2024 End: 10-27-[address] Leatha Fuentes MD Work Phone: -[facility] Start: 10-25-2024 End: 10-25-[address] Leatha Fuentes MD -[facility] Work Phone: Start: 10-25-2024 End: 10-25-[address] Leatha Fuentes MD Work Phone: [facility] Work Phone: Start: 10-23-2024 End: 10-23-[address] Leatha Fuentes MD -[facility] Work Phone: Start: 10-23-2024 End: 10-23-[address] Leatha Fuentes MD Work Phone: [facility] Work Phone: Start: 10-20-2024 End: 10-20-[address] Leatha Fuentes MD -[facility] Work Phone: Start: 10-20-2024 End: 10-20-[address] Leatha Fuentes MD Work Phone: [facility] Work Phone: Start: 10-13-2024 End: 10-13-[address] Leatha Fuentes MD -[facility] Work Phone: Start: 10-13-2024 End: 10-13-[address] Leatha Fuentes MD Work Phone: [facility] Work Phone: Start: 10-13-2024 End: 10-13-[facility] Start: 07-21-2024 End: 07-21-[address] Leatha Fuentes MD -[facility] Work Phone: Start: 07-21-2024 End: 07-21-[address] Leatha Fuentes MD Work Phone: [facility] Work Phone: Start: 07-21-2024 End: 07-21-[facility] Start: 03-23-2024 End: 03-23-[facility] [facility] Start: 03-01-2024 End: 03-01-2024 Orders Only Jess Ross MD Work Phone: General Surgery Comment on above: Elevated carcinoembr yonic antigen (CEA) (Primary Dx) Elevated carcinoembr yonic antigen (CEA) [R97.0] Start: 02-29-2024 End: 02-29-2024 ambulatory Jess Ross Facility:[facility] Start: 02-29-2024 End: 02-29-2024 Subsequent hospital visit by physician Jess Ross MD Work Phone: Ambulatory Surgery Comment on above: History of colon can cer [Z85.038] Start: 02-24-2024 End: 02-24-2024 Orders Only Jess Ross MD Work Phone: LD PROVIDER ADULT Comment on above: History of colon can cer (Primary Dx) Start: 02-23-2024 End: 02-23-2024 ambulatory Jess Ross Facility:[facility] Start: 02-17-2024 End: 02-17-2024 ambulatory Jess Ross Facility:[facility] Start: 02-17-2024 End: 02-17-2024 [facility] Comment on above: Lower abdominal pain [R10.30] Start: 02-07-2024 End: 02-07-2024 Telephone encounter Asha Hernandez TIM Work Phone: General Surgery Comment on above: Orders Tension headache (Pr imary Dx) Start: 02-04-2024 End: 02-04-2024 Orders Only Jess Ross MD Work Phone: General Surgery Start: 01-19-2024 End: 01-19-2024 Orders Only Jess Ross MD Work Phone: General Surgery Comment on above: History of colon can cer (Primary Dx) Start: 10-26-2023 End: 10-26-2023 Orders Only Jess Ross MD Work Phone: General Surgery Comment on above: Status post fall (Pr imary Dx); Right-sided chest wall pain Status post fall [Z9 1.81] Start: 10-27-2022 Orders Only Jess ferrell MD Work Phone: General Surgery Start: 08-20-2022 End: 08-20-[address] Leatha Fuentes Work Phone: [facility] Work Phone: Start: 08-20-2022 End: 08-20-[address] Leatha Fuentes Work Phone: [facility]-Outpatient Breast Imaging Start: 08-12-2022 End: 08-12-[address] Leatha Fuentes Work Phone: [facility] Start: 08-05-2022 End: 08-05-2022 Patient encounter procedure Ana Hernández MD Work Phone: OB/Gynecology Comment on above: Encounter for gyneco logical examination (general) (routine) without abnormal findings (Primary Dx); Dense breast tissue Start: 08-05-2022 End: 08-05-2022 Patient encounter status Ana Hernández MD Work Phone: OB/Gynecology Start: 07-08-2022 End: 07-08-[address] Leatha Fuentes Work Phone: [facility] Start: 06-10-2022 End: 06-10-[address] Leatha Fuentes Work Phone: [facility] Start: 06-10-2022 End: 06-10-[address] Leatha Fuentes Work Phone: [facility] Work Phone: Start: 06-10-2022 End: 06-10-[address] Leatha Fuentes Work Phone: [facility]-Laboratory Start: 05-20-2022 End: 05-20-[address] Leatha Fuentes Work Phone: [facility] Start: 04-15-2022 End: 04-15-[address] Leatha Fuentes Work Phone: [facility] Start: 03-18-2022 End: 03-18-[address] Leatha Fuentes Work Phone: [facility] Start: 02-20-2022 End: 02-20-2022 ambulatory Richelle Ortiz APRN.GEAR HOBBER SET UP OPERATOR Work Phone: Hematology/Oncology Comment on above: Malignant neoplasm o f ascending colon (HCC) (Primary Dx) Start: 02-20-2022 End: 02-20-2022 Patient encounter procedure Richelle Ortiz APRN.GEAR HOBBER SET UP OPERATOR Work Phone: [facility] Start: 02-04-2022 End: 02-04-2022 Patient encounter procedure Bhupinder Peace MD Work Phone: General Surgery Comment on above: Atypical pigmented s kin lesion (Primary Dx) Start: 10-01-2021 Orders Only Jess ferrell MD Work Phone: General Surgery Start: 09-18-2021 End: 09-18-2021 Patient encounter procedure Bhupinder Peace MD Work Phone: General Surgery Comment on above: Keloid (Primary Dx) Start: 08-20-2021 End: 08-20-2021 ambulatory Richelle Ortiz SAFETY LAMP KEEPER.GEAR HOBBER SET UP OPERATOR Work Phone: Hematology/Oncology Comment on above: Malignant neoplasm o f ascending colon (HCC) (Primary Dx); Diarrhea, unspecified type Start: 08-20-2021 End: 08-20-2021 Patient encounter procedure Richelle Ortiz SAFETY LAMP KEEPER.GEAR HOBBER SET UP OPERATOR Work Phone: [facility] Start: 08-11-2021 End: 08-11-[address] Leatha Fuentes Work Phone: [facility] Ultrasound Start: 08-06-2021 End: 08-06-[address] Leatha Fuentes Work Phone: [facility]Outpatient Breast Imaging Start: 07-23-2021 End: 07-23-[address] Leatha Fuentes Work Phone: [facility] Start: 07-23-2021 End: 07-23-2021 Patient encounter procedure Ana Hernández MD Work Phone: OB/Gynecology Comment on above: Encounter for gyneco logical examination (general) (routine) without abnormal findings (Primary Dx) Start: 07-23-2021 End: 07-23-2021 Patient encounter status Ana Hernández MD Work Phone: OB/Gynecology Start: 06-25-2021 End: 06-25-[address] Leatha Fuentes Work Phone: [facility] Start: 05-21-2021 End: 05-21-[address] Leatha Fuentes Work Phone: [facility] Start: 04-23-2021 End: 04-23-2021 Patient encounter procedure Dr. Leatha Fuentes Work Phone: [facility] Medicine Start: 03-26-[address] Ravinder Fuentes Work Phone: [facility] Start: 02-20-2019 End: 02-20-2019 Annotation/Addendum Yamel Aray[facility] Critical Care Unit Manager al Medicine Start: 01-09-2019 End: 01-09-2019 Office outpatient visit 15 minutes [facility] Aray[facility] Start: 01-09-2019 Review Yamel renae Internal Medicine Start: 12-14-2018 End: 12-14-2018 Office outpatient visit 5 minutes Y[facility] Aray[facility] Start: 11-07-2018 End: 11-07-2018 Office outpatient visit 5 minutes [facility] A[facility] Start: 10-04-2018 End: 10-04-2018 Office outpatient visit 5 minutes [facility] A[facility] Start: 09-02-2018 Patient encounter procedure Yamel Araya [facility] Start: 09-02-2018 End: 09-02-2018 Office outpatient visit 25 minutes [facility] Aray[facility] Start: 08-08-2018 End: 08-08-2018 Office outpatient visit 5 minutes [facility] Araya [facility] Start: 06-07-2018 End: 06-07-2018 Office outpatient visit 5 minutes [facility] Aray[facility] Start: 05-27-2018 End: 05-27-2018 Office outpatient visit 15 minutes [facility] Aray[facility] Start: 05-05-2018 End: 05-05-2018 Office outpatient visit 5 minutes [facility] Araya [facility] Start: 04-05-2018 End: 04-05-2018 Office outpatient visit 5 minutes [facility] Aray[facility] Start: 02-18-2018 End: 02-18-2018 Nursing evaluation of patient and report [facility] A[facility] Start: 01-24-2018 End: 01-24-2018 Office outpatient visit 5 minutes [facility] Aray[facility] Start: 12-27-2017 End: 12-27-2017 Office outpatient visit 5 minutes Y[facility] Araya [facility] Start: 11-24-2017 End: 11-24-2017 Annotation/Addendum [facility] Critical Care Unit Manager al Medicine Start: 11-24-2017 End: 11-24-2017 Office outpatient visit 15 minutes [facility] Internal Medicine Start: 11-15-2017 End: 11-15-2017 Annotation/Addendum Yamel [facility] Critical Care Unit Manager al Medicine Start: 10-20-2017 End: 10-20-2017 Office outpatient new 45 minutes [facility] Internal Medicine Start: 08-18-2017 End: 08-19-2017 Ambulatory LEONIDAS DEAN [facility] Procedures Date Procedure Procedure Detail Performing [...] 08-20-2021 Adult depression screening assessment Richelle Ortiz APRNDaydayGEAR HOBBER SET UP OPERATOR Work Phone: Start: 08-11-[address] Jim [...] MAMM (CAD), BILAT Comments: See Note; NOTES: [facility] Imaging Services [address] [place] [address] SCREENING MAMM (CAD), BILAT MR#: [id number] Acct: [id number] Name: JANET JUAREZ Rep #: [id number] : 1970 F 47 From: Jeff Meza MD PCP: Yamel Castaneda NP Status: REG CLI Study: SCREENING MAMM (CAD), BILAT Date of Exam: 06/07/18 Exam# [id number] Ordering Dr: Maribell Mckenzie CNM MAMMOGRAPHY - [...] delay biopsy of a clinically suspicious abnormality. [id number] Electronically Signed: Jeff Meza MD at 11:04 EST , Service support , CC: PEDRO PABLO Mckenzie; Yamel Castaneda NP Manufacturing Technology Analyst: Signed Yamel Castaneda Start: 11-15-2017 Lipid 1996 panel - S efrem or Plasma Jess Ross MD Work Phone: Cholecystectomy Edith ferguson Comment on above: No post-op complicat ions. August 2014 - [place] [facility] Olivia abdalla Comment on above: No post-op complicat ions. August 2014 - [place] Cholecystectomy Yuri Lawson Comment on above: No post-op complicat ions. August 2014 - [place] Cholecystectomy Yuri Lawson Comment on above: No post-op complicat ions. August 2014 - [place] D&C Edith Peñaloza Comment on above: 1988 D&C Olivia Bower Comment on above: 1988 Luke Lawson Comment on above: 1988 Luke Lawson Comment on above: 1988 Gastric Bybass Edith aguayo Comment on above: No post-op complicat ions. Dr Bernal at [facility] August 2011 Gastric Bybass Olivia mendez Comment on above: No post-op complicat ions. Dr Bernal at [facility] August 2011 Gastric eKlly Lawson Comment on above: No post-op complicat ions. Dr Bernal at [facility] August 2011 Gastric Kelly Lawson Comment on above: No post-op complicat ions. Dr Bernal at [facility] August 2011 Left Breast Bx Edith aguayo [...] DTaP,Tdap,Td Vaccine (3 - Td or Tdap) [facility] Start: 02-28-2029 Screening for malignant neoplasm of colon [facility] Start: 07-19-2025 HPV TESTING HPV TESTING [facility] Start: 07-19-2025 PAP TESTING PAP TESTING [facility] Start: 07-19-2025 Screening for malignant neoplasm of cervix Cervical Cancer Screening [facility] Start: 04-11-2025 Colonoscopy COLONOSCOPY [facility] Start: 04-11-2025 COLORECTAL CANCER SCREENING COLORECTAL CANCER SCREENING [facility] Start: 04-11-2025 Screening for malignant neoplasm of colon [facility] Start: 10-30-2024 Iv infusion therapy/prophylaxis /dx 1st to 1 hr THER/PROPH/DIAG IV INF [facility] Start: 10-23-2024 Iv infusion therapy/prophylaxis /dx 1st to 1 hr THER/PROPH/DIAG IV INF [facility] Start: 10-13-2024 CBC W Auto Differential panel - Blood [facility] Start: 07-09-2024 Urine microalbumin profile DTAP,TDAP,TD (2 - Td or Tdap) [facility] Start: 02-29-2024 End: 02-29-2024 Patient encounter procedure 02/29/2024 7:30 AM EDT Appointment Ambulatory Surgery [address] [place], [place] [id number] Jess Ross MD [address] [place] [id number] high risk screening Ambulatory Surgery Comment on above: high risk screening Start: 02-16-2024 End: 02-16-2024 Patient encounter procedure Cat Scan Comment on above: CT Start: 01-19-2024 End: 04-19-2024 Carcinoembryonic Ag [Mass/volume] in Serum or Plasma CARCINOEMBRYONIC ANTIGEN Lab Routine History of colon cancer Expected: 01/19/2024, Expires: 04/19/2024 [facility] Work Phone: Comment on above: Expected: 01/19/2024, Expires: Start: 01-02-2024 Covid-19 Vaccine ( season) Covid-19 Vaccine () [facility] Start: 01-02-2024 Covid-19 Vaccine ( season) Covid-19 Vaccine () [facility] Start: 01-02-2024 Influenza vaccination Influenza Vaccine (#1) [facility] Start: 08-21-2023 Mammography MAMMOGRAM [facility] Start: 08-21-2023 Screening for malignant neoplasm of breast Mammogram Screening [facility] Start: 05-03-2023 Behavioral Health Screening Behavioral Health Screening [facility] Start: 01-01-2023 Covid-19 Vaccine ( season) Covid-19 Vaccine () [facility] Start: 11-15-2022 Lipid panel Lipid Screening [facility] Start: 11-15-2022 LIPID SCREEN LIPID SCREEN [facility] Start: 08-20-2022 Adult depression screening assessment DEPRESSION SCREENING [facility] Start: 08-06-2022 Mammography MAMMOGRAM [facility] Start: 05-03-2022 DEPRESSION ASSESSMENT DEPRESSION ASSESSMENT [facility] Start: 02-16-2022 Adult depression screening assessment DEPRESSION SCREENING [facility] Start: 01-01-2022 Influenza vaccination INFLUENZA (#1) [facility] Start: 08-02-2021 Mammography MAMMOGRAM [facility] Start: 07-19-2021 COVID-19 VACCINE (4 - Booster for Moderna series) COVID-19 VACCINE (4 - Booster for Moderna series) [facility] Start: 05-16-2021 COVID-19 VACCINE (4 - Booster for Moderna series) COVID-19 VACCINE (4 - Booster for Moderna series) [facility] Start: 05-03-2021 DEPRESSION ASSESSMENT DEPRESSION ASSESSMENT [facility] Start: 11-15-2020 DIABETES SCREEN DIABETES SCREEN [facility] Start: 11-15-2020 Diabetes Screening Diabetes Screening [facility] Start: 12-21-2019 SHINGRIX VACCINE (1 of 2) SHINGRIX VACCINE (1 of 2) [facility] Start: 07-10-2019 Cobalamin (Vitamin B12) [Mass/Vol] VITAMIN B12 AND FOLATES (72619) [facility] Work Phone: Start: 07-10-2019 Antibody rubeola RUBEOLA IgG (63322) [facility] Work Phone: Start: 01-09-2019 [...] 05-27-2018 Comprehensive metabolic panel Metabolic Panel, Comprehensive (30441) [facility] Work Phone: Start: 05-27-2018 Cobalamin (Vitamin B12) mass conc VITAMIN B12 AND FOLATES (36769) [facility] Work Phone: Start: 05-05-2018 Procedure Education Eprescribed prescriptions (G8553) [facility] Work Phone: Start: 11-24-2017 Procedure Education Eprescribed prescriptions (G8553) [facility] Work Phone: Start: 11-24-2017 Provider Instructions for Treatment [facility] Work Phone: Start: 10-20-2017 Assay of ferritin FERRITIN (87601) [facility] Work Phone: Start: 10-20-2017 Ferritin mass conc FERRITIN (77343) [facility] Work Phone: Start: 10-20-2017 Iron mass conc IRON (98431) [facility] Work Phone: Start: 10-20-2017 Assay of folic acid serum FOLIC ACID SERUM (96854) [facility] Work Phone: Start: 10-20-2017 Comprehensive metabolic panel Metabolic Panel, Comprehensive (48283) [facility] Work Phone: Start: 10-20-2017 Thyrotropin Qn TSH (THYROID STIMULATING HORMONE) (84677) [facility] Work Phone: Start: 10-20-2017 Lipid panel LIPID PANEL (60090) [facility] Work Phone: Start: 10-20-2017 Cobalamin (Vitamin B12) mass conc VITAMIN B-12 (CYANOCOBALAMIN) (94120) [facility] Work Phone: Start: 10-20-2017 Procedure Education Eprescribed prescriptions (G7748) [facility] Work Phone: Start: 10-20-2017 Provider Instructions for Treatment Follow up in 3 weeks [facility] Work Phone: Start: 2014 COLOGUARD (FIT-DNA) COLOGUARD (FIT-DNA) [facility] Start: [address] COLONOGRAPHY [facility] Start: 2014 FECAL OCCULT BLOOD FECAL OCCULT BLOOD [facility] Start: 2014 Screening for malignant neoplasm of colon [facility] Start: 2014 SIGMOIDOSCOPY SIGMOIDOSCOPY [facility] Start: 1988 Hepatitis B Vaccine (1 of 3 - 19+ 3-dose series) Hepatitis B Vaccine (1 of 3 - 19+ 3-dose series) [facility] Start: 12-21-1987 Anxiety Screening Anxiety Screening [facility] Start: 12-21-1987 Depression Screening Depression Screening [facility] Start: 12-21-1987 HEPATITIS C SCREENING HEPATITIS C SCREENING [facility] Start: 12-21-1987 Hepatitis C screening Hepatitis C Screening [facility] Start: 12-21-1987 HIV SCREENING HIV SCREENING [facility] Start: 12-21-1987 HIV screening HIV Screening [facility] Start: 12-21-1975 PNEUMOCOCCAL (1 - PCV) PNEUMOCOCCAL (1 - PCV) [facility] Start: 1969 HEPATITIS B (1 of 3 - 3-dose series) HEPATITIS B (1 of 3 - 3-dose series) [facility] Carcinoembryonic Ag [Mass/volume] in Serum or Plasma [facility] CBC W Auto Different ial panel - Blood [facility] Comprehensive metabo lic 2000 panel - Serum or Plasma [facility] Erythrocyte mean corpuscular volume determination [facility] Ferritin [Mass/volum e] in Serum or Plasma [facility] Hematocrit [Volume Fraction] of Blood [facility] Hemoglobin [Mass/vol ume] in Blood [facility] Iron and Iron bindin g capacity panel - Serum or Plasma [facility] Leukocytes [#/volume ] in Blood [facility] End: 09-04-2023 KEITH SCREENING W SHAWNA KE[facility] SCREENING [facility] Radiology Routine Dense breast tissue 1 Occurrences starting 08/05/2022 until 09/04/2023 [facility] Work Phone: Comment on above: 1 Occurrences starting 08/05/2022 until 09/04/2023 Mean corpuscular hemoglobin concentration determination [facility] Mean corpuscular hemoglobin determination [facility] MG Breast - bilatera l Screening [facility] Neutrophil count [facility] Neutrophil percent differential count [facility] Platelets [#/volume] in Blood [facility] Red blood cell count [facility] Red cell distributio n width determination [facility] End: 02-23-2025 Screening colonoscopy COLONOSCOPY SCREENING Endoscopy Routine History of colon cancer 1 Occurrences starting 02/24/2024 until 02/23/2025 [facility] Work Phone: Comment on above: 1 Occurrences starting 02/24/2024 until 02/23/2025 Vitamin B12 measurement [facility] Vitamin D, 25-hydrox y measurement [facility] End: 03-31-2025 XR Chest PA and Lateral XR CHEST 2V FRONTAL/LAT Radiology Routine Elevated carcinoembryonic antigen (CEA) 1 Occurrences starting 03/01/2024 until 03/31/2025 [facility] Work Phone: Comment on above: 1 Occurrences starting 03/01/2024 until 03/31/2025 XR Chest PA and Lateral XR CHEST 2V FRONTAL/LAT Radiology Routine Elevated carcinoembryonic antigen (CEA) 03/01/2024 4:40 PM EDT [facility] End: 11-24-2024 XR Ribs - right Views and Chest PA XR RIBS/CHEST 3V AP RIB/OBLS/CXR RIGHT Radiology Routine Status post fall Right-sided chest wall pain 1 Occurrences starting 10/26/2023 until 11/24/2024 [facility] Work Phone: Comment on above: 1 Occurrences starting 10/26/2023 until 11/24/2024 XR Ribs - right View s and Chest PA XR RIBS/CHEST 3V AP RIB/OBLS/CXR RIGHT Radiology Routine Status post fall Right-sided chest wall pain 10/26/2023 12:52 PM EDT [facility] Work Phone: [facility] [...] Work Phone: [facility] Work Phone: [facility] Immunizations Immunization Date Immunization Notes Care Provider Fa [facility] 02-09-2024 influenza, seasonal, injectable, preservative free Ct Wstr [facility] 06-02-2023 tetanus toxoid, redu jun diphtheria toxoid, and acellular pertussis vaccine, adsorbed Dr. Leatha Fuentes MD Work Phone: [facility] 02-09-2023 influenza virus vaccine, unspecified formulation Jess Ross MD Work Phone: [facility] 02-24-2022 influenza virus vaccine, unspecified formulation Ana Hernández MD Work Phone: [facility] 03-21-2021 Covid (Moderna) Dr. Abner Fuentes Work Phone: [facility] 01-28-[address] Leatha Fuentes Work Phone: [facility] 01-28-2021 influenza virus vaccine, unspecified formulation Ana Hernández MD Work Phone: [facility] 05-24-2020 Covid (Moderna) Dr. Abner Fuentes Work Phone: [facility] 04-29-2020 Covid (Moderna) Dr. Abner Fuentes Work Phone: [facility] 02-24-2019 influenza virus vaccine, unspecified formulation Richelle Ortiz SAFETY LAMP KEEPER.GEAR HOBBER SET UP OPERATOR Work Phone: [facility] Work Phone: 03-03-2018 influenza nasal, unspecified formulation [place] Ortiz SAFETY LAMP KEEPER.GEAR HOBBER SET UP OPERATOR Work Phone: [facility] Work Phone: 03-03-2018 influenza virus vaccine, unspecified formulation Ana Hernández MD Work Phone: [facility] 02-11-2016 influenza, injectabl e, quadrivalent, preservative free Ana Hernández MD Work Phone: [facility] 02-03-2016 influenza, injectabl e, quadrivalent, preservative free Dr. Leatha Fuentes MD Work Phone: [facility] 02-03-2016 influenza, seasonal, injectable Dr. Leatha Fuentes Work Phone: [facility] 02-03-2016 influenza, seasonal, injectable, preservative free Richelle Ortiz SAFETY LAMP KEEPERLIBERTAD Work Phone: [facility] Work Phone: 07-09-2014 tetanus toxoid, redu jun diphtheria toxoid, and acellular pertussis vaccine, adsorbed Ana Hernández MD Work Phone: [facility] 03-13-2009 novel [id number], preservative-free, injectable Ana Hernández MD Work Phone: [facility] Payers Date Payer Category Payer Self-pay [id number] 2017 Unknown [id number] 2001 Unknown 2001 Unknown DEANDRE CARR[facility] PPO [id number] 2001-Present [phone] [address] [place] [address] PPO [id number] 2001 Unknown [id number] 1970 Unknown [id number] Unknown [id number] Unknown [id number] Unknown [id number] Unknown [id number] Unknown [id number] Unknown [id number] Unknown [id number] [id number] Unknown [id number] [id number] Unknown [id number] [id number] Unknown [id number] [id number] Unknown [id number] [id number] Unknown [id number] [id number] Unknown [id number] [id number] Unknown [id number] [id number] Unknown [id number] [id number] Unknown [id number] [id number] Unknown [id number] [id number] Unknown [id number] [id number] Unknown [id number] [id number] Unknown [id number] Social History Date Type Detail Facility Start: 08-05-2022 End: 02-17-2024 Alcohol Use [facility] Work Phone: Comment on above: 0-2 weekly -- social ly 0-2 daily Start: 06-04-2016 End: 07-21-2024 Tobacco smoking status MIIS Never smoked tobacco [facility] Start: 07-23-2021 End: 02-29-2024 Alcohol intake Current drinker of alcohol (finding) [facility] Start: 06-04-2016 History SDOH Alcohol Comment Once monthly [facility] Start: 1970 Sex Assigned At Female C [facility] Start: 07-13-2021 End: 02-04-2022 Exposure to SARS-CoV-2 (event) Not sure [facility] Start: 07-23-2021 End: 08-12-2022 Tobacco smoking status NHIS Unknown if ever smoked [facility] Start: 04-05-2016 None [facility] Start: 04-05-2016 Non-smoker [facility] Start: 06-04-2016 End: 08-05-2022 Tobacco use and exposure Smokeless tobacco non-user [facility] Start: 08-05-2022 End: 02-17-2024 Tobacco use panel [facility] Adult Depression Screening Assessment 1 [facility] Start: 08-16-2018 Gender identity Identifies as female gender (finding) [facility] Start: 08-16-2018 Sexual orientation Heterosexual (fin ding) [facility] Start: 07-28-2024 Sex Female (finding) [facility] Medical Equipment Procedure Code Equipment Code Equipment Origin al Text Equipment Identifier Dates [place] [employer] M [employer] 8fr Plastic Polyurethane Implantable Infusion - [id number] Start: 06-16-2016 Comment on above: Description: Power[employer] rt Mental Status Date Assessment Result Facility 10-27-2024 Cognitive function Awake;Alert;A ppropriate;Fol lows Commands [facility] Work Phone: 10-25-2024 Cognitive function Voice/Name [facility] Work Phone: 10-23-2024 Cognitive function Voice/Name [facility] Work Phone: 10-20-2024 Cognitive function Awake;Alert;A ppropriate;Fol lows Commands [facility] Work Phone: Clinical Notes 07-13-2016 to 10-13-2024 Note Date & Type Note Facility 10-13-2024 Evaluation note Diagnosis Onset Date Resolution Grief reaction acute October 13, 2024 12:54pm Anemia chronic October 13 12:54pm Anxiety and depression chronic 2024 12:54pm Chronic diarrhea chronic October 12:54pm Dermatitis chronic October 13 12:54pm Postsurgical malabsorption chronic October 13, 2024 12:54pm Postsurgical malabsorption chronic November 10, 2024 7:59am Vitamin B12 deficiency chronic 2024 7:59am [facility] Work Phone: 1(134) 771-997906-13-2025 Evaluation note* Diagnosis Onset Date Resolution Status Admit Date Grief reaction acute October 13, 2024 12:54pm Anemia chronic October 13 12:54pm Anxiety and depression chronic Ju ne 2024 12:54pm Chronic diarrhea chronic October 12:54pm Dermatitis chronic October 13 12:54pm Postsurgical malabsorption chronic October 13, 2024 12:54pm Postsurgical malabsorption chronic November 10, 2024 7:59am Vitamin B12 deficiency chronic Ju ly 2024 7:59am Vitamin B12 deficiency chronic Au 2024 8:13am [employer] [facility] Work Phone: 1(116) 876-672203-21-2025 Evaluation note* Diagnosis Onset Date Resolution Status Admit Date Grief reaction acute July 10:11am Anxiety and depression chronic [facility] 2024 10:11am H/O gastric bypass chronic July 21, 2024 10:11am Postsurgical malabsorption chronic July 21, 2024 10:11am [facility] Work Phone: 1(571) 541-815303-21-2025 Evaluation note* Diagnosis Onset Date Resolution Status Admit Date Grief reaction acute July 10:11am Anxiety and depression chronic [facility] 2024 10:11am H/O gastric bypass chronic July 21, 2024 10:11am Postsurgical malabsorption chronic July 21, 2024 10:11am Grief reaction acute October 13, 2024 12:54pm Anemia chronic October 13 12:54pm Anxiety and depression chronic Ju [place] 2024 12:54pm Chronic diarrhea chronic October 12:54pm Dermatitis chronic October 13 12:54pm Postsurgical malabsorption chronic October 13, 2024 12:54pm [employer] Work Phone: 1(447) 320-946710-30-2024 History of Present illness Narrative* Sal Holder, RT(R) - 03/01/2024 4:40 PM EDT Radiology Service [...] PATIENT PRESENTS WITH AN IMPLANTABLE OR ATTACHED ASPHALT PAVER: No RADIOLOGY DEPARTMENT: General X-ray: Exam(s) Completed: Chest X-Ray PERIPHERAL IV DATA: Not applicable SIGNED BY: RT Mitchell(Frank) March 01, 2024 4:34 PM [facility] NoteHNO ID: [id number] Author: SAL HOLDER RT(R) Service: Radiology Author Type: Technologist Type: Progress [...] PATIENT PRESENTS WITH AN IMPLANTABLE OR ATTACHED ASPHALT PAVER: No RADIOLOGY DEPARTMENT: General X-ray: Exam(s) Completed: Chest X-Ray PERIPHERAL IV DATA: Not applicable SIGNED BY: MANNY Medrano) March 01, 2024 4:34 [facility]10-29-2024 NoteHNO ID: [id number] Author: MAUREEN UNDERWOOD RN Service: ? Author Type: Registered Nurse Type: Nursing Progress Note Filed: 02/29/2024 08:44 Note Text: Awoke patient, ready for snack and drink, denies pain or nausea.[facility]10-29-2024 Nurse Note* Maureen Underwood RN - 02/29/2024 8:42 AM EDT Awoke patient, ready for snack and drink, denies pain or nausea. [facility]10-29-2024 Nurse Note* Maureen Underwood RN - 02/29/2024 [...] comfortably on left side. [facility] Nurse Note* Maureen Underwood RN - 02/29/2024 8:24 AM EDT Patient awakens easily, denies pain, cramping or nausea, does not want food or drink yet, will continue to rest on left side for now. [facility]10-29-2024 Note* Discharge Instr - Nursing - Maureen Underwood RN - 02/29/2024 8:13 AM EDT The patient received a copy of Colonoscopy discharge instructions that contain information for how to contact the physician who performed the procedure and when to seek medical care. [facility]10-29-2024 Miscellaneous Notes* Discharge Instr - Nursing - Maureen Underwood RN - 02/29/2024 8:13 AM EDT The patient received a copy of Colonoscopy discharge instructions that contain information for how to contact the physician who performed the procedure and when to seek medical care. documented in this encounterA[facility] Nurse Note* Maureen Underwood RN - 02/29/2024 8:02 AM EDT Patient received in phase II via cart in left lateral position, eyes closed but open to verbal stimuli, skin warm and dry, respirations regular and unlabored, abdomen non distended, denies nausea or pain, resting comfortably on left side. [facility]10[facility] Attending History and physical note* Jess Ross [...] no further questions. . Jess Ross MD [facility]10-29[facility] History and physical note* Jess Ross MD [...] no further questions. . Jess Ross MD [facility]10-29-[facility] History and physical note* Jess Ross MD [...] . Jess Ross MD documented in this encounterAdena [facility]10-24-2024 Instructions* Patient Instructions* Jess Ross MD - [...] am on dialysis? A: Please consult your business excellence leader prior to scheduling to get instructions pertinent to you. In general, dialysis patients take the Aliva Biopharmaceuticalsytely bowel prep and have the procedure same [...] rest of the day. documented in this encounterAdena [facility] Center10-17-2024 History of Present illness Narrative* Asya Fontana, RT(R) - 02/17/2024 2:00 PM EDT Radiology [...] PATIENT PRESENTS WITH AN IMPLANTABLE OR ATTACHED ASPHALT PAVER: No ALLERGIES: Reviewed and updated CONTRAST ALLERGY: [...] 2024 TIME: 3:42 PM documented in this encounterAdena [facility] Center10-17-2024 NoteHNO ID: [id number] Author: ASYA FONTANA RT (R) Service: ? Author Type: Communications Tower Technician Type: Progress Notes Filed: 02/17/2024 15:43 Note [...] PATIENT PRESENTS WITH AN IMPLANTABLE OR ATTACHED ASPHALT PAVER: No ALLERGIES: Reviewed and updated CONTRAST ALLERGY: [...] Juarez DATE: February 17, 2024 TIME: 3:42 [facility]09-11-2024 Miscellaneous Notes* Telephone Encounter - [...] care should symptoms continue. documented in this encounterAdena [facility]09-11-2024 Telephone encounter Note * Telephone Encounter - [...] seek urgent medical care should symptoms continue. [facility]-25[facility]24 NoteHNO ID: [id number] Author: JESS ROSS MD Service: ? Author Type: Physician Type: Progress Notes Filed: 10/26/2023 13:57 Note Text: S/p fall sustaining non displaced right rib fracture Symptomatic, does not want to be on systemic pain medications [facility] History of Present illness Narrative* Jess Ross MD - 10/26/2023 1:56 PM EDT S/p fall sustaining non displaced right rib fracture Symptomatic, does not want to be on systemic pain medications Will prescribe lidocaine patches documented in this encounterAdena [facility] Center06-25-2024 History of Present illness Narrative* Lazara Cook RT(R) - 10/26/2023 12:40 PM EDT Radiology [...] PATIENT PRESENTS WITH AN IMPLANTABLE OR ATTACHED ASPHALT PAVER: No RADIOLOGY DEPARTMENT: General X-ray: Exam(s) Completed: Chest X-Ray Rib X-Ray: Right PA CXR ONLY PER RIB SERIES PERIPHERAL IV DATA: Not applicable SIGNED BY: RT Rekha(Frank) October 26, 2023 12:56 PM documented in this encounterAdena Pike [facility] Center06-25-2024 NoteHNO ID: [id number] Author: LAZARA COOK RT (R) Service: ? Author Type: Technologist Type: Progress [...] PATIENT PRESENTS WITH AN IMPLANTABLE OR ATTACHED ASPHALT PAVER: No RADIOLOGY DEPARTMENT: General X-ray: Exam(s) Completed: Chest X-Ray Rib X-Ray: Right PA CXR ONLY PER RIB SERIES PERIPHERAL IV DATA: Not applicable SIGNED BY: RT Rekha(R) October 26, 2023 12:56 [facility]06-27-2023 History of Present illness Narrative* Jess Ross MD - 10/27/2022 2:40 PM EDT Rash of upper back for one month. documented in this encounterAdena Pike [facility] Center04-05-2023 History of Present illness Narrative* Ana Hernández MD - 08/05/2022 3:54 PM EDT Lamp Decorator offered: Patient declines. Janet is a 51 year old who presents for an annual gynecologic exam without complaints. Postmenopausal: yes HRT use: No. Last Pap: 07/26/2020 normal HPV: 07/24/2020 negative History of abnormal pap: No Last mammogram: 2022 normal History of abnormal mammogram: No Sexually active: Yes OB History T1 L1 SAB3 IAB0 Ectopic0 Multiple0 Live Births0 Fountain Supervisor History LMP: 04/11/2016, Postmenopausal Age at Menarche: Age at First : Age at Menopause: Fountain Supervisor History Comments: Sexual Activity: Yes; Male; Postmenopausal [...] external genitalia normal, normal Bartholin's glands, urethra, Ave Maria's glands, no vulvar lesions, no cervical lesions, [...] needed Ana Hernández MD documented in this encounterAdena Pike [facility] Center10-21-2022 History of Present illness Narrative* Richelle Ortiz APRN.GEAR HOBBER SET UP OPERATOR - 02/20/2022 7:59 AM EDT Chief [...] She presented to the emergency department at [facility] on 04/05/2016. CT scan the abdomen and [...] studies: See microsatellite instability study by IHC ([id number]) for complete details. Negative (no loss of [...] visit. Richelle Ortiz APRN.MELIDA documented in this encounterAdena Pike [facility] Center10-05-2022 History of Present illness Narrative* Bhupinder Peace MD - 02/04/2022 9:13 AM EDT FOLLOW UP VISIT - SKIN LESION NAME: Janet [facility] NO.: [id number] DATE OF SERVICE: 02/04/2022 : 1970 REFERRING [...] applicable. Yamel Tena LPN documented in this encounterAdena Pike [facility] Center06-02-2022 History of Present illness Narrative* Bhupinder Peace MD - 10/02/2021 5:30 PM EDT FOLLOW UP VISIT - PORTACATH REMOVAL NAME: Janet [facility] NO.: [id number] DATE OF SERVICE: September 18, 2021 : 1970 REFERRING PHYSICIAN: Leatha Fuentes MD Janet is a patient I am following for colon cancer. The patient needed buttermaker helper IV access. A leftsubclavian portacath was placed. [...] needed Bhupinder Peace MD documented in this encounterAdena Pike Medical Center04-20-2022 History of Present illness Narrative* Richelle Ortiz, JEFF.GEAR HOBBER SET UP OPERATOR - 08/20/2021 8:11 AM EDT Chief Complaint Patient presents with: Established Patient HPI: Janet Juarez is a 50 year old female who presents here today for follow up colon cancer. Per Dr. Mckeon's previous note: H/o significant for gastric bypass surgery in 2011 (150 lb weight loss) and laparoscopic cholecystectomy 08/2014. She presented to the emergency department at [facility] on 04/05/2016. CT scan the abdomen and [...] studies: See microsatellite instability study by IHC ([id number]) for complete details. Negative (no loss of [...] visit. Richelle Ortiz APRN.MELIDA documented in this encounterAdena Pike Medical Center03-23-2022 History of Present illness Narrative* Ana Hernández [...] L1 SAB3 IAB0 Ectopic0 Multiple0 Live Births0 Fountain Supervisor History LMP: 04/11/2016, Postmenopausal Age at Menarche: Age at First : Age at Menopause: Fountain Supervisor History Comments: Sexual Activity: Yes; Male; Postmenopausal [...] external genitalia normal, normal Bartholin's glands, urethra, Ave Maria's glands, no vulvar lesions, no cervical lesions, [...] needed Ana Hernández MD documented in this encounterAdena Pike Medical Center03-13-2017 History of Past illness Narrative* Problem Noted Date Resolved Date Dizziness 07/13/2016 07/21/2016 documented as of this encounter (statuses as of 07/23/2021) [address]13-2017 History of Past illness Narrative* Problem Noted Date Resolved Date Dizziness 07/13/2016 07/21/2016 documented as of this encounter (statuses as of 08/20/2021) [address]13-2017 History of Past illness Narrative* Problem Noted Date Resolved Date Dizziness 07/13/2016 07/21/2016 documented as of this encounter (statuses as of 10/01/2021) [address]13-2017 History of Past illness Narrative* Problem Noted Date Resolved Date Dizziness 07/13/2016 07/21/2016 documented as of this encounter (statuses as of 10/02/2021) [address]13-2017 History of Past illness Narrative* Problem Noted Date Resolved Date Dizziness 07/13/2016 07/21/2016 documented as of this encounter (statuses as of 02/10/2022) [facility] of [facility] illness Narrative* Problem Noted Date Resolved Date Dizziness 07/13/2016 07/21/2016 documented as of this encounter (statuses as of 02/20/2022) [facility] of [facility] illness Narrative* Problem Noted Date Resolved Date Dizziness 07/13/2016 07/21/2016 documented as of this encounter (statuses as of 08/06/2022) [facility] of [facility] illness Narrative* Problem Noted Date Resolved Date Dizziness 07/13/2016 07/21/2016 documented as of this encounter (statuses as of 10/28/2022) [facility] note* Diagnosis Encounter for gynecological examination (general) (routine) without abnormal findings- Primary documented in this encounter [facility]* Diagnosis Onset Date Resolution Status Vitamin B12 deficiency chron ic Postsurgical malabsorption c hronic Vitamin B12 deficiency chron ic Vitamin B12 deficiency chron ic Postsurgical malabsorption c hronic Vitamin B12 deficiency chron ic [facility] Work Phone: Evaluation note* Diagnosis Malignant neoplasm of ascending colon (HCC)- Primary Malignant neoplasm of ascending colon Diarrhea, unspecified type documented in this encounter [facility]* Diagnosis Keloid- Primary Keloid scar documented in this encounter [facility]* Diagnosis Atypical pigmented skin lesion- Primary documented in this encounter [facility]* Diagnosis Malignant neoplasm of ascending colon (HCC)- Primary Malignant neoplasm of ascending colon [facility] Diagnosis Onset Date Resolution Status Postsurgical malabsorption c hronic Vitamin B12 deficiency chron ic Postsurgical malabsorption c hronic Vitamin B12 deficiency chron ic H/O gastric bypass acute Overweight (BMI 25.0-29.9) a cute Anxiety and depression chron ic Postsurgical malabsorption c hronic Vitamin B12 deficiency chron ic Obesity (BMI 30.0-34.9) acut e Anxiety and depression chron [facility] Work Phone: Evaluation note* Diagnosis Encounter for gynecological examination (general) (routine) without abnormal findings- Primary Dense breast tissue documented in this encounter [facility]* Diagnosis Onset Date Resolution Status H/O gastric bypass acute Anxiety and depression chron ic Overweight (BMI 25.0-29.9) c hronic Postsurgical malabsorption c hronic Vitamin B12 deficiency chron ic Obesity (BMI 30.0-34.9) acut e Anxiety and depression chron ic Vitamin B12 deficiency chron ic H/O gastric bypass acute Anxiety and depression chron ic Overweight (BMI 25.0-29.9) c hronic Vitamin B12 deficiency chron ic [facility] Work Phone: Evaluation note* Diagnosis Status post fall- Primary Unspecified fall Right-sided chest wall pain Painful respiration documented in this encounter [facility] note* Diagnosis Status post fall Unspecified fall Right-sided chest wall pain Painful respiration documented in this encounter [facility] note* Diagnosis History of colon cancer- Primary Personal history of malignant neoplasm of large intestine documented in this encounter [facility] note* Diagnosis Shakiness- Primary Abnormal involuntary movements Malaise and fatigue Other malaise and fatigue documented in this encounter [facility] note* Diagnosis Tension headache- Primary documented in this encounter [facility] note* Diagnosis Lower abdominal pain Abdominal pain, other specified site documented in this encounter [facility] note* Diagnosis History of colon cancer- Primary Personal history of malignant neoplasm of large intestine documented in this encounter [facility] note* Diagnosis Elevated CEA- Primary Elevated carcinoembryonic antigen [CEA] History of colon cancer Personal history of malignant neoplasm of large intestine documented in this encounter [facility] note* Diagnosis Elevated carcinoembryonic antigen (CEA)- Primary Elevated carcinoembryonic antigen [CEA] documented in this encounter [facility] note* Diagnosis Elevated carcinoembryonic antigen (CEA) Elevated carcinoembryonic antigen [CEA] documented in this encounter [facility] for referral (narrative)* Diagnostic Procedure Only (Routine) - Pending Review Specialty Diagnoses / Procedures Referred By Jet guan Referred To Contact [facility] Diagnoses Dense breast tissue Procedures KEITH SCREENING W SHAWNA SCREENING DIGITAL BREAST TOMOSYNTHESIS BI SCREENING MAMMOGRAPHY BI 2-VIEW BREAST INC Ana Mcintosh MD [address] [place] [address] [facility] [address] [place] [address] Referral ID Status Reason Start Date Expiration Date Visits Requested Visits Authorized [id number] Pending Review Auto-Generat ed Referral 08/05/2022 09/04/2023 1 1 [facility] for referral (narrative)* Diagnostic Procedure Only (Routine) - Closed Specialty Diagnoses / Procedures Referred By Contac t Referred To Contact XR IMAGING Diagnoses Status post fall Right-sided chest wall pain Procedures XR RIBS/CHEST 3V AP RIB/OBLS/CXR RIGHT RADEX RIBS UNI W/POSTEROANT CH MINIMUM 3 VIEWS Jess Ross MD [address] [place] [address] [place] [address] Referral ID Status Reason Start Date Expiration Date V isits Requested Visits Authorized [id number] Closed Auto-Generate d Referral 10/26/2023 11/24/2024 1 1 [facility] for referral (narrative)* Outpatient Procedure (Routine) - Authorized Specialty Diagnoses / Procedures Referred By Contac t Referred To Contact [facility] Diagnoses History of colon cancer Procedures COLONOSCOPY SCREENING COLONOSCOPY FLX DX W/COLLJ SPEC WHEN Jess López MD [address] [place] [address] [facility] [address] [place] [address] Referral ID Status Reason Start Date Expiration Date Visits Requested Visits Authorized [id number] Authorized Auto-Generat ed Referral 02/23/2025 1 1 T [facility] for referral (narrative)* Outpatient Procedure (Routine) - Closed Specialty Diagnoses / Procedures Referred By Contac t Referred To Contact [facility] Diagnoses History of colon cancer Procedures COLONOSCOPY SCREENING COLONOSCOPY FLX DX W/COLLJ SPEC WHEN Jess López MD [address] [place] [address] [facility] [address] [place] [address] Referral ID Status Reason Start Date Expiration Date V isits Requested Visits Authorized [id number] Closed Auto-Generate d Referral 02/24/2024 02/23/2025 1 1 [facility] for referral (narrative)No reason for referral information availableWUpper [facility] Work Phone[facility] Narrative* Diagnostic Procedure Only (Routine) - Closed Specialty Diagnoses / Procedures Referred By Tiffanieac t Referred To Contact XR IMAGING Diagnoses Status post fall Right-sided chest wall pain Procedures XR RIBS/CHEST 3V AP RIB/OBLS/CXR RIGHT RADEX RIBS UNI W/POSTEROANT CH MINIMUM 3 VIEWS Jess Ross MD [address] [place] [address] Xr Imaging [facility] Referral ID Status Reason Start Date Expiration Date V isits Requested Visits Authorized [id number] Closed Auto-Generate d Referral 10/26/2023 11/24/2024 1 1 [facility] for visit Narrative* Outpatient Procedure (Routine) - Closed Specialty Diagnoses / Procedures Referred By Jet t Referred To Contact [facility] Diagnoses History of colon cancer Procedures COLONOSCOPY SCREENING COLONOSCOPY FLX DX W/COLLJ SPEC WHEN PFRMD Jess Ross MD [address] [place] [address] [facility] [address] [place] [address] Referral ID Status Reason Start Date Expiration Date V isits Requested Visits Authorized [id number] Closed Auto-Generate d Referral 02/24/2024 02/23/2025 1 1 [facility] Summary Purpose Family History No Family History [...] FoundDocuments on File Type Date Recorded Patient Lead Generation Marketing Manager Expl anation Advance Directive(s) 04/11/2020 8:28 AM Advance Directive(s) 04/02/2020 12:57 PM Advance Directive(s) 04/02/2017 8:38 AM Advance Directive(s) 06/16/2016 10:01 AM Advance Directive Response Recorded Date/ Time Advance Directives Yes July 23, 022 5:17pm Living Will Yes July 23, 2021 5:17pm Power of Tube Depatcher Yes July 23 5:17pm Advance Directive Response Recorded Date/ Time Advance Directives Yes April 5:08pm Living Will Yes April 15, 022 5:08pm Power of Tube Depatcher Yes April 15, 2022 5:08pm Advance Directive Response Recorded Date/ Time Advance Directives Yes July 08 6:20pm Living Will Yes July 08, 2022 6:20pm Power of Tube Depatcher Yes July 08 6:20pm Advance Directive Response Recorded Date/ Time Advance Directives Yes July 21, 025 11:02am Instructions Name Dates Details Vitamin [...] 2024 10: 11am Postsurgical malabsorption July 21 10:11am Grief reaction October 13, 2024 12:5 [...] 2OOMG VENOFER October 23, 2024 11:4 8am Chief Complaint Admit Date 3 M FU July 21, 2024 10: 11am 3 M FU October 13, 2024 12:5 4pm 2OOMG VENOFER October 20, 2024 10:1 9am 2OOMG VENOFER October 23, 2024 11:4 8am 2OOMG VENOFER October 25, 2024 11:5 9am Chief Complaint Admit Date 3 M FU July 21, 2024 10: 11am 3 M FU October 13, 2024 12:5 4pm 2OOMG VENOFER October 20, 2024 10:1 9am 2OOMG VENOFER October 23, 2024 11:4 8am 2OOMG VENOFER October 25, 2024 11:5 9am 2OOMG VENOFER October 27, 2024 9:55 am Chief Complaint Admit Date 3 M FU July 21, 2024 10: 11am 3 M FU October 13, 2024 12:5 4pm 2OOMG VENOFER October 20, 2024 10:1 9am 2OOMG VENOFER October 23, 2024 11:4 8am 2OOMG VENOFER October 25, 2024 11:5 9am 2OOMG VENOFER October 27, 2024 9:55 am 2OOMG VENOFER October 30, 2024 11:5 3am Chief Complaint Admit Date 3 M FU July 21, 2024 10: 11am 3 M FU October 13, 2024 12:5 4pm 2OOMG VENOFER October 20, 2024 10:1 9am 2OOMG VENOFER October 23, 2024 11:4 8am 2OOMG VENOFER October 25, 2024 11:5 9am 2OOMG VENOFER October 27, 2024 9:55 am 2OOMG VENOFER October 30, 2024 11:5 3am B12 SHOT November 10, 2024 7:59 am Chief Complaint Admit Date 3 M FU October 13, 2024 12:5 4pm 2OOMG VENOFER October 20, 2024 10:1 9am 2OOMG VENOFER October 23, 2024 11:4 8am 2OOMG VENOFER October 25, 2024 11:5 9am 2OOMG VENOFER October 27, 2024 9:55 am 2OOMG VENOFER October 30, 2024 11:5 3am B12 SHOT November 10, 2024 7:59 am B12 December 08, 2024 8:1 3am Reason for Visit Admit Date Grief reaction October 13, 2024 12:5 4pm Anemia October 13, 2024 12:5 4pm Anxiety and depression October 13, 2024 1 2:54pm Chronic diarrhea October 13, 2024 12:5 4pm Dermatitis October 13, 2024 12:5 4pm Postsurgical malabsorption October 13 12:54pm Postsurgical malabsorption November 10 7:59am Vitamin B12 deficiency November 10, 2024 7 :59am Chief Complaint Admit Date 3 M FU October 13, 2024 12:5 4pm 2OOMG VENOFER October 20, 2024 10:1 9am 2OOMG VENOFER October 23, 2024 11:4 8am 2OOMG VENOFER October 25, 2024 11:5 9am 2OOMG VENOFER October 27, 2024 9:55 am 2OOMG VENOFER October 30, 2024 11:5 3am B12 SHOT November 10, 2024 7:59 am B12 December 08, 2024 8:1 3am 3 M FU/B12 INJ January 12, 2025 1:22pm Reason for Visit Admit Date Grief reaction October 13, 2024 12:5 4pm Anemia October 13, 2024 12:5 4pm Anxiety and depression October 13, 2024 1 2:54pm Chronic diarrhea October 13, 2024 12:5 4pm Dermatitis October 13, 2024 12:5 4pm Postsurgical malabsorption October 13 12:54pm Postsurgical malabsorption November 10 7:59am Vitamin B12 deficiency November 10, 2024 7 :59am Vitamin B12 deficiency December 08, 2024 8:13am Medications Administered Section Inactive Administered Medications - up to 3 most recent administrations Medication Order MAR Action Action Date Dose Rate Site triamcinolone acetonide 10 mg injection (KeNALog 10) 10 mg, INTRA-ARTICULAR, ONCE, 1 dose, On Jennifer 10/02/21 at 1800 Given 09/18/2021 5:34 PM EDT 10 mg Reason for Referral Specialty Diagnoses / Procedures Referred By Contac t Referred To Contact Diagnoses Tension headache Jess Ross MD [address] [place] [address] Referral ID Status Reason Start Date Expiration Date Visits Re quested Visits Authorized [id number] Closed 1 1 Specialty Diagnoses / Procedures Referred By Contac t Referred To Contact CT IMAGING Diagnoses Lower abdominal pain Procedures CT ABD/PEL W IVCON CT ABD & PELVIS W/CONTRAST Jess Ross MD [address] [place] [address] [place] [address] Referral ID Status Reason Start Date Expiration Date V isits Requested Visits Authorized [id number] Closed Auto-Generate d Referral 02/06/2024 05/02/2024 2 2 Additional Source Comments INFORMATION SOURCE (unrecogn ized section and content) DATE CREATED AUTHOR 10/21/2017 [facility] DATE CREATED AUTHOR AUTHOR'S ORGANIZ ATION 09/10/2018 [facility] DATE CREATED AUTHOR AUTHOR'S ORGANIZ ATION 03/03/2024 [facility] DATE CREATED AUTHOR AUTHOR'S ORGANIZ ATION 02/13/2025 [facility] Source Comments (unrecognize d section and content) In the event this informatio n is protected by the Federal Confidentiality of Alcohol and Drug Abuse Patient Records regulations: The Federal rules restrict any use of the information to criminally investigate or prosecute any alcohol or drug abuse patient.[facility] CenterIn the event this information is protected by the Federal Confidentiality of Alcohol and Drug Abuse Patient Records regulations: The Federal rules restrict any use of the information to criminally investigate or prosecute any alcohol or drug abuse patient.[facility] CenterIn the event this information is protected by the Federal Confidentiality of Alcohol and Drug Abuse Patient Records regulations: The Federal rules restrict any use of the information to criminally investigate or prosecute any alcohol or drug abuse patient.[facility] CenterIn the event this information is protected by the Federal Confidentiality of Alcohol and Drug Abuse Patient Records regulations: The Federal rules restrict any use of the information to criminally investigate or prosecute any alcohol or drug abuse patient.[facility] CenterIn the event this information is protected by the Federal Confidentiality of Alcohol and Drug Abuse Patient Records regulations: The Federal rules restrict any use of the information to criminally investigate or prosecute any alcohol or drug abuse patient.[facility] CenterIn the event this information is protected by the Federal Confidentiality of Alcohol and Drug Abuse Patient Records regulations: The Federal rules restrict any use of the information to criminally investigate or prosecute any alcohol or drug abuse patient.[facility] CenterIn the event this information is protected by the Federal Confidentiality of Alcohol and Drug Abuse Patient Records regulations: The Federal rules restrict any use of the information to criminally investigate or prosecute any alcohol or drug abuse patient.[facility] CenterIn the event this information is protected by the Federal Confidentiality of Alcohol and Drug Abuse Patient Records regulations: The Federal rules restrict any use of the information to criminally investigate or prosecute any alcohol or drug abuse patient.[facility] CenterIn the event this information is protected by the Federal Confidentiality of Alcohol and Drug Abuse Patient Records regulations: The Federal rules restrict any use of the information to criminally investigate or prosecute any alcohol or drug abuse patient.[facility] CenterIn the event this information is protected by the Federal Confidentiality of Alcohol and Drug Abuse Patient Records regulations: The Federal rules restrict any use of the information to criminally investigate or prosecute any alcohol or drug abuse patient.[facility] Center[facility] the event this information is protected by the Federal Confidentiality of Alcohol and Drug Abuse Patient Records regulations: The Federal rules restrict any use of the information to criminally investigate or prosecute any alcohol or drug abuse patient.[facility] CenterIn the event this information is protected by the Federal Confidentiality of Alcohol and Drug Abuse Patient Records regulations: The Federal rules restrict any use of the information to criminally investigate or prosecute any alcohol or drug abuse patient.[facility] CenterIn the event this information is protected by the Federal Confidentiality of Alcohol and Drug Abuse Patient Records regulations: The Federal rules restrict any use of the information to criminally investigate or prosecute any alcohol or drug abuse patient.[facility] CenterIn the event this information is protected by the Federal Confidentiality of Alcohol and Drug Abuse Patient Records regulations: The Federal rules restrict any use of the information to criminally investigate or prosecute any alcohol or drug abuse patient.[facility] CenterIn the event this information is protected by the Federal Confidentiality of Alcohol and Drug Abuse Patient Records regulations: The Federal rules restrict any use of the information to criminally investigate or prosecute any alcohol or drug abuse patient.[facility] CenterIn the event this information is protected by the Federal Confidentiality of Alcohol and Drug Abuse Patient Records regulations: The Federal rules restrict any use of the information to criminally investigate or prosecute any alcohol or drug abuse patient.[facility] CenterIn the event this information is protected by the Federal Confidentiality of Alcohol and Drug Abuse Patient Records regulations: The Federal rules restrict any use of the information to criminally investigate or prosecute any alcohol or drug abuse patient.[facility] CenterIn the event this information is protected by the Federal Confidentiality of Alcohol and Drug Abuse Patient Records regulations: The Federal rules restrict any use of the information to criminally investigate or prosecute any alcohol or drug abuse patient.[facility] CenterIn the event this information is protected by the Federal Confidentiality of Alcohol and Drug Abuse Patient Records regulations: The Federal rules restrict any use of the information to criminally investigate or prosecute any alcohol or drug abuse patient.[facility] CenterIn the event this information is protected by the Federal Confidentiality of Alcohol and Drug Abuse Patient Records regulations: The Federal rules restrict any use of the information to criminally investigate or prosecute any alcohol or drug abuse patient.[facility] CenterIn the event this information is protected by the Federal Confidentiality of Alcohol and Drug Abuse Patient Records regulations: The Federal rules restrict any use of the information to criminally investigate or prosecute any alcohol or drug abuse patient.[facility] Reason for Visit (unrecogniz ed section and content) Reason Comments Radiology CT Specialty Diagnoses / Procedures Referred By Jet guan Referred To Contact CT IMAGING Diagnoses Lower abdominal pain Procedures CT ABD/PEL W IVCON CT ABD & PELVIS W/CONTRAST Jess Ross MD [address] [facility] [place] [address] [place] [id number] Referral ID Status Reason Start Date Expiration Date V isits Requested Visits Authorized [id number] Closed Auto-Generate d Referral 02/06/2024 05/02/2024 2 [...] October 13, 2024 End: October 13, 2024 Flight Kitchen Manager Relationship Specialty Start Date End Date Leatha Fuentes MD PCP - General Internal Medicine 07/10/19 Flight Kitchen Manager Relationship Specialty Start Date End Date Leatha Fuentes MD PCP - General Internal Medicine 07/10/19 Flight Kitchen Manager Relationship Specialty Start Date End Date Leatha Fuentes MD PCP - General Internal Medicine 07/10/19 Flight Kitchen Manager Relationship Specialty Start Date End Date Leatha Fuentes MD PCP - General Internal Medicine 07/10/19 Flight Kitchen Manager Relationship Specialty Start Date End Date Leatha Fuentes MD PCP - General Internal Medicine 07/10/19 Team Status: Active Member Role Status Dates Yamel Castaneda PERFORMANCE ARCHITECT, PERFORMANCE ARCHITECT-C Family Provider Active Dr. Leatha Fuentes MD Primary Care Provider Active Team Status: Inactive Member Role Status Dates Dr. Leatha Fuentes MD Primary Care P alexandru, Attending Provider, Referring Provider Active Flight Kitchen Manager Relationship Specialty Start Date End Date Leatha Fuentes MD PCP - General Internal Medicine 07/10/19 Team Status: Inactive Member Role Status Dates Dr. Leatha Fuentes MD Primary Care Provider, Refer ring Provider Active Steven Vanessa PERFORMANCE ARCHITECT, PERFORMANCE ARCHITECT-C Attending Provider Active Team Status: Inactive Member Role Status Dates Dr. Leatha Fuentes MD Primary Care Provider Active Dr. Ana Hernández MD Attending Provider, Referring Provider Active Flight Kitchen Manager Relationship Specialty Start Date End Date Leatha Fuentes MD PCP - General Internal Medicine 07/10/19 Flight Kitchen Manager Relationship Specialty Start Date End Date Leatha Fuentes MD PCP - General Internal Medicine 07/10/19 Flight Kitchen Manager Relationship Specialty Start Date End Date Leatha Fuentes MD PCP - General Internal Medicine 07/10/19 Flight Kitchen Manager Relationship Specialty Start Date End Date Leatha Fuentes MD PCP - General Internal Medicine 07/10/19 Flight Kitchen Manager Relationship Specialty Start Date End Date Leatha Fuentes MD PCP - General Internal Medicine 07/10/19 Flight Kitchen Manager Relationship Specialty Start Date End Date Leatha Fuentes MD PCP - General Internal Medicine 07/10/19 Flight Kitchen Manager Relationship Specialty Start Date End Date Leatha uFentes MD PCP - General Internal Medicine 07/10/19 Flight Kitchen Manager Relationship Specialty Start Date End Date Leatha Fuentes MD PCP - General Internal Medicine 07/10/19 Flight Kitchen Manager Relationship Specialty Start Date End Date Leatha Fuentes MD PCP - General Internal Medicine 07/10/19 Flight Kitchen Manager Relationship Specialty Start Date End Date Leatha Fuentes MD PCP - General Internal Medicine 07/10/19 Flight Kitchen Manager Relationship Specialty Start Date End Date Leatha Fuentes MD PCP - General Internal Medicine 07/10/19 Flight Kitchen Manager Relationship Specialty Start Date End Date Leatha Fuentes MD PCP - General Internal Medicine 07/10/19 Flight Kitchen Manager Relationship Specialty Start Date End Date Leatha Fuentes MD PCP - General Internal Medicine 07/10/19 Flight Kitchen Manager Relationship Specialty Start Date End Date Leatha [...] October 23, 2024 End: October 23, 2024 Team Status: Inactive Member Role Status Dates Dr. Leatha Fuentes MD Primary Care Provider Active Start: October 25, 2024 End: October 25, 2024 Dr. Leatha Fuentes MD Attending Provider Active Start: October 25, 2024 End: October 25, 2024 Dr. Leatha Fuentes MD Referring Provider Active Start: October 25, 2024 End: October 25, 2024 Team Status: Active Member Role/Relationship Status Dates Dr. Leatha Fuentes MD Primary Care Provider Active Team Status: Inactive Member Role/Relationship Status Dates Dr. Leatha Fuentes MD Primary Care Provider Active Start: July 21, 2024 End: July 21, 2024 Dr. Leatha Fuentes MD Attending Provider Active Start: July 21, 2024 End: July 21, 2024 Dr. Leatha Fuentes MD Referring Provider Active Start: July 21, 2024 End: July 21, 2024 Team Status: Inactive Member Role/Relationship Status Dates Dr. Leatha Fuentes MD Primary Care Provider Active Start: July 21, 2024 End: July 21, 2024 Dr. Leatha Fuentes MD Attending Provider Active Start: July 21, 2024 End: July 21, 2024 Dr. Leatha Fuentes MD Referring Provider Active Start: July 21, 2024 End: July 21, 2024 Team Status: Inactive Member Role/Relationship Status Dates Dr. Leatha Fuentes MD Primary Care Provider Active Start: October 13, 2024 End: October 13, 2024 Dr. Leatha Fuentes MD Attending Provider Active Start: October 13, 2024 End: October 13, 2024 Dr. Leatha Fuentes MD Referring Provider Active Start: October 13, 2024 End: October 13, 2024 Team Status: Inactive Member Role/Relationship Status Dates Dr. Leatha Fuentes MD Primary Care Provider Active Start: October 13, 2024 End: October 13, 2024 Dr. Leatha Fuentes MD Attending Provider Active Start: October 13, 2024 End: October 13, 2024 Dr. Leatha Fuentes MD Referring Provider Active Start: October 13, 2024 End: October 13, 2024 Team Status: Inactive Member Role/Relationship Status Dates Dr. Leatha Fuentes MD Primary Care Provider Active Start: October 20, 2024 End: October 20, 2024 Dr. Leatha Fuentes MD Attending Provider Active Start: October 20, 2024 End: October 20, 2024 Dr. Leatha Fuentes MD Referring Provider Active Start: October 20, 2024 End: October 20, 2024 Team Status: Inactive Member Role/Relationship Status Dates Dr. Leatha Fuentes MD Primary Care Provider Active Start: October 23, 2024 End: October 23, 2024 Dr. Leatha Fuentes MD Attending Provider Active Start: October 23, 2024 End: October 23, 2024 Dr. Leatha Fuentes MD Referring Provider Active Start: October 23, 2024 End: October 23, 2024 Team Status: Inactive Member Role/Relationship Status Dates Dr. Leatha Fuentes MD Primary Care Provider Active Start: October 25, 2024 End: October 25, 2024 Dr. Leatha Fuentes MD Attending Provider Active Start: October 25, 2024 End: October 25, 2024 Dr. Leatha Fuentes MD Referring Provider Active Start: October 25, 2024 End: October 25, 2024 Team Status: Inactive Member Role/Relationship Status Dates Dr. Leatha Fuentes MD Primary Care Provider Active Start: October 27, 2024 End: October 27, 2024 Dr. Leatha Fuentes MD Attending Provider Active Start: October 27, 2024 End: October 27, 2024 Dr. Leatha Fuentes MD Referring Provider Active Start: October 27, 2024 End: October 27, 2024 Team Status: Inactive Member Role/Relationship Status Dates Dr. Leatha Fuentes MD Primary Care Provider Active Start: October 30, 2024 End: October 30, 2024 Dr. Leatha Fuentes MD Attending Provider Active Start: October 30, 2024 End: October 30, 2024 Dr. Leatha Fuentes MD Referring Provider Active Start: October 30, 2024 End: October 30, 2024 Team Status: Inactive Member Role/Relationship Status Dates Dr. Leatha Fuentes MD Primary Care Provider Active Start: November 10, 2024 End: November 10, 2024 Dr. Leatha Fuentes MD Referring Provider Active Start: November 10, 2024 End: November 10, 2024 BIM NURSE Attending Provider Active Start: 2024 End: November 10, 2024 Team Status: Inactive Member Role/Relationship Status Dates Dr. Leatha Fuentes MD Primary Care Provider Active Start: October 13, 2024 End: October 13, 2024 Dr. Leatha Fuentes MD Attending Provider Active Start: October 13, 2024 End: October 13, 2024 Dr. Leatha Fuentes MD Referring Provider Active Start: October 13, 2024 End: October 13, 2024 Team Status: Inactive Member Role/Relationship Status Dates Dr. Leatha Fuentes MD Primary Care Provider Active Start: October 13, 2024 End: October 13, 2024 Dr. Leatha Fuentes MD Attending Provider Active Start: October 13, 2024 End: October 13, 2024 Dr. Leatha Fuentes MD Referring Provider Active Start: October 13, 2024 End: October 13, 2024 Team Status: Inactive Member Role/Relationship Status Dates Dr. Leatha Fuentes MD Primary Care Provider Active Start: October 20, 2024 End: October 20, 2024 Dr. Leatha Fuentes MD Attending Provider Active Start: October 20, 2024 End: October 20, 2024 Dr. Leatha Fuentes MD Referring Provider Active Start: October 20, 2024 End: October 20, 2024 Team Status: Inactive Member Role/Relationship Status Dates Dr. Leatha Fuentes MD Primary Care Provider Active Start: October 23, 2024 End: October 23, 2024 Dr. Leatha Fuentes MD Attending Provider Active Start: October 23, 2024 End: October 23, 2024 Dr. Leatha Fuentes MD Referring Provider Active Start: October 23, 2024 End: October 23, 2024 Team Status: Inactive Member Role/Relationship Status Dates Dr. Leatha Fuentes MD Primary Care Provider Active Start: October 25, 2024 End: October 25, 2024 Dr. Leatha Fuentes MD Attending Provider Active Start: October 25, 2024 End: October 25, 2024 Dr. Leatha Fuentes MD Referring Provider Active Start: October 25, 2024 End: October 25, 2024 Team Status: Inactive Member Role/Relationship Status Dates Dr. Leatha Fuentes MD Primary Care Provider Active Start: October 27, 2024 End: October 27, 2024 Dr. Leatha Fuentes MD Attending Provider Active Start: October 27, 2024 End: October 27, 2024 Dr. Leatha Fuentes MD Referring Provider Active Start: October 27, 2024 End: October 27, 2024 Team Status: Inactive Member Role/Relationship Status Dates Dr. Leatha Fuentes MD Primary Care Provider Active Start: October 30, 2024 End: October 30, 2024 Dr. Leatha Fuentes MD Attending Provider Active Start: October 30, 2024 End: October 30, 2024 Dr. Leatha Fuentes MD Referring Provider Active Start: October 30, 2024 End: October 30, 2024 Team Status: Inactive Member Role/Relationship Status Dates Dr. Leatha Fuentes MD Primary Care Provider Active Start: November 10, 2024 End: November 10, 2024 Dr. Leatha Fuentes MD Attending Provider Active Start: November 10, 2024 End: November 10, 2024 Dr. Leatha Fuentes MD Referring Provider Active Start: November 10, 2024 End: November 10, 2024 Team Status: Inactive Member Role/Relationship Status Dates Dr. Leatha Fuentes MD Primary Care Provider Active Start: December 08, 2024 End: December 08, 2024 Dr. Leatha Fuentes MD Referring Provider Active Start: December 08, 2024 End: December 08, 2024 BIM NURSE Attending Provider Active Start: 2024 End: December 08, 2024 Team Status: Inactive Member Role/Relationship Status Dates Dr. Leatha Fuentes MD Primary Care Provider Active Start: December 08, 2024 End: December 08, 2024 Dr. Leatha Fuentes MD Attending Provider Active Start: December 08, 2024 End: December 08, 2024 Dr. Leatha Fuentes MD Referring Provider Active Start: December 08, 2024 End: December 08, 2024 Team Status: Active Member Role/Relationship Status Dates Employee Health Attending Provider Active Start: January 11, 2025 Team Status: Inactive Member Role/Relationship Status Dates Dr. Leatha Fuentes MD Primary Care Provider Active Start: January 12, 2025 End: January 12, 2025 Dr. Leatha Fuentes MD Attending Provider Active Start: January 12, 2025 End: January 12, 2025 Dr. Leatha Fuentes MD Referring Provider Active Start: January 12, 2025 End: January 12, 2025 Goals (unrecognized section and content) Goals may [...] BE BASED ON THE PRIMARY CLINICAL RECORDS. [facility] [employer] [facility]. provides no warranty or guarantee of the accuracy or completeness of information in this document.
== END | disposition home or self-care (01) ==
LOC: OPBD 07:14
PROVIDERS: PCP Internal Medicine; Referring Provider Internal Medicine; Visit Provider Internal Medicine
DX: Z12.31 Encounter for screening mammogram for malignant neoplasm of breast (principal)
CPT/HCPCS: 77063; 77067